=== PATIENT | male | born 1955 | race Caucasian/White ===

== ENCOUNTER → 2018-01-05 11:10 | Outpatient (REF) | payer MEDICARE, MEDICAID, SELFPAY ==
[2018-01-05 18:25] LABS: Abs Immature Grans 0.01 k/cumm (0.0-0.09); Absolute Basophil Count 0.02 k/cumm (0.0-0.2); Absolute Eosinophil Count 0.09 k/cumm (0.0-0.7); Absolute Lymphocyte Count 1.75 k/cumm (1.2-3.4); Absolute Neutrophil Count 2.55 k/cumm (1.2-6.7); Basophils % 0.4; Eosinophils % 1.8; HCT 39.7 % (40.0-50.0); HGB 13.8 g/dL (13.5-17.5); Immature Grans % 0.2; Lymphocytes % 35.6; Mean Corp. HGB Concentration 34.8 g/dL (32.0-36.0); Mean Corpuscular Hemoglobin 30.9 pg (27.0-33.0); Mean Corpuscular Volume 88.8 fL (80-95); Mean Platelet Volume 11.4 fL (8.0-11.0); Monocytes % 10.2; Neutrophils % 51.8; Platelet Count 146 x1000/uL (130-400); RBC 4.47 m/cumm (4.50-6.00); White Blood Cell Count 4.92 k/cumm (4.4-10.8)
[2018-01-05 18:39] LABS: ALT 33 U/L (12-78); AST 26 U/L (15-37); Albumin 3.9 g/dL (3.4-5.0); Alkaline Phosphatase 137 U/L (46-116); BUN 18 mg/dL (7-18); Bilirubin, Total 0.7 mg/dL (0.2-1.0); CREATININE 1.21 mg/dL (0.70-1.30); Calcium 8.4 mg/dL (8.5-10.1); Chloride 105 mmol/L (98-107); Glucose 98 mg/dL (70-100); Potassium 4.1 mmol/L (3.5-5.1); Sodium 138 mmol/L (136-145); TSH 3.32 uIU/mL (0.358-3.74); Total Protein 7.1 g/dL (6.4-8.2)
== END ==
LOC: NCHCN 11:10
PROVIDERS: PCP Physician Assistant Medical; Visit Provider Physician Assistant Medical
DX: I10 Essential (primary) hypertension (principal); R41.3 Other amnesia
CPT/HCPCS: 80053; 84443; 85025

== ENCOUNTER 2018-04-05 00:58 | Outpatient (CLI) | payer MEDICARE, MEDICAID, SELFPAY ==
--- NOTE | 2018-04-05 12:48 | DI.RAD_ITS ---
SYMPTOM/DIAGNOSIS: COUGH, R05 PA AND LATERAL CHEST: Comparison is made with 19 November 2016. The heart size is normal. The lungs are clear. No infiltrate or effusion is seen. IMPRESSION: Negative chest x-ray.
== END 2018-04-05 01:18 ==
PROVIDERS: PCP Physician Assistant Medical; Visit Provider Physician Assistant Medical
DX: R05 Cough (principal)
CPT/HCPCS: 71046

== ENCOUNTER 2018-06-06 19:10 | Emergency (ER) | payer MEDICARE, MEDICAID, SELFPAY ==
[2018-06-06 19:25] VITALS: BP 146/71; PULSE 82; RESP 16; TEMP 36.7; O2SAT 97
--- NOTE | 2018-06-06 19:38 | DI.RAD_ITS ---
SYMPTOMS/DIAGNOSIS: DORSAL SWELLING, PAIN, HX OF GOUT LEFT FOOT: No fracture or dislocation is seen. There are no bony erosions. There is soft tissue swelling over the dorsum of the foot. Vascular calcifications are seen. There are mild degenerative changes of the first MTP joint. IMPRESSION: No acute abnormality.
--- NOTE | 2018-06-06 19:38 | ED.GENADUL_ITS ---
Discharge Plan Disposition Patient Disposition: HOME Condition: Stable Discharge Details Chief Complaint: Cellulitis Clinical Impression: Cellulitis Primary Care Provider: Henrique Washington V ED Provider: Napoleon Prajapati Home Meds and New Rx's Prescriptions: New acetaminophen [Mapap Extra Strength] 500 MG tablet 1,000 mg PO Q6H 5 Days Qty: 60 RF: 0 cephalexin [Keflex] 500 mg capsule 500 mg PO QID 7 Days Qty: 28 RF: 0 ibuprofen [Motrin IB] 200 MG tablet 600 mg PO Q6H 5 Days Qty: 20 RF: 0 No Action nitroglycerin [Nitrostat] 0.4 MG tablet, sublingual 1 tab Sublingual PRN RF: 0 fluoxetine [Prozac] 20 MG capsule 40 mg PO DAILY RF: 0 ibuprofen 800 MG tablet 800 mg PO TID Qty: 30 RF: 0 naproxen 500 MG tablet 500 mg PO BID PRN (Reason: Pain) Qty: 14 RF: 0 Discharge Instructions Instructions: Cellulitis (ED) Additional Instructions: Please take the antibiotic as directed. Please take Tylenol and Motrin for pain. If you notice any worsening of your symptoms, or any new symptoms such as spreading of the redness of your ankle, vomiting, diarrhea, fever, chills, shortness of breath, chest pain, numbness, weakness, or fainting , please return immediately to the emergency department for reevaluation. Please follow up with your primary care provider as soon as possible for reassessment and reevaluation. As always, it was a pleasure participating in your medical care today. Referrals: Henrique Washington V [Primary Care Provider] - Medical Decision Making <Meir Norwood MD - Last Filed: 06/06/18 19:37> 62-year-old male presents from home with 2 days of left foot pain and erythema. Right is afebrile afebrile on.. Foot is locally edematous and tender. Differential diagnosis includes gouty arthritis versus cellulitis, must exclude underlying bony abnormality. Patient referred for laboratory and x-ray. As it is change of shift, please see Dr. Prajapati's note regarding details of the patient's diagnostic find <Napoleon Prajapati DO - Last Filed: 06/06/18 21:40> This case was signed out to me my my colleague Dr. Meir Norwood. We were pending laboratory and imaging workup at that time. Patient's laboratory workup has returned, no evidence of elevated WBC count, no left shift, electrolytes are normal, renal function is benign. The patient's uric acid level is normal, CRP is slightly elevated at 1.46. Upon my reexamination of the patient he continues to demonstrate stable and reassuring vital signs, redness is mild and limited to the dorsum of the left foot. No signs of subcutaneous crepitus, compartments are soft. Capillary refill is brisk. Signs and symptoms do appear similar to mild cellulitis, however they are also clinically food products sales representative of potential gout. Clearly the patient can still have an acute episode of gout with a normal uric acid level. Because of his elevated CRP we will cautiously recommend antibiotics, will give his first dose of Keflex here and a prescription to go home with. Patient's x-ray shows no evidence of acute bony pathology. No evidence of erosive arthritis. For gout we will recommend Tylenol and Motrin for home use. Recommended holding off on naproxen for the time being. We discussed red flags which return the post importance of close PCP follow-up. I have extensively reviewed the treatment plan and discharge instructions with the patient and their family. I have addressed all patient concerns at this time. The patient and family was made aware of what symptoms to monitor for that would warrant a return to the emergency department. Discussed the plan with the patient and family, they demonstrate verbal understanding and agreement with our assessment and plan at this time. TECHNIQUE: XR Left foot 3 or more views. COMPARISON: No relevant prior studies available. FINDINGS: Bones/joints: Generative changes in the medial mid foot. Minimal narrowing of the first metatarsal phalangeal joint likely on a degenerative basis with no focal erosions. No acute fracture or subluxation. Soft tissues: Generalized soft tissue swelling. Vasculature: Atherosclerosis. IMPRESSION: No acute bony pathology. No specific radiographic evidence of an erosive arthritis. Dictated and Authenticated by: Silvia Valencia MD. HPI <Meir Norwood MD - Last Filed: 06/06/18 19:37> General Mode of arrival: ambulatory . Date/Time Provider Initiated Documentation: 06/06/18 19:10 . Limitations to Documentation: no limitations . Information obtained by: patient . History of Present Illness 62 year old M presents to the emergency department with the chief complaint of Left foot pain and redness over 2 days time., described as moderate, Quality is described as aching and dull, and is localized to the left and lower extremity. Patient started experiencing this day(s) and it has been constant. No relieving factors improve symptom(s), Other factors that worsen symptoms (Walking) . Patient notes no other symptoms.. Patient did receive the following treatments prior to arrival, none Related Data Home Medications Medication Instructions Recorded Confirmed nitroglycerin [Nitrostat] 1 tab SUBLINGUAL PRN 08/11/12 06/06/18 fluoxetine [Prozac] 40 mg PO DAILY tab-cap 06/24/17 06/06/18 ibuprofen 800 mg PO TID #30 tab 07/20/17 06/06/18 naproxen 500 mg PO BID PRN #14 tab 11/09/17 06/06/18 acetaminophen [Mapap Extra 1,000 mg PO Q6H 5 Days #60 tab 06/06/18 Strength] cephalexin [Keflex] 500 mg PO QID 7 Days #28 cap 06/06/18 ibuprofen [Motrin Ib] 600 mg PO Q6H 5 Days #20 tab 06/06/18 Previous Rx's Medication Instructions Recorded ibuprofen 800 mg PO TID #30 tab 07/20/17 naproxen 500 mg PO BID PRN #14 tab 11/09/17 acetaminophen [Mapap Extra 1,000 mg PO Q6H 5 Days #60 tab 06/06/18 Strength] cephalexin [Keflex] 500 mg PO QID 7 Days #28 cap 06/06/18 ibuprofen [Motrin Ib] 600 mg PO Q6H 5 Days #20 tab 06/06/18 Allergies Allergy/AdvReac Type Severity Reaction Status Date / Time omeprazole [From Prilosec] Allergy Intermediate Itching Unverified 06/06/18 19:31 omeprazole magnesium Allergy Intermediate Itching Unverified 06/06/18 19:31 [From Prilosec] oxycodone Allergy Itching Unverified 06/06/18 19:31 codeine [Codeine] AdvReac NAUSEA Unverified 06/06/18 19:31 General Stated Complaint: Cellulitis CATAI: 3 Review of Systems <Meir Norwood MD - Last Filed: 06/06/18 19:37> Review of Systems 6 systems reviewed and otherwise negative PFSH <Meir Norwood MD - Last Filed: 06/06/18 19:37> Medical History Blood glucose elevated (Chronic) Alcohol abuse (Chronic) Hypertension (Chronic) Memory impairment (Chronic) Situational depression (Acute) Surgical History Appendectomy (~2007) Arthroplasty EXOSTECTOMY Social History Smoking/Tobacco Use Status: Never Exam <Meir Norwood MD - Last Filed: 06/06/18 19:37> Narrative Exam Narrative: GEN: awake, alert, oriented 3. Pleasant, well groomed, interactive. HEAD: Normocephalic, atraumatic ENT: Mucous membranes moist, oropharynx unremarkable, External ear exam unremarkable EYES: PERRL, EOMI NECK: Full ROM, no RONIT, no menigismus EXT: Full ROM, edematous left foot with dorsal erythema and tenderness to palpation. There is no lymphangitic proximal streak. Neuro: Grossly normal neurologic exam, conversant, interactive. Psych: Speech fluent, thoughts congruent, affect normal Course <Meir Norwood MD - Last Filed: 06/06/18 19:37> Vital Signs Temperature 36.7 C 06/06/18 19:25 Pulse 82 06/06/18 19:25 Respiratory Rate 16 06/06/18 19:25 Blood Pressure 146/71 H 06/06/18 19:25 Pulse Oximetry 97 06/06/18 19:25 Temperature 36.7 C 06/06/18 19:25 Temperature Source Tympanic 06/06/18 19:25 Pulse 82 06/06/18 19:25 Respiratory Rate 16 06/06/18 19:25 Respiratory Effort 06/06/18 19:25 Blood Pressure 146/71 H 06/06/18 19:25 Pulse Oximetry 97 06/06/18 19:25 Oxygen Delivery Method Room Air 06/06/18 19:25 Oxygen Flow Rate 0 06/06/18 19:25 Pain Level 8 06/06/18 19:25
[2018-06-06 20:24] LABS: Abs Immature Grans 0.01 k/cumm (0.0-0.09); Absolute Basophil Count 0.02 k/cumm (0.0-0.2); Absolute Eosinophil Count 0.07 k/cumm (0.0-0.7); Absolute Monocyte Count 0.76 k/cumm (0.11-0.7); Absolute Neutrophil Count 3.44 k/cumm (1.2-6.7); Basophils % 0.3; Eosinophils % 1.1; HCT 35.8 % (40.0-50.0); HGB 12.7 g/dL (13.5-17.5); Immature Grans % 0.2; Lymphocytes % 29.5; Mean Corp. HGB Concentration 35.5 g/dL (32.0-36.0); Mean Corpuscular Hemoglobin 31.4 pg (27.0-33.0); Mean Corpuscular Volume 88.4 fL (80-95); Mean Platelet Volume 10.5 fL (8.0-11.0); Monocytes % 12.5; Neutrophils % 56.4; Platelet Count 123 x1000/uL (130-400); RBC 4.05 m/cumm (4.50-6.00); RBC Distribution Width 12.3 % (11.8-14.1)
--- NOTE | 2018-06-06 20:37 | DI.VRAD_ITS ---
EXAM: XR Left Foot Complete, 3 or more Views EXAM DATE/TIME: 06/06/2018 7:38 PM CLINICAL HISTORY: 62 years old, male; Signs and symptoms; Swelling, leg or foot; Patient HX: Dorsal swelling, pain, HX of gout TECHNIQUE: XR Left foot 3 or more views. COMPARISON: No relevant prior studies available. FINDINGS: Bones/joints: Generative changes in the medial mid foot. Minimal narrowing of the first metatarsal phalangeal joint likely on a degenerative basis with no focal erosions. No acute fracture or subluxation. Soft tissues: Generalized soft tissue swelling. Vasculature: Atherosclerosis. IMPRESSION: No acute bony pathology. No specific radiographic evidence of an erosive arthritis. Dictated and Authenticated by: Silvia Valencia MD. Ordering:BRANDI Worley MD
[2018-06-06 21:08] LABS: ALT 34 U/L (12-78); AST 24 U/L (15-37); Albumin 3.5 g/dL (3.4-5.0); Alkaline Phosphatase 175 U/L (46-116); Anion Gap 8.5 mmol/L (3-11); BUN 20 mg/dL (7-18); Bilirubin, Total 0.4 mg/dL (0.2-1.0); C-Reactive Protein 1.46 mg/dL (0.0-0.3); CO2 27.5 mmol/L (21.0-32.0); CREATININE 1.07 mg/dL (0.70-1.30); Calcium 8.7 mg/dL (8.5-10.1); Chloride 105 mmol/L (98-107); Glucose 110 mg/dL (70-100); Potassium 3.7 mmol/L (3.5-5.1); Sodium 141 mmol/L (136-145); Total Protein 6.6 g/dL (6.4-8.2); Uric Acid 6.4 mg/dL (3.5-7.2)
[2018-06-06] MEDS: Cephalexin 500 MG CAP PO (21:34)
[2018-06-06] MEDS: Ibuprofen 800 MG TAB PO (21:35)
== END 2018-06-06 21:53 | disposition home or self-care (01) ==
PROVIDERS: Emergency Medicine; Emergency Provider Student in an Organized Health Care Education/Training Program; PCP Physician Assistant Medical
DX: L03.116 Cellulitis of left lower limb (principal); I10 Essential (primary) hypertension
CPT/HCPCS: 36415; 80053; 99284; 73630; 84550; 85025; 86140

== ENCOUNTER 2018-07-02 19:12 | Emergency (ER) | payer MEDICARE, MEDICAID, SELFPAY ==
--- NOTE | 2018-07-02 19:17 | NUR.NOTE ---
pt is poor historian. has had history of coughing fits for the past few months has been following up PCP luh harrington MD and has had X-ray for it at [facility] however is unsuire of results. pt is here today because fit was exceptionally bad today
[2018-07-02 19:19] VITALS: BP 151/85; PULSE 90; RESP 17; TEMP 37.2; O2SAT 93
--- NOTE | 2018-07-02 19:31 | DI.RAD_ITS ---
SYMPTOM/DIAGNOSIS: COUGH PA AND LATERAL CHEST: Comparison is made with 04/05/18. The heart size is normal. The lungs are well inflated and clear. No infiltrate or effusion is seen. IMPRESSION: Negative chest xray.
--- NOTE | 2018-07-02 19:53 | ED.GENADUL_ITS ---
Discharge Plan Disposition Patient Disposition: HOME Condition: Stable Discharge Details Chief Complaint: RespSymp Clinical Impression: Chronic cough, Gastroesophageal reflux disease Primary Care Provider: Henrique Washington V ED Provider: Delfino Montano Home Meds and New Rx's Prescriptions: Continued nitroglycerin [Nitrostat] 0.4 MG tablet, sublingual 1 tab Sublingual PRN RF: 0 fluoxetine [Prozac] 20 MG capsule 40 mg PO DAILY RF: 0 ranitidine HCl [Zantac] 150 mg Tablet 150 mg PO DAILY Qty: 14 RF: 0 Discharge Instructions Instructions: Gastroesophageal Reflux Disease (ED), Chronic Cough (ED) Additional Instructions: Please take medication as prescribed and return to emergency department for any new or significant worsening of symptoms or further concerns you may have. Otherwise it is highly recommended that you follow-up with your primary care provider for reassessment within the next week. Referrals: Henrique Washington V [Primary Care Provider] - 1 week (For reassessment of your symptoms.) Medical Decision Making <Delfino Montano NP - Last Filed: 07/02/18 21:32> Patient presenting the emergency department for chief complaint of cough. Patient states that he has had cough for 8 months and is followed up with primary care provider and had chest x-ray with no results or changes in his meds. This evening patient's daughter states that he started coughing and had a syncopal episode immediately after the coughing spell. Patient denies any pain or discomfort at this time. Physical exam is unremarkable but patient does state some sore throat, denies any fever and chills, nausea vomiting, headache, neurological deficit weakness. Plan to check labs, EKG, and chest x-ray. Please see note below for EKG, labs are nondiagnostic with negative troponin, d- dimer of 563 but for age adjustment is negative for PE , which I have low suspicion of given patient having symptoms for 8 months. Chest x-ray reviewed and interpreted by myself as negative. I feel that patient's symptoms may be secondary to his heartburn, GERD, alcohol abuse. I feel that karie's syncopal episode was due to severe coughing. Patient has remained asymptomatic in the emergency department. Patient given GI cocktail and Zantac and informed that he should take his Zantac daily and follow-up with his primary care provider. Return precautions were discussed. After discussion of diagnosis and plan of care patient has no further needs, questions, or concerns and states clear understanding to return to the emergency department for any worsening symptoms or further concerns. <Napoleon Prajapati DO - Last Filed: 07/02/18 19:55> ECG Data Interpretation: EKG 19: 50 Rate 81, sinus rhythm, intervals normal, no significant elevations or depressions, no T wave inversions, no Q waves. Premature ventricular contraction is noted. No other abnormalities. HPI <Delfino Montano NP - Last Filed: 07/02/18 21:32> General Mode of arrival: ambulatory . Date/Time Provider Initiated Documentation: 07/02/18 19:13 . Limitations to Documentation: no limitations . Information obtained by: patient and RN notes reviewed . History of Present Illness 62 year old M presents to the emergency department with the chief complaint of Cough, Quality is described as other (Denies pain), Patient started experiencing this month(s) (8) and it has been constant. No relieving factors improve symptom(s), No exacerbating factors reported . Patient notes no other symptoms.. Patient did receive the following treatments prior to arrival, none Related Data Home Medications Medication Instructions Recorded Confirmed nitroglycerin [Nitrostat] 1 tab SUBLINGUAL PRN 08/11/12 07/02/18 fluoxetine [Prozac] 40 mg PO DAILY tab-cap 06/24/17 07/02/18 ranitidine HCl [Zantac] 150 mg PO DAILY #14 tab 07/02/18 Previous Rx's Medication Instructions Recorded ranitidine HCl [Zantac] 150 mg PO DAILY #14 tab 07/02/18 Allergies Allergy/AdvReac Type Severity Reaction Status Date / Time omeprazole [From Prilosec] Allergy Intermediate Itching Unverified 07/02/18 19:56 omeprazole magnesium Allergy Intermediate Itching Unverified 07/02/18 19:56 [From Prilosec] oxycodone Allergy Itching Unverified 07/02/18 19:56 codeine [Codeine] AdvReac NAUSEA Unverified 07/02/18 19:56 General Stated Complaint: RespSymp CATIA: 4 Review of Systems <Delfino Montano NP - Last Filed: 07/02/18 21:32> Constitutional Denies chills and Denies fever(s) ENT Reports sore throat Cardiovascular Denies chest pain, Denies chest pain at rest, Reports syncope, Denies rapid heart rate, Denies irregular heart rhythm, Denies lightheadedness, Denies palpitations, Denies dyspnea and Denies dyspnea on exertion Respiratory Reports cough, Denies hemoptysis, Denies pain on inspiration, Denies dyspnea, Denies dyspnea on exertion, Denies stridor and Denies wheezing Gastrointestinal Denies abdominal pain and Reports heartburn Neurologic Reports syncope Endocrine Denies palpitations Allergic/Immunologic Denies wheezing PFSH <Delfino Montano NP - Last Filed: 07/02/18 21:32> Medical History Blood glucose elevated (Chronic) Alcohol abuse (Chronic) Hypertension (Chronic) Memory impairment (Chronic) Situational depression (Acute) Surgical History Appendectomy (~2007) Arthroplasty EXOSTECTOMY Social History Smoking and Tabacco status: Never Exam <Delfino Montano NP - Last Filed: 07/02/18 21:32> Const General: cooperative, healthy appearing, comfortable, no acute distress, not diaphoretic and not ill appearing Nutritional Appearance: average body habitus Orientation: alert, awake and oriented x3 Limitations: mental status not altered Neck Neck: normal visual inspection, full ROM, trachea midline, supple and no anterior neck swelling Thyroid: thyroid normal Carotids: normal carotid upstroke and no bruits Chest Chest: normal inspection of the chest Resp Effort & Inspection: normal respiratory effort and able to speak in complete sentences Auscultation: clear to auscultation bilaterally Cardio Jugular venous pressure: no JVD Palpation: normal PMI Rate: regular rate Rhythm: regular rhythm Heart Sounds: S1 normal, S2 normal, no click, no gallops, no murmurs and no rubs Bruits: no abdominal aortic bruits and no carotid bruits Pulses: radial pulses present bilaterally 2+ GI Inspection: normal to inspection Palpation: soft, no aortic enlargement, no pulsatile masses and nontender Auscultation: normal bowel sounds Skin General skin exam: no rashes or lesions noted Neuro General: alert, awake, oriented x3, tone normal and moves all extremities Course <Delfino Montano NP - Last Filed: 07/02/18 21:32> Vital Signs Temperature 37.2 C 07/02/18 19:19 Pulse 90 07/02/18 19:19 Respiratory Rate 17 07/02/18 19:19 Blood Pressure 151/85 H 07/02/18 19:19 Pulse Oximetry 93 L 07/02/18 19:19 Temperature 37.2 C 07/02/18 19:19 Temperature Source Skin 07/02/18 19:19 Pulse 90 07/02/18 19:19 Respiratory Rate 17 07/02/18 19:19 Blood Pressure 151/85 H 07/02/18 19:19 Blood Pressure Position Supine 07/02/18 19:19 Pulse Oximetry 93 L 07/02/18 19:19 Oxygen Delivery Method Room Air 07/02/18 19:19 Oxygen Flow Rate 0 07/02/18 19:19 Pain Level 2 07/02/18 19:19
[2018-07-02 20:02] LABS: ALT 30 U/L (12-78); AST 22 U/L (15-37); Albumin 3.8 g/dL (3.4-5.0); Alkaline Phosphatase 136 U/L (46-116); Anion Gap 11.9 mmol/L (3-11); BUN 22 mg/dL (7-18); Bilirubin, Total 0.6 mg/dL (0.2-1.0); CO2 24.1 mmol/L (21.0-32.0); CREATININE 1.11 mg/dL (0.70-1.30); Calcium 8.9 mg/dL (8.5-10.1); Chloride 100 mmol/L (98-107); Glucose 96 mg/dL (70-100); Magnesium 2.2 mg/dL (1.8-2.4); Potassium 4.1 mmol/L (3.5-5.1); Sodium 136 mmol/L (136-145)
[2018-07-02 20:03] LABS: INR 0.9 (0.9-1.1); PTT Activated 25.7 sec (21.0-31.4)
[2018-07-02 20:04] LABS: Troponin I < 0.02 ng/mL (0.00-0.06)
[2018-07-02 20:08] LABS: Abs Immature Grans 0.03 k/cumm (0.0-0.09); Absolute Basophil Count 0.02 k/cumm (0.0-0.2); Absolute Eosinophil Count 0.08 k/cumm (0.0-0.7); Absolute Lymphocyte Count 2.05 k/cumm (1.2-3.4); Absolute Neutrophil Count 4.67 k/cumm (1.2-6.7); Basophils % 0.3; Eosinophils % 1.1; HGB 14.5 g/dL (13.5-17.5); Immature Grans % 0.4; Lymphocytes % 27.5; Mean Corp. HGB Concentration 34.5 g/dL (32.0-36.0); Mean Corpuscular Hemoglobin 30.6 pg (27.0-33.0); Mean Corpuscular Volume 88.6 fL (80-95); Mean Platelet Volume 11.1 fL (8.0-11.0); Monocytes % 8.1; Neutrophils % 62.6; Platelet Count 145 x1000/uL (130-400); RBC 4.74 m/cumm (4.50-6.00); RBC Distribution Width 12.7 % (11.8-14.1); White Blood Cell Count 7.45 k/cumm (4.4-10.8)
[2018-07-02 20:18] LABS: D-Dimer 565 ng/mlFEU (<500)
--- NOTE | 2018-07-02 20:39 | DI.VRAD_ITS ---
EXAM: XR Chest, 2 Views EXAM DATE/TIME: 07/02/2018 8:17 PM CLINICAL HISTORY: 62 years old, male; Signs and symptoms; Cough TECHNIQUE: XR of the chest, 2 views. COMPARISON: CR XR CHEST 2V PA LATERAL 04/05/2018 12:41 PM FINDINGS: Lungs: Unremarkable. No consolidation. Pleural space: Unremarkable. No pleural effusion. No pneumothorax. Heart/Mediastinum: Unremarkable. No cardiomegaly. Bones/joints: No acute skeletal pathology. IMPRESSION: Negative for acute thoracic pathology. Dictated and Authenticated by: Sudhakar Brown MD. Ordering:BOUBACAR Saleh MD
[2018-07-02] MEDS: Normal Saline Flush 10 ML SYR IVP (21:10)
--- NOTE | 2018-07-05 08:29 | CMPROGNOTE_ITS ---
Care Management Progress Note 07/05-Chad CONTENT PRODUCTION SPECIALIST requested assistance with a PCP (Aleah Washington) f/u in 1-2 weeks for chronic cough. Referral faxed to [facility] this am.
== END 2018-07-02 21:36 | disposition home or self-care (01) ==
PROVIDERS: Emergency Provider Nurse Practitioner Family; PCP Physician Assistant Medical
DX: R55 Syncope and collapse (principal); R05 Cough; K21.9 Gastro-esophageal reflux disease without esophagitis; I10 Essential (primary) hypertension
CPT/HCPCS: 36415; 80053; 93005; 99285; 71046; 83735; 84484; 85025; 85379; 85610; 85730; 93010

== ENCOUNTER → 2018-07-19 12:57 | Outpatient (BNVA) | payer MEDICARE, MEDICAID, SELFPAY | PROVIDERS: PCP Physician Assistant Medical; Referring Provider Physician Assistant Medical; Visit Provider Physical Therapy Assistant | DX: Z12.11 Encounter for screening for malignant neoplasm of colon (principal); Z86.010 Personal history of colon polyps; K21.9 Gastro-esophageal reflux disease without esophagitis; I10 Essential (primary) hypertension | CPT/HCPCS: 99212 ==

== ENCOUNTER 2018-08-13 07:27 | Day surgery (SDC) | payer MEDICARE, MEDICAID, SELFPAY ==
[2018-08-13 08:47] VITALS: BP 144/94; PULSE 77; RESP 16; TEMP 36.3; O2SAT 98
[2018-08-13] MEDS: Lactated Ringers 1,000 ML 80 ML IV (08:55)
--- NOTE | 2018-08-13 09:30 | STOM_PTH ---
PATIENT: Dylon Navarro LOC: [facility] U#:[id number] AGE/SX: 62/M ROOM: RE08/13/[address]: Pastora Noel : 1955 BED: DIS: 08/13/2018 SPEC #: [id number] RECD: 08/13/18 12:53 STATUS: CHARLETTE REMirza #: [id number] FRANCISCO: 08/13/18 09:[address]: Pastora Noel DEPT: Surgical Specimen RECD BY: Rosemarie Francis ENTERED: 08/13/18 12:55 SP TYPE: STOMACH OTHR DR: Henrique Washington V Tissues: 1 - BIOPSY BOWEL 2 - STOMACH BIOPSY 3 - STOMACH BIOPSY 4 - ESOPHAGUS BIOPSY 5 - ESOPHAGUS BIOPSY Procedures: GROSS AND MICRO LEVEL 4 Comments: [id number]
--- NOTE | 2018-08-13 10:05 | W.PM.ENDDOP ---
Date of service: 08/13/18 Time of Service: 10:05 Endoscopy Report DATE OF PROCEDURE: 08/13/18 PRE-OP DIAGNOSIS: chronic cough/ hx of A. polyps POST-OP DIAGNOSIS: other (gastropathy and divertic ) PROCEDURE: egd w/ bx CE SURGEON: Pastora Noel ANESTHESIA: GETA ESTIMATED BLOOD LOSS: 2 PATHOLOGY: other COMPLICATIONS: None DISPOSITION: same day INDICATIONS: see note PREP: Miralax FINDINGS: see notes PROCEDURE DESCRIPTION: After informed consent was obtained the patient was take to the procedure room and placed in a supine position. Monitors were applied and a time out was done. The patients name, date of , procedure type, allergies to medications and metal in their body was reviewed. A bite block was placed and the patient was sedated. Once sedated and comfortable the gastroscope was advanced through the oropharynx which was grossly normal into the esophagus. The proximal and mid-esophagus were nl. In the distal esophagus there was nl noted. The scope was advanced into the stomach and through the pylorus into the 3rd portion of the duodenum. The duodenum was noted to be nl. Biopsies were done: all specimens retrieved and no bleeding was noted. the lining of the stomach had the appearance of chronic gastropathy due to ETOH/chemical exposure- bx pd. no signs of portal HTN. no varices. no bleeding or ulceration. The scope was retracted back into the stomach and biopsies were done to rule out H. pylori. There were no ulcers. The scope was retroflexed. The cardia and fundus were noted to be normal. There is no a hiatal hernia noted. The scope was retracted back into the esophagus and biopsies were done of the GE junction to rule out Partida's. The Z line was regular. The GE junction was at 40] cm. After informed consent was obtained the patient was taken to the procedure room and placed in a left decubitous position. Monitors were applied and a time out was done. The patients name, date of , procedure, allergies to medications and metal in their body was reviewed. The patient was then sedated. Once sedated and comfortable a rectal exam was done. External exam was normal. Internal exam revealed a normal sphincter tone and no palpable masses. The prostate no palpable masses. The scope was then introduced and retrofelexed. no internal hemorrhoids were identified. The scope was then advanced to the cecum w/ out difficulty. The TI and appendiceal orifice were identified. The prep was good. The scope was then slowly retracted over 12 minutes back into the rectum. Polyps were removed at -no. pt had a moderate amount of small mouthed diverticula in the sigmoid colon. There were no signs of active bleeding or infection. The scope was removed and the patient was woken up and taken back to Same day surgery in stable condition. no bx were done of the colon. The patient tolerated the procedure well and there were no immediate complications. Follow up: The patient should follow up in 5 years unless they develop changes in bowel habits or other new gastrointestinal complaints.
--- NOTE | 2018-08-13 10:07 | W.PM.DSUDISC ---
Discharge Plan Disposition Patient Disposition: HOME Condition: Good Discharge Details Reason For Visit: egd and colonoscopy Attending Provider: Pastora Noel Primary Care Provider: Henrique Washington V Home Meds and New Rx's Prescriptions: New Dexilant 30 mg capsule,biphase delayed releas 30 mg PO DAILY Qty: 30 RF: 11 Continued nitroglycerin [Nitrostat] 0.4 MG tablet, sublingual 1 tab Sublingual PRN RF: 0 fluoxetine [Prozac] 20 MG capsule 40 mg PO DAILY RF: 0 Symbicort 160-4.5 mcg/actuation Hfa Aerosol Inhaler 1 puff INHALATION BID RF: 0 acetaminophen [Tylenol] 325 mg Capsule 500 mg PO Q6H PRNRF: 0 Discontinued bisacodyl [Dulcolax (bisacodyl)] 5 mg tablet,delayed release (DR/EC) 5 mg PO ONCE Qty: 4 RF: 0 polyethylene glycol 3350 17 gram/dose powder 238 g PO ONCE Qty: 238 RF: 0 ranitidine HCl [Zantac] 150 mg Tablet 150 mg PO DAILY Qty: 14 RF: 0 Discharge Instructions Instructions: Diverticulosis (DC), High Fiber Diet (GEN), High Fiber Diet (DC) Additional Instructions: Findings:gastropahty diverticula Follow up: Fu in office w/ Dr. Noel in 2 wks repeat CE in 5 yrs time Please call if you develop: fevers >101.5 Nausea or Vomiting Abdominal pain that is not transient DAY SURGERY UNIT POST COLONOSCOPY INSTRUCTIONS 1. Because there will be medication in your system for the next 24 hours, you may feel a little sleepy. Your coordination will be affected. Therefore: a. Do not drive or operate dangerous equipment for 24 hours. b. Do not drink alcohol beverages for 24 hours (not even beer). c. Plan to go home and rest for the day. 2. Generally there are no restrictions on your activity after a day or so has gone by, but you may feel a bit fatigued for a few days. 3 After you arrive home you may have a light meal and return to a normal diet as you can tolerate it without feeling sick to your stomach. 4. After surgery, you may feel pain or discomfort. This should be only transient, but if it persists please contact your doctor. 5. If there are any questions regarding the findings of your procedure, please feel free to contact your doctor. 6. If you are unable to contact your doctor with a problem, contact the hospital at [phone]. 7. Continue all your regular medications unless directed otherwise. I understand the above instructions and have no questions. Signature of Patient or Responsible Adult Escort Date/Time Name of Responsible Adult Escort Signature of Nurse Date/Time Activity:: no lifting over 10#'s x 24 hrs. no driving x 24 hrs Diet:: bland diet x 24 hrs Discharge Orders Discharge Orders: Discharge Order (Routine); Ordered 08/13/18 Ordered By: Pastora Noel DS: Diagnosis Discharge Diagnosis (1) Alcohol abuse: Status: Acute (2) GERD (gastroesophageal reflux disease): Status: Chronic (3) Gastropathy: Status: Acute (4) Gastropathy: Status: Acute (5) Diverticula of colon: Status: Acute
== END 2018-08-13 10:51 | disposition home or self-care (01) ==
PROVIDERS: PCP Physician Assistant Medical; Visit Provider Surgery
PROC: (CPT 43239; principal; 2018-08-13 09:15)
DX: Z12.11 Encounter for screening for malignant neoplasm of colon (principal); K57.30 Diverticulosis of large intestine without perforation or abscess without bleeding; Z86.010 Personal history of colon polyps; R05 Cough; K21.0 Gastro-esophageal reflux disease with esophagitis; K31.89 Other diseases of stomach and duodenum; K29.80 Duodenitis without bleeding; F10.10 Alcohol abuse, uncomplicated; I10 Essential (primary) hypertension
CPT/HCPCS: 43239; 45378; 88305

== ENCOUNTER → 2018-08-23 10:40 | Outpatient (BNVA) | payer MEDICARE, MEDICAID, SELFPAY | PROVIDERS: PCP Physician Assistant Medical; Referring Provider Physician Assistant Medical; Visit Provider Surgery | DX: K31.9 Disease of stomach and duodenum, unspecified (principal); K21.9 Gastro-esophageal reflux disease without esophagitis; I10 Essential (primary) hypertension | CPT/HCPCS: 99212 ==

== ENCOUNTER 2019-01-04 11:28 | Outpatient (REF) | payer MEDICARE, MEDICAID, SELFPAY ==
[2019-01-04 18:37] LABS: HCT 39.6 % (40.0-50.0); HGB 13.8 g/dL (13.5-17.5); Mean Corp. HGB Concentration 34.8 g/dL (32.0-36.0); Mean Corpuscular Hemoglobin 30.6 pg (27.0-33.0); Mean Corpuscular Volume 87.8 fL (80-95); Mean Platelet Volume 11.1 fL (8.0-11.0); Platelet Count 168 x1000/uL (130-400); RBC 4.51 m/cumm (4.50-6.00); RBC Distribution Width 13.1 % (11.8-14.1); White Blood Cell Count 4.92 k/cumm (4.4-10.8)
[2019-01-04 20:28] LABS: ALT 39 U/L (16-63); AST 26 U/L (15-37); Alkaline Phosphatase 150 U/L (46-116); Amylase 65 U/L (25-115); Anion Gap 13.1 mmol/L (3-11); BUN 16 mg/dL (7-18); Bilirubin, Direct 0.17 mg/dL (0.00-0.20); Bilirubin, Total 0.8 mg/dL (0.2-1.0); CO2 22.9 mmol/L (21.0-32.0); CREATININE 1.19 mg/dL (0.70-1.30); Calcium 8.6 mg/dL (8.5-10.1); Chloride 104 mmol/L (98-107); Glucose 123 mg/dL (70-100); Lipase 182 U/L (73-393); Potassium 3.7 mmol/L (3.5-5.1); Sodium 140 mmol/L (136-145); Total Protein 7.3 g/dL (6.4-8.2)
[2019-01-06 12:03] LABS: HBs Antibody, Quant <3.1 mIU/mL; Hepatitis B Surface Ab Negative; Hepatitis C Ab w Rflx HCV PCR Negative (NEGAT)
[2019-01-06 12:22] LABS: Hep A Total Ab w Rflx IgM Negative (NEGAT)
== END 2019-01-04 11:48 ==
LOC: NCHCN 11:28
PROVIDERS: PCP Physician Assistant Medical; Visit Provider Nurse Practitioner Family
DX: F10.10 Alcohol abuse, uncomplicated (principal); R10.11 Right upper quadrant pain; Z11.59 Encounter for screening for other viral diseases
CPT/HCPCS: 80048; 80076; 83690; 85027; 86706; 86709; 86803; 82150

== ENCOUNTER 2019-01-05 07:13 | Outpatient (CLI) | payer MEDICARE, MEDICAID, SELFPAY ==
--- NOTE | 2019-01-05 08:57 | DI.US_ITS ---
SYMPTOM/DIAGNOSIS: RUQ ABD PAIN, R10.11 ABDOMEN ULTRASOUND: Comparison is made with 06/26/15. Comparison CT scan is 11/19/16. The aorta is of normal caliber. The inferior vena cava is unremarkable. The liver is normal in size measuring 14.2 cm. There is diffuse increased echogenicity of the liver consistent with hepatic steatosis. No discrete hepatic mass is seen. The gallbladder is unremarkable. No gallbladder wall thickening, stones, pericholecystic fluid or sludge is seen. The common duct is within normal limits at .4 cm. Portions of the pancreas were not visualized. The visualized portions were unremarkable. The spleen is normal in size and appearance. The kidneys are unremarkable except for a 1.2 cm. simple cyst in the left kidney. The cyst was seen on the CT scan from 11/19/16. IMPRESSION: Hepatic steatosis.
== END 2019-01-05 07:33 ==
PROVIDERS: PCP Physician Assistant Medical; Visit Provider Nurse Practitioner Family
DX: R10.11 Right upper quadrant pain (principal); K76.0 Fatty (change of) liver, not elsewhere classified
CPT/HCPCS: 76700

== ENCOUNTER 2019-02-17 01:00 | Outpatient (CLI) | payer MEDICARE, MEDICAID, SELFPAY ==
[2019-02-17] MEDS: Breeza Beverage 473 ML BTL PO (09:56)
[2019-02-17] MEDS: Omnipaque 350 MG/ML 50 ML BTL IJ (09:56)
[2019-02-17] MEDS: Omnipaque 350 MG/ML 100 ML BTL IJ (10:59)
--- NOTE | 2019-02-17 11:00 | DI.CT_ITS ---
EXAM: CT ABDOMEN PELVIS W CLINICAL HISTORY: RT UPPER QUADRANT ABD PAIN, R10.11. TECHNIQUE: COMPARISON: ABD PELVIS WITH CONTRAST from 11/19/2016 FINDINGS: CT examination of the abdomen pelvis was performed with bolus infusion of 100 cc of Omnipaque 350 and ingestion of dilute barium. Liver is unremarkable in appearance except for a couple of very tiny lo w-attenuation lesions too small to characterize but probably representing cysts. No biliary dilatati on seen. Gallbladder unremarkable by CT criteria. Spleen is unremarkable. Pancreas appears normal. Adrenals and kidneys are unremarkable except for couple of bilateral presumed small renal cysts. A bdominal aorta is of normal diameter and no major vascular abnormality is seen. No abdominal or pelv ic adenopathy. No significant abdominal wall hernia seen. Marked colonic diverticulosis without luke dence of acute diverticulitis. IMPRESSION: No evidence of acute intra-abdominal process.
== END 2019-02-17 01:20 ==
PROVIDERS: PCP Physician Assistant Medical; Visit Provider Nurse Practitioner Family
DX: R10.11 Right upper quadrant pain (principal); K57.30 Diverticulosis of large intestine without perforation or abscess without bleeding
CPT/HCPCS: 74177; J3490; Q9967

== ENCOUNTER 2019-06-14 13:53 | Outpatient (CLI) | payer MEDICARE, MEDICAID, SELFPAY ==
--- NOTE | 2019-06-14 09:04 | DI.RAD_ITS ---
EXAM: RF BARIUM SWALLOW CLINICAL HISTORY: GLOBUS SENSATION F45.8 TECHNIQUE: 2D and realtime digital imaging was performed. CONTRAST MATERIAL: Oral barium contrast was administered. COMPARISON: No exams were available for comparison FINDINGS: Initial plain film shows heart size and pulmonary vasculature are within normal limits. Lungs are cl ear. No pleural effusion or pneumothorax is identified. Esophagus: The esophagus is patent with no evidence for erosions, fold thickening, strictures, or ma sses. With regards to the motility, there is a normal primary stripping wave. No tertiary contraction s were noted. There was penetration but no aspiration during the examination. There is a small hiat al hernia. No gastroesophageal reflux was identified during the examination. IMPRESSION: Penetration into the upper airway but no evidence of aspiration. Small hiatal hernia. No gastroesophageal reflux. FLUORO TIME: 1.55 minutes
[2019-06-14] MEDS: Barium Sulfate 60% W/V 355 ML BTL 50 ML PO (09:59)
[2019-06-14] MEDS: Barium Sulfate 700 MG TAB PO (10:00)
[2019-06-14] MEDS: Simethicone/Sod Bicarb/Cit Ac, 4 gram PACKET 1 PACKET PO (10:00)
== END 2019-06-14 14:13 ==
PROVIDERS: PCP Physician Assistant Medical; Visit Provider Nurse Practitioner Family
DX: F45.8 Other somatoform disorders (principal); K44.9 Diaphragmatic hernia without obstruction or gangrene
CPT/HCPCS: 74221; J3490

== ENCOUNTER 2019-07-22 02:15 | Outpatient (CLI) | payer MEDICARE, MEDICAID, SELFPAY ==
--- NOTE | 2019-07-22 11:14 | DI.CT_ITS ---
EXAM: CT HEAD WO CLINICAL HISTORY: H/O HEAD INJURY, Z87.828,MEMORY IMPAIRMENT, R41.3. TECHNIQUE: Imaging Protocol: Axial computed tomography images with coronal and sagittal reformatted images were created and reviewed COMPARISON: No exams were available for comparison FINDINGS: Ventricles and Extra axial spaces: Normal in size and morphology for the patient's age. Hemorrhage: None. Cerebral parenchyma: Normal. 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 Midline shift: None. Brainstem/Cerebellum: Normal. Calvarium: Normal. Visualized Paranasal sinuses/Mastoids: Complete opacification of the left frontal sinus. Opacificati on of several ethmoid air cells bilaterally. No fluid levels are present in the sinuses. Mastoid ai r cells are well pneumatized. Soft Tissues: Unremarkable. IMPRESSION: 1. No acute intracranial process. 2. Left frontal and ethmoid sinusitis. RADIATION DOSE DELIVERED: DATA REPOSITORY: All CT scans at this facility are submitted to the National Radiology Data Registry (NRDR) Dose Index Registry (DIR) with the [employer] (ACR). RADIATION OPTIMIZATION: All CT scans at this facility use at least one of these dose optimization te chniques: automated exposure control; mA and/or kV adjustment per patient size (includes targeted exa ms where dose is matched to clinical indication); or iterative reconstruction.
== END 2019-07-22 02:35 ==
PROVIDERS: PCP Nurse Practitioner Family; Visit Provider Nurse Practitioner Family
DX: R41.3 Other amnesia (principal); Z87.828 Personal history of other (healed) physical injury and trauma; J32.2 Chronic ethmoidal sinusitis; J32.1 Chronic frontal sinusitis
CPT/HCPCS: 70450

== ENCOUNTER 2020-01-03 11:56 | Outpatient (CLI) | payer MEDICARE, MEDICAID, SELFPAY ==
--- NOTE | 2020-01-03 11:45 | DI.RAD_ITS ---
EXAM: XR SHOULDER LT COMPLETE 2+V CLINICAL HISTORY: L shoulder pain TECHNIQUE: COMPARISON: CR LEFT SHOULDER COMPLETE from 06/24/2017 FINDINGS: Two views were obtained. There is apparent prior resection of the distal clavicle. There is an infe rior acromial spur. Minimal marginal osteophyte formation noted at the glenohumeral joint. There ma y be mild loss of the cartilaginous jointSpace of the glenohumeral joint. IMPRESSION: Degenerative changes as described above. RADIATION DOSE DELIVERED: Total DLP
== END 2020-01-03 12:16 ==
PROVIDERS: PCP Nurse Practitioner Family; Referring Provider Nurse Practitioner Family; Visit Provider Orthopaedic Surgery
DX: M19.012 Primary osteoarthritis, left shoulder (principal); M25.712 Osteophyte, left shoulder; M25.512 Pain in left shoulder; M75.82 Other shoulder lesions, left shoulder; I10 Essential (primary) hypertension
CPT/HCPCS: 20610; 99214; 73030; J1040

== ENCOUNTER → 2020-02-14 10:56 | Outpatient (BNVA) | payer MEDICARE, MEDICAID, SELFPAY | PROVIDERS: PCP Nurse Practitioner Family; Referring Provider Nurse Practitioner Family; Visit Provider Orthopaedic Surgery | DX: M25.512 Pain in left shoulder (principal); M75.82 Other shoulder lesions, left shoulder; I10 Essential (primary) hypertension | CPT/HCPCS: 99213 ==

== ENCOUNTER → 2020-04-10 10:28 | Outpatient (BNVA) | payer MEDICARE, MEDICAID, SELFPAY | PROVIDERS: PCP Nurse Practitioner Family; Referring Provider Nurse Practitioner Family; Visit Provider Orthopaedic Surgery | DX: M75.82 Other shoulder lesions, left shoulder (principal) | CPT/HCPCS: 20610; 99213; J1040 ==

== ENCOUNTER 2020-06-13 15:21 | Outpatient (REF) | payer OTHER, MEDICAID, SELFPAY ==
[2020-06-13 16:59] LABS: Abs Immature Grans 0.03 10^3/uL (0.0-0.06); Absolute Basophil Count 0.03 10^3/uL (0.0-0.2); Absolute Lymphocyte Count 1.73 10^3/uL (1.2-3.4); Absolute Monocyte Count 0.45 10^3/uL (0.1-0.8); Absolute Neutrophil Count 3.27 10^3/uL (1.2-6.7); Basophils % 0.5; Eosinophils % 1.8; HCT 43.6 % (40.0-50.0); HGB 14.7 g/dL (13.5-17.5); Immature Grans % 0.5; Lymphocytes % 30.8; MCH 29.1 pg (27.0-33.0); MCHC 33.7 % (32.0-36.0); MCV 86.3 fL (80-95); MPV 11.3 fL (8.0-11.0); Neutrophils % 58.4; Nucleated RBC 0 %; Platelet Count 171 10^3/uL (130-400); RBC 5.05 10^6/uL (4.36-5.78); RDW 12.5 % (11.8-14.1); RDW-SD 39.3 fL; WBC 5.61 10^3/uL (4.4-10.8)
[2020-06-13 17:37] LABS: ALT 37 U/L (16-63); AST 24 U/L (15-37); Albumin 4.4 g/dL (3.4-5.0); Alkaline Phosphatase 150 U/L (46-116); Anion Gap 9.8 mmol/L (3-11); BUN 17 mg/dL (7-18); Bilirubin, Total 0.7 mg/dL (0.2-1.0); CO2 26.2 mmol/L (21.0-32.0); CREATININE 1.1 mg/dL (0.70-1.30); Calcium 9.3 mg/dL (8.5-10.1); Chloride 102 mmol/L (98-107); Glucose 105 mg/dL (74-106); Potassium 4.3 mmol/L (3.5-5.1); Sodium 138 mmol/L (136-145); TSH (W/Ref FT4) 4.29 uIU/mL (0.36-3.74); Total Protein 7.8 g/dL (6.4-8.2)
[2020-06-13 17:56] LABS: Calculated LDL 128 mg/dL (<100); Cholesterol 234 mg/dL (<200); HDL Cholesterol 34 mg/dL (40-60); Triglyceride 364 mg/dL (<150)
[2020-06-13 18:02] LABS: Hemoglobin A1C 5.6 % (<5.7)
[2020-06-13 18:20] LABS: FREE T4 0.81 ng/dL (0.76-1.46)
== END 2020-06-13 15:22 | disposition home or self-care (01) ==
LOC: NCHCN 15:21
PROVIDERS: PCP Nurse Practitioner Family; Visit Provider Physician Assistant
DX: I10 Essential (primary) hypertension (principal); R73.9 Hyperglycemia, unspecified; F45.8 Other somatoform disorders; R41.3 Other amnesia; K21.9 Gastro-esophageal reflux disease without esophagitis
CPT/HCPCS: 80053; 80061; 83036; 84439; 84443; 85025

== ENCOUNTER 2020-07-04 13:47 | Emergency (ER) | payer OTHER, MEDICAID, SELFPAY ==
[2020-07-04 13:52] VITALS: BP 177/80; PULSE 81; RESP 16; TEMP 36.5; O2SAT 97
--- NOTE | 2020-07-04 14:15 | DI.RAD_ITS ---
EXAM: XR LUMBAR SPINE COMPLETE CLINICAL HISTORY: pain after straining back. TECHNIQUE: 2D digital imaging was performed. COMPARISON: CR CERV SP.WITH OBL OR FLEX/EXT from 02/18/2017 FINDINGS: There is no evidence of fracture or listhesis nor pars defects. There is moderate disc space narrowing at each level in the lumbosacral spine and anterior osseous li pping at multiple levels. Also multilevel degenerative facet joint changes. Sacroiliac joints appea r unremarkable. Mild scoliosis convex left. No osseous lesions. IMPRESSION: Multilevel chronic degenerative disc disease. DATA REPOSITORY: RADIATION DOSE DELIVERED:
--- NOTE | 2020-07-04 14:24 | W.ED.GENAD ---
Discharge Plan Disposition Patient Disposition: HOME Condition: Good Discharge Details Clinical Impression: Back pain Primary Care Provider: Carlos Diaz ED Provider: Rosemarie Lemus Home Meds and New Rx's Prescriptions: New prednisone 20 mg tablet 40 mg PO DAILY Qty: 10 RF: 0 cyclobenzaprine 10 mg tablet 5 mg PO TID PRNQty: 7 RF: 0 lidocaine [Lidoderm] 5 % adhesive patch,medicated 1 patch topical DAILY Qty: 15 RF: 0 No Action fluoxetine [Prozac] 20 MG capsule 40 mg PO DAILY RF: 0 acetaminophen [Tylenol] 325 mg Capsule 1,000 mg PO Q6H PRNRF: 0 lansoprazole 30 mg capsule,delayed release(DR/EC) 30 mg PO DAILY RF: 0 Discharge Instructions Additional Instructions: Take Flexeril sparingly as this medication can make you feel lightheaded, do not drive for 8 hours after taking this medication, you may take 5 mg and increase it to 10 mg every 8 hours as needed for discomfort You may also take ibuprofen 400 mg every 8 hours with food and 1 g of Tylenol every 6 hours as needed for pain Follow-up with primary care physician in 1 to 2 days for reevaluation Apply Lidoderm patches, 12 hours on, 12 hours off, no lifting more than 5 pounds, light stretching recommended Please return should you have new or worsening complaints including strength or sensation changes, or with any new or worsening symptoms Discharge Data Discharge Date/Time-TO BE ENTERED AT DEPARTURE: 07/04/20 15:58 Medical Decision Making Patient had a normal CTA of the abdomen and pelvis in 2019 Reproducible back pain X-ray per my interpretation radiology review of degenerative changes only fracture Patient will be trialed on prednisone and 5 mg Flexeril Recheck primary care physician recommended , Evidence of cauda equina syndrome Ambulatory with antalgic, steady gait Discharge home follow-up with primary physician Return precautions precautions discussed and patient expressed understanding No evidence of lumbar radiculopathy, no significant radiation pain Suspect musculoskeletal pain and strain with mechanism and clinical exam Neurovascularly intact Denies urinary symptoms Differential Diagnosis Differential Diagnosis: Lumbar radiculopathy, cauda equina syndrome, musculoskeletal back pain, SI Medical Records Medical records reviewed: Yes I reviewed the patient's medical records. HPI This 64-year-old male presents with reports of back pain which he acquired on Thursday. He removed a shopping cart from underneath his truck and felt a popping sensation in his back. He denies any strength or sensation changes. He has been taking Tylenol without alleviation in his pain. He denies any abdominal pain, chest pain, shortness of breath, changes in bowel or bladder. The pain is exacerbated with walking and position change. Patient denies any additional complaints at this time. Has a history of pain, has been in this area before reportedly. General Date/Time Provider Initiated Documentation: 07/04/20 14:04. Related Data Home Medications Medication Instructions Recorded Confirmed fluoxetine [Prozac] 40 mg PO DAILY tab-cap 06/24/17 07/04/20 acetaminophen [Tylenol] 1,000 mg PO Q6H PRN 08/13/18 07/04/20 cyclobenzaprine 5 mg PO TID PRN #7 tab 07/04/20 lansoprazole 30 mg PO DAILY 07/04/20 07/04/20 lidocaine [Lidoderm] 1 patch TOPICAL DAILY #15 ea 07/04/20 prednisone 40 mg PO DAILY #10 tab 07/04/20 Previous Rx's Medication Instructions Recorded cyclobenzaprine 5 mg PO TID PRN #7 tab 07/04/20 lidocaine [Lidoderm] 1 patch TOPICAL DAILY #15 ea 07/04/20 prednisone 40 mg PO DAILY #10 tab 07/04/20 Allergies Allergy/AdvReac Type Severity Reaction Status Date / Time omeprazole [From Prilosec] Allergy Intermediate Itching Verified 07/04/20 13:56 omeprazole magnesium Allergy Intermediate Itching Verified 07/04/20 13:56 [From Prilosec] oxycodone Allergy Itching Verified 07/04/20 13:56 codeine [Codeine] AdvReac NAUSEA Verified 07/04/20 13:56 General Stated Complaint: Nk/Back Pain CATIA: 3 Review of Systems Narrative: Review of systems negative x7 aside from indicated in HPI, specifically no changes in bowel or bladder, paresthesias, abdominal pain PENDING SALE TO [facility] Medical History (Updated 07/04/20 @ 15:44 by LUKAS Ramsey) Alcohol abuse Blood glucose elevated Chest pain Diverticula of colon Diverticulitis Dysphasia Fatty liver Gastropathy History of back pain Hypertension Memory impairment Neuropathy Situational depression Tendonitis of left rotator cuff Injected: 01/03/2020 Surgical History Appendectomy (~2007) Arthroplasty 03/09/15; DR. HERNANDEZ RIGHT SECOND TOE EXOSTECTOMY 03/09/15 DR. YODER; RIGHT GREAT TOE History of esophagogastroduodenoscopy (EGD) History of surgery on upper extremity Hx L shoulder, wrist, fingers, R arm x 8 per Pt History of surgical amputation of finger of left hand Machine related injury, R hand per pt 08/13/18 Hx of carpal tunnel repair Hx of colonoscopy 08/13/[address] [place] [address] Pastora Noel at [facility], repeat in five years. mg colo 06/05/08 - Dr Cheney - tubular adenoma, descending colon, repeat in 5 years. Family History Other Cancer Diabetes Hypertension Social History Smoking/Tobacco Use Status: Never Smoking risk assessment performed?: Yes Alcohol Intake: current Alcohol Intake frequency: a few times a week Alcohol type: beer Drug use: Never Current gender identity: male Do you feel safe at home: Yes Do you feel safe in your relationship?: Yes Exam GI Other: No abdominal bruit or pulsatile mass. No abdominal tenderness Back/Spine/Pelvis Back: no CVA tenderness and CVA tenderness Other: Pain with palpation over SI joint and lumbar spine/paraspinal region Skin Wounds: no wounds Neuro General: patient alert and patient oriented x3 Motor: strength 5/5 throughout Sensory Exam: no sensory deficits noted Other: Positive straight leg raise on right, DTRs intact bilateral lower extremities Extrem Other: Distal pulses intact, sensation intact Course Vital Signs Vital signs: Vital Signs Temperature 36.5 C 07/04/20 13:52 Pulse 81 07/04/20 13:52 Respiratory Rate 16 07/04/20 13:52 Blood Pressure 177/80 H 07/04/20 13:52 Pulse Oximetry 97 07/04/20 13:52 Temperature 36.5 C 07/04/20 13:52 Temperature Source Temporal Artery Scan 07/04/20 13:52 Pulse 81 07/04/20 13:52 Respiratory Rate 16 07/04/20 13:52 Respiratory Effort Non-Labored 07/04/20 13:55 Blood Pressure 177/80 H 07/04/20 13:52 Blood Pressure Position Sitting 07/04/20 13:52 Pulse Oximetry 97 07/04/20 13:52 Pain Level 9 07/04/20 13:52
[2020-07-04] MEDS: Ketorolac 15 MG/ML VIAL IM (14:42)
[2020-07-04] MEDS: Cyclobenzaprine 10 MG TAB 5 MG PO (14:42)
== END 2020-07-04 15:58 | disposition home or self-care (01) ==
PROVIDERS: Emergency Provider Physician Assistant; PCP Internal Medicine
DX: M54.5 Low back pain (principal); I10 Essential (primary) hypertension
CPT/HCPCS: 99284; 72110; 99283; J1885

== ENCOUNTER 2020-09-10 01:09 | Outpatient (CLI) | payer OTHER, MEDICAID, SELFPAY ==
--- NOTE | 2020-09-10 09:40 | DI.RAD_ITS ---
Exam(s) XR HIP RT COMPLETE AP PELVIS EXAM: XR HIP RT COMPLETE AP PELVIS CLINICAL HISTORY: RT HIP PAIN, M25.551. TECHNIQUE: 2D digital imaging was performed. COMPARISON: No exams were available for comparison FINDINGS: The bones are normally mineralized. No acute fracture or dislocation. Mild degenerative changes are seen in the hips bilaterally with joint space narrowing and periarticular spurring. The sacroiliac joints and symphysis pubis are intact. The soft tissues are unremarkable. IMPRESSION: Mild degenerative changes of the right hip. DATA REPOSITORY: RADIATION DOSE DELIVERED:
== END 2020-09-10 01:29 ==
PROVIDERS: PCP Internal Medicine; Visit Provider Physician Assistant
DX: M25.551 Pain in right hip (principal); M16.11 Unilateral primary osteoarthritis, right hip
CPT/HCPCS: 73502

== ENCOUNTER 2020-10-10 15:08 | Outpatient (REF) | payer OTHER, MEDICAID, SELFPAY ==
[2020-10-10 15:24] LABS: Abs Immature Grans 0.02 10^3/uL (0.0-0.06); Absolute Basophil Count 0.04 10^3/uL (0.0-0.2); Absolute Lymphocyte Count 1.93 10^3/uL (1.2-3.4); Absolute Monocyte Count 0.55 10^3/uL (0.1-0.8); Absolute Neutrophil Count 2.76 10^3/uL (1.2-6.7); Basophils % 0.7; Eosinophils % 3.6; HGB 13.3 g/dL (13.5-17.5); Immature Grans % 0.4; Lymphocytes % 35.1; MCH 29.8 pg (27.0-33.0); MCV 85.2 fL (80-95); MPV 11.2 fL (8.0-11.0); Neutrophils % 50.2; Nucleated RBC 0 %; Platelet Count 146 10^3/uL (130-400); RBC 4.46 10^6/uL (4.36-5.78); RDW 12.5 % (11.8-14.1); RDW-SD 38.7 fL
[2020-10-10 15:39] LABS: ALT 45 U/L (16-63); AST 28 U/L (15-37); Albumin 3.8 g/dL (3.4-5.0); Alkaline Phosphatase 178 U/L (46-116); Anion Gap 7.3 mmol/L (3-11); BUN 23 mg/dL (7-18); Bilirubin, Total 0.7 mg/dL (0.2-1.0); CO2 28.7 mmol/L (21.0-32.0); CREATININE 1.3 mg/dL (0.70-1.30); Calcium 8.8 mg/dL (8.5-10.1); Chloride 106 mmol/L (98-107); Estimated GFR 55.23 (mL/min/1.73m2); Glucose 113 mg/dL (74-106); Potassium 4.1 mmol/L (3.5-5.1); Sodium 142 mmol/L (136-145)
== END 2020-10-10 15:09 | disposition home or self-care (01) ==
LOC: NCHCN 15:08
PROVIDERS: PCP Internal Medicine; Visit Provider Physician Assistant
DX: M51.16 Intervertebral disc disorders with radiculopathy, lumbar region (principal); Z01.818 Encounter for other preprocedural examination
CPT/HCPCS: 80053; 85025

== ENCOUNTER 2020-12-02 11:40 | Emergency (ER) | payer OTHER, MEDICAID, SELFPAY ==
[2020-12-02 11:43] VITALS: BP 178/87; PULSE 82; RESP 18; TEMP 36.6; O2SAT 97
--- NOTE | 2020-12-02 12:00 | DI.RAD_ITS ---
Exam(s) XR TIB/FIB LT EXAM: XR TIB/FIB LT CLINICAL HISTORY: pain. TECHNIQUE: 2D digital imaging was performed COMPARISON: No exams were available for comparison FINDINGS: BONES: No acute fracture is present. No bony destructive lesion is seen. Visualized portion of knee a nd ankle joints are unremarkable. SOFT TISSUE: Mild soft tissue swelling of the calf. No radiopaque foreign bodies. IMPRESSION: No acute fracture, dislocation or radiopaque foreign body. DATA REPOSITORY: RADIATION DOSE DELIVERED:
--- NOTE | 2020-12-02 12:18 | W.ED.GENAD ---
Discharge Plan Disposition Patient Disposition: HOME Condition: Stable Discharge Details Clinical Impression: Left leg pain Primary Care Provider: Carlos Diaz ED Provider: Kushal Cifuentes Home Meds and New Rx's Prescriptions: Continued fluoxetine [Prozac] 20 MG capsule 40 mg PO DAILY RF: 0 acetaminophen [Tylenol] 325 mg Capsule 1,000 mg PO Q6H PRNRF: 0 lansoprazole 30 mg capsule,delayed release(DR/EC) 30 mg PO DAILY RF: 0 prednisone 20 mg tablet 40 mg PO DAILY Qty: 10 RF: 0 cyclobenzaprine 10 mg tablet 5 mg PO TID PRNQty: 7 RF: 0 lidocaine [Lidoderm] 5 % adhesive patch,medicated 1 patch topical DAILY Qty: 15 RF: 0 Discharge Instructions Instructions: Leg Pain (ED) Additional Instructions: CBC, CMP and x-ray do not reveal any obvious emergent process. I we will set you up with an ultrasound of your left lower extremity rule out DVT tomorrow, radiology department should be reaching out to you first thing tomorrow morning but if you do not hear from them that I recommend reaching out to them. A single dose of Lovenox was given now. After the ultrasound you will signed back into the ER for results. In the meantime please watch for new or worsening symptoms and return to the ER for any concerns Discharge Data Discharge Date/Time-TO BE ENTERED AT DEPARTURE: 12/02/20 13:51 Medical Decision Making This is a 65-year-old male, presenting for atraumatic pain and swelling associated bruising to his left lower extremity, concern for DVT. Clinically he appears well, nontoxic. Denies chest pain, shortness of breath, no evidence of tachycardia, hypoxemia, negative Homans. Clinically this appears to be a small contusion to the anterior proximal lower extremity and subsequently looks as though there is ecchymosis drawn down likely by gravity. Examination is not extremely consistent with DVT. Will obtain routine laboratory values, coags, D-dimer, and x-ray of his left tib-fib. X-ray reveals soft tissue swelling, no fracture or dislocation. Laboratory values reveal a D-dimer of 888. No evidence of leukocytosis, anemia, or other emergent process. Set the patient up for an ultrasound of his left lower extremity, venous, tomorrow. Will provide a single dose of 1 mg/kg of Lovenox now. Patient was offered a cane but declines. Patient will return to the ER after his ultrasound is completed to obtain results of his ultrasound. Patient has no additional questions or concerns at this comfortable with this plan. Standard to discharge and return precautions given. This documentation was generated using [employer] system, please disregard any oddities of phrase or misspellings. Medical Records Medical records reviewed: Yes I reviewed the patient's medical records. Imaging Data Radiologic Study: Attestation: I personally reviewed and interpreted this imaging study as follows: Imaging: X-Ray Radiologist's impression: Exam: XR Left Tibia and Fibula Exam date and time: 12/02/2020 12:05 PM Age: 65 years old Clinical indication: Pain; Lower leg; Left TECHNIQUE: Imaging protocol: XR Left tibia and fibula. Views: 2 views. COMPARISON: CR XR foot LT complete 06/06/2018 8:02 PM FINDINGS: Bones/joints: Normal. Soft tissues: Soft tissue edema along the medial calf. Vasculature: Vascular calcifications. IMPRESSION: Soft tissue swelling. No fracture identified. Lab Data Lab results reviewed: Yes I reviewed the patient's lab results. Labs: Laboratory Tests Range/Units 12/02/20 12/02/20 12/02/20 12:14 12:14 12:14 WBC (4.4-10.8) 10^3/uL 4.63 RBC (4.36-5.78) 10^6/uL 4.06 L Hgb (13.5-17.5) g/dL 12.0 L Hct (40.0-50.0) % 35.1 L MCV (80-95) fL 86.5 MCH (27.0-33.0) pg 29.6 MCHC (32.0-36.0) % 34.2 RDW (11.8-14.1) % 12.6 Plt Count (130-400) 10^3/uL 143 MPV (8.0-11.0) fL 10.1 Immature Gran % 0.2 Neutrophils % 49.0 Lymphocytes % 38.2 Monocytes % 9.3 Eosinophils % 2.4 Basophils % 0.9 Nucleated RBC % % 0 Absolute Neutrophils (1.2-6.7) 10^3/uL 2.27 Absolute Lymphocytes (1.2-3.4) 10^3/uL 1.77 Absolute Monocytes (0.1-0.8) 10^3/uL 0.43 Absolute Eosinophils (0.0-0.7) 10^3/uL 0.11 Absolute Basophils (0.0-0.2) 10^3/uL 0.04 PT (9.3-11.0) sec 9.4 INR (0.9-1.1) 0.9 APTT (21.0-27.5) sec 23.3 D-Dimer (<500) ng/mlFEU 888 H Sodium (136-145) mmol/L 141 Potassium (3.5-5.1) mmol/L 4.4 Chloride (98-107) mmol/L 106 Carbon Dioxide (21.0-32.0) mmol/L 25.6 Anion Gap (3-11) mmol/L 9.4 BUN (7-18) mg/dL 25 H Creatinine (0.70-1.30) mg/dL 1.0 Estimated GFR/1.73 m2 (mL/min/1.73m2) >= 60.00 Glucose (74-106) mg/dL 105 Calcium (8.5-10.1) mg/dL 8.4 L Total Bilirubin (0.2-1.0) mg/dL 0.7 AST (15-37) U/L 35 ALT (16-63) U/L 43 Alkaline Phosphatase (46-116) U/L 193 H Total Protein (6.4-8.2) g/dL 6.8 Albumin (3.4-5.0) g/dL 3.7 HPI General Mode of arrival: ambulatory. Date/Time Provider Initiated Documentation: 12/02/20 11:42. Limitations to Documentation: no limitations. Information obtained by: patient. HPI Narrative: This is a 65-year-old male, past medical history that includes depression, alcohol abuse, hypertension, neuropathy, presenting to the ER for concerns of left lower extremity bruising, swelling, pain that began 3 days ago. Patient is aware of any obvious injury. Denies fever, chest pain, shortness of breath, weakness. Reports that he does have baseline altered sensation secondary to neuropathy but nothing has changed from his baseline. Reports the pain is moderate, worse with movement or bearing weight. Denies history of any bleeding disorder, history of DVT or PE. Patient has not taken any medications for his symptoms. Patient states that his symptoms began just below the knee but have spread down to his ankle over the past few days. Related Data Home Medications Medication Instructions Recorded Confirmed fluoxetine [Prozac] 40 mg PO DAILY tab-cap 06/24/17 12/02/20 acetaminophen [Tylenol] 1,000 mg PO Q6H PRN 08/13/18 12/02/20 cyclobenzaprine 5 mg PO TID PRN #7 tab 07/04/20 12/02/20 lansoprazole 30 mg PO DAILY 07/04/20 12/02/20 lidocaine [Lidoderm] 1 patch TOPICAL DAILY #15 ea 07/04/20 12/02/20 prednisone 40 mg PO DAILY #10 tab 07/04/20 12/02/20 Previous Rx's Medication Instructions Recorded cyclobenzaprine 5 mg PO TID PRN #7 tab 07/04/20 lidocaine [Lidoderm] 1 patch TOPICAL DAILY #15 ea 07/04/20 prednisone 40 mg PO DAILY #10 tab 07/04/20 Allergies Allergy/AdvReac Type Severity Reaction Status Date / Time omeprazole [From Prilosec] Allergy Intermediate Itching Verified 07/04/20 13:56 omeprazole magnesium Allergy Intermediate Itching Verified 07/04/20 13:56 [From Prilosec] oxycodone Allergy Itching Verified 07/04/20 13:56 codeine [Codeine] AdvReac NAUSEA Verified 07/04/20 13:56 General Stated Complaint: Orthopedic CATIA: 3 Review of Systems Constitutional Constitutional: Denies fever(s) and Denies weakness Cardiovascular Cardiovascular: Denies chest pain and Denies dyspnea Respiratory Respiratory: Denies dyspnea Musculoskeletal Musculoskeletal: Denies deformity, Denies arthralgias, Denies numbness, Reports stiffness and Reports tingling Integumentary/Breasts Skin/Breast: Denies erythema and Denies rash Neurologic Neurologic: Denies numbness, Reports tingling and Denies weakness Hematologic/Lymphatic Hematologic/Lymphatic: Denies easy bleeding and Denies easy bruising [facility] Medical History Alcohol abuse Blood glucose elevated Chest pain Diverticula of colon Diverticulitis Dysphasia Fatty liver Gastropathy History of back pain Hypertension Memory impairment Neuropathy Situational depression Tendonitis of left rotator cuff Injected: 01/03/2020 Surgical History Appendectomy (~2007) Arthroplasty 03/09/15; DR. HERNANDEZ RIGHT SECOND TOE EXOSTECTOMY 03/09/15 DR. YODER; RIGHT GREAT TOE History of esophagogastroduodenoscopy (EGD) History of surgery on upper extremity Hx L shoulder, wrist, fingers, R arm x 8 per Pt History of surgical amputation of finger of left hand Machine related injury, R hand per pt 08/13/18 Hx of carpal tunnel repair Hx of colonoscopy 08/13/[address] [place] [address] Pastora Noel at [facility], repeat in five years. mg colo 06/05/08 - Dr Cheney - tubular adenoma, descending colon, repeat in 5 years. Family History Other Cancer Diabetes Hypertension Social History Smoking/Tobacco Use Status: Never Smoking risk assessment performed?: Yes Alcohol Intake: former Drug use: Never Substance use type: does not use Current gender identity: male Do you feel safe at home: Yes Do you feel safe in your relationship?: Yes Exam Const General: cooperative, healthy appearing, comfortable and no acute distress Orientation: alert and awake [facility] Head: normal to inspection, normocephalic and atraumatic Eyes General: appearance normal, both eyes and all related structures Conjunctivae: conjunctivae normal Neck Neck: normal visual inspection, trachea midline and supple Resp Effort & Inspection: normal respiratory effort and able to speak in complete sentences Auscultation: clear to auscultation bilaterally Cardio Rate: regular rate Rhythm: regular rhythm Skin General skin exam: no rashes or lesions noted Neuro General: patient alert, patient awake, moves all extremities and no focal motor deficits Cognition: normal cognition Speech: speech normal Gait: antalgic Motor: muscle tone normal throughout Sensory Exam: no sensory deficits noted Extrem Upper/lower leg/hip images: 1. Contusion, mild swelling and ecchymosis. Point tenderness. Skin intact. 2. Diffuse mild discomfort, ecchymosis, not completely circumferential. No petechiae rash. Skin intact. No palpable cord. Normal capillary refill and dorsalis pedal pulse. Negative Homans' sign. Calf is nontender, without swelling. Psych Appearance: grossly normal Mental Status: mental status grossly normal Course Vital Signs Vital signs: Vital Signs Temperature 36.6 C 12/02/20 11:43 Pulse 82 12/02/20 11:43 Respiratory Rate 18 12/02/20 11:43 Blood Pressure 178/87 H 12/02/20 11:43 Pulse Oximetry 97 12/02/20 11:43 Temperature 36.6 C 12/02/20 11:43 Temperature Source Temporal Artery Scan 12/02/20 11:43 Pulse 82 12/02/20 11:43 Respiratory Rate 18 12/02/20 11:43 Respiratory Effort Non-Labored 12/02/20 11:47 Blood Pressure 178/87 H 12/02/20 11:43 Blood Pressure Position Sitting 12/02/20 11:43 Pulse Oximetry 97 12/02/20 11:43 Oxygen Delivery Method Room Air 12/02/20 11:43 Oxygen Flow Rate 0 12/02/20 11:43 Pain Level 6 12/02/20 11:43
[2020-12-02 12:21] LABS: Abs Immature Grans 0.01 10^3/uL (0.0-0.06); Absolute Basophil Count 0.04 10^3/uL (0.0-0.2); Absolute Eosinophil Count 0.11 10^3/uL (0.0-0.7); Absolute Lymphocyte Count 1.77 10^3/uL (1.2-3.4); Absolute Monocyte Count 0.43 10^3/uL (0.1-0.8); Absolute Neutrophil Count 2.27 10^3/uL (1.2-6.7); Basophils % 0.9; Eosinophils % 2.4; HCT 35.1 % (40.0-50.0); Immature Grans % 0.2; Lymphocytes % 38.2; MCH 29.6 pg (27.0-33.0); MCHC 34.2 % (32.0-36.0); MCV 86.5 fL (80-95); MPV 10.1 fL (8.0-11.0); Monocytes % 9.3; Nucleated RBC 0 %; Platelet Count 143 10^3/uL (130-400); RBC 4.06 10^6/uL (4.36-5.78); RDW 12.6 % (11.8-14.1); RDW-SD 39.8 fL; WBC 4.63 10^3/uL (4.4-10.8)
[2020-12-02 12:34] LABS: ALT 43 U/L (16-63); AST 35 U/L (15-37); Albumin 3.7 g/dL (3.4-5.0); Alkaline Phosphatase 193 U/L (46-116); Anion Gap 9.4 mmol/L (3-11); BUN 25 mg/dL (7-18); Bilirubin, Total 0.7 mg/dL (0.2-1.0); CO2 25.6 mmol/L (21.0-32.0); Calcium 8.4 mg/dL (8.5-10.1); Chloride 106 mmol/L (98-107); Glucose 105 mg/dL (74-106); Potassium 4.4 mmol/L (3.5-5.1); Sodium 141 mmol/L (136-145); Total Protein 6.8 g/dL (6.4-8.2)
[2020-12-02 12:35] LABS: INR 0.9 (0.9-1.1); PTT Activated 23.3 sec (21.0-27.5); Prothrombin Time 9.4 sec (9.3-11.0)
[2020-12-02 12:51] LABS: D-Dimer 888 ng/mlFEU (<500)
--- NOTE | 2020-12-02 13:02 | DI.VRAD_ITS ---
PROCEDURE INFORMATION: Exam: XR Left Tibia and Fibula Exam date and time: 12/02/2020 12:05 PM Age: 65 years old Clinical indication: Pain; Lower leg; Left TECHNIQUE: Imaging protocol: XR Left tibia and fibula. Views: 2 views. COMPARISON: CR XR foot LT complete 06/06/2018 8:02 PM FINDINGS: Bones/joints: Normal. Soft tissues: Soft tissue edema along the medial calf. Vasculature: Vascular calcifications. IMPRESSION: Soft tissue swelling. No fracture identified. Dictated and Authenticated by: Tali Escalante MD. Ordering:BECKI Fatima MD
--- NOTE | 2020-12-02 13:09 | NUR.NOTE ---
Nursing Note: Requisition faxed to DI for LLE venous US, to be done ThursdayDecember 03 and follow up in the ED. Baylee Flores
[2020-12-02] MEDS: Enoxaparin 120 MG/0.8 ML SYR 110 MG SC (13:31)
[2020-12-02 13:39] VITALS: BP 189/99; PULSE 80; RESP 18; TEMP 36.6; O2SAT 96
[2020-12-02 13:49] VITALS: BP 189/99; PULSE 80; RESP 18; TEMP 36.6; O2SAT 96
== END 2020-12-02 13:51 | disposition home or self-care (01) ==
PROVIDERS: Emergency Provider Physician Assistant; PCP Internal Medicine
DX: M79.605 Pain in left leg (principal); R22.42 Localized swelling, mass and lump, left lower limb
CPT/HCPCS: 36415; 80053; 96372; 99284; 73590; 85025; 85379; 85610; 85730; J1650

== ENCOUNTER 2020-12-03 14:23 | Emergency (ER) | payer OTHER, MEDICAID, SELFPAY ==
[2020-12-03 14:28] VITALS: BP 181/88; PULSE 87; RESP 18; TEMP 36.7; O2SAT 97
--- NOTE | 2020-12-03 14:54 | ED.GENADUL_ITS ---
Discharge Plan Disposition Patient Disposition: HOME Condition: Stable Discharge Details Clinical Impression: Contusion of left lower leg Primary Care Provider: Carlos Diaz ED Provider: Kushal Cifuentes Home Meds and New Rx's Prescriptions: Continued fluoxetine [Prozac] 20 MG capsule 40 mg PO DAILY RF: 0 acetaminophen [Tylenol] 325 mg Capsule 1,000 mg PO Q6H PRNRF: 0 lansoprazole 30 mg capsule,delayed release(DR/EC) 30 mg PO DAILY RF: 0 prednisone 20 mg tablet 40 mg PO DAILY Qty: 10 RF: 0 cyclobenzaprine 10 mg tablet 5 mg PO TID PRNQty: 7 RF: 0 lidocaine [Lidoderm] 5 % adhesive patch,medicated 1 patch topical DAILY Qty: 15 RF: 0 Discharge Instructions Instructions: Contusion in Adults (ED) Additional Instructions: Work-up yesterday did not reveal any obvious emergent process and today your ultrasound was negative. No sign of blood clot. [id number] medications Tylenol as directed. Rest, elevate, cool compresses every 2 hours for twins. Please watch for new or worsening symptoms and return to the ER for any concerns. Otherwise I recommend reaching out your primary care provider tomorrow to discuss your ER visits and need for outpatient reevaluation Medical Decision Making 65-year-old gentleman presents for left leg bruising, swelling, pain present for the past 4 or 5 days. Seen in the ER yesterday, laboratory values revealed minimally elevated D-dimer otherwise unremarkable. X-ray was negative. Given a single dose of Lovenox and sent to get an outpatient ultrasound today. Ultrasound negative per radiology. Discussed findings with patient. Will treat as contusion, musculoskeletal discomfort. Patient does not want a cane today either. He has no additional questions or concerns and is comfortable discharge. Neuro, vascular, tendon intact. Normal dorsalis pedal pulse and capillary refill. Negative Homans' sign. Medical Records Medical records reviewed: Yes I reviewed the patient's medical records. Imaging Data Radiologic Study: Attestation: I personally reviewed and interpreted this imaging study as follows: Imaging: Ultrasound Radiologist's impression: Exam(s) US LOWER EXTREMITY VENOUS LT EXAM: US LOWER EXTREMITY VENOUS LT CLINICAL HISTORY: PAIN,SWELLING TECHNIQUE: Grayscale, color, and doppler imaging of the deep venous system of the left lower extremity was performed. COMPARISON: No exams were available for comparison FINDINGS: There is no evidence of intraluminal thrombus and there is normal compression and augmentation demonstrated within the common femoral vein, femoral vein, and popliteal vein. In the ipsilateral calf the interrogated veins also exhibit normal compression/ augmentation properties. The ipsilateral saphenofemoral junction is patent. IMPRESSION: 1. No evidence of DVT in the left lower extremity. HPI General Mode of arrival: ambulatory . Date/Time Provider Initiated Documentation: 12/03/20 14:43 . Limitations to Documentation: no limitations . Information obtained by: patient . HPI Narrative: This is a 65-year-old gentleman who presents to the ER today for ultrasound results regarding his left lower extremity, concern for DVT. I personally evaluated the patient yesterday, please refer to that note for further H&P. Today he has no acute concerns or complaints. Denies no injury or recent illness. Denies chest pain, fever, shortness of breath, numbness, tingling, weakness. Patient states that his left lower extremity feels the same as it did yesterday. He is not anticoagulated Related Data Home Medications Medication Instructions Recorded Confirmed fluoxetine [Prozac] 40 mg PO DAILY tab-cap 06/24/17 12/03/20 acetaminophen [Tylenol] 1,000 mg PO Q6H PRN 08/13/18 12/03/20 cyclobenzaprine 5 mg PO TID PRN #7 tab 07/04/20 12/03/20 lansoprazole 30 mg PO DAILY 07/04/20 12/03/20 lidocaine [Lidoderm] 1 patch TOPICAL DAILY #15 ea 07/04/20 12/02/20 prednisone 40 mg PO DAILY #10 tab 07/04/20 12/02/20 Previous Rx's Medication Instructions Recorded cyclobenzaprine 5 mg PO TID PRN #7 tab 07/04/20 lidocaine [Lidoderm] 1 patch TOPICAL DAILY #15 ea 07/04/20 prednisone 40 mg PO DAILY #10 tab 07/04/20 Allergies Allergy/AdvReac Type Severity Reaction Status Date / Time omeprazole [From Prilosec] Allergy Intermediate Itching Verified 12/03/20 14:30 omeprazole magnesium Allergy Intermediate Itching Verified 12/03/20 14:30 [From Prilosec] oxycodone Allergy Itching Verified 12/03/20 14:30 codeine [Codeine] AdvReac NAUSEA Verified 12/03/20 14:30 General Stated Complaint: Cellulitis CATIA: 3 Review of Systems Constitutional Constitutional: Denies fever(s) and Denies weakness Cardiovascular Cardiovascular: Denies chest pain and Denies dyspnea Respiratory Respiratory: Denies dyspnea Musculoskeletal Musculoskeletal: Denies arthralgias, Denies joint swelling and Denies numbness Integumentary/Breasts Skin/Breast: Denies erythema Neurologic Neurologic: Denies numbness and Denies weakness Hematologic/Lymphatic Hematologic/Lymphatic: Denies easy bleeding and Denies easy bruising [facility] Medical History Alcohol abuse Blood glucose elevated Chest pain Diverticula of colon Diverticulitis Dysphasia Fatty liver Gastropathy History of back pain Hypertension Memory impairment Neuropathy Situational depression Tendonitis of left rotator cuff Injected: 01/03/2020 Surgical History Appendectomy (~2007) Arthroplasty 03/09/15; DR. HERNANDEZ RIGHT SECOND TOE EXOSTECTOMY 03/09/15 DR. YODER; RIGHT GREAT TOE History of esophagogastroduodenoscopy (EGD) History of surgery on upper extremity Hx L shoulder, wrist, fingers, R arm x 8 per Pt History of surgical amputation of finger of left hand Machine related injury, R hand per pt 08/13/18 Hx of carpal tunnel repair Hx of colonoscopy 08/13/[address] [place] [address] Pastora Noel at [facility], repeat in five years. mg colo 06/05/08 - Dr Cheney - tubular adenoma, descending colon, repeat in 5 years. Family History Other Cancer Diabetes Hypertension Social History Smoking/Tobacco Use Status: Never Smoking risk assessment performed?: Yes Alcohol Intake: former Drug use: Never Substance use type: does not use Current gender identity: male Do you feel safe at home: Yes Do you feel safe in your relationship?: Yes Exam Const General: cooperative, healthy appearing, comfortable and no acute distress Orientation: alert and awake [facility] Head: normal to inspection, normocephalic and atraumatic Eyes General: appearance normal, both eyes and all related structures Conjunctivae: conjunctivae normal Neck Neck: normal visual inspection, trachea midline and supple Resp Effort & Inspection: normal respiratory effort and able to speak in complete sentences Auscultation: clear to auscultation bilaterally Cardio Rate: regular rate Rhythm: regular rhythm Skin General skin exam: no rashes or lesions noted Neuro General: patient alert, patient awake, moves all extremities and no focal motor deficits Sensory Exam: no sensory deficits noted Extrem General: full ROM and capillary refill normal Upper/lower leg/hip images: 1. 1. Contusion, mild swelling and ecchymosis. Point tenderness. Skin intact. 2. Diffuse mild discomfort, ecchymosis, not completely circumferential. No petechiae rash. Skin intact. No palpable cord. Normal capillary refill and dorsalis pedal pulse. Negative Homans' sign. Calf is nontender, without s welling. Psych Appearance: grossly normal Mental Status: mental status grossly normal Course Vital Signs Vital signs: Vital Signs Temperature 36.7 C 12/03/20 14:28 Pulse 87 12/03/20 14:28 Respiratory Rate 18 12/03/20 14:28 Blood Pressure 181/88 H 12/03/20 14:28 Pulse Oximetry 97 12/03/20 14:28 Temperature 36.7 C 12/03/20 14:28 Temperature Source Temporal Artery Scan 12/03/20 14:28 Pulse 87 12/03/20 14:28 Respiratory Rate 18 12/03/20 14:28 Respiratory Effort Non-Labored 12/03/20 14:32 Blood Pressure 181/88 H 12/03/20 14:28 Blood Pressure Position Sitting 12/03/20 14:28 Pulse Oximetry 97 12/03/20 14:28 Oxygen Delivery Method Room Air 12/03/20 14:28 Oxygen Flow Rate 0 12/03/20 14:28
== END 2020-12-03 15:09 | disposition home or self-care (01) ==
PROVIDERS: Emergency Provider Physician Assistant; PCP Internal Medicine
DX: S80.12XA Contusion of left lower leg, initial encounter (principal); X58.XXXA Exposure to other specified factors, initial encounter

== ENCOUNTER 2020-12-03 16:18 | Outpatient (CLI) | payer OTHER, MEDICAID, SELFPAY ==
--- NOTE | 2020-12-03 | DI.US_ITS ---
Exam(s) US LOWER EXTREMITY VENOUS LT EXAM: US LOWER EXTREMITY VENOUS LT CLINICAL HISTORY: PAIN,SWELLING TECHNIQUE: Grayscale, color, and doppler imaging of the deep venous system of the left lower extremi ty was performed. COMPARISON: No exams were available for comparison FINDINGS: There is no evidence of intraluminal thrombus and there is normal compression and augmentation demons trated within the common femoral vein, femoral vein, and popliteal vein. In the ipsilateral calf the interrogated veins also exhibit normal compression/ augmentation properti es. The ipsilateral saphenofemoral junction is patent. IMPRESSION: 1. No evidence of DVT in the left lower extremity. 2. DATA REPOSITORY:
== END 2020-12-03 16:38 ==
PROVIDERS: PCP Internal Medicine; Visit Provider Physician Assistant
DX: R22.42 Localized swelling, mass and lump, left lower limb (principal); M79.605 Pain in left leg
CPT/HCPCS: 93971

== ENCOUNTER 2020-12-17 10:23 | Emergency (ER) | payer OTHER, MEDICAID, SELFPAY ==
[2020-12-17 10:30] VITALS: BP 144/75; PULSE 77; RESP 17; TEMP 36.5; O2SAT 95
--- NOTE | 2020-12-17 11:05 | W.ED.GENAD ---
Discharge Plan Disposition Patient Disposition: HOME Condition: Good Discharge Details Clinical Impression: Tendonitis of left rotator cuff, Acute pain of left shoulder Primary Care Provider: Carlos Diaz ED Provider: Wendy Zuleta Home Meds and New Rx's Prescriptions: Continued fluoxetine [Prozac] 20 MG capsule 40 mg PO DAILY RF: 0 lansoprazole 30 mg capsule,delayed release(DR/EC) 30 mg PO DAILY RF: 0 atorvastatin 20 mg tablet 20 mg PO HS RF: 0 meloxicam 15 mg tablet 15 mg PO DAILY RF: 0 aspirin 81 mg tablet,delayed release (DR/EC) 81 mg PO DAILY RF: 0 Discharge Instructions Instructions: Tendinitis (ED), Shoulder Pain (ED) Additional Instructions: Your exam is most concerning for recurrence of your inflammation and pain of your rotator cuff. Please encourage rest, ice, elevation. Tylenol and ibuprofen as needed for discomfort. You are given an injection of steroids and numbing medicine here today. Please monitor for signs infection including heat, redness, drainage, increased pain, fever/chills. If you develop these or other new/worsening symptoms once again please seek care urgently once again. Otherwise, please follow-up with orthopedic, number listed below. Please call to make an appointment. Referrals: Efrem Jose MD [ [facility] STAFF PHYSICIAN] - Discharge Data Discharge Date/Time-TO BE ENTERED AT DEPARTURE: 12/17/20 13:24 Medical Decision Making Patient pleasant [id number] 65-year-old male presenting today with chief complaint of left shoulder pain. He reports that the past 4 days he has been having anterior and superior shoulder pain worse with movement. States that this came on after working on a car. 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 Reports that he has had surgery on this shoulder historically in the form of a rotator cuff repair. Has also had 2 rotator cuff repairs on the contralateral side. He denies any numbness or tingling. Denies any fevers or chills. Denies other injuries from the incident. On exam, patient appears uncomfortable. He is splinting the left arm against his body. He is exquisitely tender over the biceps tendon, no Anthony deformity. Also has pain laterally over the subacromial space. Forward elevation is limited to 110 degrees. External rotation is equal to contralateral side but he does have discomfort with external rotation against resistance. Internal rotation is to the gluteus. He is neurovascularly intact. Full range of motion of the elbow, wrist, hands with 5 out of 5 supervisor char house strength. She does have pain with Neer and Walls but no significant weakness compared to the contralateral side. Will obtain x-rays and give Tylenol help discomfort. Patient took ibuprofen prior to arrival. Reviewed note from orthopedics dated 04/10/2020. Patient at bedtime is being seen for tendinitis of the left rotator cuff. At that time. No evidence of full-thickness rotator cuff tear but was concern for potential superior labral tear. Patient had a subacromial joint injection at that time with Marcaine and Depo-Medrol. FINDINGS: BONES: No acute fracture is present. No bony destructive lesion is seen. There distal clavicular resection. Spurring at the inferior glenoid. Mild spurring greater tuberosity. JOINTS: No dislocation present. Glenohumeral joint space well maintained. No visible joint space calcifications. SOFT TISSUE: Normal. IMPRESSION: Postsurgical and degenerative changes. Discussed the findings with the patient. His he has done well with subacromial joint injections historically, we did discuss repeating this. Patient I discussed risks/benefits as well as expected procedural steps and possible side effects associated with this injection. He was understanding and wishes to proceed. Informed consent was signed. Please see procedure note. Patient tolerated this well. Pain immediately began to improve. Patient will follow up with orthopedics for definitive care of his shoulder pain. Return precautions were discussed, in particular signs of infection. All questions concerns were addressed and he is in agreement with this plan. [facility] General Mode of arrival: ambulatory. Date/Time Provider Initiated Documentation: 12/17/20 11:05. Limitations to Documentation: no limitations. Information obtained by: patient and RN notes reviewed. History of Present Illness 65 year old M presents to the emergency department with the chief complaint of left shoulder pain, described as moderate, with intensity rated at 6. Quality is described as aching, and is localized to the right and upper extremity. Patient reports no radiation. Patient started experiencing this day(s) and it has been constant. Immobilization improves symptom(s), Movement worsens symptoms . Patient notes no other symptoms.. Patient did receive the following treatments prior to arrival, none Related Data Home Medications Medication Instructions Recorded Confirmed fluoxetine [Prozac] 40 mg PO DAILY tab-cap 02/14/18 08/09/21 lansoprazole 30 mg PO DAILY 07/04/20 12/17/20 aspirin 81 mg PO DAILY 12/17/20 12/17/20 atorvastatin 20 mg PO HS 12/17/20 12/17/20 meloxicam 15 mg PO DAILY 12/17/20 12/17/20 Allergies Allergy/AdvReac Type Severity Reaction Status Date / Time omeprazole [From Prilosec] Allergy Intermediate Itching Verified 12/17/20 10:34 omeprazole magnesium Allergy Intermediate Itching Verified 12/17/20 10:34 [From Prilosec] oxycodone Allergy Itching Verified 12/17/20 10:34 codeine [Codeine] AdvReac NAUSEA Verified 12/17/20 10:34 General Stated Complaint: Orthopedic CATIA: 4 Review of Systems Constitutional Constitutional: Reports as per HPI, Denies chills, Denies fever(s), Denies headache(s) and Denies weakness ENT Ears, Nose, Mouth, and Throat: Denies headache(s) Cardiovascular Cardiovascular: Reports as per HPI Respiratory Respiratory: Reports as per HPI and Denies cough Musculoskeletal Musculoskeletal: Reports as per HPI and Denies tingling Integumentary/Breasts Skin/Breast: Reports as per HPI, Denies rash and Denies wounds Neurologic Neurologic: Reports as per HPI, Denies headache(s), Denies tingling, Denies paresthesias and Denies weakness [facility] Medical History Alcohol abuse Blood glucose elevated Chest pain Diverticula of colon Diverticulitis Dysphasia Fatty liver Gastropathy History of back pain Hypertension Memory impairment Neuropathy Situational depression Tendonitis of left rotator cuff Injected: 01/03/2020 Surgical History Appendectomy (~2007) Arthroplasty 03/09/15; DR. HERNANDEZ RIGHT SECOND TOE EXOSTECTOMY 03/09/15 DR. YODER; RIGHT GREAT TOE History of esophagogastroduodenoscopy (EGD) History of surgery on upper extremity Hx L shoulder, wrist, fingers, R arm x 8 per Pt History of surgical amputation of finger of left hand Machine related injury, R hand per pt 08/13/18 Hx of carpal tunnel repair Hx of colonoscopy 08/13/[address] Pastora Noel at [facility], repeat in five years. mg colo 06/05/08 - Dr Cheney - tubular adenoma, descending colon, repeat in 5 years. Family History Other Cancer Diabetes Hypertension Social History Smoking/Tobacco Use Status: Never Smoking risk assessment performed?: Yes Alcohol Intake: former Drug use: Never Substance use type: does not use Current gender identity: male Do you feel safe at home: Yes Do you feel safe in your relationship?: Yes Exam Const General: cooperative, healthy appearing, comfortable, no acute distress, well developed and well groomed Nutritional Appearance: average body habitus and well nourished Orientation: alert and awake Resp Effort & Inspection: normal respiratory effort, able to speak in complete sentences and no respiratory distress Cardio Rate: regular rate Rhythm: regular rhythm Skin General skin exam: no rashes or lesions noted Lesions: no lesions Rashes: no rashes Trauma: no lacerations or abrasions Neuro General: patient alert and patient awake Cognition: normal cognition Speech: speech normal Gait: normal gait Motor: muscle tone normal throughout Sensory Exam: no sensory deficits noted Extrem Shoulder/upper arm images: 1. . Feeling of discomfort. No erythema, warmth or swelling. Patient is splinting to the left arm against his body./Pain is a small over the biceps tendon. No Anthony deformity. Patient also has exquisite tenderness of the subacromial mid basal. Limited forward elevation. External rotation is equal to the contralateral side. There is limited compared to contralateral side. 2+ distal pulses, axillary nerve testing is intact. Forage motion of the elbow, wrist, and hand. Positive Neer, positive Walls Psych Appearance: grossly normal and well kempt Mental Status: mental status grossly normal Speech and Movement: speech and movement normal Course Vital Signs Vital signs: Vital Signs Temperature 36.5 C 12/17/20 10:30 Pulse 77 12/17/20 10:30 Respiratory Rate 17 12/17/20 10:30 Blood Pressure 144/75 H 12/17/20 10:30 Pulse Oximetry 95 12/17/20 10:30 Temperature 36.5 C 12/17/20 10:30 Temperature Source Temporal Artery Scan 12/17/20 10:30 Pulse 77 12/17/20 10:30 Respiratory Rate 17 12/17/20 10:30 Respiratory Effort Non-Labored 12/17/20 10:33 Blood Pressure 144/75 H 12/17/20 10:30 Blood Pressure Position Supine 12/17/20 10:30 Pulse Oximetry 95 12/17/20 10:30 Oxygen Delivery Method Room Air 12/17/20 10:30 Oxygen Flow Rate 0 12/17/20 10:30 Pain Level 6 12/17/20 10:30 Procedures Joint Aspiration/Injection Joint Asp./Inject. 1: Time Out Performed: Yes Side of body: left Joint Aspirated: shoulder Ultrasound Guidance: No Skin Prep: Povidone-Iodine1% Local Anesthetic: Bupivicaine 0.25% Amount of anesthesia used (mL): 4 Needle Size Used: 22G Total fluid obtained (mL): 0 Medication Injected, if any: Methylprednisolone Amount of Medication Injected (mls): 1 Patient Tolerated Procedure: well and no complications Complications: none
--- NOTE | 2020-12-17 11:15 | DI.RAD_ITS ---
Exam(s) XR SHOULDER LT COMPLETE 2+V EXAM: XR SHOULDER LT COMPLETE 2+V CLINICAL HISTORY: superior/anterior pain after working on car. TECHNIQUE: 2D digital imaging was performed. COMPARISON: CR XR SHOULDER LT COMPLETE 2+V from 01/03/2020 CR XR SHOULDER LT COMPLETE 2+V from 01/03/2020 MR MRI LEFT SHOULDER from 03/15/2020 FINDINGS: BONES: No acute fracture is present. No bony destructive lesion is seen. There distal clavicular resection. Spurring at the inferior glenoid. Mild spurring greater tuberosi ty. JOINTS: No dislocation present. Glenohumeral joint space well maintained. No visible joint space ca lcifications. SOFT TISSUE: Normal. IMPRESSION: Postsurgical and degenerative changes. DATA REPOSITORY: RADIATION DOSE DELIVERED:
[2020-12-17] MEDS: Acetaminophen 500 MG TAB 1000 MG PO (11:56)
[2020-12-17 13:23] VITALS: BP 137/76; PULSE 72; RESP 17; TEMP 36.5; O2SAT 97
== END 2020-12-17 13:24 | disposition home or self-care (01) ==
PROVIDERS: Emergency Provider Physician Assistant; PCP Internal Medicine
DX: M25.512 Pain in left shoulder (principal); S46.002A Unspecified injury of muscle(s) and tendon(s) of the rotator cuff of left shoulder, initial encounter; X50.9XXA Other and unspecified overexertion or strenuous movements or postures, initial encounter
CPT/HCPCS: 20610; 99281; 73030

== ENCOUNTER → 2020-12-26 13:23 | Outpatient (BNVA) | payer OTHER, MEDICAID, SELFPAY | PROVIDERS: PCP Internal Medicine; Referring Provider Internal Medicine; Visit Provider Physician Assistant Surgical | DX: M75.82 Other shoulder lesions, left shoulder (principal); M75.22 Bicipital tendinitis, left shoulder; Z98.890 Other specified postprocedural states | CPT/HCPCS: 99214 ==

== ENCOUNTER 2021-06-07 12:33 | Outpatient (REF) | payer OTHER, MEDICAID, SELFPAY ==
[2021-06-07 19:13] LABS: Abs Immature Grans 0.02 10^3/uL (0.0-0.06); Absolute Basophil Count 0.04 10^3/uL (0.0-0.2); Absolute Eosinophil Count 0.13 10^3/uL (0.0-0.7); Absolute Lymphocyte Count 1.86 10^3/uL (1.2-3.4); Absolute Monocyte Count 0.44 10^3/uL (0.1-0.8); Absolute Neutrophil Count 2.59 10^3/uL (1.2-6.7); Basophils % 0.8; Eosinophils % 2.6; HCT 40.7 % (40.0-50.0); HGB 13.9 g/dL (13.5-17.5); Immature Grans % 0.4; Lymphocytes % 36.6; MCH 29.1 pg (27.0-33.0); MCHC 34.2 % (32.0-36.0); MCV 85.3 fL (80-95); MPV 11.5 fL (8.0-11.0); Monocytes % 8.7; Neutrophils % 50.9; Nucleated RBC 0 %; Platelet Count 161 10^3/uL (130-400); RBC 4.77 10^6/uL (4.36-5.78); RDW 12.2 % (11.8-14.1); RDW-SD 38.3 fL; WBC 5.08 10^3/uL (4.4-10.8)
[2021-06-07 19:38] LABS: ALT 33 U/L (16-63); AST 21 U/L (15-37); Albumin 4.1 g/dL (3.4-5.0); Alkaline Phosphatase 173 U/L (46-116); Anion Gap 10.6 mmol/L (3-11); BUN 17 mg/dL (7-18); Bilirubin, Total 0.7 mg/dL (0.2-1.0); CO2 25.4 mmol/L (21.0-32.0); Calcium 8.7 mg/dL (8.5-10.1); Chloride 103 mmol/L (98-107); Glucose 113 mg/dL (74-106); Potassium 4.2 mmol/L (3.5-5.1); Sodium 139 mmol/L (136-145); Total Protein 7.3 g/dL (6.4-8.2)
== END 2021-06-07 12:34 | disposition home or self-care (01) ==
LOC: NCHCN 12:33
PROVIDERS: PCP Internal Medicine; Visit Provider Physician Assistant
DX: I10 Essential (primary) hypertension (principal); K92.1 Melena
CPT/HCPCS: 80053; 85025

== ENCOUNTER → 2021-06-11 10:09 | Outpatient (BNVA) | payer OTHER, MEDICAID, SELFPAY | PROVIDERS: PCP Physician Assistant; Referring Provider Physician Assistant; Visit Provider Surgery | DX: K21.9 Gastro-esophageal reflux disease without esophagitis (principal); Z12.11 Encounter for screening for malignant neoplasm of colon; Z86.010 Personal history of colon polyps | CPT/HCPCS: 99213 ==

== ENCOUNTER 2021-06-21 02:07 | Outpatient (CLI) | payer OTHER, MEDICAID, SELFPAY ==
[2021-06-21 10:12] LABS: Source Nasal/Nares
[2021-06-21 13:44] LABS: COVID-19 PCR Negative (Negative)
== END 2021-06-21 02:08 | disposition home or self-care (01) ==
LOC: LBO 02:07
PROVIDERS: PCP Physician Assistant; Visit Provider Surgery
DX: Z20.822 Contact with and (suspected) exposure to COVID-19 (principal); Z01.818 Encounter for other preprocedural examination
CPT/HCPCS: 87635

== ENCOUNTER 2021-06-21 17:34 | Emergency (ER) | payer OTHER, MEDICAID, SELFPAY ==
[2021-06-21] VITALS (8 sets, daily range): BP systolic 140–159; BP diastolic 69–88; PULSE 59–72; RESP 14–19; TEMP 36.3; O2SAT 96–97
--- NOTE | 2021-06-21 17:30 | RT.EKG_ITS ---
APPROVED REPORT Exam: Resting ECG Reason for Exam: Chest Pain Patient Location: E HR:72 bpm ECG Measurements Heart Rate 72 AXIS AZ 203 P 57 QRSd 106 QRS -6 QT 388 T 23 QTc 425 Conclusion Sinus rhythm...normal P axis, V-rate 60- 99
--- NOTE | 2021-06-21 18:30 | DI.RAD_ITS ---
Exam(s) XR PORTABLE CHEST AP EXAM: XR PORTABLE CHEST AP CLINICAL HISTORY: chest pain TECHNIQUE: 2D digital imaging was performed of the chest. Two images were obtained. AP views were obtained. COMPARISON: CR XR CHEST 2V PA LATERAL from 07/02/2018 CR,RF RF BARIUM SWALLOW from 06/14/2019 FINDINGS: MEDIASTINUM: Normal. HEART: Within normal limits in size. PULMONARY VASCULATURE: Normal. LUNGS: Clear. PLEURAL SPACE: No pleural effusion or pneumothorax. BONE:Within normal limits for the patient's age. Postsurgical changes are again seen in the right sh oulder. OTHER FINDINGS:Normal. IMPRESSION: No acute pulmonary findings. DATA REPOSITORY: RADIATION DOSE DELIVERED:
[2021-06-21 18:45] LABS: Abs Immature Grans 0.01 10^3/uL (0.0-0.06); Absolute Basophil Count 0.04 10^3/uL (0.0-0.2); Absolute Eosinophil Count 0.15 10^3/uL (0.0-0.7); Absolute Lymphocyte Count 2.37 10^3/uL (1.2-3.4); Absolute Monocyte Count 0.49 10^3/uL (0.1-0.8); Absolute Neutrophil Count 4.01 10^3/uL (1.2-6.7); Basophils % 0.6; Eosinophils % 2.1; HCT 38.8 % (40.0-50.0); HGB 13.5 g/dL (13.5-17.5); Immature Grans % 0.1; Lymphocytes % 33.5; MCH 29.9 pg (27.0-33.0); MCHC 34.8 % (32.0-36.0); MPV 10.8 fL (8.0-11.0); Monocytes % 6.9; Neutrophils % 56.8; Nucleated RBC 0 %; Platelet Count 168 10^3/uL (130-400); RBC 4.51 10^6/uL (4.36-5.78); RDW 12.3 % (11.8-14.1); RDW-SD 38.8 fL; WBC 7.07 10^3/uL (4.4-10.8)
[2021-06-21 19:07] LABS: ALT 36 U/L (16-63); AST 28 U/L (15-37); Albumin 3.9 g/dL (3.4-5.0); Alkaline Phosphatase 138 U/L (46-116); Anion Gap 7.8 mmol/L (3-11); BUN 15 mg/dL (7-18); Bilirubin, Total 0.7 mg/dL (0.2-1.0); CO2 27.2 mmol/L (21.0-32.0); CREATININE 1.1 mg/dL (0.70-1.30); Calcium 8.9 mg/dL (8.5-10.1); Chloride 103 mmol/L (98-107); Glucose 108 mg/dL (74-106); Lipase 100 U/L (73-393); Magnesium 2.2 mg/dL (1.8-2.4); NT-proBNP 310 pg/mL (<300); Potassium 3.5 mmol/L (3.5-5.1); Sodium 138 mmol/L (136-145); Total Protein 7.3 g/dL (6.4-8.2); Troponin I < 50 ng/L (<or=60)
--- NOTE | 2021-06-21 19:19 | ED.GENADUL_ITS ---
Discharge Plan Disposition Patient Disposition: HOME Condition: Stable Discharge Details Clinical Impression: Exertional chest pain Primary Care Provider: Jess Olivia ED Provider: Rosemarie Lemus Home Meds and New Rx's Prescriptions: Continued acetaminophen [Tylenol Extra Strength] 500 mg tablet 500 mg PO Q6H PRN0RF atorvastatin 20 mg tablet 20 mg PO HS 0RF Label Comments: TAKE 1 TABLET BY MOUTH DAILY AT BEDTIME No Action fluoxetine [Prozac] 40 mg Capsule 40 mg QAM 0RF meloxicam 15 mg Tablet 15 mg DAILY 0RF lansoprazole 30 mg Capsule,Delayed Release(Dr/Ec) 30 mg DAILY 0RF Discharge Instructions Instructions: Chest Pain (ED) Additional Instructions: Do not engage in any significant exertion until you have a stress test, talk to your doctor about getting this ordered, which is very important They will likely not clear you for surgery until you have a stress test Continue on your prescribed medications Please return immediately should you have worsening pain, constant pain, or with new or worsening complaints Referrals: Jess Olivia [Primary Care Provider] - 2 days (need outpatient stress test, likely nuclear med) Discharge Data Discharge Date/Time-TO BE ENTERED AT DEPARTURE: 06/21/21 19:31 Medical Decision Making Patient appears well, his troponin and mom are negative for significant acute abnormality X-ray also is clear per radiology interpretation my review Patient has been having these complaints for the past several years and denies any exacerbation of the symptoms this week. He states that he is not been previously evaluated for any symptoms He also tells me the only reason he came here today is because he is scheduled for endoscopy and he was at his PCP for medical clearance I see no indication for emergent stress test at this time as a hospital admission given our low availability of inpatient bed and COVID-19 pandemic, however I do think it is very important within the next week or 2 that patient have an outpatient stress test I have discussed this in detail and will place patient on the follow-up with for repeat assessment Patient is instructed not to engage in any exertional activity until he has a stress test and is reassessed by his primary care physician and to return immediately with change in pain, worsening chest pain, or should he have any new or worsening symptoms See my attending's documentation regarding ED EKG which does not show significant acute abnormality per my review Medical Records Medical records reviewed: Yes I reviewed the patient's medical records. ECG Data Prior ECG tracings: available for review HPI General Date/Time Provider Initiated Documentation: 06/21/21 17:57 . HPI Narrative: This 65-year-old gentleman with history of obesity, chest pain, pulmonary hypertension presents with report of intermittent chest pain for the past several years. He states that he typically gets this pain when he exerts himself strenuously. He states it resolves with rest. He denies any change in his symptoms in the past week or even days. He states that he was going for a routine physical exam for medical clearance have endoscopy and he mentioned this pain that he has been getting daily and he was sent to the emergency room for cardiac rule out. Patient denies tobacco abuse. He denies personal history of coronary artery disease. He reports history of hypertension and hyperlipidemia. He denies early family cardiac history. Denies recent past, surgeries, denies. Denies any calf pain or swelling. Denies any current chest discomfort. He does have chest pain described as a pressure sensation that alleviates with rest. His last episode of mild chest pain was today. He typically gets several episodes daily reportedly. Again he denies any change in his pain over the course of the past several years, specifically no increase in pain in the past week. Related Data Home Medications Medication Instructions Recorded Confirmed atorvastatin 20 mg tablet 20 mg PO HS 12/17/20 06/21/21 acetaminophen 500 mg tablet 500 mg PO Q6H PRN 06/11/21 06/21/21 (Tylenol Extra Strength) fluoxetine 40 mg capsule (Prozac) 40 mg QAM 06/21/21 06/21/21 lansoprazole 30 mg capsule,delayed 30 mg DAILY 06/21/21 06/21/21 release meloxicam 15 mg tablet 15 mg DAILY 06/21/21 06/21/21 Allergies Allergy/AdvReac Type Severity Reaction Status Date / Time omeprazole [From Prilosec] Allergy Intermediate Itching Verified 06/21/21 12:08 oxycodone Allergy Itching Verified 06/21/21 12:08 codeine [Codeine] AdvReac NAUSEA Verified 06/21/21 12:08 General Stated Complaint: Chest Pain CATIA: 2 Review of Systems Narrative: Review of systems negative x7 aside from where indicated in HPI PFSH All Active Problems (Updated 06/21/21 @ 19:21 by LUKAS Ramsey) Obesity (Chronic) Globus sensation (Acute) Exertional chest pain (Acute) Melena (Acute) Diverticulitis (Acute) Gastropathy (Acute) pt needs to curtail ETOH use. 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 Shoulder pain (11/18/12) Situational depression Tendinitis of long head of biceps brachii of left shoulder Tendonitis of left rotator cuff Injected: 01/03/2020, 04/10/2020, 12/17/2020 Surgical History Appendectomy (~2007) Arthroplasty 03/09/15; DR. HERNANDEZ RIGHT SECOND TOE EXOSTECTOMY 03/09/15 DR. YODER; RIGHT GREAT TOE History of esophagogastroduodenoscopy (EGD) History of surgery on upper extremity Hx L shoulder, wrist, fingers, R arm x 8 per Pt History of surgical amputation of finger of left hand Machine related injury, R hand per pt 08/13/18 Hx of carpal tunnel repair Hx of colonoscopy 08/13/[address] [place] [address] Pastora Noel at [facility], repeat in five years. mg colo 06/05/08 - Dr Cheney - tubular adenoma, descending colon, repeat in 5 years. Family History Other Cancer Diabetes Hypertension Social History Smoking/Tobacco Use Status: Never Smoking risk assessment performed?: Yes Alcohol Intake: former Drug use: Never Substance use type: does not use Current gender identity: male Do you feel safe at home: Yes Do you feel safe in your relationship?: Yes Exam Const General: cooperative, comfortable and no acute distress Eyes Sclera: sclerae normal Resp Effort & Inspection: normal respiratory effort Auscultation: clear to auscultation bilaterally Cardio Rate: regular rate Rhythm: regular rhythm Heart Sounds: no murmurs GI Other: no abdominal tenderness Skin General skin exam: no rashes or lesions noted Neuro General: patient alert and patient oriented x3 Extrem Other: no calf swelling or tenderness distal pulses intact Course Vital Signs Vital signs: Vital Signs Temperature 36.3 C L 06/21/21 17:43 Temperature 36.3 C L 06/21/21 17:43 Temperature Source Temporal Artery Scan 06/21/21 17:43 Pulse 63 06/21/21 19:01 Pulse 61 06/21/21 19:01 Respiratory Rate 14 06/21/21 19:01 Respiratory Effort Non-Labored 06/21/21 17:48 Respiratory Depth Normal 06/21/21 17:48 Respiratory Pattern Irregular 06/21/21 17:48 Blood Pressure 142/75 H 06/21/21 19:01 Blood Pressure Mean 92 06/21/21 19:01 Pulse Oximetry 97 06/21/21 18:46 Lab/Test Results Lab/Test Results: Laboratory Tests Range/Units 06/21/21 06/21/21 18:05 18:05 WBC (4.4-10.8) 10^3/uL 7.07 RBC (4.36-5.78) 10^6/uL 4.51 Hgb (13.5-17.5) g/dL 13.5 Hct (40.0-50.0) % 38.8 L MCV (80-95) fL 86.0 MCH (27.0-33.0) pg 29.9 MCHC (32.0-36.0) % 34.8 RDW (11.8-14.1) % 12.3 Plt Count (130-400) 10^3/uL 168 MPV (8.0-11.0) fL 10.8 Immature Gran % 0.1 Neutrophils % 56.8 Lymphocytes % 33.5 Monocytes % 6.9 Eosinophils % 2.1 Basophils % 0.6 Nucleated RBC % % 0 Absolute Neutrophils (1.2-6.7) 10^3/uL 4.01 Absolute Lymphocytes (1.2-3.4) 10^3/uL 2.37 Absolute Monocytes (0.1-0.8) 10^3/uL 0.49 Absolute Eosinophils (0.0-0.7) 10^3/uL 0.15 Absolute Basophils (0.0-0.2) 10^3/uL 0.04 Sodium (136-145) mmol/L 138 Potassium (3.5-5.1) mmol/L 3.5 Chloride (98-107) mmol/L 103 Carbon Dioxide (21.0-32.0) mmol/L 27.2 Anion Gap (3-11) mmol/L 7.8 BUN (7-18) mg/dL 15 Creatinine (0.70-1.30) mg/dL 1.1 Estimated GFR/1.73 m2 (mL/min/1.73m2) >= 60.00 Glucose (74-106) mg/dL 108 H Calcium (8.5-10.1) mg/dL 8.9 Magnesium (1.8-2.4) mg/dL 2.2 Total Bilirubin (0.2-1.0) mg/dL 0.7 AST (15-37) U/L 28 ALT (16-63) U/L 36 Alkaline Phosphatase (46-116) U/L 138 H Troponin I (<or=60) ng/L < 50 NT-Pro-B Natriuret Pep (<300) pg/mL 310 H Total Protein (6.4-8.2) g/dL 7.3 Albumin (3.4-5.0) g/dL 3.9 Lipase (73-393) U/L 100
--- NOTE | 2021-06-21 19:55 | DI.VRAD_ITS ---
PROCEDURE INFORMATION: Exam: XR Chest Exam date and time: 06/21/2021 6:37 PM Age: 65 years old Clinical indication: Pain; Chest pressure TECHNIQUE: Imaging protocol: XR of the chest. Views: 1 view. COMPARISON: CR XR CHEST 2V PA LATERAL 07/02/2018 8:00 PM FINDINGS: Lungs: The lungs are well aerated without focal consolidation. Pleural spaces: No pleural effusion or pneumothorax. Heart/Mediastinum: Heart size is upper limits of normal. There is a descending left thoracic aorta and off centered trachea. Bones/joints: Postsurgical changes to the right humeral head apparent with two orthopedic anchors in place. IMPRESSION: No acute cardiopulmonary finding. Dictated and Authenticated by: Dwayne Medrano MD. Ordering:JIGAR Houston MD
== END 2021-06-21 19:31 | disposition home or self-care (01) ==
PROVIDERS: Emergency Provider Physician Assistant; PCP Physician Assistant
DX: R07.9 Chest pain, unspecified (principal); R06.02 Shortness of breath; I10 Essential (primary) hypertension
CPT/HCPCS: 80053; 83690; 93005; 99284; 71045; 83735; 83880; 84484; 85025; 93010; 99283

== ENCOUNTER → 2021-07-04 00:28 | Outpatient (CLI) | payer OTHER, MEDICAID, SELFPAY ==
--- NOTE | 2021-07-04 08:45 | DI.NM_ITS ---
APPROVED REPORT Exam: Pharmacologic Patient Location: Out-Patient Room/Bed: Stress Nurse: Nubia Lazcano RN Ordering Provider:SILVESTRE TELLEZ, Contact Number: [phone] BMI: 30.51 Baseline Rhythm: Sinus rhythm Indications: Chest pain Medical History Medical History: Hypertension, hyperlipidemia, pulmonary hypertension, gerd, obesity, alcohol abuse, situational depression Cardiac Medications: Aspirin, metoprolol succinate, atorvastatin Allergies: Omeprazole, oxycodone, codeine Cardiac Risk Factors: Hypertension, hyperlipidemia, obesity, family hx Previous Cardiac Procedures: None Pretest Chest Pain Characteristics: None Exercise History: Indeterminate Physical Disabilities: Hands Lung Sounds: Clear to auscultation Heart Sounds: Regular Stress Test Details Test: Pharmacologic stress was paired with low level exercise. Reason for pharmacologic stress test: physical limitation. Nuclear Acquisition: Rest Tc-99m/Stress Tc-99m 1 day Rest Isotope: Tc-99m Sestamibi. Dose: 11.5 Date: 07/04/2021 Injection Time: 0915 Stress Isotope: Tc-99m Sestamibi. Dose: 37.5 Date: 07/04/2021 Injection Time: 1107 HR Resting HR Supine: 64 bpm Max Heart Rate (APMHR): 154.628500 bpm Resting HR Standin bpm Target HR (85% APMHR): 130.798824 bpm Max HR Achieved: 114 bpm % of APMHR: 74.03 Recovery HR: 72 bpm Comment: Metoprolol succinate held for 24 hrs BP Resting BP Supine: 148/90 mmHg Resting BP Standin/88 mmHg Max BP: 154/96 mmHg Recovery BP: 142/82 mmHg ECG Resting ECG: Sinus Rhythm Ectopy: Rare PVC Stress ECG: Sinus Tachycardia ST Change: Nondiagnostic low heart rate Arrhythmia: Frequent PVCs multifocal, bursts of quadrigeminy Recovery ECG: Sinus Rhythm Recovery ST Change: Nondiagnostic low heart rate Recovery Arrhythmia: Frequent PVCs multifocal, bursts of trigeminy, quadrigeminy Clinical Stress Symptoms: General Fatigue, Chest pain Rate Pressure Product: [id number] Stress ECG Conclusion 1. Resting electrocardiogram was within normal limits 2. The patient underwent low-level exercise paired with pharmacologic stress with regadenoson 3. Peak heart rate achieved was 74% of predicted for age 4. The electrocardiographic portion of the test was nondiagnostic due to inadequate heart rate 5. PVCs were seen 6. See MPI report Stress Test Summary STAGE HR BP Symptoms NOTES Supine 64 148/90 SpO2 100% 1 min post Lexiscan injection 108 154/96 Chest pain 4/10, ROMERO 6/10 SpO2 84% 3 min post Lexiscan injection 86 142/80 Chest pain 8/10, ROMERO improving SpO2 98% 6 min post Lexiscan injection 76 142/82 Chest pain 5/10, ROMERO improving SpO2 97% 9 min post Lexiscan injection 72 Chest pain resolved, ROMERO resolved SpO2 97% Pharmacologic stress was paired with low level exercise at speed 1.8 mph and 0% grade due to physical limitation. Pt reported midsternal chest pain after Lexiscan injection 4/10. After 3 minutes chest p ain increased to 8/10 and was located in lower sternum/upper gastric. Chest pain resolved by minute 9 of recovery. MPI Conclusion There is no evidence of ischemia or prior infarction. EF 36%. Possible inferior wall hypokinesis Radiologist Interpretation Radiologist agrees with [employer]'s Interpretation. Radiologist Interpretation by: Meir Fountain MD Interpretation Date/Time: 07/10/2021 10:14:07
[2021-07-04] MEDS: Regadenoson 0.4 MG/5 ML SYR IVP (11:46)
== END ==
PROVIDERS: PCP Physician Assistant; Visit Provider Physician Assistant
DX: R07.89 Other chest pain (principal); I49.3 Ventricular premature depolarization
CPT/HCPCS: 78452; 93016; 93018; 93017; J2785

== ENCOUNTER → 2021-07-19 01:49 | Outpatient (CLI) | payer OTHER, MEDICAID, SELFPAY ==
--- NOTE | 2021-07-19 | DI.US_ITS ---
APPROVED REPORT EXAM: Comprehensive 2D, Doppler, and color-flow Echocardiogram Patient Location: Out-Patient [employer] Operator: Deanna Piña RDCS (AE) Indications: Heart Failure Other Information Study Quality: Adequate Conclusion Normal left ventricular wall thickness. The left ventricle is borderline dilated. Overall systolic function is mildly reduced. Estimated ejection fraction is 45%. There is mild global hypokinesis Normal right ventricular size and systolic function Both atria are normal in size Mild mitral annular calcification. Trace to mild mitral regurgitation There are no other structural or hemodynamically significant valvular abnormalities Wall motion Left Ventricle Left ventricle is borderline dilated. Left ventricular systolic function is mildly decreased. There i s normal left ventricular wall thickness. There is global hypokinesis of the left ventricle. There is no ventricular septal defect visualized. LVEF is 45%. Right Ventricle The right ventricle is normal size. The right ventricular systolic function is normal. Atria The left atrium size is normal. The right atrium size is normal. The interatrial septum is intact wit h no evidence for an atrial septal defect. Aortic Valve The aortic valve is normal in structure. Aortic valve is trileaflet. There is no aortic valvular sten osis. No aortic regurgitation is present. Mitral Valve Mild mitral annular calcification. No evidence of mitral valve stenosis. Trace to mild mitral regurgi tation. Tricuspid Valve The tricuspid valve is normal in structure. There is no tricuspid valve stenosis. Trace tricuspid reg urgitation. Unable to assess PA pressure. Pulmonic Valve The pulmonary valve is normal in structure. There is no pulmonic valvular stenosis. Trace pulmonic re gurgitation. Great Vessels The aortic root is normal in size. The ascending aorta is normal in size. Aortic arch is normal in ca liber. IVC is normal in size and collapses >50% with inspiration. Pericardium There is no pericardial effusion. 2D Dimensions IVSD d PLAX 1.02 cm M: 0.6-1.2 LV Vol A2C d MOD 133.5 mL LVPW d PLAX 1.00 cm M: 0.6 - 1.2 LV Vol A4C d MOD 145.0 mL LVID d PLAX 5.94 cm M: 4.2 - 5.8 LA vol/ BSA A2C s A-L 24.5 mL/m2 LVDs 4.55 cm M: 2.5 - 4.0 LA vol/ BSA A4C s A-L 27.0 mL/m2 Ao Root d 3.08 cm M: 3.1 - 3.7 LA Vol/ BSA Biplane s A-L 26.0 mL/m2 RA Area A4C 16.07 cm2 LA Area A4C s MOD 20.95 cm2 RA Vol/ BSA A4C s A-L 18.8 mL/m2 LA Area A2C s MOD 19.70 cm2 Ao Asc Diam d 3.17 cm M: 2.6 - 3.4 LV EF A4C MOD 47.4 % LV EF Teichholz 45.1 % LV EF A2C MOD 45.0 % LVEF (Ocampo's) 45.39 % M: 52 - 72 LV EF Biplane MOD 45.4 % LV Volume 100.50 mL M: 62 - 150 SV 63.32 mL LV Volume Index 44.27 mL/m2 M: 34 - 74 SV Index 27.91 mL/m2 LV Vol Biplane MOD 139.5 mL FS 22.80 % M-Mode TAPSE 2.21 cm (M/F) >1.7 LV Diastology MV E' medial 0.047 (>0.07 m/s) E/A Ratio 0.7 LV E/e MED 11.60 (<14) MV E Vmax 0.55 (0.4-1.3 m/s) MV E' lateral 0.052 (>0.1 m/s) MV A Vmax 0.75 (0.4-1.3 m/s) LV E/e LAT 10.50 (<14) MV E/A Ratio 0.72 MV E/E' medial 11.63 MV E/E' lateral 10.53 Aortic Valve LVOT Area 3.78 cm2 AoV Area Vmax 3.20 cm2 LVOT Vmax 0.87 m/s AoV Area/ BSA (Vmax) 1.41 cm2/m2 LVOT Mean Chandler. 0.59 m/s RIVERA Mean Chandler. 2.77 cm2 LVOT Peak Grad 3.0 mmHg RIVERA Mean Chandler. Index 1.22 cm2/m2 LVOT Mean Grad 1.6 mmHg LVOT VTI 0.194 m LVOT Diam s 2.15 cm AoV Vmax 1.03 m/s Velocity Ratio 0.84 AoV Mean Chandler. 0.81 m/s AoV Peak Grad 4.2 mmHg LVOT SV 73.26 mL AoV Mean Grad 2.8 mmHg AoV VTI 0.212 m AoV Area VTI 3.45 cm2 AoV Area/ BSA (VTI) 1.52 cm/m2 Mitral Valve MV DT 355 (160-240 msec) MV PHT 103 msec MV Area PHT 2.14 cm2 MV VTI 0.265 m MV Area VTI 2.76 (4.0-6.0 cm2) Pulmonary Valve PV Vmax 1.36 (0.5-1.5 m/s) RVOT Peak Gr. 1.84 mmHg PV Peak Grad 7.4 mmHg RVOT Mean Gr. 0.90 mmHg PV Mean Grad 3.4 mmHg RVOT VTI 0.154 m PV VTI 0.249 m RVOT Vmax 0.68 m/s
== END ==
PROVIDERS: PCP Physician Assistant; Visit Provider Physician Assistant
DX: I50.89 Other heart failure (principal)
CPT/HCPCS: 93306

== ENCOUNTER 2021-07-26 09:40 | Outpatient (CLI) | payer OTHER, MEDICAID, SELFPAY ==
--- NOTE | 2021-07-26 09:30 | RT.EKG_ITS ---
APPROVED REPORT Exam: Resting ECG Reason for Exam: NPW Basline needed/ Chest Pressure Patient Location: O HR:65 bpm ECG Measurements Heart Rate 65 AXIS [place] 192 P 28 QRSd 100 QRS 4 QT 449 T 33 QTc 467 Conclusion Sinus rhythm...normal P axis, V-rate 50- 99
--- NOTE | 2021-07-26 10:15 | RT.EKG_ITS ---
APPROVED REPORT Exam: Resting ECG Reason for Exam: NPW Basline needed/ Chest Pressure Patient Location: O HR:124 bpm ECG Measurements Heart Rate 124 AXIS TN [id number] P [id number] QRSd 103 QRS 44 QT 346 T 17 QTc 497 Conclusion Atrial fibrillation...V-rate 69-161, irreg A-activity Ventricular premature complex...V complex w/ short R-R interval Low voltage, extremity leads...all extremity leads <0.5mV Borderline prolonged QT interval...QTc >475mS
== END 2021-07-26 09:41 | disposition home or self-care (01) ==
PROVIDERS: PCP Physician Assistant; Referring Provider Physician Assistant; Visit Provider Internal Medicine Cardiovascular Disease
DX: I10 Essential (primary) hypertension (principal); R07.89 Other chest pain
CPT/HCPCS: 93010

== ENCOUNTER → 2021-07-26 09:40 | Outpatient (BNVA) | payer OTHER, MEDICAID, SELFPAY | PROVIDERS: PCP Physician Assistant; Referring Provider Physician Assistant; Visit Provider Internal Medicine Cardiovascular Disease | DX: R07.9 Chest pain, unspecified (principal); I10 Essential (primary) hypertension; R06.02 Shortness of breath; K76.0 Fatty (change of) liver, not elsewhere classified; K92.1 Melena; E66.9 Obesity, unspecified | CPT/HCPCS: 93005; 99204; 99214 ==

== ENCOUNTER 2021-08-02 03:44 | Outpatient (CLI) | payer OTHER, MEDICAID, SELFPAY ==
[2021-08-02 12:06] LABS: HCT 38.3 % (40.0-50.0); MCH 29.6 pg (27.0-33.0); MCHC 33.9 % (32.0-36.0); MCV 87.2 fL (80-95); MPV 10.3 fL (8.0-11.0); Platelet Count 160 10^3/uL (130-400); RBC 4.39 10^6/uL (4.36-5.78); RDW 12.3 % (11.8-14.1); RDW-SD 39.5 fL; WBC 6.39 10^3/uL (4.4-10.8)
[2021-08-02 12:18] LABS: PTT Activated 28.5 sec (21.0-27.5); Prothrombin Time 9.7 sec (9.3-11.0)
[2021-08-02 12:42] LABS: Anion Gap 8.6 mmol/L (3-11); BUN 23 mg/dL (7-18); CO2 26.4 mmol/L (21.0-32.0); CREATININE 1.2 mg/dL (0.70-1.30); Calcium 8.7 mg/dL (8.5-10.1); Calculated LDL 50 mg/dL (<100); Chloride 103 mmol/L (98-107); Cholesterol 143 mg/dL (<200); Glucose 106 mg/dL (74-106); HDL Cholesterol 34 mg/dL (40-60); Potassium 4.8 mmol/L (3.5-5.1); Sodium 138 mmol/L (136-145); Triglyceride 296 mg/dL (<150)
== END 2021-08-02 03:45 | disposition home or self-care (01) ==
LOC: LBO 03:44
PROVIDERS: PCP Physician Assistant; Visit Provider Internal Medicine Cardiovascular Disease
DX: I10 Essential (primary) hypertension (principal); K76.0 Fatty (change of) liver, not elsewhere classified; R06.02 Shortness of breath
CPT/HCPCS: 36415; 80048; 80061; 85027; 85610; 85730

== ENCOUNTER → 2021-08-26 09:23 | Outpatient (BNVA) | payer OTHER, MEDICAID, SELFPAY | PROVIDERS: PCP Physician Assistant; Referring Provider Physician Assistant; Visit Provider Internal Medicine Cardiovascular Disease | DX: I10 Essential (primary) hypertension (principal); E78.5 Hyperlipidemia, unspecified; I42.8 Other cardiomyopathies | CPT/HCPCS: 99214; 99213 ==

== ENCOUNTER 2021-08-30 17:26 | Outpatient (REF) | payer OTHER, MEDICAID, SELFPAY | END 2021-08-30 17:27 | disposition home or self-care (01) | LOC: NCHCN 17:26 | PROVIDERS: PCP Physician Assistant; Visit Provider Physician Assistant ==

== ENCOUNTER → 2021-09-02 10:29 | Outpatient (BNVA) | payer OTHER, MEDICAID, SELFPAY | PROVIDERS: PCP Physician Assistant; Referring Provider Physician Assistant; Visit Provider Surgery | DX: R05.9 Cough, unspecified (principal); I42.8 Other cardiomyopathies; I10 Essential (primary) hypertension; K92.1 Melena; E66.9 Obesity, unspecified; R19.8 Other specified symptoms and signs involving the digestive system and abdomen; R07.9 Chest pain, unspecified; K57.92 Diverticulitis of intestine, part unspecified, without perforation or abscess without bleeding; K31.9 Disease of stomach and duodenum, unspecified; F10.10 Alcohol abuse, uncomplicated; R10.13 Epigastric pain; K21.9 Gastro-esophageal reflux disease without esophagitis; R13.10 Dysphagia, unspecified; I27.29 Other secondary pulmonary hypertension; K76.0 Fatty (change of) liver, not elsewhere classified; R41.3 Other amnesia; R10.11 Right upper quadrant pain; R19.7 Diarrhea, unspecified | CPT/HCPCS: 43239; 99243 ==

== ENCOUNTER → 2021-09-04 02:03 | Outpatient (CLI) | payer OTHER, MEDICAID, SELFPAY ==
--- NOTE | 2021-09-04 07:30 | DI.RAD_ITS ---
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 COMPARISON: CR,XR XR PORTABLE CHEST AP from 06/21/2021 FINDINGS: MEDIASTINUM: Normal. HEART: Normal. PULMONARY VASCULATURE: Normal. LUNGS: Clear. PLEURAL SPACE: No pleural effusion or pneumothorax. BONE:Unremarkable for age. IMPRESSION: No acute abnormality. DATA REPOSITORY: RADIATION DOSE DELIVERED:
== END ==
PROVIDERS: PCP Physician Assistant; Visit Provider Surgery
DX: R05.8 Other specified cough (principal)
CPT/HCPCS: 71046

== ENCOUNTER 2021-09-05 12:57 | Emergency (ER) | payer OTHER, MEDICAID, SELFPAY ==
[2021-09-05] VITALS (26 sets, daily range): BP systolic 141–169; BP diastolic 49–74; PULSE 70–93; RESP 2–23; TEMP 36.6; O2SAT 94–98
--- NOTE | 2021-09-05 13:15 | RT.EKG_ITS ---
APPROVED REPORT Exam: Resting ECG Reason for Exam: SOB Patient Location: E HR:73 bpm ECG Measurements Heart Rate 73 AXIS LA 184 P 57 QRSd 99 QRS -3 QT 424 T 50 QTc 468 Conclusion Sinus rhythm...normal P axis, V-rate 60- 99
--- NOTE | 2021-09-05 13:47 | ED.GENADUL_ITS ---
Discharge Plan Disposition Patient Disposition: HOME Condition: Improving Discharge Details Clinical Impression: Acute bronchitis with bronchospasm Primary Care Provider: Jess Olivia ED Provider: Meir Norwood Home Meds and New Rx's Prescriptions: New doxycycline hyclate 100 mg capsule 100 mg PO BID 9 Days Qty: 18 0RF prednisone 50 mg tablet 50 mg PO DAILY 5 Days Qty: 5 0RF Continued acetaminophen [Tylenol Extra Strength] 500 mg tablet 500 mg PO Q6H PRN0RF nitroglycerin 0.4 mg tablet, sublingual 0.4 mg sublingual Q5-15M PRN0RF Rx Instructions: do not exceed 3 doses per episode metoprolol succinate 50 mg tablet extended release 24 hr 50 mg PO .nightly Qty: 90 3RF lisinopril 20 mg tablet 20 mg PO DAILY Qty: 90 3RF fluoxetine [Prozac] 40 mg Capsule 40 mg QAM 0RF lansoprazole 30 mg Capsule,Delayed Release(Dr/Ec) 30 mg DAILY 0RF atorvastatin 20 mg tablet 20 mg PO HS 0RF Label Comments: TAKE 1 TABLET BY MOUTH DAILY AT BEDTIME Discharge Instructions Instructions: Acute Bronchitis (ED) Additional Instructions: Home to rest today. Next doses of prednisone and antibiotic will be tomorrow. Needs to provided inhaler if needed for persistent coughing or wheeze. Follow-up with regular doctor if not improved in 5 to 7 days time. Return to the emergency department for any acute concerns. Medical Decision Making This is a 66-year-old male who presents complaining of paroxysms of cough that he has had for years. More prominent over the past few months. Not sometimes he feels to have post tussive syncope in which he has brief loss of consciousness. Has not fallen or struck his head. Denies chest pain or shortness of breath to me. Patient arrives ER awake, alert and interactive. Is oxygenating normally on room air when he is afebrile. Exam does note some bilateral end expiratory wheeze. Patient denies smoking but states she has had a history of previous use of inhaler, not currently. I reviewed the patient's medical records including unremarkable two-view chest x-ray obtained yesterday 04 September. Additionally, I reviewed surface echocardiogram from July 19 which reveals borderline dilation of the left ventricle, ejection fraction of 45%. Note of mild global hypokinesis. No indication to repeat yesterday's chest x-ray. Screening laboratories obtained and due to the bronchospasm, patient was given inhaled DuoNeb updraft. Laboratories will note a white count of 3.7, hematocrit 38, platelets 138. Chemistries within normal limits. LFTs unremarkable, troponin negative and BNP is 231. The patient is improved following DuoNeb updraft. Given his bronchospasm and probable underlying bronchitis, I will opt to treat him with a small burst of steroids as well as oral antibiotic. He is stable and appropriate for outpatient management. Do not feel further cardiac work-up is indicated at this time. HPI General Mode of arrival: ambulatory . Date/Time Provider Initiated Documentation: 09/05/21 13:31 . Limitations to Documentation: no limitations . Information obtained by: patient . History of Present Illness 66 year old M presents to the emergency department with the chief complaint of Persistent cough for months time, brief syncopal episode today, described as moderate, Quality is described as dull, and is localized to the chest. Patient reports no radiation. Patient started experiencing this week(s) and it has been intermittent and now resolved. improves with No relieving factors improve symptom(s), No exacerbating factors reported . Patient notes cough; denies chest pain and shortness of breath. Patient did receive the following treatments prior to arrival, none and other (Chest x-ray yesterday) Related Data Home Medications Medication Instructions Recorded Confirmed atorvastatin 20 mg tablet 20 mg PO HS 12/17/20 09/05/21 acetaminophen 500 mg tablet 500 mg PO Q6H PRN 06/11/21 09/05/21 (Tylenol Extra Strength) fluoxetine 40 mg capsule (Prozac) 40 mg QAM 06/21/21 09/05/21 lansoprazole 30 mg capsule,delayed 30 mg DAILY 06/21/21 09/05/21 release metoprolol succinate 50 mg 50 mg PO .nightly #90 tab 07/26/21 09/05/21 tablet,extended release 24 hr nitroglycerin 0.4 mg sublingual 0.4 mg SUBLINGUAL Q5-15M PRN 07/26/21 09/05/21 tablet lisinopril 20 mg tablet 20 mg PO DAILY #90 tab 08/26/21 09/05/21 doxycycline hyclate 100 mg capsule 100 mg PO BID 9 Days #18 cap 09/05/21 prednisone 50 mg tablet 50 mg PO DAILY 5 Days #5 tab 09/05/21 Previous Rx's Medication Instructions Recorded metoprolol succinate 50 mg 50 mg PO .nightly #90 tab 07/26/21 tablet,extended release 24 hr lisinopril 20 mg tablet 20 mg PO DAILY #90 tab 08/26/21 doxycycline hyclate 100 mg capsule 100 mg PO BID 9 Days #18 cap 09/05/21 prednisone 50 mg tablet 50 mg PO DAILY 5 Days #5 tab 09/05/21 Allergies Allergy/AdvReac Type Severity Reaction Status Date / Time omeprazole [From Prilosec] Allergy Intermediate Itching Verified 09/02/21 10:35 oxycodone Allergy Itching Verified 09/02/21 10:35 codeine [Codeine] AdvReac NAUSEA Verified 09/02/21 10:35 General Stated Complaint: RespSymp CATIA: 3 Review of Systems Narrative: Minimal production of sputum, no fever, no change in taste or smell. Immunized against COVID-19. Otherwise well. Denies chest pain. 8 systems were reviewed and negative. PFSH All Active Problems (Updated 09/05/21 @ 15:23 by Meir Norwood MD) Acute bronchitis with bronchospasm (Acute) New onset cough (Acute) Diarrhea (Acute) assoc w/ fatty food injestion Postprandial RUQ pain (Acute) Nonischemic cardiomyopathy (Acute) HTN (hypertension) with goal to be determined (Acute) Melena (Acute) Depression (Chronic) Obesity (Chronic) Globus sensation (Acute) Exertional chest pain (Acute) Melena (Acute) Diverticulitis (Acute) Gastropathy (Acute) pt needs to curtail ETOH use. 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 Shoulder pain (11/18/12) Situational depression Tendinitis of long head of biceps brachii of left shoulder Tendonitis of left rotator cuff Injected: 01/03/2020, 04/10/2020, 12/17/2020 Surgical History Appendectomy (~2007) Arthroplasty 03/09/15; DR. HERNANDEZ RIGHT SECOND TOE EXOSTECTOMY 03/09/15 DR. YODER; RIGHT GREAT TOE History of esophagogastroduodenoscopy (EGD) History of surgery on upper extremity Hx L shoulder, wrist, fingers, R arm x 8 per Pt History of surgical amputation of finger of left hand Machine related injury, R hand per pt 08/13/18 Hx of carpal tunnel repair Hx of colonoscopy 08/13/[address] Pastora Noel at [facility], repeat in five years. mg colo 06/05/08 - Dr Cheney - tubular adenoma, descending colon, repeat in 5 years. Family History Other Cancer Diabetes Hypertension Social History Smoking/Tobacco Use Status: Never Smoking risk assessment performed?: Yes Alcohol Intake: former Drug use: Never Substance use type: does not use Current gender identity: male Do you feel safe at home: Yes Do you feel safe in your relationship?: Yes Exam Narrative Exam Narrative: GEN: awake, alert, oriented 3. Pleasant, well groomed, interactive. HEAD: Normocephalic, atraumatic ENT: Mucous membranes moist, oropharynx unremarkable, External ear exam unremarkable EYES: PERRL, EOMI NECK: Full ROM, no RONIT, no menigismus CHEST/RESP: Nontender, cough noted with bilateral end expiratory wheeze more prominent at the bases. CARDIOVASCULAR: Distant, RRR, no murmur, rub arielle. 2+ Rad pulse bilateral ABDOMEN: Soft, nontender, no mass. +Bowel sounds EXT: Full ROM, no edema, no rash Neuro: Grossly normal neurologic exam, conversant, interactive. Psych: Speech fluent, thoughts congruent, affect normal Course Vital Signs Vital signs: Vital Signs Temperature 36.6 C 09/05/21 13:18 Pulse 80 09/05/21 13:18 Respiratory Rate 18 09/05/21 13:18 Blood Pressure 155/73 H 09/05/21 13:18 Pulse Oximetry 96 09/05/21 13:18 Temperature 36.6 C 09/05/21 13:18 Temperature Source Temporal Artery Scan 09/05/21 13:18 Pulse 80 09/05/21 13:18 Respiratory Rate 18 09/05/21 13:18 Respiratory Effort Non-Labored 09/05/21 13:40 Respiratory Depth Normal 09/05/21 13:40 Blood Pressure 155/73 H 09/05/21 13:18 Blood Pressure Position Sitting 09/05/21 13:18 Pulse Oximetry 96 09/05/21 13:18 Oxygen Delivery Method Room Air 09/05/21 13:18 Oxygen Flow Rate 0 09/05/21 13:18
[2021-09-05] MEDS: Albuterol/Ipratropium 3 ML UPD VIAL UPD (14:06)
[2021-09-05] MEDS: Normal Saline 1,000 ML 150 ML IV (14:06)
[2021-09-05 14:17] LABS: Abs Immature Grans 0.01 10^3/uL (0.0-0.06); Absolute Basophil Count 0.02 10^3/uL (0.0-0.2); Absolute Eosinophil Count 0.11 10^3/uL (0.0-0.7); Absolute Lymphocyte Count 0.98 10^3/uL (1.2-3.4); Absolute Monocyte Count 0.69 10^3/uL (0.1-0.8); Absolute Neutrophil Count 1.93 10^3/uL (1.2-6.7); Basophils % 0.5; Eosinophils % 2.9; HCT 38.9 % (40.0-50.0); HGB 13.3 g/dL (13.5-17.5); Immature Grans % 0.3; Lymphocytes % 26.2; MCH 30.2 pg (27.0-33.0); MCHC 34.2 % (32.0-36.0); MCV 88 fL (80-95); MPV 11.1 fL (8.0-11.0); Monocytes % 18.4; Neutrophils % 51.7; Platelet Count 138 10^3/uL (130-400); RBC 4.41 10^6/uL (4.36-5.78); RDW 12.9 % (11.8-14.1); WBC 3.74 10^3/uL (4.4-10.8)
[2021-09-05 14:36] LABS: ALT 55 U/L (16-63); AST 37 U/L (15-37); Alkaline Phosphatase 148 U/L (46-116); BUN 15 mg/dL (7-18); Bilirubin, Total 0.7 mg/dL (0.2-1.0); CREATININE 1.2 mg/dL (0.70-1.30); Calcium 8.8 mg/dL (8.5-10.1); Chloride 101 mmol/L (98-107); Glucose 125 mg/dL (74-106); NT-proBNP 231 pg/mL (<300); Potassium 4.6 mmol/L (3.5-5.1); Sodium 136 mmol/L (136-145); Total Protein 7.8 g/dL (6.4-8.2); Troponin I < 50 ng/L (<or=60)
--- NOTE | 2021-09-05 14:56 | NUR.NOTE ---
Nursing Note: While in patient's room at approximately 1430 - patient converted from NSR to sustained trigeminy. This was immediately post albuterol nebulizer treatment. Patient did not endorse any change in symptoms from his triage complaints. Other vital signs within range. ED MD Enma aware of change.
[2021-09-05] MEDS: Doxycycline Hyclate 100 MG, 2 CAPS/BTL PO (15:43)
[2021-09-05] MEDS: predniSONE 40 MG, predniSONE 10 MG 50 MG PO (15:43)
[2021-09-06 11:38] LABS: COVID-19 RT-PCR UVMMC Result Negative (Negative)
== END 2021-09-05 15:48 | disposition home or self-care (01) ==
PROVIDERS: Emergency Provider Emergency Medicine; PCP Physician Assistant
DX: J20.9 Acute bronchitis, unspecified (principal); R05.3 Chronic cough; R06.02 Shortness of breath; Z20.822 Contact with and (suspected) exposure to COVID-19
CPT/HCPCS: 36415; 80053; 93005; 94640; 99284; U0003; U0005; 83880; 84484; 85025; 93010; J7512; J7620

== ENCOUNTER 2021-09-06 11:02 | Inpatient (IN) | payer OTHER, MEDICAID, SELFPAY ==
[2021-09-06] VITALS (22 sets, daily range): BP systolic 133–170; BP diastolic 68–78; PULSE 69–114; RESP 13–20; TEMP 36.5–37.7; O2SAT 95–100
--- NOTE | 2021-09-06 11:00 | RT.EKG_ITS ---
APPROVED REPORT Exam: Resting ECG Reason for Exam: SYNCOPE Patient Location: E HR:93 bpm ECG Measurements Heart Rate 93 AXIS [place] 181 P 31 QRSd 107 QRS -20 QT 399 T [id number] QTc 496 Conclusion Sinus rhythm...normal P axis, V-rate 60- 99 Ventricular trigeminy...trigeminy string>6 w/ V complexes Nonspecific T abnormalities, inferior leads...T <-0.10mV, II III aVF sinus rhythm, trigeminy
--- NOTE | 2021-09-06 11:30 | DI.CT_ITS ---
Exam(s) CT HEAD WO EXAM: CT HEAD WO CLINICAL HISTORY: fall/head injury, syncope. TECHNIQUE: Imaging Protocol: Axial computed tomography images with coronal and sagittal reformatted images were created and reviewed COMPARISON: CT CT HEAD WO from 07/22/2019 FINDINGS: Ventricles and Extra axial spaces: Normal in size and morphology for the patient's age. Hemorrhage: None. Cerebral parenchyma: Normal. Midline shift: None. Brainstem/Cerebellum: Normal. Calvarium: Normal. Visualized Paranasal sinuses/Mastoids: Mild mucosal thickening floors of the maxillary sinuses. Opac ification of several ethmoid sinuses and left frontal sinus. Mastoid air cells clear. Soft Tissues: Frontal soft tissue swelling. Orbits unremarkable. IMPRESSION: No acute intracranial process. Sinus disease. Frontal scalp swelling. RADIATION DOSE DELIVERED: 817.02mGy.cm Total DLP DATA REPOSITORY: All CT scans at this facility are submitted to the National Radiology Data Registry (NRDR) Dose Index Registry (DIR) with the [employer] (A[employer]). RADIATION OPTIMIZATION: All CT scans at this facility use at least one of these dose optimization te chniques: automated exposure control; mA and/or kV adjustment per patient size (includes targeted exa ms where dose is matched to clinical indication); or iterative reconstruction.
[2021-09-06] MEDS: Normal Saline 1,000 ML 1000 ML IV (11:40)
--- NOTE | 2021-09-06 11:40 | ED.GENADUL_ITS ---
Discharge Plan Disposition Patient Disposition: [facility] INPATIENT Condition: Stable Discharge Details Clinical Impression: Syncope, Head injury, Ventricular trigeminy Admit Date/Time: 09/06/21 13:29 Admit Provider: Az Vila Attending Provider: Az Vila Primary Care Provider: Jess Olivia ED Provider: Kushal Cifuentes Discharge Data Discharge Date/Time-TO BE ENTERED AT DEPARTURE: 09/06/21 14:04 Medical Decision Making This is a 66-year-old gentleman, who was actually seen in our ER yesterday for acute bronchitis with bronchospasm, presenting now for a syncopal episode overnight. This syncopal episode was not associated with any known coughing episode which is his typical presentation and reason for syncope. He reports striking his head but denies any current headache, feels changes or neck pain. Also reports front upper dental trauma. Clinically he appears well, nontoxic, neurologically intact. O2 sat are 96% on room air. Plan is to initiate a syncope work-up with a D-dimer. We will not reflexively obtain x-ray as he had an x-ray just 2 days ago. Will obtain [address] imaging of his head. Tetanus status up-to-date EKG reveals ventricular trigeminy which was not present yesterday. CT imaging of his head is unremarkable for acute etiology. Laboratory values do not reveal any obvious emergent process. D-dimer is 648 which when age-adjusted is negative, will not pursue CTA of the chest. CK is slightly elevated at 575, patient is receiving IV fluid. TSH 166, urinalysis unremarkable. Alcohol level less than 3. Negative COVID. Unclear as to why this gentleman had a syncopal episode. EKG reveals trigeminy which was not present yesterday. He lives at home alone and is concerned about going home alone and passing out again. I will reach out to our hospitalist team to discuss an observation admission, serial troponins, cardiac monitoring, etc. Case discussed with Dr. Vila who is agreeable to admission and will write admission orders. This documentation was generated using [employer] interprisesation system, please disregard any oddities of phrase or misspellings. Medical Records Medical records reviewed: Yes I reviewed the patient's medical records. Imaging Data Radiologic Study: Attestation: I personally reviewed and interpreted this imaging study as follows: Imaging: CT Scan Radiologist's impression: Exam(s) CT HEAD WO EXAM: CT HEAD WO CLINICAL HISTORY: fall/head injury, syncope. TECHNIQUE: Imaging Protocol: Axial computed tomography images with coronal and sagittal reformatted images were created and reviewed COMPARISON: CT CT HEAD WO from 07/22/2019 FINDINGS: Ventricles and Extra axial spaces: Normal in size and morphology for the patient's age. Hemorrhage: None. Cerebral parenchyma: Normal. Midline shift: None. Brainstem/Cerebellum: Normal. Calvarium: Normal. Visualized Paranasal sinuses/Mastoids: Mild mucosal thickening floors of the maxillary sinuses. Opacification of several ethmoid sinuses and left frontal sinus. Mastoid air cells clear. Soft Tissues: Frontal soft tissue swelling. Orbits unremarkable. IMPRESSION: No acute intracranial process. Sinus disease. Frontal scalp swelling. Lab Data Lab results reviewed: Yes I reviewed the patient's lab results. Labs: Laboratory Tests Range/Units 09/06/21 09/06/21 09/06/21 11:30 11:30 11:45 WBC (4.4-10.8) 10^3/uL 8.10 RBC (4.36-5.78) 10^6/uL 4.33 L Hgb (13.5-17.5) g/dL 13.1 L Hct (40.0-50.0) % 38.1 L MCV (80-95) fL 88 MCH (27.0-33.0) pg 30.3 MCHC (32.0-36.0) % 34.4 RDW (11.8-14.1) % 13.2 Plt Count (130-400) 10^3/uL 151 MPV (8.0-11.0) fL 11.2 H Immature Gran % 0.6 Neutrophils % 77.1 Lymphocytes % 12.0 Monocytes % 10.1 Eosinophils % 0.0 Basophils % 0.2 Nucleated RBC % (0.0-0.3) % 0.0 Absolute Neutrophils (1.2-6.7) 10^3/uL 6.24 Absolute Lymphocytes (1.2-3.4) 10^3/uL 0.97 L Absolute Monocytes (0.1-0.8) 10^3/uL 0.82 H Absolute Eosinophils (0.0-0.7) 10^3/uL 0.00 Absolute Basophils (0.0-0.2) 10^3/uL 0.02 PT (9.3-11.0) sec 9.9 INR (0.9-1.1) 1.0 APTT (21.0-27.5) sec 27.4 D-Dimer (<500) ng/mlFEU 648 H Sodium (136-145) mmol/L Potassium (3.5-5.1) mmol/L Chloride (98-107) mmol/L Carbon Dioxide (21.0-32.0) mmol/L Anion Gap (3-11) mmol/L BUN (7-18) mg/dL Creatinine (0.70-1.30) mg/dL Estimated GFR/1.73 m2 (mL/min/1.73m2) Glucose (74-106) mg/dL Calcium (8.5-10.1) mg/dL Magnesium (1.8-2.4) mg/dL Total Bilirubin (0.2-1.0) mg/dL AST (15-37) U/L ALT (16-63) U/L Alkaline Phosphatase (46-116) U/L Creatine Kinase Cancelled Troponin I (<or=60) ng/L Total Protein (6.4-8.2) g/dL Albumin (3.4-5.0) g/dL TSH Cancelled Urine Color (Yellow) Urine Clarity (Clear) Urine pH (5-8) Ur Specific [place] (1.005-1.025) Urine Protein (Negative) mg/dL Urine Ketones (Negative) mg/dL Urine Blood (Negative) Urine Nitrite (Negative) Urine Bilirubin (Negative) Urine Urobilinogen (Up TO 0.2) EU/dL Ur Leukocyte Esterase (Negative) Urine Glucose (Negative) mg/dL Ethyl Alcohol (<10) mg/dL COVID-19 Source SARS-CoV-2 (PCR) (Negative) Range/Units 09/06/21 09/06/21 09/06/21 11:45 11:50 11:55 WBC (4.4-10.8) 10^3/uL RBC (4.36-5.78) 10^6/uL Hgb (13.5-17.5) g/dL Hct (40.0-50.0) % MCV (80-95) fL MCH (27.0-33.0) pg MCHC (32.0-36.0) % RDW (11.8-14.1) % Plt Count (130-400) 10^3/uL MPV (8.0-11.0) fL Immature Gran % Neutrophils % Lymphocytes % Monocytes % Eosinophils % Basophils % Nucleated RBC % (0.0-0.3) % Absolute Neutrophils (1.2-6.7) 10^3/uL Absolute Lymphocytes (1.2-3.4) 10^3/uL Absolute Monocytes (0.1-0.8) 10^3/uL Absolute Eosinophils (0.0-0.7) 10^3/uL Absolute Basophils (0.0-0.2) 10^3/uL PT (9.3-11.0) sec INR (0.9-1.1) APTT (21.0-27.5) sec D-Dimer (<500) ng/mlFEU Sodium (136-145) mmol/L 136 Potassium (3.5-5.1) mmol/L 3.6 D Chloride (98-107) mmol/L 99 Carbon Dioxide (21.0-32.0) mmol/L 25.4 Anion Gap (3-11) mmol/L 11.6 H BUN (7-18) mg/dL 12 Creatinine (0.70-1.30) mg/dL 1.2 Estimated GFR/1.73 m2 (mL/min/1.73m2) >= 60.00 Glucose (74-106) mg/dL 118 H Calcium (8.5-10.1) mg/dL 9.0 Magnesium (1.8-2.4) mg/dL 2.1 Total Bilirubin (0.2-1.0) mg/dL 0.6 AST (15-37) U/L 31 ALT (16-63) U/L 57 Alkaline Phosphatase (46-116) U/L 146 H Creatine Kinase 575 H Troponin I (<or=60) ng/L < 50 Total Protein (6.4-8.2) g/dL 7.9 Albumin (3.4-5.0) g/dL 4.0 TSH 1.66 Urine Color (Yellow) Straw Urine Clarity (Clear) Clear Urine pH (5-8) 5.5 Ur Specific [place] (1.005-1.025) <= 1.005 Urine Protein (Negative) mg/dL Negative Urine Ketones (Negative) mg/dL Negative Urine Blood (Negative) Negative Urine Nitrite (Negative) Negative Urine Bilirubin (Negative) Negative Urine Urobilinogen (Up TO 0.2) EU/dL 0.2 Ur Leukocyte Esterase (Negative) Negative Urine Glucose (Negative) mg/dL Negative Ethyl Alcohol (<10) mg/dL < 3.0 COVID-19 Source Nasal/Nares SARS-CoV-2 (PCR) (Negative) Negative ECG Data Attestation: I personally reviewed and interpreted this ECG (s) as follows: Interpretation: Please see official report by ED physician. Sinus rhythm, ventricular rate of 93. Ventricular trigeminy. Nonspecific T wave abnormalities. HPI General Mode of arrival: ambulatory . Date/Time Provider Initiated Documentation: 09/06/21 11:03 . Limitations to Documentation: no limitations . Information obtained by: patient . HPI Narrative: This is a 66-year-old gentleman, non-smoker, past medical history that includes nonischemic cardiomyopathy, hypertension, depression, alcohol abuse, GERD, pulmonary hypertension, pancreatitis, presenting to the ER today for evaluation of syncope sometime overnight, head injury, and dental injury. Patient was actually evaluated in our ER yesterday for acute bronchitis with bronchospasm, placed on steroids and antibiotics. He states that he does have syncopal episodes after severe coughing episodes. He states to me that he went to bed last night around 1030, awoke on the ground around 430 this morning. Patient states that he has no recollection of waking up in the middle of the night and does not know how he ended up on the ground. He did sustain an injury to his forehead and nose. He is unable to accurately describe why he ended up on the ground last night, does not recall having a coughing episode causing this. He denies any recent illness, headache, visual change, neck pain, chest pain, abdominal pain, nausea, vomiting, pain or swelling in his legs. Patient states that he lives at home alone and is afraid to be by himself given his symptoms. Related Data Home Medications Medication Instructions Recorded Confirmed atorvastatin 20 mg tablet 20 mg PO HS 12/17/20 09/06/21 acetaminophen 500 mg tablet 500 mg PO Q6H PRN 06/11/21 09/05/21 (Tylenol Extra Strength) fluoxetine 40 mg capsule (Prozac) 40 mg QAM 06/21/21 09/06/21 lansoprazole 30 mg capsule,delayed 30 mg DAILY 06/21/21 09/06/21 release metoprolol succinate 50 mg 50 mg PO .nightly #90 tab 07/26/21 09/06/21 tablet,extended release 24 hr nitroglycerin 0.4 mg sublingual 0.4 mg SUBLINGUAL Q5-15M PRN 07/26/21 09/06/21 tablet lisinopril 20 mg tablet 20 mg PO DAILY #90 tab 08/26/21 09/06/21 doxycycline hyclate 100 mg capsule 100 mg PO BID 9 Days #18 cap 09/05/21 09/06/21 prednisone 50 mg tablet 50 mg PO DAILY 5 Days #5 tab 09/05/21 09/06/21 Previous Rx's Medication Instructions Recorded metoprolol succinate 50 mg 50 mg PO .nightly #90 tab 07/26/21 tablet,extended release 24 hr lisinopril 20 mg tablet 20 mg PO DAILY #90 tab 08/26/21 doxycycline hyclate 100 mg capsule 100 mg PO BID 9 Days #18 cap 09/05/21 prednisone 50 mg tablet 50 mg PO DAILY 5 Days #5 tab 09/05/21 Allergies Allergy/AdvReac Type Severity Reaction Status Date / Time omeprazole [From Prilosec] Allergy Intermediate Itching Verified 09/06/21 11:19 oxycodone Allergy Itching Verified 09/06/21 11:19 codeine [Codeine] AdvReac NAUSEA Verified 09/06/21 11:19 General Stated Complaint: Dizzy/Sync CATIA: 2 Review of Systems Constitutional Constitutional: Denies fever(s), Denies headache(s) and Denies weakness Eyes Eyes: Denies change in vision ENT Ears, Nose, Mouth, and Throat: Denies headache(s) and Denies neck pain Cardiovascular Cardiovascular: Denies chest pain and Reports dyspnea (With coughing) Respiratory Respiratory: Reports cough (Chronic) and Reports dyspnea (With coughing) Gastrointestinal Gastrointestinal: Denies abdominal pain, Denies nausea and Denies vomiting Genitourinary Genitourinary: Denies dysuria Musculoskeletal Musculoskeletal: Denies back pain, Denies neck pain and Denies tingling Integumentary/Breasts Skin/Breast: Denies rash Neurologic Neurologic: Denies headache(s), Denies tingling and Denies weakness Hematologic/Lymphatic Hematologic/Lymphatic: Denies easy bleeding and Denies easy bruising PFSH All Active Problems (Updated 09/06/21 @ 15:15 by LUKAS Sapp) Acute bronchitis with bronchospasm (Acute) Syncope (Chronic) Head injury (Acute) Ventricular trigeminy (Acute) New onset cough (Acute) Diarrhea (Acute) assoc w/ fatty food injestion Postprandial RUQ pain (Acute) Nonischemic cardiomyopathy (Acute) HTN (hypertension) with goal to be determined (Acute) Melena (Acute) Depression (Chronic) Obesity (Chronic) Globus sensation (Acute) Exertional chest pain (Acute) Melena (Acute) Diverticulitis (Acute) Gastropathy (Acute) pt needs to curtail ETOH use. 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 Shoulder pain (11/18/12) Situational depression Tendinitis of long head of biceps brachii of left shoulder Tendonitis of left rotator cuff Injected: 01/03/2020, 04/10/2020, 12/17/2020 Surgical History Appendectomy (~2007) Arthroplasty 03/09/15; DR. HERNANDEZ RIGHT SECOND TOE EXOSTECTOMY 03/09/15 DR. YODER; RIGHT GREAT TOE History of esophagogastroduodenoscopy (EGD) History of surgery on upper extremity Hx L shoulder, wrist, fingers, R arm x 8 per Pt History of surgical amputation of finger of left hand Machine related injury, R hand per pt 08/13/18 Hx of carpal tunnel repair Hx of colonoscopy 08/13/[address] Pastora Noel at [facility], repeat in five years. mg colo 06/05/08 - Dr Cheney - tubular adenoma, descending colon, repeat in 5 years. Family History Other Cancer Diabetes Hypertension Social History Smoking/Tobacco Use Status: Never Smoking risk assessment performed?: Yes Alcohol Intake: former Drug use: Never Substance use type: does not use Current gender identity: male Do you feel safe at home: Yes Do you feel safe in your relationship?: Yes Exam Const General: cooperative, healthy appearing, comfortable and no acute distress Orientation: alert, awake and oriented x3 [facility] Head: no palpable skull fracture and normocephalic Head images: 1. Contusion-abrasion. No active bleeding or crepitus 2. Abrasion Face and sinus: normal facial exam Mouth: oral mucosae normal and moist mucous membranes Teeth and gingiva: poor dentition Teeth image: 1. Poor dentition throughout, case 7 through 10 with decay to gumline and or acute fracture. Given his baseline dentition and very difficult to assess what is acute or chronic. Patient states new trauma to these teeth. Throat: posterior oropharynx normal Eyes General: appearance normal, both eyes and all related structures Conjunctivae: conjunctivae normal Neck Neck: normal visual inspection, full ROM, trachea midline, supple and nontender Resp Effort & Inspection: normal respiratory effort and able to speak in complete sentences Auscultation: diminished lung sounds bilaterally in the lower lung santiago and wheezes (Scattered throughout, mostly clear with coughing) Cardio Rate: regular rate Rhythm: regular rhythm GI Palpation: soft and nontender Back/Spine/Pelvis Back: No back tenderness Skin General skin exam: no rashes or lesions noted Neuro General: patient alert, patient awake, patient oriented x3, moves all extremities and no focal motor deficits Cranial Nerves: CN's II-XI intact bilaterally Cognition: normal cognition Speech: speech normal Gait: normal gait Motor: muscle tone normal throughout Sensory Exam: no sensory deficits noted Extrem General: normal to inspection, full ROM and capillary refill normal Psych Appearance: grossly normal Mental Status: mental status grossly normal Course Vital Signs Vital signs: Vital Signs Temperature 36.5 C 09/06/21 11:13 Pulse 93 H 09/06/21 11:13 Respiratory Rate 19 09/06/21 11:13 Blood Pressure 170/69 H 09/06/21 11:13 Pulse Oximetry 96 09/06/21 11:13 Temperature 36.5 C 09/06/21 11:13 Temperature Source Oral 09/06/21 11:13 Pulse 93 H 09/06/21 11:13 Respiratory Rate 19 09/06/21 11:13 Respiratory Effort 09/06/21 11:13 Blood Pressure 170/69 H 09/06/21 11:13 Blood Pressure Position Supine 09/06/21 11:13 Pulse Oximetry 96 09/06/21 11:13 Oxygen Delivery Method Room Air 09/06/21 11:13 Oxygen Flow Rate 0 09/06/21 11:13 Pain Level 7 09/06/21 11:13
[2021-09-06 11:56] LABS: Bilirubin Negative (Negative); Blood Negative (Negative); Clarity Clear (Clear); Glucose Negative (Negative); Ketones Negative (Negative); Leukocyte Esterase Negative (Negative); Nitrite Negative (Negative); Specific Gravity <= 1.005 (1.005-1.025); Urobilinogen 0.2 EU/dL (Up TO 0.2); pH 5.5 (5-8)
[2021-09-06 12:00] LABS: Abs Immature Grans 0.05 10^3/uL (0.0-0.06); Absolute Basophil Count 0.02 10^3/uL (0.0-0.2); Absolute Lymphocyte Count 0.97 10^3/uL (1.2-3.4); Absolute Monocyte Count 0.82 10^3/uL (0.1-0.8); Absolute Neutrophil Count 6.24 10^3/uL (1.2-6.7); Basophils % 0.2; HCT 38.1 % (40.0-50.0); HGB 13.1 g/dL (13.5-17.5); Immature Grans % 0.6; MCH 30.3 pg (27.0-33.0); MCHC 34.4 % (32.0-36.0); MCV 88 fL (80-95); MPV 11.2 fL (8.0-11.0); Monocytes % 10.1; Neutrophils % 77.1; Platelet Count 151 10^3/uL (130-400); RBC 4.33 10^6/uL (4.36-5.78); RDW 13.2 % (11.8-14.1); RDW-SD 42.5 fL
[2021-09-06 12:02] LABS: Source Nasal/Nares
[2021-09-06 12:18] LABS: PTT Activated 27.4 sec (21.0-27.5); Prothrombin Time 9.9 sec (9.3-11.0)
[2021-09-06 12:26] LABS: ALT 57 U/L (16-63); AST 31 U/L (15-37); Alkaline Phosphatase 146 U/L (46-116); Anion Gap 11.6 mmol/L (3-11); BUN 12 mg/dL (7-18); Bilirubin, Total 0.6 mg/dL (0.2-1.0); CO2 25.4 mmol/L (21.0-32.0); CREATININE 1.2 mg/dL (0.70-1.30); Chloride 99 mmol/L (98-107); Creatine Kinase 575 U/L (39-308); ETHANOL BLOOD < 3.0 mg/dL (<10); Glucose 118 mg/dL (74-106); Magnesium 2.1 mg/dL (1.8-2.4); Potassium 3.6 mmol/L (3.5-5.1); Sodium 136 mmol/L (136-145); TSH 1.66 uIU/mL (0.36-3.74); Total Protein 7.9 g/dL (6.4-8.2); Troponin I < 50 ng/L (<or=60)
[2021-09-06 12:33] LABS: D-Dimer 648 ng/mlFEU (<500)
[2021-09-06 12:52] LABS: COVID-19 PCR Negative (Negative)
[2021-09-06] MEDS: Acetaminophen 325 MG TAB PO ×2 (14:48→22:50)
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
[2021-09-06 17:30] LABS: Troponin I < 50 ng/L (<or=60)
[2021-09-06] MEDS: Albuterol 2.5 MG/3 ML INH SOLN VIAL UPD ×2 (17:32→21:18)
[2021-09-06] MEDS: Metoprolol CR 50 MG TABCR PO (21:18)
[2021-09-06] MEDS: Atorvastatin 20 MG TAB PO (21:18)
[2021-09-06] MEDS: Doxycycline Hyclate 100 MG CAP PO (21:18)
[2021-09-07] VITALS (12 sets, daily range): BP systolic 147–171; BP diastolic 75–93; PULSE 60–85; RESP 1–20; TEMP 36.3–37.3; O2SAT 95–99
[2021-09-07] MEDS: Lansoprazole 30 MG CAPCR PO ×2 (05:32→21:39)
[2021-09-07] MEDS: FLUoxetine 20 MG CAP 40 MG PO (08:16)
[2021-09-07] MEDS: predniSONE 10 MG, predniSONE 20 MG 30 MG PO (08:17)
[2021-09-07] MEDS: Lisinopril 20 MG TAB PO (08:17)
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
[2021-09-07] MEDS: Benzonatate 200 MG CAP PO ×3 (08:22→21:39)
[2021-09-07] MEDS: Albuterol/Ipratropium 3 ML UPD VIAL UPD (09:42)
--- NOTE | 2021-09-07 10:31 | W.PM.PROGNOT ---
Date of Service Date of service: 09/07/21 Time of Service: 10:32 Assessment and Plan Assessment and plan (1) Acute bronchitis with bronchospasm: Status: Acute Assessment and plan: Dx in ED. Prednisone, doxycycline and albuterol MDI were prescribed. Stopping these meds No dx of asthma or COPD. CXR normal. WBC count 3.74 at time of ED evaluation the day before admission. Now normal. Likely viral. (2) Syncope: Status: Chronic Assessment and plan: He has had several episodes over the last 4 years, all associated with coughing paroxysms. He reports he was unable to complete PFT's in the past d/t coughing paroxysm. He does have dysphagia and GERD; could be etiology of cough and resultant syncope. Telemetry. PPI (on at home). Outpt EGD and colonoscopy planned for next week but has been cancelled Stopped lisinopril; most likely cause of his cough. (3) Ventricular trigeminy: Status: Acute Assessment and plan: New finding on EKG; usually benign He did have a previous EKG that showed afib (07/29/21) Telemetry. (4) Nonischemic cardiomyopathy: Status: Acute Assessment and plan: Had recent visit with Dr Alejandro on 08/26/21. (5) HTN (hypertension) with goal to be determined: Status: Acute Assessment and plan: Cont. metoprolol. Stop Lisinopril Start amlodipine 5mg daily. Monitor. Orthostatic BP Qshift. (6) Depression: Status: Chronic Assessment and plan: Cont fluoxetine. (7) Dysphagia: Status: Acute Assessment and plan: Had EGD planned for next week but cancelled. Will need outpt video swallow. (8) GERD (gastroesophageal reflux disease): Status: Chronic Assessment and plan: Cont lansoprazole; increase to BID Qualifiers: Esophagitis presence: esophagitis presence not specified Qualified Code(s): K21.9 - Gastro-esophageal reflux disease without esophagitis Subjective Subjective Patient reports: no new complaints and afebrile; denies shortness of breath Interval history since last seen: He has had 2 episodes of syncope, each associated with coughing paroxysm, during this hospitalization to date. One witnessed by staff member. This AM, an episode was coincidental with Trigimeny on telemetry. Exam Narrative Exam Narrative: Sitting in chair. Const General: cooperative and no acute distress Nutritional Appearance: obese Orientation: alert and oriented x3 HENMT Ears: mastoids normal Eyes General: appearance normal, both eyes and all related structures Sclera: sclerae normal Neck Neck: full ROM and no JVD Resp Effort & Inspection: normal respiratory effort Auscultation: clear to auscultation bilaterally Cardio Rate: regular rate Rhythm: regular rhythm Heart Sounds: S1 normal and S2 normal GI Palpation: soft and nontender Auscultation: normal bowel sounds Skin Rashes: no rashes Neuro General: moves all extremities Cranial Nerves: facial strength normal Extrem General: no pedal edema and no calf tenderness Psych Appearance: grossly normal Mental Status: mental status grossly normal Speech and Movement: speech and movement normal Affect: normal affect Objective Last Vital Signs Temp 36.5 C 09/07/21 07:33 Pulse 70 09/07/21 09:44 Resp 18 09/07/21 09:44 BP 166/85 H 09/07/21 07:33 Pulse Ox 99 09/07/21 09:44 Laboratory Results - last 24 hr 09/06/21 09/06/21 09/06/21 11:30 11:30 11:45 WBC 8.10 RBC 4.33 L Hgb 13.1 L Hct 38.1 L MCV 88 MCH 30.3 MCHC 34.4 RDW 13.2 Plt Count 151 MPV 11.2 H Immature Gran % 0.6 Neutrophils % 77.1 Lymphocytes % 12.0 Monocytes % 10.1 Eosinophils % 0.0 Basophils % 0.2 Nucleated RBC % 0.0 Absolute Neutrophils 6.24 Absolute Lymphocytes 0.97 L Absolute Monocytes 0.82 H Absolute Eosinophils 0.00 Absolute Basophils 0.02 PT 9.9 INR 1.0 APTT 27.4 D-Dimer 648 H Sodium Potassium Chloride Carbon Dioxide Anion Gap BUN Creatinine Estimated GFR/1.73 m2 Glucose Calcium Magnesium Total Bilirubin AST ALT Alkaline Phosphatase Creatine Kinase Cancelled Troponin I Total Protein Albumin TSH Cancelled Urine Color Urine Clarity Urine pH Ur Specific [place] Urine Protein Urine Ketones Urine Blood Urine Nitrite Urine Bilirubin Urine Urobilinogen Ur Leukocyte Esterase Urine Glucose Ethyl Alcohol COVID-19 Source SARS-CoV-2 (PCR) 09/06/21 09/06/21 09/06/21 11:45 11:50 11:55 WBC RBC Hgb Hct MCV MCH MCHC RDW Plt Count MPV Immature Gran % Neutrophils % Lymphocytes % Monocytes % Eosinophils % Basophils % Nucleated RBC % Absolute Neutrophils Absolute Lymphocytes Absolute Monocytes Absolute Eosinophils Absolute Basophils PT INR APTT D-Dimer Sodium 136 Potassium 3.6 D Chloride 99 Carbon Dioxide 25.4 Anion Gap 11.6 H BUN 12 Creatinine 1.2 Estimated GFR/1.73 m2 >= 60.00 Glucose 118 H Calcium 9.0 Magnesium 2.1 Total Bilirubin 0.6 AST 31 ALT 57 Alkaline Phosphatase 146 H Creatine Kinase 575 H Troponin I < 50 Total Protein 7.9 Albumin 4.0 TSH 1.66 Urine Color Straw Urine Clarity Clear Urine pH 5.5 Ur Specific [place] <= 1.005 Urine Protein Negative Urine Ketones Negative Urine Blood Negative Urine Nitrite Negative Urine Bilirubin Negative Urine Urobilinogen 0.2 Ur Leukocyte Esterase Negative Urine Glucose Negative Ethyl Alcohol < 3.0 COVID-19 Source Nasal/Nares SARS-CoV-2 (PCR) Negative 09/06/21 17:07 WBC RBC Hgb Hct MCV MCH MCHC RDW Plt Count MPV Immature Gran % Neutrophils % Lymphocytes % Monocytes % Eosinophils % Basophils % Nucleated RBC % Absolute Neutrophils Absolute Lymphocytes Absolute Monocytes Absolute Eosinophils Absolute Basophils PT INR APTT D-Dimer Sodium Potassium Chloride Carbon Dioxide Anion Gap BUN Creatinine Estimated GFR/1.73 m2 Glucose Calcium Magnesium Total Bilirubin AST ALT Alkaline Phosphatase Creatine Kinase Troponin I < 50 Total Protein Albumin TSH Urine Color Urine Clarity Urine pH Ur Specific [place] Urine Protein Urine Ketones Urine Blood Urine Nitrite Urine Bilirubin Urine Urobilinogen Ur Leukocyte Esterase Urine Glucose Ethyl Alcohol COVID-19 Source SARS-CoV-2 (PCR)
[2021-09-07] MEDS: Metoprolol CR 50 MG TABCR PO (21:38)
[2021-09-07] MEDS: Atorvastatin 20 MG TAB PO (21:39)
[2021-09-08] VITALS (10 sets, daily range): BP systolic 134–177; BP diastolic 65–96; PULSE 46–97; RESP 17–22; TEMP 36.6–37.5; O2SAT 92–96
[2021-09-08] MEDS: FLUoxetine 20 MG CAP 40 MG PO (08:11)
[2021-09-08] MEDS: Lansoprazole 30 MG CAPCR PO ×2 (08:12→21:05)
[2021-09-08] MEDS: Benzonatate 200 MG CAP PO ×3 (08:12→21:05)
[2021-09-08] MEDS: Normal Saline Flush 10 ML SYR (09:46)
[2021-09-08] MEDS: guaiFENesin/D-METHORPHAN HB 5 ML CUP PO ×3 (10:48→21:06)
--- NOTE | 2021-09-08 13:22 | W.PM.PROGNOT ---
Date of Service Date of service: 09/08/21 Time of Service: : Assessment and Plan Assessment and plan (1) Acute bronchitis with bronchospasm: Status: Acute Assessment and plan: Dx in ED. Prednisone, doxycycline and albuterol MDI were prescribed. Stopped these meds No dx of asthma or COPD. CXR normal. WBC count 3.74 at time of ED evaluation the day before admission. Now normal. Likely viral. (2) Syncope: Status: Chronic Assessment and plan: He has had several episodes over the last 4 years, all associated with coughing paroxysms. He reports he was unable to complete PFT's in the past d/t coughing paroxysm. He does have dysphagia and GERD; could be etiology of cough and resultant syncope. Telemetry. PPI (on at home). Outpt EGD and colonoscopy planned. Stopped lisinopril. Pt, though, states that he started the lisinopril 1 year ago and had episodes of cough with syncope prior to that. (3) Ventricular trigeminy: Status: Acute Assessment and plan: New finding on EKG; usually benign He did have a previous EKG that showed afib (07/29/21) Telemetry. (4) Nonischemic cardiomyopathy: Status: Acute Assessment and plan: Had recent visit with Dr Alejandro on 08/26/21. Echocardiogram on 07/19/21: Global hypokinesis of left ventricle. LVEF 45%. (5) HTN (hypertension) with goal to be determined: Status: Acute Assessment and plan: Cont. metoprolol. Stop Lisinopril Start amlodipine 5mg daily. SBP 130-150's this AM. Monitor. Orthostatic BP Qshift. (6) Depression: Status: Chronic Assessment and plan: Cont fluoxetine. (7) Dysphagia: Status: Acute Assessment and plan: Had EGD planned for next week but cancelled. Will need outpt video swallow. (8) GERD (gastroesophageal reflux disease): Status: Chronic Assessment and plan: Cont lansoprazole; increase to BID Qualifiers: Esophagitis presence: esophagitis presence not specified Qualified Code(s): K21.9 - Gastro-esophageal reflux disease without esophagitis Subjective Subjective Patient reports: no new complaints and afebrile; denies shortness of breath Interval history since last seen: Staff reported an episode of coughing; after which, patient stared for appx 5 secs. He tells me he recalls this and was aware of activities around him at the time. No loss of bladder control. Exam Narrative Exam Narrative: Lying in bed. Const General: cooperative and no acute distress Nutritional Appearance: obese Orientation: alert and oriented x3 HENMT Ears: mastoids normal Eyes General: appearance normal, both eyes and all related structures Sclera: sclerae normal Neck Neck: full ROM and no JVD Resp Effort & Inspection: normal respiratory effort Auscultation: clear to auscultation bilaterally Cardio Rate: regular rate Rhythm: regular rhythm Heart Sounds: S1 normal and S2 normal GI Palpation: soft and nontender Auscultation: normal bowel sounds Skin Rashes: no rashes Neuro General: moves all extremities Cranial Nerves: facial strength normal Extrem General: no pedal edema and no calf tenderness Psych Appearance: grossly normal Mental Status: mental status grossly normal Speech and Movement: speech and movement normal Affect: normal affect Objective Last Vital Signs Temp 36.6 C 09/08/21 11:24 Pulse 71 09/08/21 11:24 Resp 22 09/08/21 11:24 BP 157/92 H 09/08/21 11:24 Pulse Ox 94 09/08/21 11:24
[2021-09-08] MEDS: Atorvastatin 20 MG TAB PO (21:05)
[2021-09-08] MEDS: Metoprolol CR 50 MG TABCR PO (21:05)
[2021-09-09] VITALS (11 sets, daily range): BP systolic 96–147; BP diastolic 66–84; PULSE 62–80; RESP 17–20; TEMP 36.2–37.5; O2SAT 95–98
--- NOTE | 2021-09-09 07:59 | W.PALLCONSUL ---
Date of service: 09/09/21 Time of Service: 07:59 History of Present Illness History of Present Illness Chief Complaint: Syncope and SOB Narrative: From H and P This is a 66 yo male with a PMH of syncopal episodes associated with coughing paroxysms, Nonischemic cardiomyopathy, HTN, depression, alcohol abuse, dysphagia, pulmonary hypertension, BERRY, pancreatitis, memory impairment. He was initially evaluated in the [facility] ED the day before this admission and dxd with acute bronchitis with bronchospasm.? He was prescribed steroids and doxycycline.? He presented again on the day of this admission after sitting up on his bedside in the night to reach for his water to help with a coughing paroxysm.? He believes he likely had a syncopal episode and awoke on the floor.? He abraded his forehead and nose and broke several front teeth.? He has had no fever, headache, CP, palpitations. In the ED, head and c-spine CT negative for acute findings. Lab unremarkable. Interim hx I saw the pt this a.m. and then again this evening. Patient was quite confused this morning. He does not understand why he is in the hospital. He does not understand what he has been told about his condition. He is hopeful to go home but does not feel that he can at this time. By the time I saw him this evening he was feeling much better he felt that his breathing was under better control. He was up and ambulating. He does feel stable to go home. We talked about his episodes of syncope. They have been lasting for about 4 years. Recently, just prior to admission, he fell on his dresser and hit his head and nose. He continues to drive but if he feels like he is going to blackout he pulls over. He has 2 brothers and 3 children who are very attentive. He has a new kitten. 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 He presently spends much of his time quite sedentary. He states his breathing is bad. He states he has an advanced directive but that he has not yet brought it to his doctor. Her care management his family is on board with helping him when he gets home Assessment and Plan Assessment and plan (1) Acute bronchitis with bronchospasm: Status: Ruled-out Assessment and plan: Treated presently with prednisone and antibiotics. Chest x-ray reassuring. Most likely viral (2) Syncope: Status: Chronic Assessment and plan: He has had 4 years of syncope all associated with coughing spasms. He does have an EGD planned for the near future. Watching him cough, and hearing about his persistent intermittent syncope, I wonder if speech therapy could help him to relax during his coughing and hopefully overt syncope I did tell him that I did not think he should be driving until his syncope was controlled (3) Head injury: Status: Acute Assessment and plan: CT scan reassuring (4) Memory impairment: Status: Chronic Assessment and plan: He definitely showed signs of memory impairment this morning, but had greatly improved by evening. (5) Palliative care patient: Status: Acute Assessment and plan: We discussed CODE STATUS. He would like CPR. He understands that it involves chest compressions and possible intubation. He also stressed that it was important that he not be on a machine for very long. I asked him to be certain that his advanced directive not only went to his primary care provider but also a copy came to [facility]. I asked care management to ask family for a copy of the advance directive Thank you very much for this consult. I am happy to see Dylon again. Review of Systems Narrative: Initially states that he was confused, he did not know why he was in the hospital, but cleared over the day and states that he is feeling better. His breathing has improved. He has no chest pain. He has been coughing some but not enough to cause syncope. He has no chest pain. PFSH All Active Problems (Updated 09/09/21 @ 22:24 by Kushal Marcus) Cough syncope (Acute) Palliative care patient (Acute) Syncope (Chronic) Head injury (Acute) Ventricular trigeminy (Acute) New onset cough (Acute) Diarrhea (Acute) assoc w/ fatty food injestion Postprandial RUQ pain (Acute) Nonischemic cardiomyopathy (Acute) HTN (hypertension) with goal to be determined (Acute) Melena (Acute) Depression (Chronic) Obesity (Chronic) Globus sensation (Acute) Exertional chest pain (Acute) Melena (Acute) Diverticulitis (Acute) Gastropathy (Acute) pt needs to curtail ETOH use. 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 Shoulder pain (11/18/12) Situational depression Tendinitis of long head of biceps brachii of left shoulder Tendonitis of left rotator cuff Injected: 01/03/2020, 04/10/2020, 12/17/2020 Surgical History Appendectomy (~2007) Arthroplasty 03/09/15; DR. HERNANDEZ RIGHT SECOND TOE EXOSTECTOMY 03/09/15 DR. YODER; RIGHT GREAT TOE History of esophagogastroduodenoscopy (EGD) History of surgery on upper extremity Hx L shoulder, wrist, fingers, R arm x 8 per Pt History of surgical amputation of finger of left hand Machine related injury, R hand per pt 08/13/18 Hx of carpal tunnel repair Hx of colonoscopy 08/13/[address] [place] [address] Pastora Noel at [facility], repeat in five years. mg colo 06/05/08 - Dr Cheney - tubular adenoma, descending colon, repeat in 5 years. Family History Other Cancer Diabetes Hypertension Social History Smoking/Tobacco Use Status: Never Smoking risk assessment performed?: Yes Alcohol Intake: former Drug use: Never Substance use type: does not use Current gender identity: male Do you feel safe at home: Yes Do you feel safe in your relationship?: Yes Exam Narrative Exam Narrative: By this evening patient was alert and oriented. He knows his name, where he is, and that he is improving. He smiles during much of his time with me. He answers questions completely and from medical records accurately. His heart is regular. Lungs?still wheezing in all lung santiago. I did hear crackles in the right base. Eyes?PERRL. He does have a large bump and scratch on his forehead and nose. He has minimal edema in his lower extremity Results Last Vital Signs Temp 97.2 F L 09/09/21 07:53 Pulse 72 09/09/21 07:53 Resp 20 09/09/21 07:53 BP 119/78 09/09/21 07:53 Pulse Ox 95 09/09/21 07:53 Labs Result diagrams: 09/06/21 11:30 09/10/21 06:12 Imaging Imaging Studies: CT of the head and chest x-ray were reassuring. CT of the head did show sinus disease and frontal swelling. No evidence of a bleed.
[2021-09-09] MEDS: FLUoxetine 20 MG CAP 40 MG PO (08:15)
[2021-09-09] MEDS: guaiFENesin/D-METHORPHAN HB 5 ML CUP PO ×3 (08:15→21:29)
[2021-09-09] MEDS: Benzonatate 200 MG CAP PO ×3 (08:15→21:28)
[2021-09-09] MEDS: Lansoprazole 30 MG CAPCR PO ×2 (08:15→21:28)
[2021-09-09] MEDS: Acetaminophen 325 MG TAB PO (11:33)
--- NOTE | 2021-09-09 13:22 | PDOC.CMPRO ---
- If Service Date Differs Date of service: 09/09/21 Time of Service: 13:22 Care Management Progress Note S/O: Per report, Dylon had an episode of coughing, after which he stared for appx 5 seconds, but he stated that he was aware of his surroundings and recalls that event. He continues to be treated for acute bronchitis with bronchospasm. He stated that he has had several episodes of falling in the last four years, all associated with coughing paroxysms. CM will continue to follow. A: Dylon is a 66 year old male admitted to [facility] on 09/07/21 with syncope. P: Dylon will be discharged home with no services once medically cleared by provider. He will follow up with his PCP and plan of care as directed. One of his children will drive him home via private vehicle when ready. CM will continue to follow.
--- NOTE | 2021-09-09 17:16 | W.PM.PROGNOT ---
Date of Service Date of service: 09/09/21 Time of Service: 17:17 Assessment and Plan Assessment and plan (1) Cough syncope: Status: Acute Assessment and plan: no further syncopal spells. No significant arrhythmias on telemetry (has trigeminy and couplets and triplets but no sustained VT or SVT). I will keep him off lisinopril but he needs either ARB or ARB/NI for his CHF. (2) Nonischemic cardiomyopathy: Status: Acute Assessment and plan: not optimized. Will start on Entresto, aldactone and Jardiance. continue his metoprolol (3) Ventricular trigeminy: Status: Acute Assessment and plan: no sustained runs of VT (4) Depression: Status: Chronic Assessment and plan: cont. fluoxetine (5) GERD (gastroesophageal reflux disease): Status: Chronic Assessment and plan: continue his lansoprazole. Needs to reschedule his EGD Qualifiers: Esophagitis presence: esophagitis presence not specified Qualified Code(s): K21.9 - Gastro-esophageal reflux disease without esophagitis (6) Hypertension: Status: Chronic Assessment and plan: amlodipine was added to his Toprol XL however, I am starting him on Entresto, therefore we can dc the amlodipine Subjective Subjective Patient reports: no new complaints and feels better; denies shortness of breath Interval history since last seen: He denies any palpitations. He has had a chronic nonproductive cough. Dr. Vila stopped his lisinopril d/t possible MAGALIS-I cough. Patient has been experiencing cough related syncope for a few months. He says that this will happen 3 to 4 x per month. Exam Narrative Exam Narrative: Obese white male sitting up in bed. NAD Neck: no overt JVD or HJR Lungs: bibasilar rales; no wheezing or rhonchi Heart: regular Abdomen: obese, soft, nontender; no ascites Legs/feet: no pitting edema Objective Last Vital Signs Temp 36.5 C 09/09/21 15:24 Pulse 65 09/09/21 15:24 Resp 18 09/09/21 15:24 BP 147/84 H 09/09/21 15:24 Pulse Ox 96 09/09/21 15:24
[2021-09-09] MEDS: Furosemide 20 MG/2 ML VIAL IVP (18:16)
[2021-09-09] MEDS: Normal Saline Flush 10 ML SYR IVP (18:17)
[2021-09-09] MEDS: Sacubitril/Valsartan 24 mg/26 mg TAB 1 EACH PO (21:27)
[2021-09-09] MEDS: Atorvastatin 20 MG TAB PO (21:28)
[2021-09-09] MEDS: Metoprolol CR 50 MG TABCR PO (21:28)
[2021-09-10 03:18] VITALS: BP 114/71; PULSE 67; RESP 18; TEMP 36.1; O2SAT 99
[2021-09-10 06:58] VITALS: PULSE 55
[2021-09-10 07:16] LABS: Anion Gap 7.9 mmol/L (3-11); BUN 27 mg/dL (7-18); CO2 28.1 mmol/L (21.0-32.0); CREATININE 1.2 mg/dL (0.70-1.30); Calcium 8.8 mg/dL (8.5-10.1); Chloride 100 mmol/L (98-107); Glucose 116 mg/dL (74-106); Potassium 3.9 mmol/L (3.5-5.1); Sodium 136 mmol/L (136-145)
[2021-09-10] MEDS: guaiFENesin/D-METHORPHAN HB 5 ML CUP PO (07:46)
[2021-09-10] MEDS: Spironolactone 25 MG TAB PO (07:47)
[2021-09-10] MEDS: Lansoprazole 30 MG CAPCR PO (07:47)
[2021-09-10] MEDS: Empaglifozin 10 MG TAB PO (07:47)
[2021-09-10] MEDS: Benzonatate 200 MG CAP PO (07:47)
[2021-09-10] MEDS: FLUoxetine 20 MG CAP 40 MG PO (07:47)
[2021-09-10] MEDS: Furosemide 20 MG TAB PO (07:47)
[2021-09-10] MEDS: Sacubitril/Valsartan 24 mg/26 mg TAB 1 EACH PO (07:47)
[2021-09-10 07:51] VITALS: BP 133/83; PULSE 60; RESP 18; TEMP 36; O2SAT 97
[2021-09-10 11:09] VITALS: BP 115/76; PULSE 66; RESP 18; TEMP 35.9; O2SAT 96
[2021-09-10 11:24] VITALS: BP 104/65; BP 115/76; BP 94/62; PULSE 62; PULSE 66; PULSE 86
--- NOTE | 2021-09-10 11:45 | CHAPLAIN ---
Dylon was up in his chair watching tv when I visited. He said he believes he'll be discharged home today. He lives in [place] and said his children live nearby and are supportive.
[2021-09-10 13:59] VITALS: PULSE 85
--- NOTE | 2021-09-10 14:36 | DSE_ITS ---
Date of service: 09/10/21 Time of Service: 14:36 DS: Diagnosis Discharge Diagnosis (1) Syncope: Status: Chronic Asessment and Plan: syncope not occurring w/ any supraventricular or ventricular arrhythmia although he did exhibit frequent PVC and short runs of nonsustained VT, i.e. 3 beats. he should have follow up cardiac event recorder performed as outpatient. Lisinopril was dc'ed d/t cough. Cough was associated w/ syncope events which were witnessed in hospital. None in the past 48 hr prior to dc home. (2) Head injury: Status: Acute Asessment and Plan: closed head injury d/t syncope. CT head was performed on admission (09/06) w/ no intracranial abnormalities but frontal swelling consistent w/ his scalp hematoma. (3) Nonischemic cardiomyopathy: Status: Acute Asessment and Plan: echo had recently been done on 07/19/21 and was not repeated. This demonstrated the following: Conclusion Normal left ventricular wall thickness.? The left ventricle is borderline dil ated.? Overall systolic function is mildly reduced.? Estimated ejection fraction is 45%.? There is mild global hypokinesis Normal right ventricular size and systolic function Both atria are normal in size Mild mitral annular calcification.? Trace to mild mitral regurgitation There are no other structural or hemodynamically significant valvular abnormalities Patient was put on goal directed therapy including Entresto 24/26 mg bid, spironolactone 25 mg daily and Jardiance 10 mg daily. The Jardiance should be uptitrated to 25 mg daily after 4 weeks. His Entresto should also be up titrated as his BP allows. (4) HTN (hypertension) with goal to be determined: Status: Acute Asessment and Plan: patient's lisinopril was dc'ed in light of his cough but he was put on Entresto for his cardiomyopathy. He was continued on on his Toprol XL (5) Ventricular trigeminy: Status: Acute Asessment and Plan: patient did not have any temporal association of his syncope w/ his ventricular ectopy. nevertheless he ought to have outpatient cardiac event recorder to assess the degree and severity of his ectopy given his cardiomyopathy. Discharge Plan Disposition Patient Disposition: HOME Condition: Improving Discharge Details Reason For Visit: Syncope Admit Date/Time: 09/06/21 13:29 Admit Provider: Az Vila Attending Provider: Az Vila Primary Care Provider: Jess Olivia Hospital Course Hospital Course: is a 66-year-old male with past medical history of syncopal spells associated with coughing paroxysms, nonischemic cardiomyopathy, hypertension, depression, alcohol abuse, dysphagia, pulmonary hypertension, Santana, pancreatitis who was initially diagnosed in the ED at [facility] the day prior to this current admission which is on 09/06/2021. He was diagnosed the day before with acute bronchitis and bronchospasms was prescribed steroids and doxycycline. He now represented to the emergency department after sitting up at the bedside during the night to reach for his water and began with a coughing paroxysm and had a syncopal spell and awoke on the floor. He had abrasions on his forehead and nose and broke several front teeth. Evaluation in the ED included a CT of his head which showed no acute intracranial process showed chronic sinus disease with mucosal thickening of his maxillary sinuses as well as opacification of several ethmoid sinuses and left frontal sinus. He had frontal scalp soft tissue swelling. He was initially admitted on observation to monitor and evaluate his syncopal spells. EKG was obtained on admission and was found to have sinus rhythm with ventricular trigeminy not associated with any syncope. He was placed on telemetry monitoring throughout his hospital stay. Dr. Vila admitted the patient kept him on the doxycycline prednisone and albuterol initially but when he found that the patient had no bronchospasms and was not coughing up any purulent mucus and had a normal white count he discontinued the prednisone and doxycycline. He also discontinued the albuterol. He later learned that the patient has had multiple episodes of cough syncope over the last 4 years. Apparently was unable to complete a work-up of his cough including PFTs because of the coughing paroxysms. Patient does have a history of dysphagia and GERD and had an outpatient schedule for repeat EGD and a colonoscopy for next week. At home he was taking a PPI, lansoprazole [address] Vila increased to twice a day. With respect to the patient's heart rhythm Dr. Vila found that on a previous EKG in July 29, 2021 patient had some paroxysmal atrial fib. Continue to monitor the patient throughout his hospital stay and he was kept on his usual dose of metoprolol XL 50 mg daily. However because of the cough his lisinopril was discontinued. Repeat echo was not performed as the patient had a recent echocardiogram from 07/19/2021 which demonstrated global hypokinesis of the left ventricle with an LVEF of 45%. Patient was started on amlodipine 5 mg daily after lisinopril was stopped however he was not discharged home on the amlodipine. Instead the patient was put on goal-directed treatment for his cardiomyopathy and he was put on Entresto 24 mg / 26 mg 1 orally twice a day. He was kept on his Toprol-XL 50 mg at night. He was started on spironolactone 25 mg daily. Jardiance 10 mg daily was added to his CHF regimen. After discontinuation of his lisinopril he was feeling better and having less episodes of coughing paroxysms. His rhythm remained sinus rhythm with episodes of ventricular trigeminy and some ventricular couplets and triplets but no sustained ventricular tachycardia or SVT. As the patient was feeling markedly better and not having any lightheaded spells or dizziness and no syncopal spells over the last 24 hours prior to discharge it was felt that he can be safely discharged home. At the time of discharge she was prescribed Jardiance 10 mg daily as well as Entresto 24/26 mg 1 tablet twice a day and spironolactone 25 mg 1 daily. He was given appointment to follow-up with Dr. Fannie Alejandro his cylinder press operator helper on October 03, 2021 at 11:40 AM and to follow-up with his PCP Jess Cervantes on 09/17/2021 at 11:30 AM. Orders were placed for follow-up be BMP in 1 week as well as an order was placed for a 14-day cardiac event recorder however this will need to be preauthorized by his PCP or his cylinder press operator helper. During his hospitalization he was seen by Dr. Priscila Echevarria from palliative care. See her note for details. Home Meds and New Rx's Prescriptions: New Jardiance 10 mg Tablet 10 mg PO QAM Qty: 90 0RF spironolactone 25 mg Tablet 25 mg PO DAILY Qty: 30 1RF Entresto 24-26 mg Tablet 1 ea PO BID Qty: 60 1RF Continued acetaminophen [Tylenol Extra Strength] 500 mg tablet 500 mg PO Q6H PRN0RF nitroglycerin 0.4 mg tablet, sublingual 0.4 mg sublingual Q5-15M PRN0RF Rx Instructions: do not exceed 3 doses per episode metoprolol succinate 50 mg tablet extended release 24 hr 50 mg PO .nightly Qty: 90 3RF fluoxetine [Prozac] 40 mg Capsule 40 mg QAM 0RF lansoprazole 30 mg Capsule,Delayed Release(Dr/Ec) 30 mg DAILY 0RF atorvastatin 20 mg tablet 20 mg PO HS 0RF Label Comments: TAKE 1 TABLET BY MOUTH DAILY AT BEDTIME Discontinued lisinopril 20 mg tablet 20 mg PO DAILY Qty: 90 3RF doxycycline hyclate 100 mg capsule 100 mg PO BID 9 Days Qty: 18 0RF prednisone 50 mg tablet 50 mg PO DAILY 5 Days Qty: 5 0RF Discharge Instructions Instructions: Heart Failure (DC), Syncope (DC), Low-Sodium Diet (DC) Additional Instructions: You have been evaluated for your syncope (passing out spells) this included prolonged monitoring for heart arrythmias. While you have some extra beats coming from the ventricles of your heart (ventricular ectopy) none of these were prolonged enough nor severe enough to explain your syncope spells. However, your syncope is associated w/ coughing and we fee that your cough may be due to your lisinopril ( a common symptom in this drug) and therefore the lisinopril was changed to sacubitril/valsartan (Entresto) to treat your congestive heart failure. You were also started on two other medications for congestive heart failure: spironolactone and empagliflozin (Jardiance). These medications will help to prevent recurrent exacerbations of your congetive heart failure. You should be followed by a cylinder press operator helper. We have referred you to Dr. Fannie Alejandro who will assist your primary care provider in treating you congestive heart failure. You should get follow up labs in one week to recheck your kidney function and electrolytes due to taking the spironolactone and Entresto. We have ordered a prolonged heart rhythm monitor for you. This will have to get pre-approved by your insurance and respiratory care should call you with a date and time for telephone supervisor. Monitor your weight and blood pressure daily. Avoid foods high in salt. Stand Alone Forms: Nursing Discharge Form Referrals: Fannie Alejandro MD [ [facility] STAFF PHYSICIAN] - 05/26/22 11:40 am Jess Olivia [Primary Care Provider] - 09/17/21 11:30 am Activity:: Activity as Tolerated Equipment/Supplies:: No Equipment Needed Diet:: Low Sodium Discharge Orders Discharge Orders: Discharge Order (Routine); Ordered 09/10/21 Ordered By: Kushal Marcus Other Ambulatory Orders: Basic Metabolic Panel (Routine) Timeframe: 1 Week Facility: [facility] - Location: Laboratory Outpatient Ordered By: Kushal Marcus 14 Day Staff Research Associate (Routine) Timeframe: 1 Week Facility: [facility] - Location: Respiratory Therapy Ordered By: Kushal Marcus Discharge Data Discharge Date/Time-TO BE ENTERED AT DEPARTURE: 09/10/21 15:06 DS: Summary Time Spent with Patient providing and/or coordinating discharge services: Greater than 30 minutes Specific discharge activities: Patient education, prescriptions, arranging follow-up, documentation Status at Discharge Functional status at discharge: independent ambulation Overall status at discharge: patient is back to baseline Mental Status: mental status grossly normal Speech and Movement: speech and movement normal Mood: congruent mood Affect: normal affect Exam Narrative Exam Narrative: Patient sitting up in his chair he is alert denies any dizziness or lightheadedness just walked to the bathroom and back without any symptoms. I reviewed his telemetry with the ICU nursing staff and has had no significant runs of ventricular tachycardia he has had just isolated PVCs and yesterday had a 3 beat run of nonsustained VT. Repeat vital signs taken by myself prior to discharge his BP was 126/74 pulse 74 regular respirations nonlabored he is on room air oxygen saturation 97%. Lungs are clear anteriorly posteriorly has some fine bibasilar rales no rhonchi but a few scattered expiratory wheezes Heart regular rate and rhythm no appreciable murmur rub Abdomen soft nontender nondistended normal bowel sounds Lower extremities no peripheral edema. Psych Mental Status: mental status grossly normal Speech and Movement: speech and movement normal Mood: congruent mood Affect: normal affect DS: Data Vitals/I&O Vitals and I&O: Vital Signs Temperature 35.9 C L 09/10/21 11:09 Temperature Source Tympanic 09/10/21 11:09 Pulse 62 09/10/21 11:24 Pulse Rhythm Regular 09/10/21 09:19 Pulse 96 H 09/06/21 13:50 Respiratory Rate 18 09/10/21 11:09 Respiratory Effort Non-Labored 09/10/21 09:19 Respiratory Depth Normal 09/10/21 09:19 Respiratory Pattern Normal 09/10/21 09:19 Blood Pressure 104/65 09/10/21 11:24 Blood Pressure Position Supine 09/06/21 11:13 Pulse Oximetry 96 09/10/21 11:09 Oxygen Delivery Method Room Air 09/10/21 11:09 Oxygen Flow Rate 0 09/10/21 11:09 Pain Level 0 09/10/21 03:18 Comment 09/10/21 03:18 Intake & Output 09/09/21 09/10/21 09/10/21 23:59 11:59 23:59 Intake Total 480 / 980 1000 / 1000 Balance 480 / 980 1000 / 1000 Weight 97.6 kg Intake: IV 1000 / 1000 Oral 480 / 980 Other: Urine Color Yellow Yellow Yellow Urine Appearance Clear Clear Clear Urine Odor None Comment pT voided in toilet, unable to assess. pT reports voiding in the toilet pT voided in bathroom. Voiding Methods Toilet Toilet Toilet Data Completed and Pending Labs on day of discharge: Labs from last 24 hours 09/10/21 06:12 Sodium 136 Potassium 3.9 Chloride 100 Carbon Dioxide 28.1 Anion Gap 7.9 BUN 27 H Creatinine 1.2 Estimated GFR/1.73 m2 >= 60.00 Glucose 116 H Calcium 8.8 PFSH All Active Problems (Updated 09/11/21 @ 00:05 by JUANA GARCIA) Medication monitoring encounter (Chronic) Cough syncope (Acute) Palliative care patient (Acute) Syncope (Chronic) Head injury (Acute) Ventricular trigeminy (Acute) New onset cough (Acute) Diarrhea (Acute) assoc w/ fatty food injestion Postprandial RUQ pain (Acute) Nonischemic cardiomyopathy (Acute) HTN (hypertension) with goal to be determined (Acute) Melena (Acute) Depression (Chronic) Obesity (Chronic) Globus sensation (Acute) Exertional chest pain (Acute) Melena (Acute) Diverticulitis (Acute) Gastropathy (Acute) pt needs to curtail ETOH use. 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 Shoulder pain (11/18/12) Situational depression Tendinitis of long head of biceps brachii of left shoulder Tendonitis of left rotator cuff Injected: 01/03/2020, 04/10/2020, 12/17/2020 Surgical History Appendectomy (~2007) Arthroplasty 03/09/15; DR. HERNANDEZ RIGHT SECOND TOE EXOSTECTOMY 03/09/15 DR. YODER; RIGHT GREAT TOE History of esophagogastroduodenoscopy (EGD) History of surgery on upper extremity Hx L shoulder, wrist, fingers, R arm x 8 per Pt History of surgical amputation of finger of left hand Machine related injury, R hand per pt 08/13/18 Hx of carpal tunnel repair Hx of colonoscopy 08/13/[address] Pastora Noel at [facility], repeat in five years. mg colo 06/05/08 - Dr Cheney - tubular adenoma, descending colon, repeat in 5 years. Family History Other Cancer Diabetes Hypertension Social History Smoking/Tobacco Use Status: Never Smoking risk assessment performed?: Yes Alcohol Intake: former Drug use: Never Substance use type: does not use Current gender identity: male Do you feel safe at home: Yes Do you feel safe in your relationship?: Yes
--- NOTE | 2021-09-10 19:04 | PDOC.CMDIS ---
- If Service Date Differs Date of service: 09/10/21 Time of Service: 19:04 LACE Index Scoring Tool - Questions: Length of Stay (in days): 4 - 6 Acuity (Admit via E.D.?): Yes E.D. Visits: 6 - Answers: Total Score: 11 Risk of Readmission: High Risk Care Management Discharge Reason for Hospitalization: Syncope. Discharge Plan: Dylon will return home with no new services. He will be driven home by his son, via private vehicle. He will follow up with his PCP and discharge plan of care. He is happy to be going home. Patient/Family Education Needs: Review discharge instructions and limitations, discussion of self care needs including ask me three.
== END 2021-09-10 15:06 | disposition home or self-care (01) | DRG 312 ==
LOC: ER 13:48 → MS 09-09 11:41
PROVIDERS: Internal Medicine; Admitting Provider Family Medicine; Emergency Provider Physician Assistant; PCP Physician Assistant; Visit Provider Family Medicine
DX: R55 Syncope and collapse (principal); I42.8 Other cardiomyopathies; I47.2 Ventricular tachycardia; R05.8 Other specified cough; J20.9 Acute bronchitis, unspecified; R00.8 Other abnormalities of heart beat; I10 Essential (primary) hypertension; F10.10 Alcohol abuse, uncomplicated; K21.9 Gastro-esophageal reflux disease without esophagitis; I27.20 Pulmonary hypertension, unspecified; R05.1 Acute cough; E66.9 Obesity, unspecified; Z68.31 Body mass index [BMI] 31.0-31.9, adult; K31.9 Disease of stomach and duodenum, unspecified; E78.5 Hyperlipidemia, unspecified; S00.03XA Contusion of scalp, initial encounter; F32.9 Major depressive disorder, single episode, unspecified; S00.211A Abrasion of right eyelid and periocular area, initial encounter; K02.9 Dental caries, unspecified; R13.10 Dysphagia, unspecified; K75.81 Nonalcoholic steatohepatitis (NASH); R41.3 Other amnesia; I49.3 Ventricular premature depolarization; I48.0 Paroxysmal atrial fibrillation; R93.1 Abnormal findings on diagnostic imaging of heart and coronary circulation; S02.5XXA Fracture of tooth (traumatic), initial encounter for closed fracture; W06.XXXA Fall from bed, initial encounter
CPT/HCPCS: 36415; 80048; 80053; 82550; 87635; 93005; 96360; 99285; 70450; 80320; 81003; 83735; 84443; 84484; 85025; 85379; 85610; 85730; 93010; 94640; 99220; 99223; 99232; 99233; 99239; J1941; J7512; J7613; J7620

== ENCOUNTER 2021-09-17 21:40 | Outpatient (REF) | payer OTHER, MEDICAID, SELFPAY ==
[2021-09-17 19:57] LABS: Anion Gap 6.8 mmol/L (3-11); BUN 19 mg/dL (7-18); CO2 26.2 mmol/L (21.0-32.0); Calcium 9.2 mg/dL (8.5-10.1); Chloride 104 mmol/L (98-107); Glucose 100 mg/dL (74-106); Potassium 4.6 mmol/L (3.5-5.1); Sodium 137 mmol/L (136-145)
== END 2021-09-17 21:41 | disposition home or self-care (01) ==
LOC: NCHCN 21:40
PROVIDERS: PCP Physician Assistant; Visit Provider Physician Assistant
DX: I42.8 Other cardiomyopathies (principal); Z51.81 Encounter for therapeutic drug level monitoring
CPT/HCPCS: 80048

== ENCOUNTER → 2021-09-23 02:09 | Outpatient (CLI) | payer OTHER, MEDICAID, SELFPAY ==
[2021-09-23] MEDS: Barium Sulfate 2% W/V-Berry Smoothie 450 ML BTL PO ×2 (11:35→11:36)
--- NOTE | 2021-09-23 13:00 | DI.CT_ITS ---
Exam(s) CT ABDOMEN PELVIS WO EXAM: CT ABDOMEN PELVIS WO CLINICAL HISTORY: MELENA, ABD PAIN, MORE LOWER QUADS, K92.1, R10.84. TECHNIQUE: Imaging Protocol: Axial computed tomography images with coronal and sagittal reformatted images were created and reviewed. COMPARISON: CT CT ABDOMEN PELVIS W from 02/17/2019 CT,NM,TMT NM MPI REST STRESS GRP from 07/04/2021 FINDINGS: ABDOMEN: Lung Bases: Normal where visualized. There is a calcified granuloma in the right lower lobe. Liver: There is diffuse fatty infiltration of the liver. No measurable mass. Gallbladder and biliary tract: No radiodense calculus or biliary ductal dilation. Pancreas: Normal density, no abnormal calcifications or inflammatory process. Spleen: Normal. Kidneys: Normal size, contour and axis.No radiodense stones or obstructive uropathy. There again seen cysts in the left kidney. There are stable in size. Adrenal glands: No mass is seen. Lymph nodes: Within normal limits. Abdominal Aorta: Abdominal portion non-dilated. Atherosclerosis. PELVIS: Bladder:Symmetric distention, no gross wall thickening. Bowel: No obstruction or bowel wall thickening. The appendix is not visualized. There is diverticulo sis seen in the sigmoid colon, but no evidence of acute diverticulitis. Peritoneal cavity: No ascites, collection or mesenteric inflammatory response. No free air. Reproductive organs: Mildly enlarged prostate gland. Bones: Within normal limits. Soft Tissues: Within normal limits. IMPRESSION: 1. No acute abdominal or pelvic process. 2. Fatty infiltration of the liver. 3. Sigmoid diverticulosis, but no evidence of acute diverticulitis. RADIATION DOSE DELIVERED: 1,188.56mGy.cm Total DLP DATA REPOSITORY: All CT scans at this facility are submitted to the National Radiology Data Registry (NRDR) Dose Index Registry (DIR) with the [employer] (ACR). RADIATION OPTIMIZATION: All CT scans at this facility use at least one of these dose optimization te chniques: automated exposure control; mA and/or kV adjustment per patient size (includes targeted exa ms where dose is matched to clinical indication); or iterative reconstruction.
== END ==
PROVIDERS: PCP Physician Assistant; Visit Provider Physician Assistant
DX: R10.84 Generalized abdominal pain (principal); K92.1 Melena; K76.0 Fatty (change of) liver, not elsewhere classified; N28.1 Cyst of kidney, acquired; K57.30 Diverticulosis of large intestine without perforation or abscess without bleeding
CPT/HCPCS: 74176

== ENCOUNTER → 2021-10-03 11:21 | Outpatient (BNVA) | payer OTHER, MEDICAID, SELFPAY | PROVIDERS: PCP Physician Assistant; Referring Provider Physician Assistant; Visit Provider Internal Medicine Cardiovascular Disease | DX: I42.8 Other cardiomyopathies (principal) | CPT/HCPCS: 99214; 99213 ==

== ENCOUNTER → 2021-10-24 10:37 | Outpatient (BNVA) | payer OTHER, MEDICAID, SELFPAY | PROVIDERS: PCP Physician Assistant; Referring Provider Physician Assistant; Visit Provider Surgery | DX: Z01.818 Encounter for other preprocedural examination (principal); K92.1 Melena; R19.7 Diarrhea, unspecified; R10.11 Right upper quadrant pain; R13.10 Dysphagia, unspecified | CPT/HCPCS: 99213 ==

== ENCOUNTER → 2021-11-01 00:23 | Outpatient (CLI) | payer OTHER, MEDICAID, SELFPAY ==
--- OUTSIDE RECORDS SUMMARY | 2021-11-01 00:28 | XMS_ITS | Encounter Summary ---
:1955 [place] [address] Care Team Providers Name Role Phone Jess Olivia Primary Care Provider Encounter Details Date Type Department Care Team Description 07/06/2020 [place]phone [place] [facility] [place] Morales [place] [facility] [place] [phone] NEUROLOGY DEPT [phone] [place], [place] [address] (Wo rk) Social History Tobacco Use Types Packs/Day Years Used Date Never Smoker Smokeless Tobacco: Never Used Alcohol Use Standard Drinks/Week Comments Not Currently 0 (1 standard drink = 0.6 oz pure alcoho l) Sex Assigned at Date Recorded Not on file documented as of this encounter Miscellaneous Notes Telephone Encounter - Emely Hernadez - 07/31/2020 10:32 AM EDT Called to schedule with Mali Ontiveros for new patient care. First available. Telephone Encounter - Manda Swanson - 07/06/2020 10:01 AM EST Call Center / Buffer Automatic Message - General Issue Call Provider patient sees in Clinic: Andrew Caller and relationship (if other than patient-full name): ciara Call back number: [phone] Ok to leave a message: y Reason for call: pt had to cancel appt on 07/17 because he hurt his back. He would like to reschedule, but he can't call long distance. This agent tried calling him, but was unable to reach pt. Please call and help reschedule. Disposition of Call (choose one and remove others): ??? Red Arrow Message Reason red arrow Message: n ??? Routine Message sent to the Nurse: n ??? Routine message sent to Buffer Automatic: y documented in this encounter Plan of Treatment Not on filedocumented as of this encounter Visit Diagnoses Not on filedocumented in this encounter Care Teams Metal Punch Press Operator Relationship Specialty Start Date End Date Jess Olivia PA PCP - General Family Medicine 07/22/[address] [place] [id number] documented as of this encounter
--- OUTSIDE RECORDS SUMMARY | 2021-11-01 00:28 | XMS_ITS | Encounter Summary ---
:1955 [place] [address] Care Team Providers Name Role Phone Jess Olivia Primary Care Provider Encounter Details Date Type Department Care Team Description 08/01/2021 Orders Only Fresh Foods Technician Og Enriquez, Screening for cardiovascular condition; [facility] Chest discomfort [facility] [place] [place] [address] [place], [place] [phone] (Work) [phone] Social History Tobacco Use Types Packs/Day Years Used Date Never Smoker Smokeless Tobacco: Never Used Alcohol Use Standard Drinks/Week Comments Not Currently 0 (1 standard drink = 0.6 oz pure alcoho l) Sex Assigned at Date Recorded Not on file documented as of this encounter Plan of Treatment Not on filedocumented as of this encounter Visit Diagnoses Diagnosis Screening for cardiovascular condition Screening for other and unspecified card iovascular conditions Chest discomfort Other chest pain documented in this encounter Care Teams Information Security Director Relationship Specialty Start Date End Date Jess Olivia PA PCP - General Family Medicine 07/22/19 [address] [place] [address] documented as of this encounter
--- OUTSIDE RECORDS SUMMARY | 2021-11-01 00:28 | XMS_ITS | Encounter Summary ---
:1955 Author Organization [facility] [place] [address] Care Team Providers Name Role Phone Jess Olivia Primary Care Provider Encounter Details Date Type Department Care Team Description 09/21/2020 Ancillary Procedure Radiology at [facility] Adam Aguilar MD [address] [place] [address] NEUROSURGERY-[facility] [place], [place] [address] (Wo rk) Social History Tobacco Use Types Packs/Day Years Used Date Never Smoker Smokeless Tobacco: Never Used Alcohol Use Standard Drinks/Week Comments Not Currently 0 (1 standard drink = 0.6 oz pure alcoho l) Sex Assigned at Date Recorded Not on file documented as of this encounter Plan of Treatment Not on filedocumented as of this encounter Procedures Procedure Name Priority Date/Time Associated Diagnosis Comme nts FILM LIBRARY Routine 09/21/2020 12:00 AM Results for this STORAGE ONLY MR HIP EDT procedur e are in the results section. documented in this encounter Results Film Library- Storage Only MR Hip (09/21/2020 12:00 AM EDT) Specimen (Source) Anatomical Location Collection Method / Collectio n Time Received Time / Laterality Volume Narrative RAD - 09/24/2020 3:47 PM EDT This exam is auto-finalizing. It's purpo se is for storage only. Adam Aguilar MD [facility] FILM LIBRARY ORDERABLES Performing Organization Address City/State/ZIP Code Phon e Number RAD [place], [place] documented in this encounter Visit Diagnoses Not on filedocumented in this encounter Care Teams Piercing Artist Relationship Specialty Start Date End Date Jess Olivia PA PCP - General Family Medicine 07/22/[address] [place] [phone] documented as of this encounter
--- OUTSIDE RECORDS SUMMARY | 2021-11-01 00:28 | XMS_ITS | Encounter Summary ---
:1955 [place] [address] Care Team Providers Name Role Phone Jess Olivia Primary Care Provider Encounter Details Date Type Department Care Team Description 03/28/2020 Telephone Neurology at [facility] Kim Morales MD [facility] [place] [address] NEUROLOGY DEPT [phone] [place], [place] [address] (Wo rk) Social History Tobacco Use Types Packs/Day Years Used Date Never Smoker Smokeless Tobacco: Never Used Alcohol Use Standard Drinks/Week Comments Not Currently 0 (1 standard drink = 0.6 oz pure alcoho l) Sex Assigned at Date Recorded Not on file documented as of this encounter Miscellaneous Notes Telephone Encounter - Melissa Hernández RN - 03/28/2020 4:44 PM EST Call made to the pharmacy. Clarified the thiamine dose to be a strength of 100 mg. Understanding verbalized. documented in this encounter Plan of Treatment Not on filedocumented as of this encounter Visit Diagnoses Not on filedocumented in this encounter Care Teams Research Pharmacist Relationship Specialty Start Date End Date Jess Olivia PA PCP - General Family Medicine 07/22/19 [address] [place] [address] documented as of this encounter
--- OUTSIDE RECORDS SUMMARY | 2021-11-01 00:28 | XMS_ITS | Clinical Summary ---
:1955 Author Organization [facility] [place] [address] Care Team Providers Name Role Phone Jess Olivia Primary Care Provider Allergies Active Allergy Reactions Severity Noted Date Comments Codeine Phosphate High CIS - Naus ea/Vomiting Medications Medication Sig Dispensed Refills Start Date End Date Status IBUPROFEN (MOTRIN ORAL) 800 mg, PO, Q8H 0 03/28/2009 Active PRN nitroGLYcerin 0.4MG, 0 03/28/2009 Activ e (NITROSTAT) 0.4 mg SL Sublingual, X 1, tablet PRN acetaminophen (Tylenol) Take 1,000 mg by 0 Active 500 mg Tablet mouth every 6 hours as needed for Pain. pantoprazole EC TK 1 T PO BID 0 01/17/2020 Active (Protonix) 20 mg Tablet, Delayed Release (E.C.) FLUoxetine (PROzac) 40 TAKE 1 CAPSULE 0 01/18/2020 Active mg Capsule BY MOUTH DAILY aspirin EC 81 mg Tablet, Take 81 mg by 0 Active Delayed Release (E.C.) mouth daily. atorvastatin (Lipitor) TAKE 1 TABLET BY 0 07/16/2020 Active 20 mg Tablet MOUTH DAILY AT BEDTIME cyclobenzaprine TAKE 1/2 TABLET 0 07/04/2020 Active (Flexeril) 10 mg Tablet BY MOUTH THREE TIMES DAILY NEEDED fluticasone propionate SHAKE LIQUID AND 0 08/13/2020 Active (FLONASE) 50 USE 1 TO 2 mcg/actuation Mcewen, SPRAYS IN EACH Suspension NOSTRIL TWICE DAILY HYDROcodone-acetaminophe Take 1-2 tablets 20 tablet 0 10/17/19 21 Active n ([place]) 5-325 mg by mouth every 6 Tablet hours as needed. Active Problems No known active problems Encounters Date Type Specialty Care Team Description 10/15/2021 Anesthesia Event Gastroenterology Dinah Hernandez CRNA 08/06/2021 Surgery Cardiology Maame Rivera CARDIAC CATH ETERIZATION MD Rodo 08/06/2021 Hospital Encounter General Surgery Maame Rivera Scr eening for cardiovascular condition; MD Rodo Chest discomfor t 08/01/2021 Orders Only Cardiology Og Sue Screening for cardiovascular condition; LUKAS Cazares Chest discomfor t from Last 3 Months Immunizations Name Administration Dates Next Due Pneumococcal Polyvalent 23 08/07/2003 Td, adult 05/11/1998 Social History Tobacco Use Types Packs/Day Years Used Date Never Smoker Smokeless Tobacco: Never Used Alcohol Use Standard Drinks/Week Comments Not Currently 0 (1 standard drink = 0.6 oz pure alcoho l) Not in a few years Alcohol Habits Answer Date Recorded How often do you have a drink containing alcohol? Not asked How many drinks containing alcohol do you have on a Not aske d typical day when you are drinking? How often do you have six or more drinks on one Not asked occasion? Comment: Not in a few years 08/06/2021 Sex Assigned at Date Recorded Not on file Last Filed Vital Signs Vital Sign Reading Time Taken Comments Blood Pressure 115/66 08/06/2021 2:05 PM EDT Pulse 81 08/06/2021 1:14 PM EDT Temperature 36.3 ??C (97.3 ??F) 08/06/2021 2:20 PM EDT Respiratory Rate 16 08/06/2021 2:05 PM EDT Oxygen Saturation 100% 08/06/2021 2:05 PM EDT Inhaled Oxygen Concentration - - Weight 104.3 kg (230 lb) 08/06/2021 9:06 AM EDT Height 182.9 cm (6') 08/06/2021 9:06 AM EDT Body Mass Index 31.19 08/06/2021 9:06 AM EDT Plan of Treatment Health Maintenance Due Date Last Done Comments Covid-19 Vaccine (#1) 09/02/1959 Hepatitis C Screening 1972 Tdap adult 1973 Colonoscopy 09/02/1999 Zoster vaccine (1 of 2) 2004 Tetanus vaccine 05/11/2008 05/11/1998 Advance Directive 2009 Pneumoccocal Vaccine: 65+ (1 of 1 - PPSV23) 09/02/201907/10 Influenza (Flu) vaccine (1 of 1 - Influenza standard 01/09/2021 series) Diabetes Screening (HgbA1C or Glucose) 08/06/2024 Procedures Procedure Name Priority Date/Time Associated Diagnosis Comme nts CARDIAC CATHETERIZATION Routine 08/06/2021 11:05 Screening for Results for this AM EDT cardiovascular procedure are in condition the results Chest discomfort section. CORONARY ANGIOGRAPHY; W 08/06/2021 10:14 Screening for LHC,POSSIBLE PCI AM EDT cardiovascular condition Chest discomfort DIFFERENTIAL, AUTOMATED STAT 08/06/2021 9:25 R esults for this AM EDT procedure are i n the results section. HEMOGRAM STAT 08/06/2021 9:25 Results for this AM EDT procedure are i n the results section. BMP W/FASTING GLUCOSE STAT 08/06/2021 9:25 Res ults for this AM EDT procedure are i n the results section. HC CBC,PLT & AUTO DIFF STAT 08/06/2021 9:25 AM EDT EKG 12-LEAD Routine 08/06/2021 9:07 Screening for Results for this AM EDT cardiovascular procedure are in condition the results Chest discomfort section. LAB SCAN 08/06/2021 12:00 Results for this AM EDT procedure are i n the results section. from Last 3 Months Results CARDIAC CATHETERIZATION (08/06/2021 11:05 AM EDT) Specimen (Source) Anatomical Location Collection Method / Collectio n Time Received Time / Laterality Volume Narrative CARDIOMAC SYSTEM - 08/06/2021 1:29 PM ED T ?[facility] ? Cardiac Cathete rization/Intervention Report ? Patient Name: Dylon Navarro. ? Procedure Date: 08/06/2021 ? A #: [id number] ? Primary Physician: Maame Rivera I ? Case #: [id number] ? File Name: [id number] ? Catheterization Order Number: [id number] ? [facility] ? Final Report [place], [place] ? Patient Name: ? [place] R. Deth ? ID#: ?[id number] ? : ?1955 ? Procedure Date: ? August 06, 2021 ? Case #: ? [id number] ? Room: ? 1 ? Case Physician: ? Maame cox M.D. ? Start: ?10:33 ?Fellow: ? Mehran price M.D. ? Admission: ??08/06/2021 ? Referring Physician: ??Marcia Villa ? Procedures: ?* Coronary Angiography ?* Left Heart Catheterization ? History ?Dylon Navarro is a 65 year old man. He has hypertension. The patient's ?smoking status is Former. He moyer s hypercholesterolemia managed with lipid ?therapy. The patient has a hist ory of CHF. The CHF is NYHA Functional ?Class II, is newly diagnosed an d is classified as Systolic. Prior to the ?initiation of this procedure, t he patient was designated as ASA Class II. ?The [facility] clinical frailty scale is 3: Managing Well. ? Diagnostic Tests: ?Prior Coronary Angiography: ? Prior coronary angiograp hy was performed on 06/15/2014. LV ejection ? fraction within 6 months is 45%. ?Electrocardiography: ? EKG was assessed by ECG. EKG was Normal. ?Stress or Imaging Studies: ? A stress test with SPECT imaging was performed and was Negative. ?Medications Prior to Procedure: ? Statin. ? Indications for Diagnostic Cath: ?The priority of the diagnostic procedure was Elective. The indication for ?the cardiac cath lab manager visit is cardiomyo julio. Chest pain symptom assessment was: ?Atypical Angina. ? Technique: ?A 6 SLFr sheath was inserted in the right radial artery utilizing the ?Seldinger technique. The left c oronary artery was injected utilizing a ?5Fr JL 3.5 catheter. A 5Fr JR 4 catheter was used to inject the right ?coronary artery. Left ventricul ar pressure was performed utilizing a 5Fr ?JR 4 catheter. 5,000 units of h eparin were administered. A total of 100cc ?of Omnipaque were opened, 90cc of Omnipaque were administered and 10cc of ?Omnipaque were wasted. Radiatio n: Fluoro time was 12.2 minutes, dose area ?product was 37,300 mGYcm2 and a ir kerma was 577 mGY. See the case log for ?additional details. ?The patient received the follow ing medications prior to and during the ?procedure: ? Unfractionated Heparin. ? Hemodynamics: ?Left Heart Pressures ? Resting: ? Syst D iast ? EDP ?a ?v ? m ?Ao 94 ?58 ?70 ?LV 98 ?10 ? Coronary Angiography: ?Dominance: Right ?Left Main ? The left main was normal , free of disease. ? Very short LM. Seperate LAD and LCx ostia. ?Left Anterior Descending ? The left anterior descen ding (LAD) was normal, free of disease. ?Left Circumflex ? The left circumflex (LCX ) was normal, free of disease. ?Right Coronary Artery ? The right coronary arter y (RCA) was normal, free of disease. ? Vascular Access: ?Vascular Access Management: ? Mechanical Compression o f the right radial artery access site was ? performed. ? Conclusions: ?* Normal coronary arteries ? Complications/Events: ?The patient had no complication s during these procedures. ?The attending physician was presen t for the entire procedure. ?Dr. Maame Rivera M.D. was pre sent during the moderate sedation ?intraservice time as documented by the sedation nurse. ??Case time = 00:28. ?Dr. Maame Rivera M.D. perform ed the left heart catheterization and ?coronary angiography. ? Maame I Miguel, M.D. ? Electronically Signed by: Maame Koehler Chaud ry, M.D. ? Report Finalized: 08/06/2021 ??13:22 ? Maame Koehler MD CARDIAC CATH ORDERABLES Performing Organization Address City/State/ZIP Code Phon e Number CARDIOMAC SYSTEM (ABNORMAL) BMP w/fasting Glucose (08/06/2021 9:25 AM EDT) athologist Signature Glucose 120 (H) 65 - 99 [facility] Fasting mg/dL [facility] Comment: ?Fasting* Glucose Interpretive C riteria Normal ?65-99 mg/dL Impaired Fasting glucose ?100-125 mg/dL Consistent with Diabetes Mellitus ? >or= 126 mg/dL *Fasting is defined as no caloric intake for at least 8 hours In the absence of unequivocal hypergly cemia a plasma glucose value of >or= 126 mg/dL should be repeated on a subseq uent day. Diagnosis and Classification of Diabetes Mellitus, Position Statement from the [place] [employer]. ??Diabete s Care, Volume 33, Supplement 1, May 2009 BUN 26 (H) 10 - 20 mg/dL [facility] Creatinine 1.17 0.80 - 1.50 mg/dL [facility] Sodium 136 135 - 145 mmol/L [facility] Potassium 4.6 3.5 - 5.0 mmol/L [facility] Comment: Please note: ??Patients with WBC >100,00 0 may have falsely elevated Potassium levels. ??For accurate Potassium quantif ication in these patients send serum separator tube (gold top) for subsequent determinations. ??Contact the Clinical Chemistry Laboratory if there are any qu estions. Chloride 104 98 - 107 mmol/L [facility] CO2 23 22 - 31 mmol/L [facility] Anion Gap 9 5 - 15 mmol/L [facility] Calcium 9.3 8.5 - 10.5 mg/dL [facility] Estimated GFR 65 >=60 mL/min/1.73 m?? [facility] Comment: This patient? s estimated glomerular filtration rate (eGFR) is between 65 mL/min/1.73 m2 (patients with less muscl e mass per kg body weight) and 75 mL/min/1.73 m2 (patients with more muscl e mass per kg body weight) as determined by the CKD-EPI equation. Asse ssment of eGFR is not appropriate when creatinine concentrations are rapidly ch anging. For clinical decisions where creatinine clearance will affect therapy , a 24-hour urine creatinine clearance may be advised. Assignment of CKD stage 1 - 5 for patien ts with an eGFR near the transition point between stages may be based on cli nical assessment of muscle mass and symptoms in addition to eGFR. Specimen Anatomical Collection Method Collection Time Receive d Time (Source) Location / / Volume Laterality Blood 08/06/2021 9:25 AM 9:46 EDT AM EDT Resulting Agency Comment Spec In Lab Maame Koehler MD CHEMISTRY ORDERABLES Performing Organization Address City/State/ZIP Code Phon e Number [place] [id number] (ABNORMAL) Hemogram (08/06/2021 9:25 AM EDT) Analysis Performed At Patho logist Time Signature WBC 7.1 4.0 - 9.5 [facility] x10(3)/[facility] LABORATORY RBC 4.47 (L) 4.58 - [facility] 5.54 [facility] x10(6)/[facility] LABORATORY Hemoglobin 13.6 (L) 13.7 - [facility] 16.5 g/dL [facility] Hematocrit 38.7 (L) 40.5 - [facility] 48.5 % [facility] MCV 86.6 82.9 - [facility] 93.1 fL [facility] MCH 30.4 27.5 - [facility] 32.1 pg [facility] MCHC 35.1 32.0 - [facility] 35.7 g/dL [facility] Platelets 164 145 - 357 [facility] x10(3)/[facility] LABORATORY RDWSD 40.0 36.0 - [facility] 45.0 [facility] LABORATORY RDWCV 12.8 11.4 - [facility] 13.8 % [facility] MPV 10.7 7.6 - 12.9 [facility] LABORATORY nRBC % Auto 0.0 % [facility] nRBC Abs Auto 0.000 0.000 - [facility] 0.000 [facility] x10(3)[facility] LABORATORY Specimen Anatomical Collection Method Collection Time Receive d Time (Source) Location / / Volume Laterality Blood 08/06/2021 9:25 AM 9:46 EDT AM EDT Resulting Agency Comment Spec In Lab Og GAYTAN HEMATOLOGY ORDERABLES Performing Organization Address City/State/[place] [address] Differential, Automated (08/06/2021 9:25 AM EDT) P athologist Signature Neutrophils % 56.7 % [facility] Neutr Abs (ANC) 4.02 1.70 - YOCASTA ANDREW 6.10 [facility] x10(3)[facility] LABORATORY Lymphocytes % 32.2 % [facility] Lymphocytes Abs 2.3 0.9 - 3.2 [facility] x10(3)/[facility]ATORY Monocytes % 8.3 % [facility] Monocyte Abs 0.6 0.3 - 0.9 [facility] x10(3)/[facility]ATORY Eosinophils % 1.8 % [facility] Eosinophils Abs 0.1 0.0 - 0.4 [facility] x10(3)[facility] LABORATORY Basophils % 0.4 % [facility] Basophils Abs 0.0 0.0 - 0.1 [facility] x10(3)/[facility] LABORATORY Immature Gran % 0.60 % [facility] Comment: Immature granulocytes(IG's)percentage an d absolute count will include metamyelocytes, myelocytes, and promyelo cytes. Blood smears from CBCs yielding IG's will be scanned manually for concor dance. If this scan disagrees with the automated IG or if promyelocytes are not ed, a manual differential will be performed. Antonia Gran Abs 0.04 0.00 - 0.04 x10(3)/[facility] Specimen Anatomical Collection Method Collection Time Receive d Time (Source) Location / / Volume Laterality Blood 08/06/2021 9:25 AM 9:46 EDT AM EDT Resulting Agency Comment Spec In Lab Og GAYTAN HEMATOLOGY ORDERABLES Performing Organization Address City/[facility]/[place] [address] EKG 12 Lead (08/06/2021 9:07 AM EDT) Component Value Ref Range Test Analysis Performed Pathologis t Method Time At Signature Ventricular rate 74 BPM MUSE SYSTEM Atrial Rate 74 BPM MUSE SYSTEM P-R Interval 178 ms MUSE SYSTEM QRS Duration 98 ms MUSE SYSTEM Q-T Interval 408 ms MUSE SYSTEM QTC Calculated 452 ms MUSE SYSTEM (Bezet) Calculated P [place] 35 degrees MUSE SYSTEM Calculated R [place] 7 degrees MUSE SYSTEM Calculated T [place] 33 degrees MUSE SYSTEM INTERPRETATION Normal sinus rhythm MUSE SYSTEM Normal ECG When compared with ECG of 30-MAY-1992 12:11, No significant change was found Confirmed by Cherie Chinchilla ([id number]) on 08/06/2021 2:43:38 P M Specimen Anatomical Collection Method Collection Time Receive d Time (Source) Location / / Volume Laterality 08/06/2021 9:07 AM 2:43 EDT PM EDT Maame Koehler MD ECG ORDERABLES Performing Organization Address City/[facility]/ZIP Code Phon e Number MUSE SYSTEM SCAN DOC: LAB (08/06/2021 12:00 AM EDT) Narrative This result has an attachment that is no t available. Unknown MEDIA MGR SCAN EXT ORDR/RSLT from Last 3 Months Insurance Payer Benefit Plan / Subscriber ID Effective Dates Phone Addre ss Type Group [facility] [facility] [id number] 2021-Presen [phone] [address] [place], [place] MEDICARE MEDICARE PPO [id number] [place] [id number] 2019-Prese [phone] [address] [place] [address] Advance Directives Latest Code Status on File Code Status Date Activated Date Inactivated Comments Attempt Cardiopulmonary Resuscitation - 08/06/2021 10:09 AM 2021 4:27 PM Inpatient Code Status decision made by: Patient Care Teams Pocket Marker Relationship Specialty Start Date End Date Jess Olivia PA PCP - General Family Medicine 07/22/19 [address] [place] [address]
--- OUTSIDE RECORDS SUMMARY | 2021-11-01 00:28 | XMS_ITS | Encounter Summary ---
:1955 [place] [address] Care Team Providers Name Role Phone Jess Olivia Primary Care Provider Reason for Visit Auth/Cert Specialty Diagnoses / Procedures Referred By Contact Refer red To Contact Diagnoses SPONDYLOSIS, STENOSIS Procedures PRO LAMINEC/FACETECT/FORAMIN, LUMBAR 1 SEG LAMINECTOMY,FACETECTOMY & FORAMINOTOMY,LUMBAR,ONE LEVEL,LENA Referral ID Status Reason Start Date Expiration Date Visits Requ ested Visits Authorized [id number] 1 1 Encounter Details Date Type Department Care Team Description 10/16/2020 Anesthesia Event Operating Room Lilia Chand Moser Day EXHIBITION ORGAN[employer]ER [address] [facility] [address] ANESTHESIOLOGY [phone] [employer], [place] [address] (Wo rk) Anesthesia Record Procedure Summary Procedure Name Responsible Anesthesia Start Anesthesia Stop Time Anesthesiologist Time LAMINECTOMY,FACETEC Lilia Garcia EXHIBITION ORGANISER 10/16/20 1229 12/29 1447 SUE & FORAMINOTOMY,LUMBAR ,ONE LEVEL,LENA (Bilateral Spine Lumbar) Events Date Time Event Comment 10/16/2020 1223 1229 Start 1234 AN Verify 1234 An Start Data 1237 An Induction 1238 An Intubation 1239 Anesthesia Ready 1257 Procedure Start 1434 Extubation/LMA Out 1446 an stop data 1446 Recovery or ICU Handoff Patient care was transferred to the destination unit staff after review of the patient's medica l history, current anesthetic/surgi oneal status and plan, according to the Provider Handoff Checklist. 1447 Stop Name Total Midazolam 2 mg fentaNYL 200 mcg IV Lidocaine 100 mg Propofol 170 mg Succinylcholine 80 mg Ondansetron 4 mg Dexamethasone 10 mg ePHEDrine 5 mg PHENYLephrine 520 mcg ceFAZolin (Ancef) 2 g in dextrose 5% 100 mL infusion 2 g Rocuronium 50 mg PHENYLephrine INF 875 mcg Sugammadex 400 mg lactated ringers infusion 1,200 mL Agents Name O2 Air N2O Sevoflurane (et) Blood No blood administrations on file. Lines, Drains, and Airways Type Details Placement Removal Incision 10/16/20; 1257; lower; 10/16/20 1257 by Josie, lumbar spine; midline Paul Allen RN PIV 10/16/20; 1210; metacarpal 10/16/[address], 10/16/20 1526 by vein (top of hand), left; GREG Vicente Emily A, RN [id number] catheter system; Anatomical Landmarks; 20 gauge; fy; distraction, tolerated well, appears comfortable; no longer indicated; 10/16/20; 1526 ETT Mask Ventilation: Easy (1); 10/16/20 1238 by Epifanio tman, 10/16/20 1434 by ETT Type: Cuffed, Oral; ETT BRETT Wills Jessica J, Size: 7 mm; Mac Blade: 4; BRETT Notes: Asleep, Pre-O2; Attempts: 1; Laryngoscopy Grade: 2; ETT Placement Verified By: Auscultation, Capnometry, Visual; Inserted by: Lilia Garcia CRNA documented in this encounter Social History Tobacco Use Types Packs/Day Years Used Date Never Smoker Smokeless Tobacco: Never Used Alcohol Use Standard Drinks/Week Comments Not Currently 0 (1 standard drink = 0.6 oz pure alcoho l) Sex Assigned at Date Recorded Not on file documented as of this encounter OR Notes Anesthesia Postprocedure Evaluation - Lilia Garcia CRNA - 10/16/2020 2:48 PM EDT Department of Anesthesiology Post-procedure Note Patient: Dylon Navarro Procedure Summary Date: 10/16/20 Room / Location: [facility] OR MAIN OR Anesthesia Start: 1229 Anesthesia Stop: 1447 Procedure: LAMINECTOMY,FACETECTOMY & FORAMINOTOMY,LUMBAR,ONE LEVEL,LENA (Bilateral Spine Lumbar)Diagnosis: (SPONDYLOSIS, STENOSIS) Surgeons: Adam Aguilar MD Responsible Provider: Lilia Garcia CRNA Anesthesia Type: general ASA Status: 2 All Anesthesia Providers: BRETT Independent: Lilia Garcia CRNA Vitals Value Taken Time BP Temp 36.3 ??C (97.3 ??F) 10/16/20 1444 Pulse Resp SpO2 Pain Level Patient Location: PACU Level of Consciousness: Awake and Alert Pain Management: Satisfactory Analgesia PONV: None Cardiovascular Status: At Baseline Respiratory Status: At Baseline Postoperative Fluid Status: Intravascular EUvolemia Possible Anesthetic Complications: NONE apparent at time of evaluation Final Primary Anesthesia Type: General (The anesthetic type performed was the same as planned.) Comments: See PACU flowsheet for VS. VSS. Pt BP back to baseline (SBP 170-190). No complaints at time time. Anesthesia Preprocedure Evaluation - Lilia Garcia CRNA - 10/11/2020 8:27 AM EDT Pre-Anesthesia Evaluation for: Dylon Navarro a 65 y.o. male. Procedure(s): LAMINECTOMY,FACETECTOMY & FORAMINOTOMY,LUMBAR,ONE LEVEL,LENA There are no problems to display for this patient. Past Medical History: Diagnosis Date ??? Chronic pain ??? Gastroesophageal reflux ??? Transfusion history Past Surgical History: Procedure Laterality Date ??? APPENDECTOMY ??? COLONOSCOPY ??? ENDOSCOPY, UPPER GI, SIMPLE PRIMARY EXAM ??? HAND SURGERY x8 ??? ROTATOR CUFF REPAIR Bilateral Social History Tobacco Use ??? Smoking status: Never Smoker ??? Smokeless tobacco: Never Used Substance Use Topics ??? Alcohol use: Not Currently Social History Substance and Sexual Activity Drug Use Not Currently Allergies Allergen Reactions ??? Codeine Phosphate CIS - Nausea/Vomiting Medications: MAR and/or home medications have been reviewed. Physical Exam: Preprocedure Vitals Current as of 10/11/20 0827 No BP, pulse, respiration, SpO2, or temperature recorded. Height: Weight: BMI: IBW: Airway Assessment: Mallampati: II TM distance: >3 FB Neck ROM: full Cardiovascular Assessment: system normal Pulmonary Assessment: unlabored breathing pulmonary exam normal Dental Assessment: Misc Assessment: Patient is wearing No contact(s). IV access: Peripheral line Last Filed Perioperative Cognitive Screening None Anesthesia Plan: ASA 2 general, with a(n) intravenous induction 65 y/o male here for lami, facetectomy, foraminotomy with pikus. PMH includes chronic pain, chronic ETOH use, memory issues. + for chronic cough, pt reports it has been unchanged for 3-4 years. Plan for GA with ETT. Informed Consent: Anesthetic plan and risks discussed with patient. Use of blood products discussed with patient who consented to blood products. Anesthesia Screening documented in this encounter Plan of Treatment Not on filedocumented as of this encounter Visit Diagnoses Not on filedocumented in this encounter Administered Medications Inactive Administered Medications - up to 3 most recent administrations Medication Order MAR Action Action Date Dose Rate Site ceFAZolin (Ancef) 2 g in dextrose Given 10/16/2020 12:46 PM EDT 2 g 5% 100 mL infusion 2 g, Intravenous, ONCE, 1 dose, On Thu10/16/20 at 1215, Administer over 30 Minutes, To be administered upon arrival to the OR within one hour prior to incision., Day of Surgery (Day of Procedure), Indication for (Active or Suspected): Prophylaxis dexamethasone (Decadron) injection Given 10/16/2020 1:00 PM EDT 10 mg Intravenous, PRN, Starting on Thu10/16/20 at 1300, Until Thu10/16/20 at 1447, Anesthesia Intra-op, Routine ePHEDrine (pf) (5 mg/mL) multi-dose inje ction Given 10/16/2020 1:00 PM EDT 5 mg Intravenous, PRN, Starting on Thu10/16/20 at 1300, Until Thu10/16/20 at 1447, Anesthesia Intra-op, Routine fentaNYL (pf) (50 mcg/mL) multi-dose Given 10/16/2020 2:15 PM ED T 100 mcg injection Intravenous, PRN, Starting on Thu10/16/20 at 1241, Until Thu10/16/20 at 1447, Anesthesia Intra-op, Routine Given 10/16/2020 12:52 PM EDT 50 mcg Given 10/16/2020 12:41 PM EDT 50 mcg lactated ringers infusion New Bag 10/16/2020 1:30 PM EDT 1,000 mL, at 50 mL/hr, Intravenous, CONTINUOUS, Starting on Thu10/16/20 at 1215, Until Thu10/16/20 at 1546, Day of Surgery (Day of Procedure) New Bag 10/16/2020 12:29 PM EDT New Bag 10/16/2020 12:15 PM EDT 1,000 mLs 50 mL/hr lidocaine (pf) (Xylocaine) (20 mg/mL) 2% Given 10/16/2020 12:37 PM EDT 100 mg injection syringe Intravenous, PRN, Starting on Thu10/16/20 at 1237, Until Thu10/16/20 at 1447, Anesthesia Intra-op, Routine midazolam (pf) (Versed) (1 mg/mL) multi-dose Given 12:37 PM EDT 2 mg injection Intravenous, PRN, Starting on Thu10/16/20 at 1237, Until Thu10/16/20 at 1447, Anesthesia Intra-op, Routine ondansetron (pf) (Zofran) (2 mg/mL) inje ction Given 10/16/2020 2:16 PM EDT 4 mg Intravenous, PRN, Starting on Thu10/16/20 at 1416, Until Thu10/16/20 at 1447, Anesthesia Intra-op, Routine PHENYLephrine Rate/Dose Change 10/16/2020 2:16 10 mcg/min 7.5 mL/hr (Mark-Synephrine) (80 mcg/mL) PM EDT in sodium chloride 0.9% 250 mL infusion Intravenous, CONTINUOUS PRN, Starting on Thu10/16/20 at 1347, Until Thu10/16/20 at 1447, Anesthesia Intra-op, Routine Rate/Dose Change 10/16/2020 2:07 PM EDT 5 mcg/min 3.75 mL/hr Rate/Dose Change 10/16/2020 2:04 PM EDT 20 mcg/min 15 mL/hr PHENYLephrine HCL in sodium chloride 0.9% Given 10/16/2020 1:36 PM EDT 160 mcg 0.8 mg/10 mL (80 mcg/mL) Syrg Intravenous, PRN, Starting on Thu10/16/20 at 1303, Until Thu10/16/20 at 1447, Anesthesia Intra-op, Routine Given 10/16/2020 1:30 PM EDT 80 mcg Given 10/16/2020 1:16 PM EDT 80 mcg propofoL (Diprivan) 10 mg/mL bolus injection Given 2:07 PM EDT 20 mg (Anesthesia) Intravenous, PRN, Starting on Thu10/16/20 at 1237, Until Thu10/16/20 at 1447, Anesthesia Intra-op Given 10/16/2020 12:37 PM EDT 150 mg rocuronium (Zemuron) 10 mg/mL injection Given 10/16/2020 2:04 PM EDT 20 mg Intravenous, PRN, Starting on Thu10/16/20 at 1308, Until Thu10/16/20 at 1447, Anesthesia Intra-op, Routine Given 10/16/2020 1:28 PM EDT 20 mg Given 10/16/2020 1:16 PM EDT 5 mg succinylcholine (Anectine;Quelicin) (20 Given 10/16/2020 12:37 P M EDT 80 mg mg/mL) injection Intravenous, PRN, Starting on Thu10/16/20 at 1237, Until Thu10/16/20 at 1447, Anesthesia Intra-op, Routine sugammadex (Bridion) 100 mg/mL injection Given 10/16/2020 2:30 PM EDT 400 mg Intravenous, PRN, Starting on Thu10/16/20 at 1430, Until Thu10/16/20 at 1447, Anesthesia Intra-op, Routine documented in this encounter Care Teams Hydraulic Bull Riveter Operator Relationship Specialty Start Date End Date Jess Olivia PA PCP - General Family Medicine 07/22/[address] [place] [id number] documented as of this encounter
--- OUTSIDE RECORDS SUMMARY | 2021-11-01 00:28 | XMS_ITS | Encounter Summary ---
:1955 [place] [address] Care Team Providers Name Role Phone Jess Olivia Primary Care Provider Reason for Visit Auth/Cert Specialty Diagnoses / Procedures Referred By Contact Refer red To Contact Diagnoses Encounter for screening for cardiovascular disorders Other chest pain Screening for cardiovascular condition [Z13.6]Chest discomfort [R07.89] Procedures PRG CATH PLMT LEFT HEART CATH & ARTS W/INJ & ANGIO IMG S&I CARDIAC CATHETERIZATION CORONARY ANGIOGRAPHY; W LHC,POSSIBLE PCI Referral ID Status Reason Start Date Expiration Date Visits Requ ested Visits Authorized [id number] 1 1 Encounter Details Date Type Department Care Team Description 08/06/2021 Surgery Repeater Chief Maame Lopez I , CARDIAC CATHETERIZATION [facility] [place] [address] CARDIOLOGY [phone] [place], [place] [address] (Wo rk) Social History Tobacco [...] on file documented as of this encounter Last Filed Vital Signs Vital Sign Reading Time Taken Comments Blood Pressure 145/83 08/06/2021 10:24 AM EDT Pulse 83 08/06/2021 10:24 AM EDT Temperature 36 ??C (96.8 ??F) 08/06/2021 9:06 AM EDT Respiratory Rate 11 08/06/2021 10:24 AM EDT Oxygen Saturation 100% 08/06/2021 10:24 AM EDT Inhaled Oxygen Concentration - - Weight 104.3 kg (230 lb) 08/06/2021 9:06 AM EDT Height 182.9 cm (6') 08/06/2021 9:06 AM EDT Body Mass Index 31.19 08/06/2021 9:06 AM EDT documented in this encounter Discharge Instructions Discharge InstructionsSylvia Davis RN - 08/06/2021 1:51 PM EDT Radial Access for Heart Cath Activity If you are discharged the same day as your procedure, do not drive yourself home. Arrange to have another person drive. You may walk around when you get home, but keep your activity at a minimum until the morning. Try to avoid bending your wrist for the first 12-24 hours after the procedure to allow the artery tofully heal. Do not participate in active sports for 48 hours. Do not lift anything greater than 5 lbs. You may engage in sexual activity after 48 hours. Catheter Insertion Area Care Take the dressing off of the catheter insertion site the morning following the procedure. Leave the site open to air. If the site is oozing you may cover it with a band aid. You may take a shower if you wish. Look for signs of infection over the next several days. It is uncommon to have any visible blood at the site, any obvious bleeding is abnormal. A bruise around the wrist or small lump under the skin is normal: they generally disappear in 3-5 days. Expect some mild tenderness over the area where the catheter was inserted. You will notice this after the local anesthetic (numbing medicine) wears off. This should improve during the 24-48 hours afterthe procedure. You may use acetaminophen (tylenol) if needed. Contact your doctor if the discomfort w orsens. Problems to Watch for If there is bright red blood flowing from the catheter insertion area: *stop what you are doing *hold pressure steadily on the area for 15 minutes *call for help *if the bleeding does not stop in 15 minutes call 911 for an ambulance. If there is swelling with black and blue color at the catheter insertion site, there may be bleeding inside. Contact the doctor if there is any increase in size. Look at the insertion site for the first few days at home. Signs of infection are: *redness *swelling *yellow, white, green or brown foul smelling drainage. *increased soreness If you think there is an infection, take your temperature. Then call your doctor. The limb on the side where you had your catheterization should look and feel normal in color, sensation, and temperature. If your hand or fingers become cool, pale, blue or change color contact your doctor. If you are having numbness or tingling in your fingers or hand contact your doctor. If you feel faint or dizzy, lie down with your feet elevated. Have someone call the doctor. If you are alert, drink fluids. How to Deal with Chest Pain If you had only the cardiac catheterization, treat any angina or chest discomfort as instructed. Stop what you are doing, and sit or lie down. If prescribed, take nitroglycerin under your tongue. If the angina isn't relieved, take another nitroglycerin in 5 minutes. After another 5 minutes, a third nit roglycerin may be taken. If the angina isn't improved you should call for an ambulance to bring you to the nearest hospital emergency room. If your angina is more frequent or severe than before, contact your doctor. We usually would not expect you to have angina after an angioplasty. If you do get angina, treat it as you did before, but also contact your doctor. Return to Work The doctor will usually have told you when to return to work. If you do not perform heavy physical labor, most people can return to work in a few days. Diet Follow your previous diet unless otherwise instructed. Cardiac Risk Factor If you have coronary artery disease, it is important that you help control it by reducing your cardiac risk factors. If you smoke, we urge you to stop now. If you think this is going to be a problem, let us know so that we may help you. We have dieticians who can help you learn about a low fat, low cholesterol diet. Cardiac rehabilitation programs can help you set up a regular exercise program. Work with your doctor if you have high blood pressure or sugar diabetes to keep these under control. Medications Take your usual medications medication changes If you are taking medications prescribed by your doctor, do not take any [id number]-[id number] medicines or herbal preparations without first discussing this with your doctor or pharmacist. There is the possibility of side effects and interactions when these are combined. Follow Up Care Who to call with questions or problems If there are any questions or problems that you think might be related to your cardiac cath or angioplasty, contact the field spec concessionist by calling [facility] at . Patient InstructionsMehran Hannah, DO - 08/06/2021 11:05 AM EDT Patient Instructions on Discharge to Home Call your doctor if your right wrist pain gets worse, or you develop swelling or redness in that area. Do not lift anything heavier than 7 lbs for 48 hours and nothing heavier than 20 lbs for 1 week with your right hand. Also, call your doctor if you develop sudden chest pain or shortness of breath, especially chest pain that does not go away with nitroglycerin. Medication Changes: - none When to call your doctor: - Chest pain, worsening shortness of breath, fatigue with usual exertion, or new rest/night time symptoms. - Weigh yourself daily and record; if you note an increase of more than 2-3 pounds in 2 days, or 5 pounds over a week, contact your health care provider. - If you become short of breath, cannot lie down to sleep, or have swelling in your legs/ankles or abdomen, contact your health care provider. - Call if you have reduced urination during the day or increased urination at night. - Call for signs of increased wound drainage, redness, swelling, or increased pain at the site of your cardiac cath. - Call if you develop a temp >100.5 If you have non-emergent questions between now and the time of your follow up appointments: During 8am-5pm Thursday through Thursday call [phone] to speak with a nurse in the cardiology clinic All other times call [phone] and ask to speak to the ukrainian folk arts instructor concessionist. Your Inpatient Doctor(s) at [facility]: Maame Koehler MD - Attending physician Your Primary Care Provider: LUKAS Real [address] / [facility] [address] For questions regarding issues relating to your hospitalization on the Hospital Medicine Service, please contact your inpatient physician through the [facility] Caseworker Intake [phone]. Issues after hours and on weekends will be handled by the Hospitalist staff on-call. documented in this encounter Medications at Time of Discharge Medication Sig Dispensed Refills Start Date End Date HYDROcodone-acetaminophen Take 1-2 tablets by 20 tablet 0 0 10/16/2020 ([place]) 5-325 mg Tablet mouth every 6 hours as needed. atorvastatin (Lipitor) 20 mg TAKE 1 TABLET BY 0 0 07/16/2020 Tablet MOUTH DAILY AT BEDTIME cyclobenzaprine (Flexeril) TAKE 1/2 TABLET BY 0 0 07/04/2020 10 mg Tablet MOUTH THREE TIMES DAILY NEEDED fluticasone propionate SHAKE LIQUID AND 0 021 (FLONASE) 50 mcg/actuation USE 1 TO 2 SPRAYS [place], Suspension IN EACH NOSTRIL TWICE DAILY aspirin EC 81 mg Tablet, Take 81 mg by mouth 0 Delayed Release (E.C.) daily. acetaminophen (Tylenol) 500 Take 1,000 mg by 0 mg Tablet mouth every 6 hours as needed for Pain. pantoprazole EC (Protonix) TK 1 T PO BID 0 2019 20 mg Tablet, Delayed Release (E.C.) FLUoxetine (PROzac) 40 mg TAKE 1 CAPSULE BY 0 01/2020 Capsule MOUTH DAILY IBUPROFEN (MOTRIN ORAL) 800 mg, PO, Q8H PRN 0 nitroGLYcerin (NITROSTAT) 0.4MG, Sublingual, 0 0.4 mg SL tablet X 1, PRN documented as of this encounter H&P Notes Mehran Hannah DO - 08/06/2021 7:27 AM EDT Images from the original note were not included. Dylon Navarro is a 65 y.o. male referred for cardiac catheterization by Dr. 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 Briefly, he has a hx of HTN, HLD, obesity and ongoing melena who as part of his workup for his melena was noted by his PCP to have longstanding exertional chest pain. This prompted the PCP to send the pt to the ED where echo showed a mildly reduced LVEF at 45%. The underwent nuclear stress test which did not show any evidence of scar or ischemia. However, given the exertional chest pain and high pre-test probability pt was referred for cath for further workup. Pt has had a prior cath for a chest pain syndrome in 06/15/2014 which showed normal coronary arteries and normal LVEF. Regarding the melena, this has been stable since stopping his aspirin. After further discussion, patient was sent for cardiac catheterization for further evaluation. There have not been any changes in health status since last seen in clinic. No recent or current illnesses. Patient denies fevers, chills. Patient denies any history of bleeding issues and specifically denies hematochezia, melena, hematemesis, intraabdominal bleeding, intracranial bleeding. Aspirin/clopidogrel/warfarin: - none, stopped due to melena NPO status: - confirmed Outpatient Medications Marked as Taking for the 08/06/21 encounter (Hospital Encounter) Medication Sig Dispense Refill ??? atorvastatin (Lipitor) 20 mg Tablet TAKE 1 TABLET BY MOUTH DAILY AT BEDTIME ??? cyclobenzaprine (Flexeril) 10 mg Tablet TAKE 1/2 TABLET BY MOUTH THREE TIMES DAILY NEEDED ??? aspirin EC 81 mg Tablet, Delayed Release (E.C.) Take 81 mg by mouth daily. ??? acetaminophen (Tylenol) 500 mg Tablet Take 1,000 mg by mouth every 6 hours as needed for Pain. ??? pantoprazole EC (Protonix) 20 mg Tablet, Delayed Release (E.C.) TK 1 T PO BID ??? FLUoxetine (PROzac) 40 mg Capsule TAKE 1 CAPSULE BY MOUTH DAILY BP 137/80 (BP Location (NBP): Right arm) Pulse 79 Temp 36 ??C (96.8 ??F) (Temporal) Resp 18 Ht 182.9 cm (6') Wt 104.3 kg (230 lb) SpO2 98% BMI 31.19 kg/m?? PE NAD CV: RRR, S1 S2 physiologic, JVP estimated @ cm H2O Pulm: Non-labored, CTAB, no w/r/r Abd: soft, NT, ND, +BS, no bruits Vasc: 2+ bilat radial, 2+ bilat DP pulses Extr: wwp, no edema ASA: 3: Patient with severe systemic disease Mallampati: III: only the base of the uvula can be seen Labs reviewed and notable for: Cath 06/15/2014: normal coronary arteries, normal LV function on ventriculogram Echocardiogram: EKG: A/P 65 y.o. male here for cardiac catheterization for evaluation of chest pain and reduced ejection fraction. The indications, expected benefits, and potential risks of diagnostic or therapeutic catheterizationwere reviewed in detail with the patient. The potential for , myocardial infarction, arrhythmias, stroke, kidney failure, hemorrhage, allergic reaction to contrast, vascular complications and infection were reviewed in detail. The possibility of stenting and other percutaneous intervention, with associated risk, was reviewed. The possible need for emergent coronary artery bypass surgery was reviewed. Alternatives were discussed and the patient's questions were answered. Following this discussion, the patient consented to the procedure and signed a form attesting to this. - Proceed as planned - Consent reviewed and signed - No obvious CI to DAPT - Sedation plan: moderate/conscious sedation - FULL CODE Mehran Hannah DO 08/06/2021 10:07 AM documented in this encounter Plan of Treatment Not on filedocumented as of this encounter Procedures Procedure Name Priority Date/Time Associated Diagnosis Comme nts CARDIAC CATHETERIZATION Routine 08/06/2021 11:05 Screening for Results for this AM EDT cardiovascular procedure are in condition the results Chest discomfort section. CORONARY ANGIOGRAPHY; W 08/06/2021 10:14 Screening for LHC,POSSIBLE PCI AM EDT cardiovascular condition Chest discomfort BMP W/FASTING GLUCOSE STAT 08/06/2021 9:25 Res ults for this AM EDT procedure are i n the results section. HEMOGRAM STAT 08/06/2021 9:25 Results for this AM EDT procedure are i n the results section. DIFFERENTIAL, AUTOMATED STAT 08/06/2021 9:25 R esults for this AM EDT procedure are i n the results section. HC CBC,PLT & AUTO DIFF STAT 08/06/2021 9:25 AM EDT EKG 12-LEAD Routine 08/06/2021 9:07 Screening for Results for this AM EDT cardiovascular procedure are in condition the results Chest discomfort section. documented in this encounter Results CARDIAC CATHETERIZATION (08/06/2021 11:05 AM EDT) Specimen (Source) Anatomical Location Collection Method / Collectio n Time Received Time / Laterality Volume Narrative CARDIOMAC SYSTEM - 08/06/2021 1:29 PM ED T ?[facility] ? Cardiac Cathete rization/Intervention Report ? Patient Name: Dylon Navarro. ? Procedure Date: 08/06/2021 ? A #: [id number] ? Primary Physician: Miguel, Maame I ? Case #: [id number] ? File Name: [id number] ? Catheterization Order Number: [id number] ? [facility] ? Final Report [place], [place] ? Patient Name: ? Dylon R. Deth ? ID#: ?[id number] ? : ?1955 ? Procedure Date: ? August 06, 2021 ? Case #: ? [id number] ? Room: ? 1 ? Case Physician: ? Maame cox MRafaela ? Start: ?10:33 ?Fellow: ? Mehran price MCara. ? Admission: ??08/06/2021 ? Referring Physician: ??Marcia [...] was designated as ASA Class II. ?The CSHA clinical frailty scale is 3: Managing Well. [...] procedure was Elective. The indication for ?the collaborating supervising physician visit is cardiomyo julio. Chest pain symptom [...] heart catheterization and ?coronary angiography. ? Maame Rivera M.D. ? Electronically Signed by: Maame galvan M.D. ? Report Finalized: 08/06/2021 ??13:22 ? Maame Koehler MD CARDIAC CATH ORDERABLES Performing Organization Address City/State/ZIP Code Phon e Number CARDIOMAC SYSTEM Differential, Automated (08/06/2021 9:25 AM EDT) P athologist Signature Neutrophils % 56.7 % [facility] Neutr Abs (ANC) 4.02 1.70 - [place] 6.10 [facility] x10(3)/[facility] LABORATORY Lymphocytes % 32.2 % [facility] Lymphocytes Abs 2.3 0.9 - 3.2 [facility] x10(3)/[facility] LABORATORY Monocytes % 8.3 % [facility] Monocyte Abs 0.6 0.3 - 0.9 [facility] x10(3)/[facility] LABORATORY Eosinophils % 1.8 % [facility] Eosinophils Abs 0.1 0.0 - 0.4 [facility] x10(3)/[facility] LABORATORY Basophils % 0.4 % [facility] Basophils Abs 0.0 0.0 - 0.1 [facility] x10(3)/[facility] LABORATORY Immature Gran % 0.60 % [facility] Comment: Immature granulocytes(IG's)percentage an d absolute count will include metamyelocytes, myelocytes, and promyelo cytes. Blood smears from CBCs yielding IG's will be scanned manually for concor dance. If this scan disagrees with the automated IG or if promyelocytes are not ed, a manual differential will be performed. Antonia Gran Abs 0.04 0.00 - 0.04 x10(3)/[facility]ORY Specimen Anatomical Collection Method Collection Time Receive d Time (Source) Location / / Volume Laterality Blood 08/06/2021 9:25 AM 9:46 EDT AM EDT Resulting Agency Comment Spec In Lab Og GAYTAN HEMATOLOGY ORDERABLES Performing Organization Address City/State/[place] [address] (ABNORMAL) Hemogram (08/06/2021 9:25 AM EDT) Analysis Performed At Patho logist Time Signature WBC 7.1 4.0 - 9.5 [facility] x10(3)/[facility] LABORATORY RBC 4.47 (L) 4.58 - [facility] 5.54 [facility] x10(6)/[facility] LABORATORY Hemoglobin 13.6 (L) 13.7 - [facility] 16.5 g/dL [facility] LABORATORY Hematocrit 38.7 (L) 40.5 - [facility] 48.5 % [facility] LABORATORY MCV 86.6 82.9 - [facility] 93[facility]1 fL [facility] LABORATORY MCH 30.4 27.5 - [facility] 32.1 pg [facility] LABORATORY MCHC 35.1 32.0 - [place] 35.7 g/dL [facility] LABORATORY Platelets 164 145 - 357 [place] x10(3)/[facility] LABORATORY RDWSD 40.0 36.0 - [place] 45.[address] [facility] LABORATORY RDWCV 12.8 11.4 - [place] [facility] 13.8 % [facility] LABORATORY MPV 10.7 7.6 - 12.9 [facility] nRBC % Auto 0.0 % [facility] nRBC Abs Auto 0.000 0.000 - [place] 0.000 [facility] x10(3)/[facility] LABORATORY Specimen Anatomical Collection Method Collection Time Receive d Time (Source) Location / / Volume Laterality Blood 08/06/2021 9:25 AM 9:46 EDT AM EDT Resulting Agency Comment Spec In Lab Og GAYTAN HEMATOLOGY ORDERABLES Performing Organization Address City/State/[place] [address] (ABNORMAL) BMP w/fasting Glucose (08/06/2021 9:25 AM EDT) athologist Signature Glucose 120 (H) 65 - 99 [facility] Fasting mg/dL [facility]ATORY Comment: ?Fasting* Glucose Interpretive C riteria [...] of Diabetes Mellitus, Position Statement from the [place] [employer]. ??Diabete s Care, Volume 33, Supplement 1, May 2009 BUN 26 (H) 10 - 20 mg/dL [place] [facility] Creatinine 1.17 0.80 - 1.50 mg/dL [facility] Sodium 136 135 - 145 mmol/L [facility] Potassium 4.6 3.5 - 5.0 mmol/L [facility] Comment: Please note: ??Patients with WBC >100,00 0 may have falsely elevated Potassium levels. ??For accurate Potassium quantif ication in these patients send serum separator tube (gold top) for subsequent determinations. ??Contact the Clinical Chemistry Laboratory if there are any qu estions. Chloride 104 98 - 107 mmol/L [facility] CO2 23 22 - 31 mmol/L [facility] Anion Gap 9 5 - 15 mmol/L [facility] Calcium 9.3 8.5 - 10.5 mg/dL [facility] Estimated GFR 65 >=60 mL/min/1.73 m?? [facility] Comment: This patient? s estimated [...] EDT Resulting Agency Comment Spec In Lab Maaem Koehler MD CHEMISTRY ORDERABLES Performing Organization Address City/State/[place] [address] EKG 12 Lead (08/06/2021 9:07 AM EDT) Component Value Ref Range Test Analysis Performed Pathologis t Method Time At Signature Ventricular rate 74 BPM MUSE SYSTEM Atrial Rate 74 BPM MUSE SYSTEM P-R Interval 178 ms MUSE SYSTEM QRS Duration 98 ms MUSE SYSTEM Q-T Interval 408 ms MUSE SYSTEM QTC Calculated 452 ms MUSE SYSTEM (Bezet) Calculated P [place] 35 degrees MUSE SYSTEM Calculated R [place] 7 degrees MUSE SYSTEM Calculated T [place] 33 degrees MUSE SYSTEM INTERPRETATION Normal sinus [...] Koehler MD ECG ORDERABLES Performing Organization Address City/State/ZIP Code Phon e Number MUSE SYSTEM documented in this encounter Visit Diagnoses Diagnosis Screening for cardiovascular condition Screening for other and unspecified card iovascular conditions Chest discomfort Other chest pain Screening for cardiovascular condition Screening for other and unspecified card iovascular conditions Chest discomfort Other chest pain documented in this encounter Administered Medications Inactive Administered Medications - up to 3 most recent administrations Medication Order MAR Action Action Date Dose Rate Site fentaNYL (pf) (50 mcg/mL) Given 08/06/2021 10:27 AM EDT 25 mcg multi-dose injection ONCE PRN, Starting on Thu08/06/21 at 1028, Until Thu08/06/21 at 1421, Cath (Intra-Procedure), Routine heparin (porcine) (1,000 units/mL) Given 08/06/2021 10:36 AM EDT 5,000 Units injection ONCE PRN, Starting on Thu08/06/21 at 1036, Until Thu08/06/21 at 1421, Cath (Intra-Procedure), Routine iohexoL (Omnipaque) (350 mg/mL) solution Given 08/06/2021 10:59 AM EDT 90 mLs ONCE PRN, Starting on Thu08/06/21 at 1059, Until Thu08/06/21 at 1421, Cath (Intra-Procedure), Routine midazolam (pf) (Versed) (1 mg/mL) multi-dose Given 10:27 AM EDT 1 mg injection ONCE PRN, Starting on Thu08/06/21 at 1028, Until Thu08/06/21 at 1421, Cath (Intra-Procedure), Routine nitroGLYcerin 100 mcg/mL intracoronary Given 08/06/2021 10:33 AM EDT 150 mcg dilution ONCE PRN, Starting on Thu08/06/21 at 1034, Until Thu08/06/21 at 1421, Cath (Intra-Procedure), Routine sodium chloride 0.9% infusion New Bag 08/06/2021 9:30 AM EDT 200 mL/hr 200 mL/hr 200 mL/hr, Intravenous, CONTINUOUS, Starting on Thu08/06/21 at 0930, Until Thu08/06/21 at 1103, Cath (Day of Procedure) sodium chloride 0.9% infusion New Bag 08/06/2021 10:39 AM EDT 250 mLs CONTINUOUS PRN, Starting on Thu08/06/21 at 1039, Until Thu08/06/21 at 1421, Cath (Intra-Procedure) sodium chloride 0.9% infusion New Bag 08/06/2021 11:15 AM EDT 125 mL/hr 125 mL/hr 125 mL/hr, Intravenous, CONTINUOUS, Starting on Thu08/06/21 at 1130, Until Thu08/06/21 at 1329, Recovery (Recovery-Hospital Unit) verapamiL (Isoptin) (2.5 mg/mL) injectio n Given 08/06/2021 10:33 AM EDT 2.5 mg ONCE PRN, Starting on Thu08/06/21 at 1034, Until Thu08/06/21 at 1421, Administer over 2 Minutes, Cath (Intra-Procedure) documented in this encounter Active and Recently Administered Medications Times are shown in EDT. Continuous Medication Order 08/04/2021 08/05/2021 08/06/2021 sodium chloride 0.9% infusion (CANCELED) 0930 (New Bag - Provider: Melissa Gomez RN) 200 mL/hr, Intravenous, CONTINUOUS, Star ting on Thu08/06/21 at 0930, Until Thu08/06/21 at 1103, Cath (Day of Procedure) sodium chloride 0.9% infusion 11 15 (New Bag - Provider: Agnes Thomas RN) 125 mL/hr, Intravenous, CONTINUOUS, Star ting on Thu08/06/21 at 1130, Until Thu08/06/21 at 1329, Recovery (Recovery-Hospital Unit) PRN Medication Order 08/04/2021 08/05/2021 08/06/2021 fentaNYL (pf) (50 mcg/mL) multi-dose injection (CANCELED) 1027 (Given - Provider: Erik Serna, GREG) ONCE PRN, Starting on Thu08/06/21 at 102 8, Until Thu08/06/21 at 1421, Cath (Intra-Procedure), Routine heparin (porcine) (1,000 units/mL) injection (CANCELED) 1036 (Given - Provider: Erik Serna RN) ONCE PRN, Starting on Thu08/06/21 at 103 6, Until Thu08/06/21 at 1421, Cath (Intra-Procedure), Routine iohexoL (Omnipaque) (350 mg/mL) solution (CANCELED) 1059 (Given - Provider: LUKAS Walsh) ONCE PRN, Starting on Thu08/06/21 at 105 9, Until Thu08/06/21 at 1421, Cath (Intra-Procedure), Routine midazolam (pf) (Versed) (1 mg/mL) multi-dose injection (CANCELED ) 1027 (Given - Provider: Erik Serna RN) ONCE PRN, Starting on Thu08/06/21 at 102 8, Until Thu08/06/21 at 1421, Cath (Intra-Procedure), Routine nitroGLYcerin 100 mcg/mL intracoronary dilution (CANCELED) 1033 (Given - Provider: Mehran Hannah DO) ONCE PRN, Starting on Thu08/06/21 at 103 4, Until Thu08/06/21 at 1421, Cath (Intra-Procedure), Routine sodium chloride 0.9% infusion (CANCELED) 1039 (New Bag - Provider: Erik Serna, GREG) CONTINUOUS PRN, Starting on Thu08/06/21 at 1039, Until Thu08/06/21 at 1421, Cath (Intra-Procedure) verapamiL (Isoptin) (2.5 mg/mL) injection (CANCELED) 1033 (Given - Provider: Mehran Hannah DO) ONCE PRN, Starting on Thu08/06/21 at 103 4, Until Thu08/06/21 at 1421, Administer over 2 Minutes, Cath (Intra-Procedure) documented in this encounter Care Teams Rn Dialysis Relationship Specialty Start Date End Date Jess Olivia PA PCP - General Family Medicine 07/22/[address] [place] [id number] documented as of this encounter
--- OUTSIDE RECORDS SUMMARY | 2021-11-01 00:28 | XMS_ITS | Encounter Summary ---
:1955 Author Organization [facility] [place] [address] Care Team Providers Name Role Phone Jess Olivia Primary Care Provider Reason for Visit Auth/Cert Specialty Diagnoses / Procedures Referred By Contact Refer red To Contact Diagnoses SPONDYLOSIS, STENOSIS Procedures PRO LAMINEC/FACETECT/FORAMIN, LUMBAR 1 SEG LAMINECTOMY,FACETECTOMY & FORAMINOTOMY,LUMBAR,ONE LEVEL,LENA Referral ID Status Reason Start Date Expiration Date Visits Requ ested Visits Authorized [id number] 1 1 Encounter Details Date Type Department Care Team Description 10/16/2020 Surgery Operating Room Lawanda Noble MD LAMINECTOMY,FACETECTOMY Orta Day 10 [address] [facility] & 10 Ayla Orta Day FORAMINOTOMY,LUMBAR,[place] [address] NEUROSURGERY-UVNN LEVEL,LENA [phone] [place], [place] [address] (Wo rk) Social History Tobacco Use Types Packs/Day Years Used Date Never Smoker Smokeless Tobacco: Never Used Alcohol Use Standard Drinks/Week Comments Not Currently 0 (1 standard drink = 0.6 oz pure alcoho l) Sex Assigned at Date Recorded Not on file documented as of this encounter Last Filed Vital Signs Vital Sign Reading Time Taken Comments Blood Pressure 170/78 10/16/2020 3:09 PM EDT Pulse 83 10/16/2020 3:09 PM EDT Temperature 36.3 ??C (97.3 ??F) 10/16/2020 2:44 PM EDT Respiratory Rate 15 10/16/2020 3:09 PM EDT Oxygen Saturation 95% 10/16/2020 3:09 PM EDT Inhaled Oxygen Concentration - - Weight 103.4 kg (228 lb) 10/16/2020 11:59 AM EDT Height 182.9 cm (6') 10/16/2020 11:59 AM EDT Body Mass Index 30.92 10/16/2020 11:59 AM EDT documented in this encounter Discharge Instructions Patient InstructionsSchKarthikeyan marsh PA - 10/16/2020 12:20 PM EDT Full recovery will depend on your having a strong, positive attitude, setting small goals for improvement and working steadily to accomplish each goal. You may use Vicodin (Hydrocodone/APAP) as prescribed for your post operative pain. You may also use Tylenol (Acetaminophin) for moderate pain but do not take Vicodin and Tylenol together. You must haveat least 6 hours between doses as Vicodin also has Tylenol in it. FOLLOW UP APPOINTMENTS: You will be scheduled for a follow-up appointment four to six weeks after surgery with a Physician???s Survey Associate at the surgeon???s office. You will have a follow up appointment with the neurosurgeon in three months. If you have sutures that need to be removed, a suture removal appointment will be made for 10-14 days after surgery. MEDICATIONS: ??? Take your medicine at the time your doctor ordered. ??? Keep a list of your medicines, vitamins, and herbal supplement you take. Keep this list with youat all times. Show it to your caregiver at every visit. Keep the list up-to-date. ??? Ask your caregiver or pharmacist to write an explanation of each medicine you are taking. This should include: why you are taking it, possible side effects, best time of day to take it, what foods to take the medication with or foods to avoid, and when to stop taking it. ??? Only take jehl-ski-gqdlcct or prescription medicine for pain, discomfort or fever as directed byyour caregiver. ??? Consult your doctor or pharmacist with any questions. NEW MEDICATIONS AT DISCHARGE: []None []Given prescriptions in office preoperatively OR: Medication Dose/Route/ Frequency Prescription given? Reason for medication Medscape monograph discussed []Yes []No []Yes []No []Yes []No []Yes []No []Yes []No []Yes []No PAIN: ??? It is normal to have pain after your surgery; especially in the lower back. ??? This does not mean that the procedure was unsuccessful or that your recovery will be delayed. ??? Leg aching is also not uncommon. o This is primarily caused by inflammation of the previously compressed nerve. o The discomfort will gradually decrease as the nerve continues to heal. ??? You may also experience muscle spasms across your back and into your legs. ??? Medications will be given to control pain and decrease spasm intensity. ??? Moist heat and/or ice and frequent repositioning may also be helpful. DIET: ??? You may adjust your diet back to normal as your appetite returns. ??? Be sure to drink plenty of fluids, particularly water, and eat whole grain cereals, fruits and fruit juices to combat constipation that is sometimes caused by pain medications. ??? If constipation does occur, an over the counter laxative is acceptable. ??? Call your surgeon if you experience persistent nausea and vomiting. ACTIVITY: ??? Increase your activity slowly. Daily walking is the best exercise. Try to increase your distancea little each day. Go at a pace that doesn???t make you too tired or cause too much pain. ??? It is normal to tire easily for the first week or so after you return home. ??? Swimming after ten to fourteen days is encouraged, if feasible. ??? DO NOT sit for prolonged periods of time for six weeks following your surgery. o Brief periods of time, not to exceed thirty minutes are acceptable (meals or using the bathroom). o Change positions frequently to help eliminate muscle spasm and aching. o When sitting, choose a firm chair that will provide plenty of support. ??? DO NOT lift anything over five pounds. Keep in mind a gallon of milk weighs eight pounds. Do notlift anything that you cannot easily lift with one hand. ??? If you drop something on the floor, pick it up by bending at the knees to lower yourself. DO NOTbend at the waist. ACTIVITY (continued): ??? Sexual relations may be resumed during the recovery period, but positions that strain the back or cause pain should be avoided. ??? Consult your surgeon in regards to your driving status. There are no set time restrictions. Use common sense and do not attempt to resume driving until you feel completely comfortable to drive in an uninhibited manner. ??? It is recommended that you do not drive for the first 1-2 weeks or while taking narcotic pain relievers. ??? You may resume other physical activities including work only after consulting with your treatingphysician. POST ANESTHESIA/SEDATION: ??? You have received medication for sedation and comfort during your procedure. Because these have not completely left your system, please observe the following precautions: o Plan to relax for the next several hours. o DO NOT drive or operate machinery until the day after your procedure, longer as recommended by your surgeon. o Avoid alcohol for the next 24 hours. o Do not make any important personal or business decisions today. BANDAGE/SHOWERING: ??? You will have Dermabond over the incision (typically a purple glue like substance), with inner sutures that do not need to be removed. The Dermabond will gradually fall off. ??? You may have sutures that require removal. If these are used you will be scheduled for a suture removal appointment within 10 to 14 days of the procedure. ??? You may shower after three to five days. ??? Do NOT scrub the incision. ??? Pat the area dry with a towel after showering. ??? Avoid soaking (baths, hot tubs, swimming, etc) until approximately two weeks after your surgery,when your wound is all the way healed. SEEK IMMEDIATE MEDICAL CARE/CALL YOUR SURGEON IF: ??? There is redness, swelling or increasing pain at the wound. SEEK IMMEDIATE MEDICAL CARE/CALL YOUR SURGEON IF (continued): ??? You notice purulent (colored, pus-like) drainage coming from the wound. ??? You notice a foul smell coming from the wound or bandage. ??? You experience urinary problems. ??? You experience any NEW weakness or numbness in your arms or legs. ??? You develop an oral temperature above 101 degrees F. ??? There is a breaking open of the wound. The edges do not stay together after the sutures or tape has been removed. ??? There is persistent bleeding from an incision. If you have any questions, please call [facility] Neuro[facility] at [phone], during business hours of Thursday through Thursday from 8:00 a.m. until 4:00 p.m. In case of emergency duringnon-business hours, please call the same main number and follow the prompts to page the neurosurgeonon call. SMOKING CESSATION INFORMATION: ??? [place] QUITLINE: ??? [place] QUITLINE: ??? [email or web address] If you smoke, stop now! Smoking may impede healing. MAKE SURE YOU: ??? Understand these instructions. ??? Will seek medical care if you are feeling poor, or get worse. ??? Will call the surgeon???s office with any questions or concerns at : [phone] The above information has been presented or demonstrated. I/we have had the opportunity to ask questions. I/we fully understand the instructions given. I/we have received a copy of this form. documented in this encounter Medications at Time of Discharge Medication Sig Dispensed Refills Start Date End Date HYDROcodone-acetaminophen Take 1-2 tablets 20 tablet 0 12/2020 (Craig) 5-325 mg Tablet by mouth every 6 hours as needed. atorvastatin (Lipitor) 20 TAKE 1 TABLET BY 0 12/2020 mg Tablet MOUTH DAILY AT BEDTIME cyclobenzaprine (Flexeril) TAKE 1/2 TABLET BY 0 0 07/04/2020 10 mg Tablet MOUTH THREE TIMES DAILY NEEDED fluticasone propionate SHAKE LIQUID AND 0 021 (FLONASE) 50 mcg/actuation USE 1 TO 2 SPRAYS [place], Suspension IN EACH NOSTRIL TWICE DAILY aspirin EC 81 mg Tablet, Take 81 mg by 0 Delayed Release (E.C.) mouth daily. acetaminophen (Tylenol) 500 Take 1,000 mg by 0 mg Tablet mouth every 6 hours as needed for Pain. pantoprazole EC (Protonix) TK 1 T PO BID 0 2019 20 mg Tablet, Delayed Release (E.C.) FLUoxetine (PROzac) 40 mg TAKE 1 CAPSULE BY 0 01/2020 Capsule MOUTH DAILY IBUPROFEN (MOTRIN ORAL) 800 mg, PO, Q8H 0 11/18/2 009 PRN nitroGLYcerin (NITROSTAT) 0.4MG, Sublingual, 0 0.4 mg SL tablet X 1, PRN thiamine (thiamine) Take 1 tablet by 90 tablet 3 03/21/2020 08/05/2021 mouth daily. folic acid (Folvite) 1 mg Take 1 tablet by 90 tablet 3 03/1108/05/2021 Tablet mouth daily. documented as of this encounter Progress Notes Luna Wright RN - 10/16/2020 3:36 PM EDT No significant events in recovery. Discharge instructions reviewed with patients daughters via phoneand patient. All questions answered. documented in this encounter H&P Notes Karthikeyan Bustamante PA - 10/16/2020 12:20 PM EDT Patient Name: Dylon Navarro Patient Age: 65 y.o. Birthdate: 1955 Admit date: 10/16/2020 Attending Physician: Adam Aguilar MD The patient's history and physical exam have been reviewed and completed. There has been no intervalchange from that of the pre-operative history and physical exam done within the last 30 days. documented in this encounter Miscellaneous Notes Op Note - Adam Aguilar MD - 10/16/2020 12:57 PM EDT [facility] Operative Note [facility] [address] [place] [address] Patient Name: Dylon Navarro : [id number] MR#: [id number] Case Date: 10/16/2020 Case Scheduled Time: 1253 Surgeon: Surgeon(s) and Role: * Adam Aguilar MD - Primary Survey Associate: LUKAS Espinosa-C Preoperative diagnosis: SPONDYLOSIS, central and foraminal STENOSIS Postoperative diagnosis: SPONDYLOSIS, central and foraminal STENOSIS Actual procedure: 1. Right L4-5 far lateral foraminotomy. 2. Separate muscular exposure - bilateral L4-5 laminectomies medial facetectomies and proximal foraminotomies. Use of the high-powered operative microscope and intraoperative fluoroscopy for both procedures. Anesthesia: General Estimated Blood Loss: 20 mL Specimens removed during surgery: None Drains: * No LDAs found * Surgical Closure: Primary Closure - skin incision is completely closed without any wires, leilani, drains or other devices Disposition: awakened from anesthesia, extubated and taken to the recovery room in a stable condition, having suffered no apparent untoward event. Condition: doing well without problems Complications: None (Please see the Surgical Encounter Summary for any Implant and Specimen details pertinent to this patient.) Findings: Multifactorial concentric stenosis was identified and decompressed at the L4-5 level. Far laterally at this level on the right side there was an osteophyte and foraminotomy was performed froma far lateral approach. There were no complications or problems. There is no CSF seen at any time during the case. There were no motor discharges. Her level was confirmed at multiple points throughout surgery using intraoperative fluoroscopy. Sponge and needle counts were correct. Surgical Indications: Dylon Navarro is a 65 y.o. year old male who is suffering from symptoms thought to arise from concentric stenosis at L4-5 and also from far lateral foraminal stenosis preoperatively thought to be related possibly to a disc herniation versus osteophyte. This did machine turner to be an osteophyte. Please refer to my office notes for details of presentation, findings on exam, and medical decision making. he has requested that we consider surgical treatment of this condition. Pros and cons, rationale and risks, options and alternatives have been thoroughly reviewed. The patient acknowledges the extensive list of risk of this surgery as explained in no uncertain terms. The patient acknowledges that I cannot provide a guarantee regarding the success of the procedure, the avoidance of complication, or the durability of the result. There has been ample opportunity for the patient to askand have answered any and all questions, seek any additional information needed to make an informed d ecision, or seek additional professional opinion if desired. Understanding all of this, he requests that we proceed with operation. Procedure Description: Dylon Navarro was brought into the operating room. he underwent induction of a general endotracheal anesthetic, positioned prone and padded appropriately. The back was then prepped and draped in usual sterile fashion. We paused to confirm the patient's name and identifying information, site and type of surgery to be performed, presence of films if needed, availability of all anticipated necessary equipment and implants, administration of antibiotics and discussion of all otherdata relevant and required by the preoperative check-list. Once this had all been confirmed, we proceeded to localize the operative level fluoroscopically. Incision was made in the midline to allow access to the operative level. Dissection of the subcutaneous tissues was carried out using the monopolar electrocautery. A self retaining retractor was inserted. We opened the lumbar fascia in the midline, preserving the interspinous ligament. We then elevated the paraspinal musculature bilaterally at the L 4/5 level. This was done in the subpereosteal plane. A Mejias retractor was utilized to maintain our exposure. We confirmed our level again with the fluoroscope. We brought in the high-powered operative microscope. We resected the majority of the spinous process of L4 using the Le[place]ell rongeur.A small amount of the spinous process of L5 was resected using same technique. We then used the high-speed drill and the 3 and 4 mm Kerrisons to perform a central laminectomy at L4-5. We thinned the medial aspect of the facet joints bilaterally using a high-speed drill and then used a 3 mm Kerrison toextend our laminectomy laterally and perform medial facetectomies. We undercut the superior articulating process of L5 to widely decompress the lateral recess. We found ligamentous hypertrophy as well as facet hypertrophy. We could palpate the disc space posteriorly on both sides and found no herniation. We then performed standard foraminotomies bilaterally at L4-5 from the medial approach. We could p alpate out the right neural foramen identifying an osteophyte there but were not able to sufficiently decompress the neural foramen from the medial approach. This necessitated a far lateral approach through a separate exposure. We then elevated the tissues over the lateral aspect of the facet joint and repositioned our Mejias retractor using a different set of blades and hook. We readjusted the microscope. We were able then to identify the lateral aspect of the facet joint. Using the high-speed drill and the 2 and 3 mm Kerrisons, a lateral foraminotomy was performed here. We open the ligament and removed the infolded ligament and the lateral neural foramen. There was some synovium here as wellwhich was resected. We easily visualize the nerve root and could follow it up into the spinal canal from the lateral approach. Subjacent to the nerve root was a bony defect which was immobile and noncompressible. We could visualize this but it was solid and smooth. Posterior decompression of the nerve root was sufficient. We then released the retractors and obtain meticulous hemostasis at both sites.We flushed the wound thoroughly with antibiotic solution. We infiltrated the paraspinal musculature subcutaneous and subcuticular tissues with a mixture of Exparel and half percent Marcaine. We flushedthe wound again with antibiotic solution. We then proceeded to close the paraspinal musculature and lumbar fascia with 2-0 Vicryl stitches. Subcutaneous tissues were closed with inverted 2-0 Vicryl stitches. Subcuticular layer was closed with inverted 3-0 Vicryl stitches. The skin edges were approximated with Dermabond benzoin and paper tape. Please see the Findings section for additional detail. Infection Bundle used? N/A Karthikeyan Bustamante PA-C served as construction assistant in this surgery. His presence throughout the entire operation was critical for its safe and efficient performance. He help to prepare the patient for surgery,was present throughout the entire operation, facilitated visualization of these structures throughout the surgery and helped with instrument management. Adam Aguilar MD 10/16/2020 documented in this encounter Plan of Treatment Not on filedocumented as of this encounter Procedures Procedure Name Priority Date/Time Associated Diagnosis Comme nts XR FLUORO NO RAD Routine 10/16/2020 2:16 PM Resul ts for this <1HR - OR USE EDT procedure are in the results section. LAMINECTOMY,FACETEC 10/16/2020 12:33 PM SPONDYLOSIS, SUE & EDT STENOSIS FORAMINOTOMY,LUMBAR ,ONE LEVEL,LENA documented in this encounter Results XR Fluoro No Rad <1Hr - OR Use (10/16/2020 2:16 PM EDT) Specimen (Source) Anatomical Location Collection Method / Collectio n Time Received Time / Laterality Volume Narrative DH RAD - 10/16/2020 2:16 PM EDT This exam is auto-finalizing. No interpr etation was done. Adam Aguilar MD IMG FLUORO ORDERABLES Performing Organization Address City/State/ZIP Code Phon e Number RAD INES [place], [place] documented in this encounter Visit Diagnoses Not on filedocumented in this encounter Administered Medications Inactive Administered Medications - up to 3 most recent administrations Medication Order MAR Action Action Date Dose Rate Site atropine (0.1 mg/mL) injection 0.5 mg 0.5 mg, Intravenous, ONCE PRN, 1 dose, S tarting on Thu10/16/20 at 1422, Until Thu10/16/20 at 1546, Other, Atropine for bradycardia, PRN f or HR less than 40 and symptomatic. Notify Anesthesia., PACU Recovery, Routin e BUpivacaine (pf) (Marcaine) (5 Given 10/16/2020 1:02 PM EDT 30 m Ls 19- Surgical Site mg/mL) 0.5% injection ONCE PRN, Starting on Thu10/16/20 at 1302, Until Thu10/16/20 at 1535, Intra-Operative (Intra-Procedure), Routine BUpivacaine liposome (PF) Given 10/16/2020 1:02 PM EDT 20 mLs 19- Surgical Site (Exparel) 1.3 % (13.3 mg/mL) injection for infiltration ONCE PRN, Starting on Thu10/16/20 at 1302, Until Thu10/16/20 at 1535, Intra-Operative (Intra-Procedure) ePHEDrine (50 mg/mL) injection 12.5 mg 12.5 mg, Intravenous, ONCE PRN, 1 dose, Starting on Thu10/16/20 at 1422, Until Thu10/16/20 at 1546, ePHEDrine for Hypotension unresponsive to volume bolus, PRN for Systolic Blood Pressure less than 30% of pre-op baseline and No Response to Fluid Bolus. Notify Anesthesia., PACU Recovery, Routine fentaNYL (pf) (50 mcg/mL) multi-dose inj ection 25-50 mcg 25-50 mcg, Intravenous, EVERY 5 MIN PRN, Starting on Thu10/16/20 at 1422, Until Thu10/16/20 at 1546, Pain, Give 25 mcg every 5 minutes PRN for mild to moderate pain (1-5) Give 50 mcg every 5 minutes PRN fo r moderate to severe pain (6-10). Hold for respiratory rate less than 10 per minute . Maximum dose 250 mcg over one hour. If multiple pain medications are ordered, s tart with HYDROmorphone or morphine and use fentaNYL for breakthrough pain., PACU Recovery, Routin e lactated ringers infusion New Bag 10/16/2020 1:30 PM EDT 1,000 mL, at 50 mL/hr, Intravenous, CONTINUOUS, Starting on Thu10/16/20 at 1215, Until Thu10/16/20 at 1546, Day of Surgery (Day of Procedure) New Bag 10/16/2020 12:29 PM EDT New Bag 10/16/2020 12:15 PM EDT 1,000 mLs 50 mL/hr naloxone (Narcan) (0.4 mg/mL) injection 0.04 mg 0.04 mg, Intravenous, EVERY 5 MIN PRN, 3 doses, Starti ng on Thu10/16/20 at 1422, Until Thu10/16/20 at 1546, Opioid Reversal, for respira tory rate less than 6 or unresponsive., May repeat every 5 minutes to increase respiratory rate. DO NOT exceed 0.12 mg total dose. Notify anesthesia immediate ly if administered., PACU Recovery, Routine ondansetron (pf) (Zofran) (2 mg/mL) inje ction 4 mg 4 mg, Intravenous, EVERY 4 HOURS PRN, Starting on Thu10/16/20 at 1422, Until Thu10/16/20 at 1546, Nausea, Vomiting, May gi ve IV if unable to take PO, PACU Recovery, Routine ondansetron (pf) (Zofran) (2 mg/mL) inje ction 4 mg 4 mg, Intravenous, EVERY 30 MIN PRN, Starting on Thu at 1422, Until Tu10/16/20 at 1546, Nausea, May repeat 4 mg once in 30 min utes. If multiple antiemetics ordered, use ondansetron fir st and if ineffective use prochlorperazine second and if ineffective use promethazine, PACU Recov jyotsna, Routine ondansetron (Zofran) tablet 4 mg 4 mg, Oral, EVERY 4 HOURS PRN, Starting on Thu10/16/20 at 1422, Until Thu10/16/20 at 1546, Nausea, Vomiting, May give IV if u nable to take PO, PACU Recovery, Routine sodium chloride 0.9 % (flush) flush 5-20 mL 5-20 mL, Intravenous, EVERY 1 MIN PRN, S tarting on Thu10/16/20 at 1155, Until Thu10/16/20 at 1546, flush, Flush pertains to all indwelling lines. Flush per protocol found in the job aid using the link provided on this m edication record., Day of Surgery (Day of Procedure), Routine sodium chloride 0.9% 250 mL IV bolus at 1,500 mL/hr, Intravenous, ONCE PRN, 1 dose, Startin g on Thu10/16/20 at 1422, Until Thu10/16/20 at 1546, 250 mL bolus f or Systolic Blood Pressure 30% less than pre-op baseline. Notify Anesthesia., PACU Recovery documented in this encounter Active and Recently Administered Medications Times are shown in EDT. Scheduled Medication Order 10/14/2020 10/15/2020 10/16/2020 ceFAZolin (Ancef) 2 g in dextrose 5% 100 mL infusion (COMPLETED) 1246 (Given - Provider: Lilia Garcia CRNA) 2 g, Intravenous, ONCE, 1 dose, On Thu at 1215, Administer over 30 Minutes, To be administered upon arrival to the OR within one hour prior to incision., Day of Surgery (Day of Procedure), Indication for (Active or Suspected): Prophylaxis Continuous Medication Order 10/14/2020 10/15/2020 10/16/2020 lactated ringers infusion 1215 ( New Bag - Provider: Renae Medrano RN)1228 (Paused - Provider: Lilia Garcia CRNA - Comment: Switch to gravity)1229 (New Bag - Provider: Lilia Garcia CRNA)1330 (New Bag - Provider: Lilia Garcia CRNA) 1,000 mL, at 50 mL/hr, Intravenous, CONT INUOUS, Starting on Thu10/16/20 at 1215, Until Thu10/16/20 at 1546, Day of Surgery (Day of Procedure) 1447 (Stopped - Provider: Lilia Garcia CRNA) PRN Medication Order 10/14/2020 10/15/2020 10/16/2020 acetaminophen (Tylenol) tablet 650 mg 650 mg, Oral, EVERY 4 HOURS PRN, Startin g on Thu10/16/20 at 1422, Until Thu10/16/20 at 1546, Headaches, Headache with mild pain, temperature higher than 38.3 degrees celsius, For Mild Pain (1-3). Headache with mild pain, temperature higher than 38.3 degrees celsius, PACU Recovery, Routine atropine (0.1 mg/mL) injection 0.5 mg 0.5 mg, Intravenous, ONCE PRN, 1 dose, S tarting on Thu10/16/20 at 1422, Until Thu10/16/20 at 1546, Other, Atropine for bradycardia, PRN for HR less than 40 and symptomatic. Notify Anesthesia., PACU Recovery, Routine BUpivacaine (pf) (Marcaine) (5 mg/mL) 0.5% injection (CANCELED) 1302 (Given - Provider: Adam Aguilar MD - Comment: Mixed with 20ml Exparel. Total given: 40ML) ONCE PRN, Starting on Thu10/16/20 at 1302 , Until Thu10/16/20 at 1535, Intra- Operative (Intra-Procedure), Routine BUpivacaine liposome (PF) (Exparel) 1.3 % (13.3 mg/mL) injection for infiltration (CANCELED) 1302 (Given - Pr ovider: Adam Aguilar MD) ONCE PRN, Starting on Thu10/16/20 at 1302 , Until Thu10/16/20 at 1535, Intra- Operative (Intra-Procedure), Routine diazePAM (Valium) tablet 5 mg 5 mg, Oral, EVERY 6 HOURS PRN, Starting on Thu10/16/20 at 1422, Until Thu10/16/20 at 1546, Agitation, muscle spasms, PACU Recovery, Routine ePHEDrine (50 mg/mL) injection 12.5 mg 12.5 mg, Intravenous, ONCE PRN, 1 dose, Starting on Thu10/16/20 at 1422, Until Thu10/16/20 at 1546, ePHEDrine for Hypotension unresponsive to volume bolus, PRN for Systolic Blood Pressure less than 30% of pre-op baseline and No Response to Flui d Bolus. Notify Anesthesia., PACU Recovery, Routine fentaNYL (pf) (50 mcg/mL) multi-dose injection 25-50 mcg 25-50 mcg, Intravenous, EVERY 5 MIN PRN, Starting on Thu10/16/20 at 1422, Until Thu10/16/20 at 1546, Pain, Give 25 mcg every 5 minutes PRN for mild to moderate pain (1-5) Give 50 mcg every 5 minutes PRN f or moderate to severe pain (6-10). Hold for respiratory rate less than 10 per minute. Maximum dose 250 mcg over one hour. If multiple pain medications are ordered, start with HYDROmorphone or morphine a nd use fentaNYL for breakthrough pain., PACU Recovery, Routine HYDROcodone-acetaminophen (Craig) 5-325 mg per tablet 1-2 tablet 1-2 tablet, Oral, EVERY 4 HOURS PRN, Sta rting on Thu10/16/20 at 1422, Until Thu10/16/20 at 1546, Pain, For moderate to severe pain (4-10) Initial dose 5mg. If pain control not adequate in 60 minutes, give an additional 5 mg., PACU Recovery, Routine ketorolac (Toradol) (30 mg/mL) injection 15 mg 15 mg, Intravenous, EVERY 6 HOURS PRN, S tarting on Thu10/16/20 at 1422, Until Thu10/16/20 at 1546, Pain, For severe pain (7-10) not relieved by oral pain medications, PACU Recovery, Routine naloxone (Narcan) (0.4 mg/mL) injection 0.04 mg 0.04 mg, Intravenous, EVERY 5 MIN PRN, 3 doses, Starting on Thu10/16/20 at 1422, Until Thu10/16/20 at 1546, Opioid Reversal, for respiratory rate less than 6 or unresponsive., May repeat every 5 minutes t o increase respiratory rate. DO NOT exce ed 0.12 mg total dose. Notify anesthesia immediately if administered., PACU Recovery, Routine ondansetron (pf) (Zofran) (2 mg/mL) injection 4 mg(Linked Group 1) 4 mg, Intravenous, EVERY 4 HOURS PRN, St arting on Thu10/16/20 at 1422, Until Tu10/16/20 at 1546, Nausea, Vomiting, May give IV if unable to take PO, PACU Recovery, Routine ondansetron (pf) (Zofran) (2 mg/mL) injection 4 mg 4 mg, Intravenous, EVERY 30 MIN PRN, Sta rting on Thu10/16/20 at 1422, Until Tu10/16/20 at 1546, Nausea, May repeat 4 mg once in 30 minutes. If multiple antiemetics ordered, use ondansetron first and if ineffective use prochlorperazine second and if ineffective use promethazine, PACU Recovery, Routine ondansetron (Zofran) tablet 4 mg(Linked Group 1) 4 mg, Oral, EVERY 4 HOURS PRN, Starting on Thu10/16/20 at 1422, Until Tu10/16/20 at 1546, Nausea, Vomiting, May give IV if unable to take PO, PACU Recovery, Routine sodium chloride 0.9 % (flush) flush 5-20 mL 5-20 mL, Intravenous, EVERY 1 MIN PRN, S tarting on Thu10/16/20 at 1155, Until 10/16/20 at 1546, flush, Flush pertains to all indwelling lines. Flush per protocol found in the job aid using the link pro vided on this medication record., Day of Surgery (Day of Procedu re), Routine sodium chloride 0.9% 250 mL IV bolus at 1,500 mL/hr, Intravenous, ONCE PRN, 1 dose, Starting on Thu10/16/20 at 1422, Until Tu10/16/20 at 1546, 250 mL bolus for Systolic Blood Pressure 30% less than pre-op baseline. Notify Anesthesia., PACU Recovery Linked Groups Order Group 1: ondansetron (Zofran) tablet 4 mgJump to med 4 mg, Oral, EVERY 4 HOURS PRN, Starting on Thu10/16/20 at 1422, Until 10/16/20 at 1546, Nausea, Vomiting
May give IV if unable to take PO
PACU Recovery, Routine Or ondansetron (pf) (Zofran) (2 mg/mL) injection 4 mgJump to med 4 mg, Intravenous, EVERY 4 HOURS PRN, St arting on Thu10/16/20 at 1422, Until Thu10/16/20 at 1546, Nausea, Vomiting
May give IV if unable to take PO
PACU Recovery, Routine documented in this encounter Care Teams Director For Beauty School Relationship Specialty Start Date End Date Jess Olivia PA PCP - General Family Medicine 07/22/[address] [place] [id number] documented as of this encounter
--- OUTSIDE RECORDS SUMMARY | 2021-11-01 00:28 | XMS_ITS | Encounter Summary ---
:1955 Author Organization [facility] [place] [address] Care Team Providers Name Role Phone Jess Olivia Primary Care Provider Encounter Details Date Type Department Care Team Description 10/09/2020 Telephone Pre-Admission [address] [facility] at [facility] [address] [facility] [place] [address] Social History Tobacco Use Types Packs/Day Years Used Date Never Smoker Smokeless Tobacco: Never Used Alcohol Use Standard Drinks/Week Comments Not Currently 0 (1 standard drink = 0.6 oz pure alcoho l) Sex Assigned at Date Recorded Not on file documented as of this encounter Progress Notes Zack Dean RN - 10/09/2020 1:50 PM EDTSummary: covid screen EXPOSURE: Have you been in contact with anyone suspected of or confirmed to have COVID-19 in the PAST 14 DAYS? []Yes [x]No Have you traveled outside the [facility] in the PAST 14 DAYS? []Yes [x]No COVID-19 SCREENING: In the past 14 days, have you had any of the following symptoms: [] Fever (subjective or documented fever) [] Chills [] Cough [] Shortness of breath or difficulty breathing [] Fatigue [] Muscle or body aches [] Headache [] New loss of taste or smell [] Sore throat [] Nausea or vomiting [] Diarrhea [x]NONE OF THE ABOVE Have you scheduled your preop COVID Screening Test? []Yes []No [x]N/A documented in this encounter Plan of Treatment Not on filedocumented as of this encounter Visit Diagnoses Not on filedocumented in this encounter Care Teams Retail Property Manager Relationship Specialty Start Date End Date Jess Olivia PA PCP - General Family Medicine 07/22/[address] [place] [phone] documented as of this encounter
--- OUTSIDE RECORDS SUMMARY | 2021-11-01 00:28 | XMS_ITS | Encounter Summary ---
:1955 Author Organization [facility] [place] [address] Care Team Providers Name Role Phone Jess Olivia Primary Care Provider Reason for Visit Reason Onset Date Comments Other 03/22/2020 Encounter Details Date Type Department Care Team Description 03/22/2020 Telephone Neurology at [facility] Kim Morales MD Other [facility] [place] [address] NEUROLOGY DEPT [phone], [place] [address] (Wo rk) Social History Tobacco Use Types Packs/Day Years Used Date Never Smoker Smokeless Tobacco: Never Used Alcohol Use Standard Drinks/Week Comments Not Currently 0 (1 standard drink = 0.6 oz pure alcoho l) Sex Assigned at Date Recorded Not on file documented as of this encounter Miscellaneous Notes Telephone Encounter - Melissa Hernández RN - 03/22/2020 1:26 PM EST Call made to [facility]. Spoke with Corin. The patient needs to have a creatinine level drawn within the past 90 days for the MRI. [facility] will contact the patient to let him know and to find out where he will have the lab work done. They willthen notify this office so the lab order can be faxed to the correct facility. Telephone Encounter - Nayana Lara - 03/22/2020 12:27 PM EST Call Center / [place] Message - General Issue Call Provider patient sees in Clinic: Kim Morales Caller and relationship (if other than patient-full name): Pauline from [facility] Call back number: [phone] Ok to leave a message: y Reason for call: Pauline from [place] [facility] is calling to verify if the MRI with or without contrast. Ifthe MRI is with contras, Pauline states they will need an order for lab work. Please call back to discuss. Disposition of Call (choose one and remove others): ??? Routine Message sent to the Nurse: x documented in this encounter Plan of Treatment Not on filedocumented as of this encounter Visit Diagnoses Not on filedocumented in this encounter Care Teams Medical Science Liaison Relationship Specialty Start Date End Date Jess Olivia PA PCP - General Family Medicine 07/22/[address] [place] [phone] documented as of this encounter
--- OUTSIDE RECORDS SUMMARY | 2021-11-01 00:28 | XMS_ITS | Encounter Summary ---
:1955 Author Organization [facility] [place] [address] Care Team Providers Name Role Phone Jess Olivia Primary Care Provider Reason for Visit Auth/Cert Specialty Diagnoses / Procedures Referred By Contact Refer red To Contact Diagnoses SPONDYLOSIS, STENOSIS Procedures PRO LAMINEC/FACETECT/FORAMIN, LUMBAR 1 SEG LAMINECTOMY,FACETECTOMY & FORAMINOTOMY,LUMBAR,ONE LEVEL,LENA Referral ID Status Reason Start Date Expiration Date Visits Requ ested Visits Authorized [id number] 1 1 Encounter Details Date Type Department Care Team Description 10/16/2020 Hospital Encounter Post Acute Care Unit Adam Aguilar, Lumbar spondylosis at [facility] MD [address] [place] [address] [facility] [phone] [place] [address] Social History Tobacco Use Types Packs/Day Years [...] documented in this encounter Discharge Instructions Patient InstructionsKarthikeyan Bustamante PA - 10/16/2020 12:20 PM EDT Full [...] six weeks after surgery with a Physician???s Pacs Administrator at the surgeon???s office. You will have [...] to stop taking it. ??? Only take wcco-vft-inxfphl or prescription medicine for pain, discomfort or [...] If you have any questions, please call [facility] at [phone], during business hours of Thursday through Thursday from 8:00 a.m. until 4:00 p.m. In case of emergency duringnon-business hours, please call the same main number and follow the prompts to page the neurosurgeonon call. SMOKING CESSATION INFORMATION: ??? [place] QUITLINE: ??? [place] QUITLINE: ??? [email or web address] If you smoke, stop now! Smoking may impede healing. MAKE SURE YOU: ??? Understand these instructions. ??? Will seek medical care if you are feeling poor, or get worse. ??? Will call the surgeon???s office with any questions or concerns at : [phone] The above information has been presented or demonstrated. I/we have had the opportunity to ask questions. I/we fully understand the instructions given. I/we have received a copy of this form. documented in this encounter Medications at Time of Discharge Medication Sig Dispensed Refills Start Date End Date HYDROcodone-acetaminophen Take 1-2 tablets 20 tablet 0 12/2020 ([place]) 5-325 mg Tablet by mouth every 6 hours as needed. atorvastatin (Lipitor) 20 TAKE 1 TABLET BY 0 12/2020 mg Tablet MOUTH DAILY AT BEDTIME cyclobenzaprine (Flexeril) TAKE 1/2 TABLET BY 0 0 07/04/2020 10 mg Tablet MOUTH THREE TIMES DAILY NEEDED fluticasone propionate SHAKE LIQUID AND 0 021 (FLONASE) 50 mcg/actuation USE 1 TO 2 SPRAYS Ariel, Suspension IN EACH NOSTRIL TWICE DAILY aspirin [...] (MOTRIN ORAL) 800 mg, PO, Q8H 0 03/28/2 009 PRN nitroGLYcerin (NITROSTAT) 0.4MG, Sublingual, 0 11 / 0.4 mg SL tablet X 1, PRN [...] Aguilar MD - 10/16/2020 12:57 PM EDT [facility] Operative Note [facility] [address] [place] [address] Patient Name: Dylon Navarro : [id number] MR#: [id number] Case Date: 10/16/2020 Case Scheduled Time: 1253 Surgeon: Surgeon(s) and Role: * Adam Aguilar MD - Primary Pacs Administrator: LUKAS Espinosa-C Preoperative diagnosis: SPONDYLOSIS, central and [...] a disc herniation versus osteophyte. This did log turner to be an osteophyte. Please refer [...] used? N/A Karthikeyan Bustamante PA-C served as business services assistant in this surgery. His presence throughout [...] interpr etation was done. Adam Aguilar MD G FLUORO ORDERABLES Performing Organization Address City/State/ZIP Code Phon e Number RAD [place], [place] documented in this encounter Visit Diagnoses Diagnosis Lumbar spondylosis Lumbosacral spondylosis without myelopat hy documented in this encounter Administered Medications Inactive [...] symptomatic. Notify Anesthesia., PACU Recovery, Routin e ePHEDrine (50 mg/mL) injection 12.5 mg 12.5 [...] PRN, Starting on Thu at 1422, Until Thu10/16/20 at 1546, Nausea, May repeat 4 mg [...] for breakthrough pain., PACU Recovery, Routine HYDROcodone-acetaminophen ([place]) 5-325 mg per tablet 1-2 tablet 1-2 [...] Until Thu10/16/20 at 1546, 250 mL bolus for Systolic Blood Pressure 30% less than pre-op baseline. Notify Anesthesia., PACU Recovery Linked Groups Order Group 1: ondansetron (Zofran) tablet 4 mgJump to med 4 mg, Oral, EVERY 4 HOURS PRN, Starting on Thu10/16/20 at 1422, Until Tu10/16/20 at 1546, Nausea, Vomiting
May give IV if unable to take PO
PACU Recovery, Routine Or ondansetron (pf) (Zofran) (2 mg/mL) injection 4 mgJump to med 4 mg, Intravenous, EVERY 4 HOURS PRN, St arting on Thu10/16/20 at 1422, Until 10/16/20 at 1546, Nausea, Vomiting
May give IV if unable to take PO
PACU Recovery, Routine documented in this encounter Care Teams Porcelain Enameling Supervisor Relationship Specialty Start Date End Date Jess Olivia PA PCP - General Family Medicine 07/22/19 [address] [place] [address] documented as of this encounter
--- OUTSIDE RECORDS SUMMARY | 2021-11-01 00:28 | XMS_ITS | Encounter Summary ---
:1955 Author Organization [facility] [place] [address] Care Team Providers Name Role Phone Jess Olivia Primary Care Provider Reason for Visit - Closed Specialty Diagnoses / Procedures Referred By Contact Refer red To Contact Procedures Adma Aguilar MD Film Library- Storage Only MR [address] [facility] [place] [address] Referral ID Status Reason Start Date Expiration Date Visits Requ ested Visits Authorized [id number] Closed 07/30/2020 07/30/2021 1 1 Encounter Details Date Type Department Care Team Description 07/25/2020 Ancillary Procedure Radiology at [facility] [place] [address] [place] [address] [phone] (Wo rk) Social History Tobacco Use Types [...] Associated Diagnosis Comme nts FILM LIBRARY Routine 07/25/2020 12:00 AM Results for this STORAGE ONLY MR EDT procedure ar e in SPINE the results section. documented in this encounter Results Film Library- Storage Only MR Spine (07/25/2020 12:00 AM EDT) Specimen (Source) Anatomical Location Collection Method / Collectio n Time Received Time / Laterality Volume Narrative [facility] - 07/30/2020 8:18 AM EDT This exam is auto-finalizing. It's purpo se is for storage only. Adam Aguilar MD IMG FILM LIBRARY ORDERABLES Performing Organization Address City/State/ZIP Code Phon e Number [facility] [place], [place] documented in this encounter Visit Diagnoses Not on filedocumented in this encounter Care Teams Remanufacturing Technician Relationship Specialty Start Date End Date Jess Olivia PA PCP - General Family Medicine 07/22/[address] [place] [phone] documented as of this encounter
--- OUTSIDE RECORDS SUMMARY | 2021-11-01 00:28 | XMS_ITS | Encounter Summary ---
:1955 [place] [address] Care Team Providers Name Role Phone Jess [...] Expiration Date Visits Requ ested Visits Authorized [id number] 1 1 Encounter Details Date Type Department Care Team Description 08/06/2021 Hospital Encounter Same Day Program at [facility] Screening for cardiovascular condition; Fannie Koehler MD Chest discomfort [facility] [address] [facility] [place] [address] [phone] Social History Tobacco Use Types Packs/Day Years [...] by your doctor, do not take any bmvc-sfp-riaptdw medicines or herbal preparations without first discussing this with your doctor or pharmacist. There is the possibility of side effects and interactions when these are combined. Follow Up Care Who to call with questions or problems If there are any questions or problems that you think might be related to your cardiac cath or angioplasty, contact the steam locomotive firer/fireman vp integration by calling [facility] at . Patient InstructionsMehran Hannah, DO - [...] appointments: During 8am-5pm Thursday through Thursday call [phone] to speak with a nurse in the cardiology clinic All other times call [phone] and ask to speak to the employment services director vp integration. Your Inpatient Doctor(s) at [facility]: Maame Koehler MD - Attending physician Your Primary Care Provider: LUKAS Real [address] / [place] [address] For questions regarding issues relating to your hospitalization on the Hospital Medicine Service, please contact your inpatient physician through the [facility] Bander And Cellophaner Helper Machine [phone]. Issues after hours and on weekends will be handled by the Hospitalist staff on-call. documented in this encounter Medications at Time of Discharge Medication Sig Dispensed Refills Start Date End Date HYDROcodone-acetaminophen Take 1-2 tablets by 20 tablet 0 0 10/16/2020 ([place]) 5-325 mg Tablet mouth every 6 hours as needed. atorvastatin (Lipitor) 20 mg TAKE 1 TABLET BY 0 0 07/16/2020 Tablet MOUTH DAILY AT BEDTIME cyclobenzaprine (Flexeril) TAKE 1/2 TABLET BY 0 0 07/04/2020 10 mg Tablet MOUTH THREE TIMES DAILY NEEDED fluticasone propionate SHAKE LIQUID AND 0 021 (FLONASE) 50 mcg/actuation USE 1 TO 2 SPRAYS [place], Suspension IN EACH NOSTRIL TWICE DAILY aspirin [...] SYSTEM - 08/06/2021 1:29 PM ED T ?[facility] ? Cardiac Cathete rization/Intervention Report ? Patient Name: Dylon Navarro. ? Procedure Date: 08/06/2021 ? A #: [id number] ? Primary Physician: Maame Rivera I ? Case #: [id number] ? File Name: [id number] ? Catheterization Order Number: [id number] ? [facility] ? Final Report [place], [place] ? Patient Name: ? Dylon Chance. Melanie ? ID#: ?[id number] ? : ?1955 ? Procedure Date: ? August 06, 2021 ? Case #: ? [id number] ? Room: ? 1 ? Case Physician: ? Maame cox M.D. ? Start: ?10:33 ?Fellow: ? Mehran price M.Barrera. ? Admission: ??08/06/2021 ? Referring Physician: ??Marcia [...] procedure was Elective. The indication for ?the laborer/grade check visit is cardiomyo julio. Chest pain symptom [...] SYSTEM Differential, Automated (08/06/2021 9:25 AM EDT) athologist Signature Neutrophils % 56.7 % [facility] Neutr Abs (ANC) 4.02 1.70 - FANNIE ANDREW [address].10 [facility] x10(3)/[facility] LABORATORY Lymphocytes % 32.2 % [facility] Lymphocytes Abs 2.3 0.9 - 3.2 [facility] x10(3)/[facility] LABORATORY Monocytes % 8.3 % [facility] Monocyte Abs 0.6 0.3 - 0.9 [facility] x10(3)/[facility] LABORATORY Eosinophils % 1.8 % [facility] Eosinophils Abs 0.1 0.0 - 0.4 [facility] x10(3)/[facility] LABORATORY Basophils % 0.4 % [facility] Basophils Abs 0.0 0.0 - 0.1 [facility] x10(3)/[facility] LABORATORY Immature Gran % 0.60 % [facility] Comment: Immature granulocytes(IG's)percentage an d absolute count will include metamyelocytes, myelocytes, and promyelo cytes. Blood smears from CBCs yielding IG's will be scanned manually for concor dance. If this scan disagrees with the automated IG or if promyelocytes are not ed, a manual differential will be performed. Antonia Gran Abs 0.04 0.00 - 0.04 x10(3)/[facility] MAR Y [facility]ORATORY Specimen Anatomical Collection Method Collection Time Receive d Time (Source) Location / / Volume Laterality Blood 08/06/2021 9:25 AM 9:46 EDT AM EDT Resulting Agency Comment Spec In Lab Og GAYTAN HEMATOLOGY ORDERABLES Performing Organization Address City/State/[place] [address] (ABNORMAL) Hemogram (08/06/2021 9:25 AM EDT) Analysis Performed At Patho logist Time Signature WBC 7.1 4.0 - 9.5 [facility] x10(3)/[facility] LABORATORY RBC 4.47 (L) 4.58 - [facility] 5.54 [facility] x10(6)/[facility] LABORATORY Hemoglobin 13.6 (L) 13.7 - [facility] 16.5 g/dL [facility] Hematocrit 38.7 (L) 40.5 - [facility] 48.5 % [facility] MCV 86.6 82.9 - [facility] 93.1 fL [facility] MCH 30.4 27.5 - [facility] 32.1 pg [facility] MCHC 35.1 32.0 - [facility] M[facility]AL[facility] 35.7 g/dL [facility] Platelets 164 145 - 357 [facility] x10(3)/[facility] LABORATORY RDWSD 40.0 36.0 - [facility] 45.0 [facility] LABORATORY RDWCV 12.8 11.4 - [facility] ANDREW 13.8 % [facility] MPV 10.7 7.6 - 12.9 [facility] LABORATORY nRBC % Auto 0.0 % [facility] nRBC Abs Auto 0.000 0.000 - [facility] ANDREW 0.000 [facility] x10(3)/[facility] LABORATORY Specimen Anatomical Collection Method Collection Time Receive d Time (Source) Location / / Volume Laterality Blood 08/06/2021 9:25 AM 9:46 EDT AM EDT Resulting Agency Comment Spec In Lab Og GAYTAN HEMATOLOGY ORDERABLES Performing Organization Address City/State/[place] [address] (ABNORMAL) BMP w/fasting Glucose (08/06/2021 9:25 AM EDT) P athologist Signature Glucose 120 (H) 65 - 99 [facility] Fasting mg/dL [facility] Comment: ?Fasting* Glucose Interpretive C [...] of Diabetes Mellitus, Position Statement from the [place] [employer]. ??Diabete s Care, Volume 33, Supplement 1, May 2009 BUN 26 (H) 10 - 20 mg/dL [facility] Creatinine 1.17 0.80 - 1.50 mg/dL [facility] Sodium 136 135 - 145 mmol/L [facility] Potassium 4.6 3.5 - 5.0 mmol/L [facility] Comment: Please note: ??Patients with WBC >100,00 0 may have falsely elevated Potassium levels. ??For accurate Potassium quantif ication in these patients send serum separator tube (gold top) for subsequent determinations. ??Contact the Clinical Chemistry Laboratory if there are any qu estions. Chloride 104 98 - 107 mmol/L [facility] CO2 23 22 - 31 mmol/L [facility] Anion Gap 9 5 - 15 mmol/L [facility] Calcium 9.3 8.5 - 10.5 mg/dL [facility] Estimated GFR 65 >=60 mL/min/1.73 m?? [facility] Comment: This patient? s estimated glomerular [...] Organization Address City/State/[place] [address] EKG 12 Lead (08/06/2021 9:07 AM EDT) Component Value Ref Range Test Analysis Performed Pathologis t Method Time At Signature Ventricular rate 74 BPM MUSE SYSTEM Atrial Rate 74 BPM MUSE SYSTEM P-R Interval 178 ms MUSE SYSTEM QRS Duration 98 ms MUSE SYSTEM Q-T Interval 408 ms MUSE SYSTEM QTC Calculated 452 ms MUSE SYSTEM (Bezet) Calculated P [place] 35 degrees MUSE SYSTEM Calculated R [place] 7 degrees MUSE SYSTEM Calculated T [place] 33 degrees MUSE SYSTEM INTERPRETATION Normal sinus [...] MAR Action Action Date Dose Rate Site sodium chloride 0.9% New Bag 08/06/2021 9:30 AM EDT 200 mL/hr 200 mL/hr infusion 200 mL/hr, Intravenous, CONTINUOUS, Starting on Thu08/06/21 at 0930, Until Thu08/06/21 at 1103, Cath (Day of Procedure) sodium chloride 0.9% infusion New Bag 08/06/2021 11:15 AM EDT 125 mL/hr 125 mL/hr 125 mL/hr, Intravenous, CONTINUOUS, Starting on Thu08/06/21 at 1130, Until Thu08/06/21 at 1329, Recovery (Recovery-Hospital Unit) documented in this encounter Active and Recently [...] injection (CANCELED) 1027 (Given - Provider: Erik Serna RN) [...] (CANCELED) 1039 (New Bag - Provider: Erik P Monmaney, RN) CONTINUOUS PRN, Starting on Thu08/06/21 at 1039, Until Thu08/06/21 at 1421, Cath (Intra-Procedure) verapamiL (Isoptin) (2.5 mg/mL) injection (CANCELED) 1033 (Given - Provider: Mehran Hannah DO) ONCE PRN, Starting on Thu08/06/21 at 103 4, Until Thu08/06/21 at 1421, Administer over 2 Minutes, Cath (Intra-Procedure) documented in this encounter Care Teams Tangled Yarn Worker Relationship Specialty Start Date End Date Jess Olivia PA PCP - General Family Medicine 07/22/[address] [place] [address] documented as of this encounter
--- OUTSIDE RECORDS SUMMARY | 2021-11-01 00:28 | XMS_ITS | Encounter Summary ---
:1955 [place] [address] Care Team Providers Name Role Phone Jess Olivia Primary Care Provider Encounter Details Date Type Department Care Team Description 03/21/2020 Laboratory Appointment Lab 3L [facility] [place] [address] Social History Tobacco Use Types Packs/Day Years Used Date Never Smoker Smokeless Tobacco: Never Used Alcohol Use Standard Drinks/Week Comments Not Currently 0 (1 standard drink = 0.6 oz pure alcoho l) Sex Assigned at Date Recorded Not on file documented as of this encounter Plan of Treatment Not on filedocumented as of this encounter Procedures Procedure Name Priority Date/Time Associated Comments Diagnosis HC PCH THIAMIN Routine 03/21/2020 4:08 PM Memory loss Results for this LVL(VITAMIN B1) EST procedure ar e in [facility] the results section. HC VENIPUNCTURE Routine 03/21/2020 4:08 PM Memory loss Result s for this EST procedure are i n the results section. HC FOLATE, SERUM Routine 03/21/2020 4:08 PM Memory loss Resul ts for this EST procedure are i n the results section. HC VITAMIN B12 SERUM Routine 03/21/2020 4:08 PM Memory loss R esults for this EST procedure are i n the results section. documented in this encounter Results Vitamin B12 (03/21/2020 4:08 PM EST) athologist Signature Vitamin B-12 365 232 - 1,320 [facility] pg/mL [facility] Specimen Anatomical Collection Method Collection Time Receive d Time (Source) Location / / Volume Laterality Blood specimen 03/21/2020 4:08 PM 020 4:16 (specimen) EST PM EST Resulting Agency Comment Spec In Lab Sabino Walker MD CHEMISTRY ORDERABLES Performing Organization Address City/[facility]/ZIP Code Phon e Number [address] Folate, serum (03/21/2020 4:08 PM EST) athologist Signature Folate Lvl 11.6 4.8 - 24.2 [facility] ng/mL [facility] Specimen Anatomical Collection Method Collection Time Receive d Time (Source) Location / / Volume Laterality Blood specimen 03/21/2020 4:08 PM 020 4:16 (specimen) EST PM EST Resulting Agency Comment Spec In Lab Sabino Walker MD CHEMISTRY ORDERABLES Performing Organization Address [facility] Phon e Number [address] Vitamin B1, whole blood (03/21/2020 4:08 PM EST) athologist Signature Vit B1 Lvl WB 122 70 - 180 [facility] nmol/L [facility] Comment: ADDITIONAL INFORMATIO N This test was developed and its performa nce characteristics determined by [facility] in a manner co nsistent with CLIA requirements. This test has not been channing ared or approved by the U.S. Food and Drug Administration. Test Performed by: [facility] [address] [place] [address] 41 Vibration Analyst: Dario Armando M.D. Ph. D.; CLIA# [id number] Specimen Anatomical Collection Method Collection Time Receive d Time (Source) Location / / Volume Laterality Blood specimen 03/21/2020 4:08 PM 020 (specimen) EST 10:33 AM EST Resulting Agency Comment Spec In Lab Sabino Walker MD CHEMISTRY ORDERABLES Performing Organization Address City/[facility]/[place] [address] TSH (03/21/2020 4:08 PM EST) P athologist Signature TSH 3.21 0.27 - 4.20 [facility] mcIU/mL [facility] Specimen Anatomical Collection Method Collection Time Receive d Time (Source) Location / / Volume Laterality Blood specimen 03/21/2020 4:08 PM 020 4:16 (specimen) EST PM EST Resulting Agency Comment Spec In Lab Sabino Walker MD CHEMISTRY ORDERABLES Performing Organization Address City/State/ZIP [place] [address] documented in this encounter Visit Diagnoses Diagnosis Memory loss documented in this encounter Care Teams Size Mixer Relationship Specialty Start Date End Date Jess Olivia PA PCP - General Family Medicine 07/22/[address] [place] [address] documented as of this encounter
--- OUTSIDE RECORDS SUMMARY | 2021-11-01 00:28 | XMS_ITS | Encounter Summary ---
:1955 Author Organization [facility] [place] [address] Care Team Providers Name Role Phone Jess Olivia Primary Care Provider Reason for Visit Reason Onset Date Comments Bumped Appointment 11/29/2019 Encounter Details Date Type Department Care Team Description 11/29/[address] [facility] Saranya Coates APRN Bumped Appointment [facility] [place] [address] [place] [id number] [phone] (Wo rk) Social History Tobacco Use Types Packs/Day Years Used Date Never Assessed Sex Assigned at Date Recorded Not on file documented as of this encounter Miscellaneous Notes Telephone Encounter - Emely Hernadez - 12/16/2019 8:45 AM EDT Pts phone rang then disconnected. Letter sent. Telephone Encounter - Emely Hernadez - 11/29/2019 9:07 AM EDT Patient to be rescheduled with a PGY2 or PGY3. documented in this encounter Plan of Treatment Not on filedocumented as of this encounter Visit Diagnoses Not on filedocumented in this encounter Care Teams Civil Transportation Engineer Relationship Specialty Start Date End Date Jess Olivia PA PCP - General Family Medicine 07/22/19 [address] [place] [address] documented as of this encounter
--- OUTSIDE RECORDS SUMMARY | 2021-11-01 00:28 | XMS_ITS | Encounter Summary ---
:1955 Author Organization [facility] [place] [address] Care Team Providers Name Role Phone Jess Olivia Primary Care Provider Reason for Visit Auth/Cert Specialty Diagnoses / Procedures Referred By Contact Refer red To Contact Diagnoses SPONDYLOSIS, STENOSIS Procedures PRO LAMINEC/FACETECT/FORAMIN, LUMBAR 1 SEG LAMINECTOMY,FACETECTOMY & FORAMINOTOMY,LUMBAR,ONE LEVEL,LENA Referral ID Status Reason Start Date Expiration Date Visits Requ ested Visits Authorized [id number] 1 1 Encounter Details Date Type Department Care Team Description 10/16/2020 Ancillary Procedure Radiology Xray at [facility] [place] [address] Social History Tobacco Use Types Packs/Day [...] EDT procedure are in the results section. documented in this encounter Results XR Fluoro No Rad <1Hr - OR Use (10/16/2020 2:16 PM EDT) Specimen (Source) Anatomical Location Collection Method / Collectio n Time Received Time / Laterality Volume Narrative RAD - 10/16/2020 2:16 PM EDT This exam is auto-finalizing. No interpr etation was done. Adam Aguilar MD IMG FLUORO ORDERABLES Performing Organization Address City/State/ZIP Code Phon e Number [facility] [place] documented in this encounter Visit Diagnoses Not on filedocumented in this encounter Care Teams Site Safety Representative Relationship Specialty Start Date End Date Jess Olivia PA PCP - General Family Medicine 07/22/[address] [place] [address] documented as of this encounter
--- OUTSIDE RECORDS SUMMARY | 2021-11-01 00:28 | XMS_ITS | Encounter Summary ---
:1955 Author Organization [facility] [place] [address] Care Team Providers Name Role Phone Jess Olivia Primary Care Provider Encounter Details Date Type Department Care Team Description 10/15/2021 Anesthesia Event Gastroenterology at [facility] [place] Dinah Hernandez, [facility] [place] [address] [facility] [phone] DR ANESTHESIOLOGY [place], [place] [address] Anesthesia Record Procedure Summary Procedure Name Responsible Anesthesia Start Anesthesia Stop Time Anesthesiologist Time EGD, UPPER GI ENDOSCOPY (N/A Trunk) Events No events on file. No medications on file. Agents No agents on file. Blood No blood administrations on file. Lines, Drains, and Airways Type Details Placement Removal Incision 10/16/20; 1257; lower; lumbar 10/16/20 1257 by Paul Barger spine; midline E, RN documented in this encounter Social History Tobacco [...] on filedocumented in this encounter Care Teams Surgery Nurse Relationship Specialty Start Date End Date Jess Olivia PA PCP - General Family Medicine 07/22/19 [address] [place] [address] documented as of this encounter
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
--- OUTSIDE RECORDS SUMMARY | 2021-11-01 00:28 | XMS_ITS | Encounter Summary ---
:1955 Author Organization [facility] [place] [address] Care Team Providers Name Role Phone Jess Olivia Primary Care Provider Reason for Referral Consultation (Urgent) - Closed Specialty Diagnoses / Procedures Referred By Contact Refer red To Contact Gastroenterology Diagnoses Hx of adenomatous colonic polyps Melena Abdominal pain, generalized Jess Olivia PA [facility] 4t [address] [place], [place] [address] [place] [address] Phone: Referral ID Status Reason Start Date Expiration Date Visits V isits Requested Authorized [id number] Closed Consult, 07/12/2021 07/12/2022 6 6 Test & Treat Encounter Details Date Type Department Care Team Description 07/12/2021 Transcribe Orders Administration Jess Olivia Hx of adenomatous colonic po lyps; [facility] [place]; Drive [address] [place], [place] [address] [phone] Social History Tobacco Use Types Packs/Day Years Used Date Never Smoker Smokeless Tobacco: Never Used Alcohol Use Standard Drinks/Week Comments Not Currently 0 (1 standard drink = 0.6 oz pure alcoho l) Sex Assigned at Date Recorded Not on file documented as of this encounter Plan of Treatment Scheduled Referrals Name Type Priority Associated Diagnoses Order S chedule Referral to Outpatient Referral Routine Hx of adenomatous Ord ered: Colorectal Surgery colonic polyp s 07/12/2021 Melena Abdominal pain, generalized documented as of this encounter Visit Diagnoses Diagnosis Hx of adenomatous colonic polyps Personal history of colonic polyps Melena Blood in stool Abdominal pain, generalized documented in this encounter Care Teams Sales Floor Associate Relationship Specialty Start Date End Date Jess Olivia PA PCP - General Family Medicine 07/22/[address] [place] [address] documented as of this encounter
--- OUTSIDE RECORDS SUMMARY | 2021-11-01 00:28 | XMS_ITS | Encounter Summary ---
:1955 [place] [address] Care Team Providers Name Role Phone Jess Olivia Primary Care Provider Reason for Visit Reason Onset Date Comments Medication Refill 03/22/2020 Encounter Details Date Type Department Care Team Description 03/22/2020 Refill Neurology at [facility] Kim Morales MD [facility] [place] [address] NEUROLOGY DEPT [phone] [place], [place] [address] (Wo rk) Social History Tobacco [...] on filedocumented in this encounter Care Teams Developmental Training Counselor Relationship Specialty Start Date End Date Jess Olivia PA PCP - General Family Medicine 07/22/19 [address] [place] [address] documented as of this encounter
--- OUTSIDE RECORDS SUMMARY | 2021-11-01 00:29 | XMS_ITS | Encounter Summary ---
:1955 Author Organization [facility] [place] [address] Care Team Providers Name Role Phone Vipul Martino MD Primary Care Provider Encounter Details Date Type Department Care Team Description 06/15/2014 Surgery Him Manager Dewey Khan MD CARDIAC CATHETERIZATION [facility] [address] [place] [address] [place] [address] [phone] (Wo rk) Social History Tobacco Use Types Packs/Day Years Used Date Never Assessed Sex Assigned at Date Recorded Not on file documented as of this encounter Last Filed Vital Signs Vital Sign Reading Time Taken Comments Blood Pressure 134/78 06/15/2014 3:28 PM EST Pulse 62 06/15/2014 3:28 PM EST Temperature 36.2 ??C (97.2 ??F) 06/15/2014 1:22 PM EST Respiratory Rate 18 06/15/2014 3:28 PM EST Oxygen Saturation 98% 06/15/2014 3:28 PM EST Inhaled Oxygen Concentration - - Weight 91.9 kg (202 lb 9.6 oz) 06/15/2014 9:19 AM EST Height 185.4 cm (6' 0.99) 06/15/2014 9:19 AM EST Body Mass Index 26.74 06/15/2014 9:19 AM EST documented in this encounter Discharge Instructions Discharge InstructionsStephany Terrazas RN - 06/15/2014 1:33 PM EST Activity If you are discharged the same day as your procedure, do not drive yourself home. Arrange to have another person drive. You may walk around when you get home, but keep your activity at a minimum until the morning. Do not bend over, strain, or lift heavy objects for 24 hours after the procedure. Do not participatein active sports for 48 hours. You may engage in sexual activity after 48 hours. These restrictions will not apply if the catheter was placed in a blood vessel in your arm. Catheter Insertion Area Care Take the band-aid off the catheter insertion area the morning following the procedure. You may take a shower if you wish. Wash the area with soap and water. Look for signs of infection over the next several days. A little spot of blood at the catheter insertion area is not unusual. A bruise or small lump under the skin is normal; they generally disappear in 3-4 days. For the first several days at home if you cough or sneeze, hold your groin to help prevent bleeding. Expect some mild tenderness over the area where the catheter was inserted. You will notice this after the local anesthetic (numbing medicine) wears off. This should improve during the 24-48 hours afterthe procedure. Take tylenol if needed. Contact your doctor if the discomfort worsens. Problems to Watch For If there is bright red blood flowing from the catheter insertion area: *stop what you are doing and lie down *Hold pressure steadily on the area for 15 minutes *Call for Help *If the bleeding does not stop in 15 minutes call 911 for an ambulance. If there is swelling with black and blue color at the catheter insertion area, there may be bleeding inside. Contact the doctor if there is any increase in size. Look at the insertion site for the first few days at home. Signs of infection are: *redness *Swelling *Yellow, white, green or brown foul smelling drainage. *increased soreness If you think there is an infection, take your temperature. Then call your doctor. The limb on the side where you had your catheterization should look and feel normal in its color, sensation, and temperature. If your leg becomes cool, pale, blue or changing color with numbness and tingling, contact your doctor. If you feel faint or dizzy, lie down with your feet elevated. Have someone call the doctor. If you are alert, drink fluids. How to Deal with Chest pain If you had only the cardiac catheterization, treat any angina or chest discomfort as instructed. Stop what you are doing, and sit or lie down. If prescribed, take nitroglycerin under your tongue. If the angina isn't relieved, take another nitroglycerine in 5 minutes. After another 5 minutes, a third ni troglycerine may be taken. If the angina isn't improved you should call for an ambulance to bring you to the nearest hospital emergency room. If your angina is more frequent or more sever than before, contact your doctor. We usually would not expect to have angina after an angioplasty. If you do get angina, treat it as you did before but also contact your doctor. Return to Work The doctor will usually have told you when to return to work. If you do not perform heavy physical labor, most people can return to work in a few days. Diet Follow your previous diet unless otherwise instructed. Cardiac Risk Factors If you have coronary artery disease, it is important that you help control it by reducing your cardiac risk factors. If you smoke, we urge you to stop now. If you think this is going to be a problem, let us know so that we may help you. We have dieticians who can help you learn about low fat, low cholesterol diet. Cardiac rehabilitation programs can help you set up a regular exercise program. Work with your doctor if you have high blood pressure or sugar diabetes to keep these under control. Medications ____Take your usual medications ____Medication changes: If you are taking medicines prescribed by your doctor, do not take any lncc-ioh-uwmwemr medicines orherbal preparations without first discussing this with your doctor or pharmacist. There is the possibility of side effect and interactions when these are combined. Follow up Care Who to Call with Questions or Problems If there are any questions or problems that you think might be related to your cardiac cath or angioplasty, contact the senior product consultant sales applications engineer by calling [facility] at . documented in this encounter Medications at Time of Discharge Medication Sig Dispensed Refills Start Date End Date IBUPROFEN (MOTRIN ORAL) 800 mg, PO, Q8H 0 009 PRN nitroGLYcerin (NITROSTAT) 0.4MG, Sublingual, 0 0.4 mg SL tablet X 1, PRN aspirin 325 mg Tablet, Take 325 mg by 0 03/21/2020 Delayed Release (E.C.) mouth daily. pregabalin (LYRICA) 50 mg 50 MG = 1 0 04/26/2009 03/21/2020 capsule Capsule(s), PO, Twice daily omeprazole (PRILOSEC) 20 mg 20 MG = 1 0 03/28/20 09 03/21/2020 capsule Capsule(s), PO, Once daily documented as of this encounter H&P Notes Yanna Boykin PA - 06/15/2014 9:56 AM EST Pre-Cardiac Catheterization Assessment History: Dylon Navarro here to be evaluated prior to planned or possible diagnostic/?therapeutic cardiac catheterization. He reports both exertional and rest chest discomfort. With exercise he experiences chest pressureand occasionally dyspnea and diaphoresis. At rest the discomfort is sharp and fl eeting. A stress test (results scanned) showed ECG changes in leads 2, 3,AVF, V2- V6, hypotensive response to exercise and reproduction of his typical symptoms.maximum heart rate achieved was 142. He exercisedto 7 METs. A stress test in 2005 was reportedly negative. PSH: Is significant for traumatic injury of his right hand wrist and forearm. He has limited use of his fingers. He does not have planned surgery and has no problems with bleeding. No current facility-administered medications on file prior to encounter. Current Outpatient Prescriptions on File Prior to Encounter Medication Sig Dispense Refill ??? pregabalin (LYRICA) 50 mg capsule 50 MG = 1 Capsule(s), PO, Twice daily ??? IBUPROFEN (MOTRIN ORAL) 800 mg, PO, Q8H PRN ??? nitroGLYcerin (NITROSTAT) 0.4 mg SL tablet 0.4MG, Sublingual, X 1, PRN ??? omeprazole (PRILOSEC) 20 mg capsule 20 MG = 1 Capsule(s), PO, Once daily Allergies Allergen Reactions ??? Codeine Phosphate CIS - Nausea/Vomiting There is no problem list on file for this patient. Coronary Risk factors: Smoking: never Hypertension: pos Diabetes: neg Lipid disorder: He is unaware. recent lipids: total cholesterol 193, HDL 32, LDL 90, triglycerides 411 Known or suspected valvular heart disease: none Ventricular function known:unknown Functional testing results:as above Physical Exam: He appears well, in no apparent distress. Alert and oriented times three, pleasant and cooperative. Filed Vitals: 06/15/14 0919 BP: 154/78 Pulse: 74 Temp: 36.4 ??C (97.5 ??F) Resp: 14 HEENT: No JVD or carotid distortions. Lungs: Clear to A+P Cor: NSR, S1 and S2 physiologic. No precordial heaves or thrills. PMI unremarkable. No audible murmur, rub or gallop. Abd: soft, nontender, no organomegaly or bruits Ext: Pulses well preserved, no edema, cyanosis. Deformed right hand wrist and forearm. Neuro: physiologic Assessment: High risk stress test with hypotensive response to exercise and reproduction of his typical symptoms. Plan:elective cardiac catheterization 1. A discussion was held reviewing the benefits and attendant risks of diagnostic or therapeutic catheterization. The risks include, but are not limited to: stroke, , myocardial infarction, bleeding, limb loss, infection, dye reaction, vascular injury, arrhythmias. If an intervention is performed, risks would include the potential for vessel closure, need for emergency CABG, subacute closure, restenosis. The patient appears to understand these risks and benefits. The informed consent was signed. 2. Laboratory screening will be obtained before the procedure as ordered. 3. The patient's medications, NPO status after MN and other details of the planned procedure were discussed. Questions were addressed. 4. Follow up will be dependent on the results of the cardiac catheterization. 5. He is aware of the implications of dual antiplatelet medications. documented in this encounter Plan of Treatment Scheduled Orders Name Type Priority Associated Diagnoses Order S chedule EKG 12 Lead ECG Routine ASCVD (arteriosclerotic One Time for 1 Occurrences cardiovascular disease) star brandin 06/15/2014 until 06/15/2014 documented as of this encounter Visit Diagnoses Diagnosis ASCVD (arteriosclerotic cardiovascular d isease) Unspecified cardiovascular disease ASCVD (arteriosclerotic cardiovascular d isease) Unspecified cardiovascular disease documented in this encounter Administered Medications Inactive Administered Medications - up to 3 most recent administrations Medication Order MAR Action Action Date Dose Rate Site diaZEPam (VALIUM) tablet 5 mg Given 06/15/2014 10:20 AM EST 5 mg 5 mg, Oral, ONCE, 1 dose, On Ca 2/5/15 at 1045, Cath (Day of Procedure), Routine diphenhydrAMINE (BENADRYL) capsule 25 mg Given 06/15/2014 10:20 AM EST 25 mg 25 mg, Oral, ONCE, 1 dose, On Ca 2/5/15 at 1045, Cath (Day of Procedure), Routine fentaNYL 50mcg/mL injection Given 06/15/2014 11:20 AM EST 25 mcg ONCE PRN, Starting on Ca 2/5/15 at 1120, Until Ca 2/5/15 at 1203, Cath (Intra-Procedure), Routine fentaNYL 50mcg/mL injection Given 06/15/2014 12:09 PM EST 25 mcg ONCE PRN, Starting on Ca 25/15 at 1209, Until Ca 25/15 at 1220, Cath (Intra-Procedure), Routine iohexol (OMNIPAQUE) 350 mg iodine/mL Given 06/15/2014 11:[address] 77 mLs injection ONCE PRN, Starting on Ca 2/5/15 at 1158, Until Ca 2/5/15 at 1203, Cath (Intra-Procedure), Routine lidocaine (XYLOCAINE) 10 mg/mL (1 %) Given 06/15/2014 11:[address] 100 mg injection ONCE PRN, Starting on Ca 2/5/15 at 1125, Until Ca 2/5/15 at 1203, Cath (Intra-Procedure), Routine midazolam (PF) (VERSED) 1 mg/mL injectio n Given 06/15/2014 11:20 AM EST 1 mg ONCE PRN, Starting on Ca 2/5/15 at 1120, Until Ca 2/5/15 at 1203, Cath (Intra-Procedure), Routine midazolam (PF) (VERSED) 1 mg/mL injectio n Given 06/15/2014 12:08 PM EST 1 mg ONCE PRN, Starting on Ca 2/5/15 at 1208, Until Ca 2/5/15 at 1220, Cath (Intra-Procedure), Routine sodium chloride 0.9% infusion Given 06/15/2014 11:50 AM EST 500 mLs ONCE PRN, Starting on Ca 25/15 at 1150, Until Ca 2/5/15 at 1203, Cath (Intra-Procedure) sodium chloride 0.9% infusion New Bag 06/15/2014 12:45 PM EST 200 mL/hr 200 mL/hr 200 mL/hr, Intravenous, CONTINUOUS, Starting on Ca 215 at 1245, Until Ca 215 at 1644 documented in this encounter Active and Recently Administered Medications Times are shown in EST. Scheduled Medication Order 06/13/2014 06/14/2014 06/15/2014 diaZEPam (VALIUM) tablet 5 mg (COMPLETED) 1020 (Given - Provider: Saeed Beth, GREG) 5 mg, Oral, ONCE, 1 dose, Ca 215 at 1045, Cath (Day of P rocedure), Routine diphenhydrAMINE (BENADRYL) capsule 25 mg (COMPLETED) 1020 (Given - Provider: Saeed Beth RN) 25 mg, Oral, ONCE, 1 dose, Ca 215 at 1045, Cath (D ay of Procedure), Routine Continuous Medication Order 06/13/2014 06/14/2014 06/15/2014 sodium chloride 0.9% infusion () 1245 (New Bag - Provider: Ignacio Enamorado RN) 200 mL/hr, at 200 mL/hr, Intravenous, CO NTINUOUS, Starting Ca 2 at 1245, Until Ca 215 at 1644 PRN Medication Order 06/13/2014 06/14/2014 06/15/2014 fentaNYL 50mcg/mL injection (CANCELED) 1120 (Given - Provider: Gomez Maier RN) ONCE PRN, Starting Ca 2/5/15 at 1120, U ntil Ca 2/5/15 at 1203, Cath (Intra- Procedure), Routine fentaNYL 50mcg/mL injection (CANCELED) 1209 (Given - Provider: Cheri Antonio RN) ONCE PRN, Starting Ca 2/5/15 at 1209, U ntil Ca 2/5/15 at 1220, Cath (Intra- Procedure), Routine iohexol (OMNIPAQUE) 350 mg iodine/mL injection (CANCELED) 1158 (Given - Provider: Dewey Monaco MD) ONCE PRN, Starting Ca 2/5/15 at 1158, U ntil Ca 2/5/15 at 1203, Cath (Intra- Procedure), Routine lidocaine (XYLOCAINE) 10 mg/mL (1 %) injection (CANCELED) 1125 (Given - Provider: Dewey Monaco MD - Comment: right groin) ONCE PRN, Starting Ca 2/5/15 at 1125, U ntil Ca 2/5/15 at 1203, Cath (Intra- Procedure), Routine midazolam (PF) (VERSED) 1 mg/mL injection (CANCELED) 1120 (Given - Provider: Gomez Maier RN) ONCE PRN, Starting Ca 2/5/15 at 1120, U ntil Ca 2/5/15 at 1203, Cath (Intra- Procedure), Routine midazolam (PF) (VERSED) 1 mg/mL injection (CANCELED) 1208 (Given - Provider: Cheri Antonio RN) ONCE PRN, Starting Ca 2/5/15 at 1208, U ntil Ca 2/5/15 at 1220, Cath (Intra- Procedure), Routine sodium chloride 0.9% infusion (CANCELED) 1150 (Given - Provider: Cheri Antonio RN - Comment: 500cc IV bolus) ONCE PRN, Starting Ca 2/5/15 at 1150, U ntil Ca 2/5/15 at 1203, Cath (Intra-Procedure) documented in this encounter Care Teams Sales Secretary Relationship Specialty Start Date End Date Vipul Martino MD PCP - General 06/13/14 05/10/19 documented as of this encounter
--- OUTSIDE RECORDS SUMMARY | 2021-11-01 00:29 | XMS_ITS | Encounter Summary ---
:1955 [place] [address] Care Team Providers Name Role Phone Vipul Martino MD Primary Care Provider Encounter Details Date Type Department Care Team Description 06/13/2014 Orders Only Cardiology at [facility] Yanna Boykin ASCVD (arteriosclerotic [facility]UK[facility] Domínguez cardiovascular disease) [place], [place] [address] CARDIOLOGY DEPT. [phone] [place] [id number] Social History Tobacco Use Types Packs/Day Years Used Date Never Assessed Sex Assigned at Date Recorded Not on file documented as of this encounter Plan of Treatment Not on filedocumented as of this encounter Procedures Procedure Name Priority Date/Time Associated Diagnosis Comme nts CARDIAC CATHETERIZATION Routine 06/15/2014 12:05 ASCVD Results for this PM EST (arteriosclerotic procedure are in cardiovascular the results disease) section. documented in this encounter Results CARDIAC CATHETERIZATION (06/15/2014 12:05 PM EST) Specimen (Source) Anatomical Location Collection Method / Collectio n Time Received Time / Laterality Volume Narrative CARDIOMAC SYSTEM - 06/15/2014 12:[address] ?[facility] ? Cardiac Cathete rization/Intervention Report ? Patient Name: Deth, Dylon R. ? Procedure Date: 06/15/2014 ? A #: [id number] ? Primary Physician: Aguilar, Dewey V ? Case #: [id number] ? File Name: [id number] ? Catheterization Order Number: [id number] ? [facility] ? Final Report [place], [place] ? Patient Name: ? [place] R. Deth ? ID#: ?[id number] ? : ?1955 ? Procedure Date: ? February 5, 201 5 ? Case #: ? [id number] ? Room: ? 2 ? Case Physician: ? Dewey Aguilar M.D. ? Start: ?11:10 ? Admission: ??06/15/2014 ? Referring ? Clemente lucia, M.D. ? Discharge: ??06/15/2014 ? Physicians: ?Edgar Thomson M.D. ? Procedures: ?* Coronary Angiography ?* Left Heart Catheterization ?* Left Ventriculography ?* Vascular Closure Device Deplo yment ?* Access Site Angiography ? History ?Dylon Navarro is a 58 year old man. He has hypertension and a family ?history of coronary artery dise ase. The patient has hypercholesterolemia. ?He has a history of chest pain. The patient also has a history of an ?abnormal EKG and an abnormal st ress test. Prior to the initiation of this ?procedure, the patient was claritza gnated as ASA Class IV. ? Patient Status at Catheterization: ?The patient presented with: sta ble angina (w/i 42 days). [place] ?Cardiovascular Society angina c lass was II. This patient was on beta ?blockers prior to the procedure . A standard exercise stress test was ?performed and results were Posi tive and High Risk ischemia assessment. ? Technique: ?A 5Fr sheath was inserted in th e right femoral artery utilizing the ?Seldinger technique. Left ventr iculography was performed with a 5Fr ?Angled pigtail catheter. The le ft coronary artery was injected utilizing ?a 5Fr JL 5 catheter. A 5Fr JR 4 catheter was used to inject the right ?coronary artery. A total of 100 cc of Omnipaque were opened, 77cc of ?Omnipaque were administered and 23cc of Omnipaque were wasted. Radiation: ?Fluoro time was 5.1 minutes, do se area product was 68,858 mGYcm2 and air ?kerma was 803 mGY. ? Hemodynamics: ?Left Heart Pressures ? Resting: ? Syst D iast ? EDP ?a ?v ? m ?Ao 122 ?? 70 ?92 ?LV 130 ? 4 ? Post Contrast: ? Syst D iast ? EDP ?a ?v ? m ?Ao 132 ?? 68 ?96 ?LV 132 ? 8 ? Left Ventriculography: ?View KNIGHT and IRISH ?Overall LV ?Normal ?Function: ?Estimated LV Ejection Fraction: 65% ? Coronary Angiography: ?Dominance: Right ?Left Main ? The left main was normal . ? Left main is very short. ?Left Anterior Descending ? The left anterior descen ding (LAD) was normal. ?Left Circumflex ? The left circumflex (LCX ) was normal. ?Right Coronary Artery ? The right coronary arter y (RCA) was normal. ? Vascular Access Angiogram: ?A selective angiogram at the ri ght femoral artery revealed no significant ?obstructive disease. ? Vascular Closure Device: ?A 6 Fr Perclose was deployed at the right femoral artery access site. ?This device was unsuccessful. A 6 Fr Perclose was deployed at the right ?femoral artery access site but did not achieve effective hemostatis. ? Conclusions: ?* Normal coronary arteries ?* Normal left ventricular funct ion (EF-65%) ? Complications/Events: ?The patient had no complication s during these procedures. ?The attending physician was liu t for the entire procedure. ?Dr. Dewey Aguilar M.D. performed the coronary angiography, access site ?angiography, left heart catheteriz ation, left ventriculography and vascular ?closure device. ? Dewey Aguilar M.D. ? Electronically Signed by: Dewey Aguilar M.D. ? Report Finalized: 06/15/2014 ??12:41 ? Report Last Ammended: 01/26/2015 ??14:29 ? Procedure Note Dewey Aguilar MD - 01/26/2015[place] of this note might be different from the original. [facility] Cardiac Catheterization/Intervention Re port Patient Name: Dylon Navarro Procedure Date: 06/15/2014 A #: [id number] Primary Physician: Dewey Aguilar V Case #: [id number] File Name: [id number] Catheterization Order Number: [id number] [facility] Final Report [place], [place] Patient Name: Dylon Giles ID#: [id number] : 1955 Procedure Date: June 15, 2014 Case #: [id number] Room: 2 Case Physician: Dewey Aguilar M.D. Sta rt: 11:10 Admission: 06/15/2014 Referring Clemente Linton M.D. Discharge : 06/15/2014 Physicians: Edgar Thomson M.D. Procedures: * Coronary Angiography * Left Heart Catheterization * Left Ventriculography * Vascular Closure Device Deployment * Access Site Angiography History Dylon Navarro is a 58 year old man. He has hypertension and a family history of coronary artery disease. The patient has hypercholesterolemia. He has a history of chest pain. The pat ient also has a history of an abnormal EKG and an abnormal stress lida t. Prior to the initiation of this procedure, the patient was designated a s ASA Class IV. Patient Status at Catheterization: The patient presented with: stable emilie na (w/i 42 days). [place] Cardiovascular Society angina class was II. This patient was on beta blockers prior to the procedure. A trinity dard exercise stress test was performed and results were Positive and High Risk ischemia assessment. Technique: A 5Fr sheath was inserted in the right femoral artery utilizing the Seldinger technique. Left ventriculogra phy was performed with a 5Fr Angled pigtail catheter. The left coron meir artery was injected utilizing a 5Fr JL 5 catheter. A 5Fr JR 4 cathete r was used to inject the right coronary artery. A total of 100cc of Om nipaque were opened, 77cc of Omnipaque were administered and 23cc of Omnipaque were wasted. Radiation: Fluoro time was 5.1 minutes, dose area product was 68,858 mGYcm2 and air kerma was 803 mGY. Hemodynamics: Left Heart Pressures Resting: Syst Diast EDP a v m Ao 122 70 92 LV 130 4 Post Contrast: Syst Diast EDP a v m Ao 132 68 96 LV 132 8 Left Ventriculography: View KNIGHT and IRISH Overall LV Normal Function: Estimated LV Ejection Fraction: 65% Coronary Angiography: Dominance: Right Left Main The left main was normal. Left main is very short. Left Anterior Descending The left anterior descending (LAD) was normal. Left Circumflex The left circumflex (LCX) was normal. Right Coronary Artery The right coronary artery (RCA) was nor mal. Vascular Access Angiogram: A selective angiogram at the right femo ral artery revealed no significant obstructive disease. Vascular Closure Device: A 6 Fr Perclose was deployed at the rig ht femoral artery access site. This device was unsuccessful. A 6 Fr Pe rclose was deployed at the right femoral artery access site but did not achieve effective hemostatis. Conclusions: * Normal coronary arteries * Normal left ventricular function (EF- 65%) Complications/Events: The patient had no complications during these procedures. The attending physician was present for the entire procedure. Dr. Dewey Aguilar M.D. performed the coronary angiography, access site angiography, left heart catheterization , left ventriculography and vascular closure device. Dewey Aguilar M.D. Electronically Signed by: Dewey Aguilar M.D. Report Finalized: 06/15/2014 12:41 Report Last Ammended: 01/26/2015 14:29 Neil Huang MD CARDIAC CATH ORDERABLES Performing Organization Address City/State/ZIP Code Phon e Number CARDIOMAC SYSTEM documented in this encounter Visit Diagnoses Diagnosis ASCVD (arteriosclerotic cardiovascular d isease) Unspecified cardiovascular disease ASCVD (arteriosclerotic cardiovascular d isease) Unspecified cardiovascular disease documented in this encounter Care Teams Data Entry Technician Relationship Specialty Start Date End Date Vipul Martino MD PCP - General 06/13/14 05/10/19 documented as of this encounter
--- OUTSIDE RECORDS SUMMARY | 2021-11-01 00:29 | XMS_ITS | Encounter Summary ---
:1955 [place] [address] Care Team Providers Name Role Phone Vipul Martino MD Primary Care Provider Encounter Details Date Type Department Care Team Description 06/15/2014 Hospital Encounter Same Day Program at Dewey Aguilar MD (arteriosclerotic [facility] cardiovascular [facility] [address]ENTER DR disease) [facility] CARDIOLOGY [place], [place] DEPT. [address] [place], [place] [phone] [id number] Social History Tobacco Use Types Packs/Day Years [...] by your doctor, do not take any cvap-ski-kkjpxjj medicines orherbal preparations without first discussing this with your doctor or pharmacist. There is the possibility of side effect and interactions when these are combined. Follow up Care Who to Call with Questions or Problems If there are any questions or problems that you think might be related to your cardiac cath or angioplasty, contact the park services specialist retail parts professional by calling [facility] at . documented in this encounter [...] AM EST Pre-Cardiac Catheterization Assessment History: Dylon Gilesh here to be evaluated prior to planned [...] mg, Oral, ONCE, 1 dose, On Ca 15 at 1045, Cath (Day of Procedure), Routine diphenhydrAMINE (BENADRYL) capsule 25 mg Given 06/15/2014 10:20 AM EST 25 mg 25 mg, Oral, ONCE, 1 dose, On Ca 215 at 1045, Cath (Day of Procedure), Routine sodium chloride 0.9% infusion New Bag 06/15/2014 12:45 PM EST 200 mL/hr 200 mL/hr 200 mL/hr, Intravenous, CONTINUOUS, Starting on Ca 215 at 1245, Until Ca 15 at 1644 documented in this encounter Active [...] 1020 (Given - Provider: Saeed Beth, GREG) 25 mg, Oral, ONCE, 1 dose, Ca 215 at 1045, Cath (D ay of Procedure), Routine Continuous Medication Order 06/13/2014 06/14/2014 06/15/2014 sodium chloride 0.9% infusion () 1245 (New Bag - Provider: Ignacio Enamorado RN) 200 mL/hr, at 200 mL/hr, Intravenous, CO NTINUOUS, Starting Ca 06/15/14 at 1245, Until Ca 15 at 1644 PRN Medication Order 06/13/2014 06/14/2014 06/15/2014 fentaNYL 50mcg/mL injection (CANCELED) 1120 (Given - Provider: Gomez Maier RN) ONCE PRN, Starting Ca 215 at 1120, U ntil Ca //15 at 1203, Cath (Intra- Procedure), Routine fentaNYL 50mcg/mL injection (CANCELED) 1209 (Given - Provider: Cheri Antonio RN) ONCE PRN, Starting Ca 215 at 1209, U ntil Ca 2/5/15 at [...] (Intra-Procedure) documented in this encounter Care Teams State Comptroller Relationship Specialty Start Date End Date Vipul Martino MD PCP - General 06/13/14 05/10/19 documented as of this encounter
--- OUTSIDE RECORDS SUMMARY | 2021-11-01 00:31 | XMS_ITS | Encounter Summary ---
:1955 Author Organization [facility] Address [address] [place] [address] Care Team Providers Name Role Phone Unknown, Provider Primary Care Provider Encounter Details Date Type Department Care Team Description 05/30/2011 Results Only [facility]- OSBALDO Sahara Kunz, DO [phone] [facility] [place], [place] [id number] Social History Tobacco Use Types Packs/Day Years Used Date Never Assessed Sex Assigned at Date Recorded Not on file documented as of this encounter Plan of Treatment Not on filedocumented as of this encounter Procedures Procedure Name Priority Date/Time Associated Diagnosis Comme nts SURGICAL PATHOLOGY Routine 05/30/2011 0:00 EST Re sults for this procedure are i n the results section. documented in this encounter Results SURGICAL PATHOLOGY (05/30/2011 0:00 EST) Pathology Report: SURGICAL PATHOLOGY REPORT MATT COVARRUBIAS Reports generated via electronic interface contain aric ginal data; LAB however they are lacking the format of the original re port. Caution should be taken when reading/interpreting unfo rmatted reports. Name: ? JORDYN WOLFF ? Accession #: ? [id number] ? : ? 1955 (Age: 55) ??M ? Collect Date: ? 05/30/2011 ? Location: ? [facility] ? Receive Date: ? 012 ? Provider: SAHARA KUNZ DO Copy to: DREW COTA DO ? Final Pathologic Diagnosis: A. ?Duodenum, biopsy: 1. ?Duodenal mucosa with focal foveolar m etaplasia. B. ?Stomach, antrum, biopsy: 1. ?Fundic and antral mucosa with mild ch ronic gastritis. 2. ? No Helicobacter pylori-like microorgani sms identified on H&E-stained sections. C. ?Stomach, fundus, biopsies: 1. ?Fundic mucosa with mild chronic gastr itis. 2. ? No Helicobacter pylori-like microorgani sms identified on H&E-stained sections. ?? Document reviewed and electronically signed by: RADHA BONNER MD Report ??Date: 06/02/2011 15:12 By the signature above, the attending physician certif ies that he/she has personally conducted a gross and/or microscopic examin ation of the described specimens and rendered or confirmed the above diagnosi s. Specimen(s) Received: A. ?Bx duodenum (#1) B. ? Bx gastric antrum (#2) C. ? Gastric fundus x 3 (#3) Clinical History: ? Abdominal pain Gross Description: ? Received in formalin labelled Deth, [place] and bx duodenum is a single 0.3 x 0.2 x 0.2 cm an-brown soft tissue fragmen t. ??The specimen is entirely submitted in cassette (A). Received in formalin labelled Deth, Rup ert and bx gastric antrum are three an-yellow soft tissue fragm ents that range from 0.4 x 0.2 x 0.1 cm to 0.3 x 0.2 x 0.1 cm. ??The specimen is entirely submitted in vy ette (B). Received in formalin labelled Deth, [place] and que hayder fundus are three an-yellow soft tissue fragm ents that range from 0.6 x 0.2 x 0.1 cm to 0.2 x 0.2 x 0.1 cm. ??The specimen is entirely submitted in cassette (C). ??(Dr. Florence)/[facility] End of Report Specimen Performing Organization Address City/State/ZIP Code Phon e Number [facility] [address] [place] [address] SERVICES [facility] [address] [place] [phone] documented in this encounter Visit Diagnoses Not on filedocumented in this encounter Care Teams Fence Repairman Relationship Specialty Start Date End Date Unknown, Provider, PCP - General 05/28/10 06/01/11 documented as of this encounter
--- OUTSIDE RECORDS SUMMARY | 2021-11-01 00:31 | XMS_ITS | Encounter Summary ---
:[address] [facility] Address [address] [place] [address] Care Team Providers Name Role Phone Unavailable Primary Care Provider Unavailable Encounter Details Date Type Department Care Team Description 05/30/2008 Before [facility] Ulises Cheney MD Converted Visit Family Medicine - [address] ([place]) [place], [place] 28 [facility] [id number] [place] [address] [phone] Social History Tobacco Use Types Packs/Day Years Used Date Never Assessed Sex Assigned at Date Recorded Not on file documented as of this encounter Plan of Treatment Not on filedocumented as of this encounter Procedures Procedure Name Priority Date/Time Associated Diagnosis Comme nts SURGICAL PATHOLOGY Routine 05/30/2008 0:00 EST Re sults for this procedure are i n the results section. documented in this encounter Results SURGICAL PATHOLOGY (05/30/2008 0:00 EST) Pathology Report: SURGICAL PATHOLOGY REPORT ? [facility] Reports generated via electr Beatpacking interface contain original data; ? LAB however they are lacking the format of the original report. ? Caution should be taken when reading/interpreting unformatted reports. ? Name: ? DETH, JORDYN R ? Accession #: ? [id number] ? : ? 1955 (Age: 52) ??M ? Collec t Date: ? 05/30/2008 ? Location: ? [facility] ? R eceive Date: ? 05/30/2008 ? Provider: ULISES WALKO MD ? Copy to: DELFINA THAYER MD ? Final Pathologic Diagnosis: ? A. ?Duodenum, b iopsy: ? 1. ?Peptic duod enitis. ? B. ?Duodenum, b ulb, biopsy: ? 1. ?Peptic duod enitis. ? C. ?Stomach, an trum, biopsy: ? 1. ?Gastric ant ral mucosa with mild chronic gastritis. ? 2. ? No Helicobacter pyl aric-like organisms identified on H+E stained sections. D. ?Stomach, halie dy, biopsy: ? 1. ?Gastric bod y mucosa with no pathologic features. ? E. ?Terminal il eum, biopsy: ? 1. ?Small intes tinal mucosa with no pathologic features. ? F. ?Colon, biop sy: ? 1. ?Colonic muc arley with no pathologic features. ? G. ?Colon, desc ending, polyps, biopsy: ? 1. ?Tubular nicole noma. ? H. ?Rectum, bio psy: ? 1. ?Rectal muco sa with no pathologic features. ? Document reviewed and electr onically signed by: ? ABDELMONEM ELHOSSEINY MD ? Report ??Date: 06/01/2008 17 :41 ? By the signature above, the attending physician certifies that he/she has ? personally conducted a gross and/or microscopic examination of the described ? specimens and rendered or co nfirmed the above diagnosis. ? Specimen(s) Received: ? A. ?Bx duodenum ? B. ? Bx duodenal bulb ? C. ? Bx gastric antrum ? D. ? Bx gastric body ? E. ? Bx terminal ileum ? F. ? Bx random colon ? G. ? Descending colon po lyp x2 ? H. ? Bx rectum ? Clinical History: ? Diarrhea, dysphagia, wt loss; A-D. EGD, E-H. Colonoscopy ? Gross Description: ? Received in [facility] fixative labelled [place] and #1 bx duodenum are ?? two biopsies measuring 0.4 x 0.3 x 0.2 cm and 0.8 x 0.2 x 0.1 cm. ??The specimen is submitted intact as (A). ? Received in [facility]'s fixat adrienne labelled [place]eth and #2 bx duodenal bulb is a ?? 0.3 x 0.3 x 0.1 cm biopsy. ? ?The specimen is submitted intact as (B). ? Received in [facility]'s fixat adrienne labelled [place] and #3 bx gastric antrum are ?? two biopsies measuring 0.3 x 0.3 x 0.1 cm and 0.4 x 0.2 x 0.1 cm. ??The specimen is submitted intact as (C). ? Received in [facility]'s fixat adrienne labelled [place] and #4 bx gastric body is a ?? 0.5 x 0.2 x 0.1 cm biopsy. ? ?The specimen is submitted intact as (D). ? Received in [facility]'s fixat adrienne labelled [place] and #5 bx terminal ileum are ?? two biopsies measuring 0.3 x 0.2 x 0.1 cm each. ??The specimen is entirely ? submitted as (E). ? Received in [facility]'s fixat adrienne labelled [place] and #6 bx random colon are six biopsies which vary in size from 0.2 x 0.2 x 0.1 cm up to 0.4 x 0.3 x 0.1 cm. ?? The specimen is submitted in tact as (F1) and (F2). ? Received in [facility]'s fixat adrienne labelled [place] and #7 descending colon polyp ?? x2 are two polypoid biopsie s measuring 0.3 x 0.3 x 0.3 cm and 0.4 x 0.3 x 0.2 ?? cm. ??The specimen is submit conrado intact as (G). ? Received in [facility]'s fixat adrienne labelled [place] and #8 bx rectum are two ? polypoid biopsies measuring 0.2 cm and 0.3 cm in diameter. ??The specimen is ? submitted intact as (H). ??( SUSIE [employer])/tmg ? End of Report ? Specimen Performing Organization Address City/State/[facility] Code Phon e Number [facility] [address] [place] [address] SERVICES [facility] [address] [place] [address] documented in this encounter Visit Diagnoses Not on filedocumented in this encounter
--- OUTSIDE RECORDS SUMMARY | 2021-11-01 00:31 | XMS_ITS | Encounter Summary ---
:[address] [facility] Address [address] [place] [address] Care Team Providers Name Role Phone Unavailable Primary Care Provider Unavailable Encounter Details Date Type Department Care Team Description 09/29/2007 Results Only [facility] - Ulises Linn MD conversion [address] [place] [address] [place], [place] [address] [phone] Social History Tobacco Use Types Packs/Day Years Used Date Never Assessed Sex Assigned at Date Recorded Not on file documented as of this encounter Plan of Treatment Not on filedocumented as of this encounter Procedures Procedure Name Priority Date/Time Associated Diagnosis Comme [facility] SURGICAL PATHOLOGY Routine 09/29/2007 0:00 EDT Re sults for this procedure are i n the results section. documented in this encounter Results SURGICAL PATHOLOGY (09/29/2007 0:00 EDT) Pathology Report: SURGICAL PATHOLOGY REPORT MATT COVARRUBIAS Reports generated via electronic interface contain aric ginal data; LAB however they are lacking the format of the original re port. Caution should be taken when reading/interpreting unfo rmatted reports. Name: ? JORDYN WOLFF ? Accession #: ? [id number] ? : ? 1955 (Age: 52) ??M ? Collect Date: ? 09/29/2007 ? Location: ? [facility] ? Receive Date: ? 008 ? Provider: ULISES PEDROZA MD Copy to: JAN BROOKS MD ? Final Pathologic Diagnosis: ? Appendix, appendectomy: 1. ?Acute suppurative appendicitis with transmural inflammation. 2. ? Acute fibrinous serositis. 3. ? Periappendicitis. Document reviewed and electronically signed by: DARWIN ARDON MD Report ??Date: 10/06/2007 15:06 By the signature above, the attending physician certif ies that he/she has personally conducted a gross and/or microscopic examin ation of the described specimens and rendered or confirmed the above diagnosi s. Specimen(s) Received: ? Appendix Clinical History: ? Appendicitis Gross Description: ? Received in formalin labelled Deth and appendix is a 5.7 cm in length by 1.0 cm in diameter vermiform appendix. ??The serosa is markedly torn with prominent exudate adjacent t o the proximal resection margin and along the distal tip. ??A 0.9 cm in greatest dimension well-formed fecalith is present proximally; the mucosa in this region appears eroded. ??The distal tip is obliterated by an-white fibrous tissue and the mucosa within this di stal tip is poorly-demarcated from the w all. ??The wall ranges from less than 0.1 to 0.1 cm thick. ??A discrete perforat ion is not identified. ??Knitting Inspector sections to include the distal tip, cros s section, and proximal resection margin (inked and en face) are submitted in one cassette. ??/[facility] End of Report Specimen Performing Organization Address City/State/ZIP Code Phon e Number [facility] [address] [place] [address] SERVICES [facility] [address] [place] [address] documented in this encounter Visit Diagnoses Not on filedocumented in this encounter
--- OUTSIDE RECORDS SUMMARY | 2021-11-01 00:31 | XMS_ITS | Encounter Summary ---
:1955 Author Organization [facility] Address [address] [place] [address] Care Team Providers Name Role Phone Christian Lechuga Primary Care Provider Encounter Details Date Type Department Care Team Description 03/09/2015 Results Only [facility]- PRISM Dax Bettencourt, [address] [phone] (Wo rk) Social History Tobacco Use Types Packs/Day Years Used Date Never Assessed Sex Assigned at Date Recorded Not on file documented as of this encounter Plan of Treatment Not on filedocumented as of this encounter Procedures Procedure Name Priority Date/Time Associated Diagnosis Comme [facility] SURGICAL PATHOLOGY Routine 03/09/2015 18:58 Resul ts for this EDT procedure are i n the results section. documented in this encounter Results SURGICAL PATHOLOGY (03/09/2015 18:58 EDT) Pathology Report: SURGICAL PATHOLOGY REPORT [facility] Reports generated via electronic interface contain aric ginal data; LABORATORY however they are lacking the format of the original re port. SERVICES Caution should be taken when reading/interpreting unfo rmatted reports. Name: ? JORDYN WOLFF ? Accession #: ? [id number] ? : ? 1955 (Age: 5 0) ??M ? Collect Date: ? 03/09/2015 ? Location: ? [facility] ? Receive Date: ? 015 ? Provider: DAX BETTENCOURT DPM Copy to: MARGI FISHER MD ? Final Pathologic Diagnosis: BONE OF RIGHT 2ND TOE, PROXIMAL PHALANX HEAD, EXCISION : - ??Bone with focal reparative/remodeling changes. - ??Negative for acute osteomyelitis. Document reviewed and electronically signed by: KAMRAN RUBALCAVA MD Report ??Date: 03/16/2015 10:43 By the signature above, the attending physician certif ies that he/she has personally conducted a gross and/or microscopic examin ation of the described specimens and rendered or confirmed the above diagnosi s. Specimen(s) Received: Proximal phalangeal head 2nd toe, Rt foot Clinical History: Chronic ulceration Rt 1st/2nd toe; R/O osteomyelitis Gross Description: ? Received in formalin labelled with proper patient identification (initials D, R) and proximal phalanx head 2nd toe , right foot is a estrada-white piece of bone (1.1 x 0.7 x 0.6 cm). The outer surface is smooth , consistent with an articular surface. Sectioning reveals ye llow trabecular bone, with no areas of hemorrhage present. The spec imen is serially section and entirely submitted in 1 following decalcification. Samira Rojas 03/12/2015 11:11 AM End of Report Specimen Performing Organization Address City/State/ZIP Code Phon e Number [facility] [address] [place] [address] SERVICES documented in this encounter Visit Diagnoses Not on filedocumented in this encounter Care Teams Bilingual School Psychologist Relationship Specialty Start Date End Date Chirstian Lechuga DO PCP - General 06/02/11 03/13/15 [address] [place] [address] documented as of this encounter
--- OUTSIDE RECORDS SUMMARY | 2021-11-01 00:31 | XMS_ITS | Encounter Summary ---
:1955 Author Organization [facility] Address [address] [place] [address] Care Team Providers Name Role Phone Unavailable Primary Care Provider Unavailable Encounter Details Date Type Department Care Team Description 03/08/2010 Results Only [facility] Segun Lechuga, DO Laboratory Services - [address] [place] [address] [address] [facility] [place] [address] [phone] Social History Tobacco Use Types Packs/Day Years Used Date Never Assessed Sex Assigned at Date Recorded Not on file documented as of this encounter Plan of Treatment Not on filedocumented as of this encounter Procedures Procedure Name Priority Date/Time Associated Diagnosis Comme nts FLOW CYTOMETRY Routine 03/08/2010 10:50 EDT Resul ts for this procedure are i n the results section . documented in this encounter Results FLOW CYTOMETRY (03/08/2010 10:50 EDT) Pathology FLOW CYTOMETRY REPORT ? [facility] Report: ? LAB Reports generated via electr onic interface contain original data; ? however they are lacking the format of the original report. ? Caution should be taken when reading/interpreting unformatted reports. ? Name: ? MARIELLA, JORDYN Chance ? Accession #: ? [id number] ? : ? 1955 (Age: 54) ??M ?Collect Date: ? 03/08/2010 10:50 ? Location: ? [facility] ? Receive Date: ? 03/09/2010 14:00 ? Provider: ?DREW F B RAMÍREZ DO ? Copy to: ? FINAL IMMUNOPHENOTYPIC INTER PRETATION: ? Peripheral blood, flow cytom etric analysis: ?- Immunophenotypically ab errant T-cell population. ??See comment. ? COMMENT: ? The results of flow c ytometry raise the possibility of involvement by a ? lymphoproliferative disorder of T-cell lineage. ??If clinical suspicion of ? involvement by a lymphoproli ferative disorder is high, T-cell receptor gene ? rearrangement studies could be of assistance in addressing this possibility. ? Correlation of these finding s with morphologic and clinical data is essential. ? Document reviewed and electr onically signed by: ? SIMONE LEAL MD ? Report Date: ??03/13/2010 12 :06 ? By the signature above, the attending physician certifies that he/she has ? personally conducted an eval uation of the described specimen and rendered or ? confirmed the above diagnosi s. ? CLINICAL HISTORY: ? The patient is a 54-y ear-old man with fatigue and abnormal CBC. ? DESCRIPTION: ? The specimen consists of peripheral blood subjected to erythrocyte lysis by an ammonium chloride-based t echnique. ??Gating is performed using CD45 ? fluorescence and side scatte r. ??Cellular viability (assessed by propidium iodide exclusion) is excellent (97% ). ??Expression of the following markers is tested: ?? CD2, CD3, CD4, CD5, CD7, CD8 , CD10, CD11b, CD11c, CD13, CD14, CD16, CD19, CD20, CD23, CD33, CD34, CD38, CD45 , CD56, CD57, CD117, FMC-7, HLA-DR, kappa light ? chain, lambda light chain. ? A majority of the lymphoid c ells are T-lymphocytes (CD2+CD3+CD5+CD7+) with CD4+ and CD8+ subsets represented . ??17% of the lymphocytes (9% of total CD45+ events) are CD8+ T-cells that exhibi t dim CD8 expression; these cells show slightly dim CD3 and are essentially nega tive for CD7. ? The remaining lymphocytes ar e B-lymphocytes (CD19+CD20+) and NK-cells ? (CD2+CD3-CD16+CD56+). ??B-ce lls are too few in number to permit definitive ? assessment with respect to l ight chain expression. ??The remainder of the CD45+ ?? events is predominantly of m yeloid lineage. ? End of Report ? Specimen Performing Organization Address City/State/ZIP Code Phon e Number [facility] [address] [place] [phone] SERVICES [facility] [address] [place] [address] documented in this encounter Visit Diagnoses Not on filedocumented in this encounter
--- OUTSIDE RECORDS SUMMARY | 2021-11-01 00:31 | XMS_ITS | Encounter Summary ---
:1955 Author Organization [facility] Address [address] [place] [address] Care Team Providers Name Role Phone Margi Martino MD Primary Care Provider Encounter Details Date Type Department Care Team Description 07/06/2015 Results Only [facility]- OSBALDO Sahara Kunz DO [phone] [facility] [place] [address] Social History Tobacco Use Types Packs/Day Years Used Date Never Assessed Sex Assigned at Date Recorded Not on file documented as of this encounter Plan of Treatment Not on filedocumented as of this encounter Procedures Procedure Name Priority Date/Time Associated Diagnosis Comme [facility] SURGICAL PATHOLOGY Routine 07/06/2015 6:36 EST Re sults for this procedure are i n the results section. documented in this encounter Results SURGICAL PATHOLOGY (07/06/2015 6:36 EST) Pathology Report: SURGICAL PATHOLOGY REPORT [facility] Reports generated via electronic interface contain aric ginal data; LABORATORY however they are lacking the format of the original re port. SERVICES Caution should be taken when reading/interpreting unfo rmatted reports. Name: ? JORDYN WOLFF ? Accession #: ? [id number] ? : ? 1955 (Age: 5 0) ??M ? Collect Date: ? 07/06/2015 ? Location: ? [facility] ? Receive Date: ? 07/07/19 16 ? Provider: SAHARA KUNZ DO Copy to: MARGI MARTINO MD ? Final Pathologic Diagnosis: A. SMALL BOWEL, DUODENUM, BIOPSY: - ??Peptic duodenitis. B. STOMACH, ANTRUM, BIOPSY: - ??Antral and transitional mucosa with reactive gastr opathy. - ??No evidence of Helicobacter pylori on H&E. Document reviewed and electronically signed by: DALTON ESCALERA MD Report ??Date: 07/09/2015 14:16 By the signature above, the attending physician certif ies that he/she has personally conducted a gross and/or microscopic examin ation of the described specimens and rendered or confirmed the above diagnosi s. Specimen(s) Received: A. ??Bx duodenum (#1) B. ??Bx gastric antrum (#2) Clinical History: Epigastric pain Gross Description: A. ?Received in formalin labelled with proper p atient identification (initials D, R) and duodenu m are two pink-an tissues (0.4 x 0.4 x 0.2 cm and 0.4 x 0.4 x 0.2 cm). Entirely submitted in A1. B. ?Received in formalin labelled with proper p atient identification (initials D, R) and gastric antrum are two pink-an tissues (0.4 x 0.3 x 0.2 cm and 0.3 x 0.3 x 0.2 cm). Entirely submitted in B1. Dr. Posadas 07/07/2015 11:25 AM End of Report Specimen Performing Organization Address City/State/ZIP Code Phon e Number [facility] [address] [place] [address] SERVICES documented in this encounter Visit Diagnoses Not on filedocumented in this encounter Care Teams Director Of Capital Giving Relationship Specialty Start Date End Date Margi Martino MD PCP - General 03/14/15 05/19/17 documented as of this encounter
--- OUTSIDE RECORDS SUMMARY | 2021-11-01 00:31 | XMS_ITS | Encounter Summary ---
:1955 Author Organization [facility] Address [address] [place] [address] Care Team Providers Name Role Phone Hardy VMADISON Benjamin Primary Care Provider [phone] Encounter Details Date Type Department Care Team Description 08/13/2018 Results Only [facility] Kamran Nash, [address] [place] [address] Social History Tobacco Use Types Packs/Day Years Used Date Never Assessed Sex Assigned at Date Recorded Not on file documented as of this encounter Plan of Treatment Not on filedocumented as of this encounter Procedures Procedure Name Priority Date/Time Associated Diagnosis Comme [facility] SURGICAL PATHOLOGY Routine 08/13/2018 15:44 Resul ts for this EDT procedure are i n the results section. documented in this encounter Results SURGICAL PATHOLOGY (08/13/2018 15:44 EDT) Pathology Report: SURGICAL PATHOLOGY REPORT [facility] Reports generated via electronic interface conta in original data; [facility] however they are lacking the format of the original re port. SERVICES Caution should be taken when reading/interpreting unfo rmatted reports. Name: ? JORDYN WOLFF ? Accession #: ? [id number] ? : ? 1955 (Age: [age]) ??M ? Collect Date: ? 08/13/2018 ? Location: ? [facility] ? Receive Date: ? 9 ? Provider: KAMRAN NASH DO Copy to: HENRIQUE [place] MPA-C ? Final Pathologic Diagnosis: A. SMALL INTESTINE, DUODENAL BULB, BIOPSY: - Small bowel mucosa with peptic duodenitis. B. STOMACH, ANTRUM, BIOPSY: - Antral mucosa with reactive (chemical) gastropathy. C. STOMACH, GREATER CURVE, BIOPSY: - Oxyntic mucosa with no specific pathologic features. D. ESOPHAGUS, GASTROESOPHAGEAL JUNCTION, BIOPSY: - Columnar lined mucosa with no specific pathologic fe atures. E. ESOPHAGUS, DISTAL, BIOPSY: - Squamous mucosa with histologic features of reflux e sophagitis. ?? Document reviewed and electronically signed by: ZHEN GUTIÉRREZ MD Report ??Date: 08/17/2018 09:21 By the signature above, the attending physician certif ies that he/she has personally conducted a gross and/or microscopic examin ation of the described specimens and rendered or confirmed the above diagnosi s. Specimen(s) Received: A. ??Duodenal bulb bx B. ??Antrum bx C. ??Greater curve bx D. ??GE junction bx E. ??Distal esophagus bx Clinical History: Chronic cough and history of polyps Gross Description: A. ?Received in formalin labelled with proper p atient identification (initials D, R) and duodena l bulb BX is a single pink-an tissue fragment (0.3 x 0.2 x 0.2 cm). Submitted intact in A1. B. ?Received in formalin labelled with proper p atient identification (initials D, R) and antrum BX is a single pink-an tissue fragment (0.5 x 0.3 x 0.2 cm). Submitted intact in B1. C. ?Received in formalin labelled with proper p atient identification (initials D, R) and greater curve BX is a single pink-an tissue fragment (0.8 x 0.2 x 0.2 cm). Submitted intact in C1. D. ?Received in formalin labelled with proper p atient identification (initials D, R) and GE junc tion BX is a single pink-an tissue fragment (0.6 x 0.3 x 0.2 cm). Submitted intact in D1. E. ?Received in formalin labelled with proper p atient identification (initials D, R) and distal esophagus BX is a single pink-an tissue fragment (0.4 x 0.2 x 0.2 cm). Submitted intact in E1. LUKAS Gutierrez (ASCP) 08/13/2018 3:59 PM End of Report Specimen Performing Organization Address City/State/ZIP Code Phon e Number [facility] [address] [place] [address] SERVICES documented in this encounter Visit Diagnoses Not on filedocumented in this encounter Care Teams Superintendent Meter Tests Relationship Specialty Start Date End Date Henrique [place] MPA-C PCP - General 05/20/[address] [place] [address] [phone] documented as of this encounter
--- OUTSIDE RECORDS SUMMARY | 2021-11-01 00:31 | XMS_ITS | Encounter Summary ---
:1955 Author Organization [facility] Address [address] [place] [address] Care Team Providers Name Role Phone Felix Carlos EnriqueMADISON Benjamin Primary Care Provider [phone] Encounter Details Date Type Department Care Team Description 09/05/2021 Lab Requisition [facility] Outr Resulting Lab, Pathology & Laboratory Provider [facility] [address] [place], [place] [address] Social History Tobacco Use Types Packs/Day Years Used Date Never Assessed Sex Assigned at Date Recorded Not on file documented as of this encounter Plan of Treatment Not on filedocumented as of this encounter Procedures Procedure Name Priority Date/Time Associated Diagnosis Comme nts COVID-19 TEST [facility] Today 09/05/2021 13:55 LAB PCR EDT COVID-19 TESTING Routine 09/05/2021 13:55 Results for this EDT procedure are i n the results section. documented in this encounter Results COVID-19 TEST [facility] LAB PCR (09/05/2021 13:55 EDT) Specimen Swab Performing Organization Address City/State/ZIP Code Phon e Number [facility] [address] [place] [address] SERVICES COVID-19 TESTING (09/05/2021 13:55 EDT) COVID-19 rt-PCR Negative Negative [facility] Result Comment: [facility] This test has not been FDA c leared or approved. This test has been authorized by FDA under an EUA for use by authorized laboratories. This test has been authorized only for detection of nucleic acid fro SERVICES m 2018-nCo, not for any oth er viruses or pathogens. This test is only authorized for the duration of the declaration that circumstances exist justifying the authorization of emergency use of in vitro d iagnostic tests for detectio n and/or diagnosis of 2019-nCoV under section 564(b)(1) of Act, 21 U.S.C ?? 360bbb-3(b) (1), unless the authorization is terminated or revoked sooner. Negative results do not prec lude 2019-nCoV infection and should not be used as the sole basis for treatment or other patient management decisions. Negative results must be combined with clinical observa tions, patient history, and epidemiological informatio n. Testing was performed using the deric SARS-CoV-2 assay ([employer] on the Deric 6800 System Performing Lab Deric 6800 [facility] Lab [facility] SERVICES Specimen Swab Performing Organization Address City/State/ZIP Code Phon e Number [facility] [address] [place] [address] SERVICES documented in this encounter Visit Diagnoses Not on filedocumented in this encounter Care Teams Breaker Engineer Relationship Specialty Start Date End Date Henrique [place] MPA-C PCP - General 05/20/[address] [place] [phone] documented as of this encounter
--- OUTSIDE RECORDS SUMMARY | 2021-11-01 00:31 | XMS_ITS | Clinical Summary ---
:1955 Author Organization [facility] Address [address] [place] [address] Care Team Providers Name Role Phone Felix MonacoMADISON Benjamin Primary Care Provider [phone] Encounters Date Type Specialty Care Team Description 09/05/2021 Lab Requisition Clinical Laboratory Outr Resulting Lab , Provider from Last 3 Months Social History Tobacco Use Types Packs/Day Years Used Date Never Assessed Sex Assigned at Date Recorded Not on file Plan of Treatment Health Maintenance Due Date Last Done Comments Hepatitis C Screen 1955 COVID-19 Vaccine (1) 09/02/1959 Fall Risk Screening 09/02/2019 Procedures Procedure Name Priority Date/Time Associated Diagnosis Comme nts COVID-19 TEST [facility] Today 09/05/2021 13:55 LAB PCR EDT COVID-19 TESTING Routine 09/05/2021 13:55 Results for this EDT procedure are i n the results section. from Last 3 Months Results [facility] (09/05/2021 13:55 EDT) Specimen Swab Performing Organization Address City/State/ZIP Code Phon e Number [facility] [address] [place] [address] SERVICES COVID-19 TESTING (09/05/2021 13:55 EDT) COVID-19 rt-PCR Negative Negative [facility] Result Comment: [facility] This test has not been FDA c leared or approved. This test has been authorized by FDA under an EUA for use by authorized laboratories. This test has been authorized only for detection of nucleic acid fro SERVICES m 2018-nCoV, not for any oth er viruses or [...] was performed using the deric SARS-CoV-2 assay ([employer] on the Deric 6800 System Performing Lab Deric 6800 [facility] Lab [facility] SERVICES Specimen Swab Performing Organization Address City/State/ZIP Code Phon e Number [facility] [address] [place] [address] SERVICES from Last 3 Months Care Teams Injection Wax Molder Relationship Specialty Start Date End Date Henrique [place] MPA-C PCP - General 05/20/[address] [place] [address] [phone]
--- NOTE | 2021-11-01 12:30 | DI.RAD_ITS ---
Exam(s) XR SHOULDER RT COMPLETE 2+V EXAM: XR SHOULDER RT COMPLETE 2+V CLINICAL HISTORY: PAIN IN RT SHOULDER, M25.511; ASSESS DISTAL CLAVICLE WELL. TECHNIQUE: 2D digital imaging was performed of the right shoulder. Five images were obtained. AP, Grashey, Y-view and axillary views were obtained. COMPARISON: CR RIGHT SHOULDER 1 VIEW from 01/18/2013 FINDINGS: BONES: No acute fracture is present. No bony destructive lesion is seen. Stable postsurgical changes are seen in the humeral head and AC joint. JOINTS: No dislocation present. Mild degenerative changes are seen at the glenohumeral joint. SOFT TISSUE: Normal. IMPRESSION: Mild degenerative changes of the glenohumeral joint. DATA REPOSITORY: RADIATION DOSE DELIVERED:
== END ==
PROVIDERS: PCP Physician Assistant; Visit Provider Nurse Practitioner Family
DX: M25.511 Pain in right shoulder (principal); M19.011 Primary osteoarthritis, right shoulder; Z98.890 Other specified postprocedural states
CPT/HCPCS: 73030

== ENCOUNTER 2021-11-08 02:09 | Outpatient (CLI) | payer OTHER, SELFPAY ==
--- OUTSIDE RECORDS SUMMARY | 2021-11-08 02:16 | XMS_ITS | Encounter Summary ---
:1955 Author [address] [place] [address] Care Team Providers Name Role Phone Vipul Martino MD Primary Care Provider Encounter Details Date Type Department Care Team Description 06/15/2014 Surgery Deodorizer Operator Dewey Khan MD CARDIAC CATHETERIZATION [facility] DR Joseph [place] [address] [place] [address] [phone] (Wo rk) Social History Tobacco Use Types [...] by your doctor, do not take any xahh-mxq-vimpdxe medicines orherbal preparations without first discussing this with your doctor or pharmacist. There is the possibility of side effect and interactions when these are combined. Follow up Care Who to Call with Questions or Problems If there are any questions or problems that you think might be related to your cardiac cath or angioplasty, contact the insurance account specialist informatics consultant by calling [facility] at . documented in this encounter Medications [...] injection (CANCELED) 1125 (Given - Provider: Dewey Moanco MD - Comment: right groin) ONCE PRN, [...] Comment: 500cc IV bolus) ONCE PRN, Starting Ac 2/5/15 at 1150, U ntil Ca 2/5/15 at 1203, Cath (Intra-Procedure) documented in this encounter Care Teams Instrument Repair Specialist Relationship Specialty Start Date End Date Vipul Martino MD PCP - General 06/13/14 05/10/19 documented as of this encounter
--- OUTSIDE RECORDS SUMMARY | 2021-11-08 02:16 | XMS_ITS | Encounter Summary ---
:1955 Author Organization [facility] [place] [address] Care Team Providers Name Role Phone Jess Olivia Primary Care Provider Reason for Visit - Closed Specialty Diagnoses / Procedures Referred By Contact Refer red To Contact Procedures Adam Aguilar MD Film Library- Storage Only MR [address] [facility], [facility] [address] Referral ID Status Reason Start Date Expiration Date Visits Requ ested Visits Authorized [id number] Closed 07/30/2020 07/30/2021 1 1 Encounter Details Date Type Department Care Team Description 07/25/2020 Ancillary Procedure Radiology at [facility] [place] [address] [place] [address] [phone] (Wo rk) Social History Tobacco Use Types [...] Code Phon e Number DH RAD DH [place], [place] documented in this encounter Visit Diagnoses Not on filedocumented in this encounter Care Teams Glass Inspector Relationship Specialty Start Date End Date Jess Olivia PA PCP - General Family Medicine 07/22/[address] [place] [phone] documented as of this encounter
--- OUTSIDE RECORDS SUMMARY | 2021-11-08 02:16 | XMS_ITS | Encounter Summary ---
:1955 Author Organization [facility] [place] [address] Care Team Providers Name Role Phone Jess Olivia Primary Care Provider Encounter Details Date Type Department Care Team Description 09/21/2020 Ancillary Procedure Radiology at [facility] Adam Aguilar MD [address] [place] [address] NEUROSURGERY-UVN [place], [place] [address] (Wo rk) Social History Tobacco [...] Address City/State/ZIP Code Phon e Number RAD [place], [place] documented in this encounter Visit Diagnoses Not on filedocumented in this encounter Care Teams Rumper Relationship Specialty Start Date End Date Jess Olivia PA PCP - General Family Medicine 07/22/[address] [place] [phone] documented as of this encounter
--- OUTSIDE RECORDS SUMMARY | 2021-11-08 02:16 | XMS_ITS | Encounter Summary ---
:1955 Author Organization [facility] [place] [address] Care Team Providers Name Role Phone Jess Olivia Primary Care Provider Encounter Details Date Type Department Care Team Description 10/15/2021 Anesthesia Event Gastroenterology at [facility] Dinah Hernandez, [facility] [place] [address] [facility] [phone] DR ANESTHESIOLOGY [place], [place] [address] Anesthesia Record Procedure Summary Procedure [...] on filedocumented in this encounter Care Teams Textile Coating Machine Operator Relationship Specialty Start Date End Date Jess Olivia PA PCP - General Family Medicine 07/22/19 [address] [place] [address] documented as of this encounter
--- OUTSIDE RECORDS SUMMARY | 2021-11-08 02:16 | XMS_ITS | Encounter Summary ---
:1955 [place] [address] Care Team Providers Name Role Phone Jess Olivia Primary Care Provider Encounter Details Date Type Department Care Team Description 07/06/2020 Telephone Neurology at [facility] Kim Morales MD [facility] [place] [address] NEUROLOGY DEPT [phone] [place], [place] [address] (Wo rk) Social History Tobacco [...] 07/06/2020 10:01 AM EST Call Center / Director Of Institutional Giving Message - General Issue Call Provider patient sees in Clinic: Andrew Caller and relationship (if other than patient-full name): ciara Call back number: [phone] Ok to leave a message: y Reason [...] Nurse: n ??? Routine message sent to Director Of Institutional Giving: y documented in this encounter Plan of Treatment Not on filedocumented as of this encounter Visit Diagnoses Not on filedocumented in this encounter Care Teams [place] Relationship Specialty Start Date End Date Jess Olivia PA PCP - General Family Medicine 07/22/[address] [place] [phone] documented as of this encounter
--- OUTSIDE RECORDS SUMMARY | 2021-11-08 02:16 | XMS_ITS | Encounter Summary ---
:1955 [place] [address] Care Team Providers Name Role Phone Jess Olivia Primary Care Provider Encounter Details Date Type Department Care Team Description 03/21/2020 Laboratory Appointment Lab 3L [facility] [place] [address] Social History Tobacco Use Types Packs/Day [...] LVL(VITAMIN B1) EST procedure ar e in [facility] the results section. HC VENIPUNCTURE Routine 03/21/2020 [...] 4:08 PM EST) athologist Signature Vitamin B-12 205 232 - 1,104 [facility] pg/mL [facility] Specimen Anatomical Collection Method Collection Time Receive d Time (Source) Location / / Volume Laterality Blood specimen 03/21/2020 4:08 PM 020 4:16 (specimen) EST PM EST Resulting Agency Comment Spec In Lab Sabino Walker MD CHEMISTRY ORDERABLES Performing Organization Address City/[facility]/ZIP Code Phon e Number [address] Folate, serum (03/21/2020 4:08 PM EST) athologist Signature Folate Lvl 11.6 4.8 - 24.2 [facility] ng/mL [facility] Specimen Anatomical Collection Method Collection Time Receive d Time (Source) Location / / Volume Laterality Blood specimen 03/21/2020 4:08 PM 020 4:16 (specimen) EST PM EST Resulting Agency Comment Spec In Lab Sabino Walker MD CHEMISTRY ORDERABLES Performing Organization Address [facility] Phon e Number [address] Vitamin B1, whole blood (03/21/2020 4:08 PM EST) athologist Signature Vit B1 Lvl WB 122 70 - 180 [facility] nmol/L [facility] Comment: ADDITIONAL INFORMATIO N This test was developed and its performa nce characteristics determined by [facility] in a manner co nsistent with CLIA requirements. This test has not been channing ared or approved by the U.S. Food and Drug Administration. Test Performed by: [facility] [address] [place] [address] 42 Body Art Technician: Dario Armando M.D. Ph. D.; CLIA# [id number] Specimen Anatomical Collection Method Collection Time Receive d Time (Source) Location / / Volume Laterality Blood specimen 03/21/2020 4:08 PM 020 (specimen) EST 10:33 AM EST Resulting Agency Comment Spec In Lab Sabino Walker MD CHEMISTRY ORDERABLES Performing Organization Address City/[facility]/ZIP [place] [address] TSH (03/21/2020 4:08 PM EST) P athologist Signature TSH 3.21 0.27 - 4.20 [facility] mcIU/mL [facility] Specimen Anatomical Collection Method Collection Time Receive d Time (Source) Location / / Volume Laterality Blood specimen 03/21/2020 4:08 PM 020 4:16 (specimen) EST PM EST Resulting Agency Comment Spec In Lab Sabino Walker MD CHEMISTRY ORDERABLES Performing Organization Address City/State/[place] [address] documented in this encounter Visit Diagnoses Diagnosis Memory loss documented in this encounter Care Teams Production Administrative Assistant Relationship Specialty Start Date End Date Jess Olivia PA PCP - General Family Medicine 07/22/[address] [place] [phone] documented as of this encounter
--- OUTSIDE RECORDS SUMMARY | 2021-11-08 02:16 | XMS_ITS | Encounter Summary ---
:1955 [place] [address] Care Team Providers Name Role Phone Jess Olivia Primary Care Provider Reason for Visit Auth/Cert Specialty Diagnoses / Procedures Referred By Contact Refer red To Contact Diagnoses SPONDYLOSIS, STENOSIS Procedures PRO LAMINEC/FACETECT/FORAMIN, LUMBAR 1 SEG LAMINECTOMY,FACETECTOMY & FORAMINOTOMY,LUMBAR,ONE LEVEL,LENA Referral ID Status Reason Start Date Expiration Date Visits Requ ested Visits Authorized [id number] 1 1 Encounter Details Date Type Department Care Team Description 10/16/2020 Anesthesia Event Operating Room Lilia Chand Moser Day STOREROOM SUPERVISOR [address] [facility] [place] [address] ANESTHESIOLOGY [phone] [place], [place] [address] (Wo rk) Anesthesia Record Procedure Summary Procedure Name Responsible Anesthesia Start Anesthesia Stop Time Anesthesiologist Time LAMINECTOMY,FACETEC Lilia Garcia STOREROOM SUPERVISOR 10/16/20 1229 12/29 1447 SUE & FORAMINOTOMY,LUMBAR [...] hand), left; GREG Vicente Emily A, RN lnaf-qat-cmfria catheter system; Anatomical Landmarks; 20 gauge; fy; [...] Procedure Summary Date: 10/16/20 Room / Location: [facility] OR MAIN OR Anesthesia Start: 1229 Anesthesia [...] Routine documented in this encounter Care Teams Furniture Removalist'S Assistant Relationship Specialty Start Date End Date Jess Olivia PA PCP - General Family Medicine 07/22/[address] [place] [phone] documented as of this encounter
--- OUTSIDE RECORDS SUMMARY | 2021-11-08 02:16 | XMS_ITS | Encounter Summary ---
:1955 [place] [address] Care Team Providers Name Role Phone Vipul Martino MD Primary Care Provider Encounter Details Date Type Department Care Team Description 06/15/2014 Hospital Encounter Same Day Program at Dewey Aguilar MD (arteriosclerotic [facility] cardiovascular [facility] CENTER DR disease) [facility] CARDIOLOGY [place], [place] DEPT. [address] [place], [place] [phone] [address] Social History Tobacco Use Types Packs/Day Years [...] by your doctor, do not take any sbsc-uvc-seujldb medicines orherbal preparations without first discussing this with your doctor or pharmacist. There is the possibility of side effect and interactions when these are combined. Follow up Care Who to Call with Questions or Problems If there are any questions or problems that you think might be related to your cardiac cath or angioplasty, contact the brick shader electronics technology department chair by calling [facility] at . documented in this encounter Medications [...] (Intra-Procedure) documented in this encounter Care Teams Health And Fitness Instructor Relationship Specialty Start Date End Date Vipul Martino MD PCP - General 06/13/14 05/10/19 documented as of this encounter
--- OUTSIDE RECORDS SUMMARY | 2021-11-08 02:16 | XMS_ITS | Encounter Summary ---
:1955 [place] [address] Care Team Providers Name Role Phone Jess Olivia Primary Care Provider Reason for Visit Reason Onset Date Comments Other 03/22/2020 Encounter Details Date Type Department Care Team Description 03/22/2020 Telephone Neurology at [facility] [place] [place] Kim Morales MD Other [facility] [place] [address] NEUROLOGY DEPT [phone] [place], [place] [address] (Wo rk) Social History Tobacco Use Types Packs/Day Years Used Date Never Smoker Smokeless Tobacco: Never Used Alcohol Use Standard Drinks/Week Comments Not Currently 0 (1 standard drink = 0.6 oz pure alcoho l) Sex Assigned at Date Recorded Not on file documented as of this encounter Miscellaneous Notes Telephone Encounter - Melissa Hernández RN - 03/22/2020 4:27 PM EST Call made to the patient. Message left with the family informing the daughter the medication to takeprior to the MRI will be sent to his pharmacy. Also informed the daughter the patient will need a interstate bus driver to and from the MRI due to the medication. Telephone Encounter - Melissa Hernández RN - 03/22/2020 3:05 PM EST [phone] Call made to the patient. Informed the patient the MRI requires he have lab work done prior to the exam. Patient would like the labs to be drawn at [facility] in [place], [place]. Lab orders faxed there. Patient would also like a prescription for something for anxiety as well as he is claustrophobic. Telephone Encounter - Emily Castaneda - 03/22/2020 2:45 PM EST Call Center / [place] Message - General Issue Call Provider patient sees in Clinic: Andrew Caller and relationship (if other than patient-full name): Glen- [place] [facility] Call back number: [phone] Ok to leave a message: y Reason for call: [facility] called requesting anxiety medication the pt states he is claustrophobicand a creatine lab is needed prior to his MRI on 04/03/20 9:30 AM. Confirmed [facility] in [place], [place] please call Glen at [facility] when lab order is placed. Disposition of Call (choose one and remove others): ??? Red Arrow Message Reason red arrow Message: n ??? Routine Message sent to the Nurse: y ??? Routine message sent to Virology Teacher: n documented in this encounter Plan of Treatment Not on filedocumented as of this encounter Visit Diagnoses Diagnosis Memory loss documented in this encounter Care Teams Adult Crossing Guard Relationship Specialty Start Date End Date Jess Olivia PA PCP - General Family Medicine 07/22/[address] [place] [address] documented as of this encounter
--- OUTSIDE RECORDS SUMMARY | 2021-11-08 02:16 | XMS_ITS | Encounter Summary ---
:1955 Author Organization [facility] [place] [address] Care Team Providers Name Role Phone Jess Olivia Primary Care Provider Encounter Details Date Type Department Care Team Description 10/15/2020 External Results Pre-Admission Testing at [facility] [address] [place] [address] Social History Tobacco Use Types Packs/Day [...] Name Priority Date/Time Associated Diagnosis Comme nts LAB SCAN Routine 10/10/2020 Results for thi s procedure are in the resu lts section. ECG SCAN Routine 07/16/2020 Results for thi s procedure are in the resu lts section. documented in this encounter Results Scan Doc: Lab (10/10/2020) Narrative This result has an attachment that is no t available. Historical Provider MEDIA MGR SCAN EXT ORDR/RSLT Scan Doc: ECG (07/16/2020) Narrative This result has an attachment that is no t available. Historical Provider MEDIA MGR SCAN EXT ORDR/RSLT documented in this encounter Visit Diagnoses Not on filedocumented in this encounter Care Teams Police Lieutenant Patrol Relationship Specialty Start Date End Date Jess Olivia PA PCP - General Family Medicine 07/22/19 [address] [place] [address] documented as of this encounter
--- OUTSIDE RECORDS SUMMARY | 2021-11-08 02:16 | XMS_ITS | Encounter Summary ---
:1955 Author Organization [facility] Address [address] [place] [address] Care Team Providers Name Role Phone Jess Olivia Primary Care Provider Reason for Visit Reason Onset Date Comments TeleHealth 04/25/2020 Appt 04/26/20 Encounter Details Date Type Department Care Team Description 04/25/2020 Telephone Neurology at [facility] Kim Morales MD TeleHealth (Appt [facility] ) [place] [address] NEUROLOGY DEPT [phone] [place] [phone] (Wo rk) Social History Tobacco Use Types Packs/Day Years Used Date Never Smoker Smokeless Tobacco: Never Used Alcohol Use Standard Drinks/Week Comments Not Currently 0 (1 standard drink = 0.6 oz pure alcoho l) Sex Assigned at Date Recorded Not on file documented as of this encounter Miscellaneous Notes Telephone Encounter - Shivani Suarez CMA - 04/25/2020 2:33 PM EST Did not speak with patient to review medications and allergies prior to upcoming tele- appointment scheduled with Neurology provider. documented in this encounter Plan of Treatment Not on filedocumented as of this encounter Visit Diagnoses Not on filedocumented in this encounter Care Teams Private Secretary Relationship Specialty Start Date End Date Jess Olivia PA PCP - General Family Medicine 07/22/19 [address] [place] [address] documented as of this encounter
--- OUTSIDE RECORDS SUMMARY | 2021-11-08 02:16 | XMS_ITS | Encounter Summary ---
:1955 Author Organization [facility] [place] [address] Care Team Providers Name Role Phone Jess Olivia Primary Care Provider Reason for Visit Reason Onset Date Comments Other 03/22/2020 Encounter Details Date Type Department Care Team Description 03/22/2020 Telephone [place]rology [place] [facility] [place] Morales MD Other [facility] [place] [address] NEUROLOGY DEPT [phone] [place], [place] [address] (Wo rk) Social History Tobacco [...] 03/22/2020 12:27 PM EST Call Center / [place] Message - General Issue Call Provider patient sees in Clinic: Kim Morales Caller and relationship (if other than patient-full name): Pauline from [facility] Call back number: [phone] Ok to leave a message: y Reason for call: Pauline from [place] [facility] is calling to verify if [...] on filedocumented in this encounter Care Teams Environmental Compliance Officer Relationship Specialty Start Date End Date Jess Olivia PA PCP - General Family Medicine 07/22/[address] [place] [address] documented as of this encounter
--- OUTSIDE RECORDS SUMMARY | 2021-11-08 02:16 | XMS_ITS | Encounter Summary ---
:1955 Author Organization [facility] [place] [address] Care Team Providers Name Role Phone Jess Olivia Primary Care Provider Reason for Referral Consultation (Urgent) - Closed Specialty Diagnoses / Procedures Referred By Contact Refer red To Contact Gastroenterology Diagnoses Hx of adenomatous colonic polyps Melena Abdominal pain, generalized Jess Olivia PA [facility] Endoscopy 4t [address] [place], [place] [address] [place] [address] Phone: Referral ID Status Reason Start Date Expiration Date Visits V isits Requested Authorized [id number] Closed Consult, 07/12/2021 07/12/2022 6 6 Test & Treat Encounter Details Date Type Department Care Team Description 07/12/2021 Transcribe Orders Administration Jess Olivia Hx of adenomatous colonic po lyps; [facility] LUKAS Kennedyena; Drive [address] Abdominal [place], [place] [address] [phone] Social History Tobacco Use Types Packs/Day Years [...] generalized documented in this encounter Care Teams Chief Order Dispatcher Relationship Specialty Start Date End Date Jess Olivia PA PCP - General Family Medicine 07/22/[address] [place] [address] documented as of this encounter
--- OUTSIDE RECORDS SUMMARY | 2021-11-08 02:16 | XMS_ITS | Encounter Summary ---
:1955 Author Organization [facility] [place] [address] Care Team Providers Name Role Phone Jess Olivia Primary Care Provider Reason for Visit Reason Comments Advice Only other amnesia Consultation (Routine) - Closed Specialty Diagnoses / Procedures Referred By Contact Refer red To Contact Neurology Diagnoses Other amnesia Pinky Squires APRN [facility] Neurology 3c Procedures [facility] [address] [facility] [address] [place], [place] [address] [place] [address] Fax: Referral ID Status Reason Start Date Expiration Date Visits V isits Requested Authorized [id number] Closed Consult, Test 07/22/2019 07/21/2020 1 1 & Treat [facility] PCP Updated and/or Approved Encounter Details Date Type Department Care Team Description 03/21/2020 Office Visit Neurology at [facility] Kris Brown MD [facility] [place] [address] Memory loss [facility] Kim Flowers MD [facility] [place] [address] [place] [address] Social History Tobacco Use Types Packs/Day [...] them.His memory issues are short term and longterm. For example, he cannot remember anything from [...] 3.21 0.27 - 4.20 YOCASTA ANDREW mcIU/mL [facility] Specimen Anatomical Collection Method Collection Time Receive d Time (Source) Location / / Volume Laterality Blood specimen 03/21/2020 4:08 PM 020 4:16 (specimen) EST PM EST Resulting Agency Comment Spec In Lab Kris Brown MD CHEMISTRY ORDERABLES Performing Organization Address City/[facility]/ZIP Code Phon e Number [address] Vitamin B1, whole blood (03/21/2020 4:08 PM EST) athologist Signature Vit B1 Lvl WB 122 70 - 180 [facility] AND[facility] nmol/L [facility] Comment: ADDITIONAL INFORMATIO N This test was developed and its performa nce characteristics determined by [facility] in a manner co nsistent with CLIA requirements. This test has not been channing ared or approved by the U.S. Food and Drug Administration. Test Performed by: [facility] [place][note 2] [address] [address] Fish Pitcher: Dario Armando M.D. Ph. D.; CLIA# [id number] Specimen Anatomical Collection Method Collection Time Receive d Time (Source) Location / / Volume Laterality Blood specimen 03/21/2020 4:08 PM 020 (specimen) EST 10:33 AM EST Resulting Agency Comment Spec In Lab Kris Brown MD CHEMISTRY ORDERABLES Performing Organization Address City/State/ZIP Code Phon e Number [place] [phone] [facility] Folate, serum (03/21/2020 4:08 PM EST) athologist Signature Folate Lvl 11.6 4.8 - 24.2 [facility] AND[facility]W ng/mL [facility] Specimen Anatomical Collection Method Collection Time Receive d Time (Source) Location / / Volume Laterality Blood specimen 03/21/2020 4:08 PM 020 4:16 (specimen) EST PM EST Resulting Agency Comment Spec In Lab Kris Brown MD CHEMISTRY ORDERABLES Performing Organization Address City/State/[place] [address] Vitamin B12 (03/21/2020 4:08 PM EST) athologist Signature Vitamin B-12 615 232 - 1,481 [facility] pg/mL [facility] Specimen Anatomical Collection Method Collection Time Receive d Time (Source) Location / / Volume Laterality Blood specimen 03/21/2020 4:08 PM 020 4:16 (specimen) EST PM EST Resulting Agency Comment Spec In Lab Kris Brown MD CHEMISTRY ORDERABLES Performing Organization Address City/[facility]/[place] [address] documented in this encounter Visit Diagnoses Diagnosis Memory loss documented in this encounter Care Teams Vacuum Tester Cans Relationship Specialty Start Date End Date Jess Olivia PA PCP - General Family Medicine 07/22/[address] [place] [address] documented as of this encounter
--- OUTSIDE RECORDS SUMMARY | 2021-11-08 02:16 | XMS_ITS | Encounter Summary ---
:1955 [place] [address] Care Team Providers Name Role Phone Jess [...] Expiration Date Visits Requ ested Visits Authorized [id number] 1 1 Encounter Details Date Type Department Care Team Description 08/06/2021 Surgery Double Surface Operator Maame Lopez I , CARDIAC CATHETERIZATION [facility] [place] [address] CARDIOLOGY [phone] [place], [place] [address] (Wo rk) Social History Tobacco [...] in this encounter Discharge Instructions Discharge InstructionsSylvia Dvais RN - 08/06/2021 1:51 PM EDT Radial [...] by your doctor, do not take any vkyj-ron-jambjdl medicines or herbal preparations without first discussing this with your doctor or pharmacist. There is the possibility of side effects and interactions when these are combined. Follow Up Care Who to call with questions or problems If there are any questions or problems that you think might be related to your cardiac cath or angioplasty, contact the edger hand corrections nurse by calling [facility] at . Patient InstructionsMehran Hannah, DO - [...] appointments: During 8am-5pm Thursday through Thursday call [phone] to speak with a nurse in the cardiology clinic All other times call [phone] and ask to speak to the c software developer corrections nurse. Your Inpatient Doctor(s) at [facility]: Maame Koehler MD - Attending physician Your Primary Care Provider: LUKAS Real [address] / [facility] [address] For questions regarding issues relating to your hospitalization on the Hospital Medicine Service, please contact your inpatient physician through the [facility] Packing Machine Tender [phone]. Issues after hours and on weekends will be handled by the Hospitalist staff on-call. documented in this encounter Medications at Time of Discharge Medication Sig Dispensed Refills Start Date End Date HYDROcodone-acetaminophen Take 1-2 tablets by 20 tablet 0 0 10/16/2020 ([place]) 5-325 mg Tablet mouth every 6 hours as needed. atorvastatin (Lipitor) 20 mg TAKE 1 TABLET BY 0 0 07/16/2020 Tablet MOUTH DAILY AT BEDTIME cyclobenzaprine (Flexeril) TAKE 1/2 TABLET BY 0 0 07/04/2020 10 mg Tablet MOUTH THREE TIMES DAILY NEEDED fluticasone propionate SHAKE LIQUID AND 0 021 (FLONASE) 50 mcg/actuation USE 1 TO 2 SPRAYS Marcell, Suspension IN EACH NOSTRIL TWICE DAILY aspirin [...] SYSTEM - 08/06/2021 1:29 PM ED T ?[facility] ? Cardiac Cathete rization/Intervention Report ? Patient Name: Dylon Navarro. ? Procedure Date: 08/06/2021 ? A #: [id number] ? Primary Physician: Miguel, Maame I ? Case #: [id number] ? File Name: [id number] ? Catheterization Order Number: [id number] ? [facility] ? Final Report [place], [place] ? Patient Name: ? Dylon R. Deth ? ID#: ?[id number] ? : ?1955 ? Procedure Date: ? [...] procedure was Elective. The indication for ?the calibration laboratory technician visit is cardiomyo julio. Chest pain symptom [...] P athologist Signature Neutrophils % 56.7 % [facility] Neutr Abs (ANC) 4.02 1.70 - YOCASTA MORALES 6.[address] [facility] x10(3)/[facility] LABORATORY Lymphocytes % 32.2 % [facility] Lymphocytes Abs 2.3 0.9 - 3.2 [facility] x10(3)/[facility] LABORATORY Monocytes % 8.3 % [facility] Monocyte Abs 0.6 0.3 - 0.9 [facility] x10(3)/[facility] LABORATORY Eosinophils % 1.8 % [facility] Eosinophils Abs 0.1 0.0 - 0.4 [facility] x10(3)/[facility] LABORATORY Basophils % 0.4 % [facility] Basophils Abs 0.0 0.0 - 0.1 [facility] x10(3)/[facility] LABORATORY Immature Gran % 0.60 % [facility] Comment: Immature granulocytes(IG's)percentage an d absolute count will include metamyelocytes, myelocytes, and promyelo cytes. Blood smears from CBCs yielding IG's will be scanned manually for concor dance. If this scan disagrees with the automated IG or if promyelocytes are not ed, a manual differential will be performed. [place] Gran Abs 0.04 0.00 - 0.04 x10(3)/[facility] MAR Y [facility] LABORATORY Specimen Anatomical Collection Method Collection Time Receive d Time (Source) Location / / Volume Laterality Blood 08/06/2021 9:25 AM 9:46 EDT AM EDT Resulting Agency Comment Spec In Lab Og GAYTAN HEMATOLOGY ORDERABLES Performing Organization Address City/State/[place] [address] (ABNORMAL) Hemogram (08/06/2021 9:25 AM EDT) Analysis Performed At Patho logist Time Signature WBC 7.1 4.0 - 9.5 [facility] x10(3)/[facility] LABORATORY RBC 4.47 (L) 4.58 - [facility] 5.[address] [facility] x10(6)/[facility] LABORATORY Hemoglobin 13.6 (L) 13.7 - [facility] 16.5 g/dL [facility] LABORATORY Hematocrit 38.7 (L) 40.5 - [facility] 48.5 % [facility] MCV 86.6 82.9 - [facility] 93.1 fL [facility] MCH 30.4 27.5 - [facility] 32.1 pg [facility] MCHC 35.1 32.0 - [facility] MORALES 35.7 g/dL [facility] Platelets 164 145 - 357 [facility] MORALES x10(3)/[facility] LABORATORY RDWSD 40.0 36.0 - [facility] MORALES 45.0 [facility] LABORATORY RDWCV 12.8 11.4 - [facility] MAYRA 13.8 % [facility] LABORATORY MPV 10.7 7.6 - 12.9 [facility] nRBC % Auto 0.0 % [facility] nRBC Abs Auto 0.000 0.000 - [facility] MAYRA 0.[address] [facility] x10(3)/[facility] LABORATORY Specimen Anatomical Collection Method Collection Time Receive d Time (Source) Location / / Volume Laterality Blood 08/06/2021 9:25 AM 9:46 EDT AM EDT Resulting Agency Comment Spec In Lab Og GAYTAN HEMATOLOGY ORDERABLES Performing Organization Address City/State/[place] [address] (ABNORMAL) BMP w/fasting Glucose (08/06/2021 9:25 AM EDT) athologist Signature Glucose 120 (H) 65 - 99 [facility] Fasting mg/dL [facility] Comment: ?Fasting* Glucose Interpretive C riteria [...] of Diabetes Mellitus, Position Statement from the [place] [employer]. ??Diabete s Care, Volume 33, Supplement 1, May 2009 BUN 26 (H) 10 - 20 mg/dL [facility] Creatinine 1.17 0.80 - 1.50 mg/dL [facility] Sodium 136 135 - 145 mmol/L [facility] Potassium 4.6 3.5 - 5.0 mmol/L [facility] Comment: Please note: ??Patients with WBC >100,00 0 may have falsely elevated Potassium levels. ??For accurate Potassium quantif ication in these patients send serum separator tube (gold top) for subsequent determinations. ??Contact the Clinical Chemistry Laboratory if there are any qu estions. Chloride 104 98 - 107 mmol/L [facility] CO2 23 22 - 31 mmol/L [facility] Anion Gap 9 5 - 15 mmol/L [facility]ORY Calcium 9.3 8.5 - 10.5 mg/dL [facility] Estimated GFR 65 >=60 mL/min/1.73 m?? [facility] Comment: This patient? s [...] Organization Address City/State/[place] [address] EKG 12 Lead (08/06/2021 9:07 AM EDT) Component Value Ref Range Test Analysis Performed Pathologis t Method Time At Signature Ventricular rate 74 BPM MUSE SYSTEM Atrial Rate 74 BPM MUSE SYSTEM P-R Interval 178 ms MUSE SYSTEM QRS Duration 98 ms MUSE SYSTEM Q-T Interval 408 ms MUSE SYSTEM QTC Calculated 452 ms MUSE SYSTEM (Bezet) Calculated P [place] 35 degrees MUSE SYSTEM Calculated R [place] 7 degrees MUSE SYSTEM Calculated T [place] 33 degrees MUSE SYSTEM INTERPRETATION Normal sinus [...] infusion (CANCELED) 1039 (New Bag - Provider: Erki Serna, GREG) CONTINUOUS PRN, Starting on Thu08/06/21 at 1039, Until Thu08/06/21 at 1421, Cath (Intra-Procedure) verapamiL (Isoptin) (2.5 mg/mL) injection (CANCELED) 1033 (Given - Provider: Mehran Hannah DO) ONCE PRN, Starting on Thu08/06/21 at 103 4, Until Thu08/06/21 at 1421, Administer over 2 Minutes, Cath (Intra-Procedure) documented in this encounter Care Teams Ceramics Technician Relationship Specialty Start Date End Date Jess Olivia PA PCP - General Family Medicine 07/22/[address] [place] [address] documented as of this encounter
--- OUTSIDE RECORDS SUMMARY | 2021-11-08 02:16 | XMS_ITS | Encounter Summary ---
:1955 [place] [address] Care Team Providers Name Role Phone Jess [...] Expiration Date Visits Requ ested Visits Authorized [id number] 1 1 Encounter Details Date Type Department Care Team Description 08/06/2021 Hospital Encounter Same Day Program at [facility] Screening for cardiovascular condition; Fannie Koehler MD Chest discomfort [facility] [place] [phone] Social History Tobacco Use Types Packs/Day Years [...] by your doctor, do not take any qkds-hmc-btrsndk medicines or herbal preparations without first discussing this with your doctor or pharmacist. There is the possibility of side effects and interactions when these are combined. Follow Up Care Who to call with questions or problems If there are any questions or problems that you think might be related to your cardiac cath or angioplasty, contact the gear shaper set up operator independent consultant by calling [facility] at . Patient InstructionsMehran Hannah, DO [...] appointments: During 8am-5pm Thursday through Thursday call [phone] to speak with a nurse in the cardiology clinic All other times call [phone] and ask to speak to the shale processing technician independent consultant. Your Inpatient Doctor(s) at [facility]: Maame Koehler MD - Attending physician Your Primary Care Provider: LUKAS Real [address] / [place] [address] For questions regarding issues relating to your hospitalization on the Hospital Medicine Service, please contact your inpatient physician through the [facility] Credit Front Office Developer [phone]. Issues after hours and on weekends will be handled by the Hospitalist staff on-call. documented in this encounter Medications at Time of Discharge Medication Sig Dispensed Refills Start Date End Date HYDROcodone-acetaminophen Take 1-2 tablets by 20 tablet 0 0 10/16/2020 ([place]) 5-325 mg Tablet mouth every 6 hours as needed. atorvastatin (Lipitor) 20 mg TAKE 1 TABLET BY 0 0 07/16/2020 Tablet MOUTH DAILY AT BEDTIME cyclobenzaprine (Flexeril) TAKE 1/2 TABLET BY 0 0 07/04/2020 10 mg Tablet MOUTH THREE TIMES DAILY NEEDED fluticasone propionate SHAKE LIQUID AND 0 021 (FLONASE) 50 mcg/actuation USE 1 TO 2 SPRAYS [place], Suspension IN EACH NOSTRIL TWICE DAILY aspirin [...] SYSTEM - 08/06/2021 1:29 PM ED T ?[facility] ? Cardiac Cathete rization/Intervention Report ? Patient Name: Dylon Navarro. ? Procedure Date: 08/06/2021 ? A #: [id number] ? Primary Physician: Maame Rivera I ? Case #: [id number] ? File Name: [id number] ? Catheterization Order Number: [id number] ? [facility] ? Final Report [place], [place] ? Patient Name: ? Dylon Chance. Melanie ? ID#: ?[id number] ? : ?1955 ? Procedure Date: ? [...] procedure was Elective. The indication for ?the manager cath lab visit is cardiomyo julio. Chest pain symptom [...] EDT) athologist Signature Neutrophils % 56.7 % [facility] Neutr Abs (ANC) 4.02 1.70 - FANNIE ANDREW 6.10 [facility] x10(3)/[facility] LABORATORY Lymphocytes % 32.2 % [facility] Lymphocytes Abs 2.3 0.9 - 3.2 [facility] x10(3)/[facility] LABORATORY Monocytes % 8.3 % [facility] Monocyte Abs 0.6 0.3 - 0.9 [facility] x10(3)/[facility] LABORATORY Eosinophils % 1.8 % [facility] Eosinophils Abs 0.1 0.0 - 0.4 [facility] x10(3)/[facility] LABORATORY Basophils % 0.4 % [facility] Basophils Abs 0.0 0.0 - 0.1 [facility] x10(3)/[facility] LABORATORY Immature Gran % 0.60 % [facility] Comment: Immature granulocytes(IG's)percentage an d absolute count will include metamyelocytes, myelocytes, and promyelo cytes. Blood smears from CBCs yielding IG's will be scanned manually for concor dance. If this scan disagrees with the automated IG or if promyelocytes are not ed, a manual differential will be performed. Antonia Gran Abs 0.04 0.00 - 0.04 x10(3)/[facility]ORY Specimen Anatomical Collection Method Collection Time Receive d Time (Source) Location / / Volume Laterality Blood 08/06/2021 9:25 AM 9:46 EDT AM EDT Resulting Agency Comment Spec In Lab Og [facility]AYTAN [facility]EMATOLOG[facility] ORDERABLES Performing Organization Address City/State/[place] [address] (ABNORMAL) Hemogram (08/06/2021 9:25 AM EDT) Analysis Performed At Patho logist Time Signature WBC 7.1 4.0 - 9.5 [facility] x10(3)/[facility] LABORATORY RBC 4.47 (L) 4.58 - [facility] 5.54 [facility] x10(6)/[facility]ORY Hemoglobin 13.6 (L) 13.7 - [facility] 16.5 g/dL [facility] Hematocrit 38.7 (L) 40.5 - [facility] 48.5 % [facility] MCV 86.6 82.9 - [facility] 93.1 fL [facility] MCH 30.4 27.5 - [facility] 32.1 pg [facility] MCHC 35.1 32.0 - FANNIE MORALES 35.7 g/dL [facility] Platelets 164 145 - 357 FANNIE MORALES x10(3)/[facility] LABORATORY RDWSD 40.0 36.0 - FANNIE MORALES 45.0 [facility] LABORATORY RDWCV 12.8 11.4 - FANNIE ANDREW 13.8 % [facility] MPV 10.7 7.6 - 12.9 FANNIE ANDREW [facility] LABORATORY nRBC % Auto 0.0 % [facility] nRBC Abs Auto 0.000 0.000 - FANNIE ANDREW 0.000 [facility] x10(3)/[facility] LABORATORY Specimen Anatomical Collection Method Collection Time Receive d Time (Source) Location / / Volume Laterality Blood 08/06/2021 9:25 AM 9:46 EDT AM EDT Resulting Agency Comment Spec In Lab Og [facility] HEMATOLOGY ORDERABLES Performing Organization Address City/State/Z[place] [address] (ABNORMAL) BMP w/fasting Glucose (08/06/2021 9:25 AM EDT) P athologist Signature Glucose 120 (H) 65 - 99 FANNIE ANDREW Fasting mg/dL [facility] Comment: ?Fasting* Glucose Interpretive C [...] of Diabetes Mellitus, Position Statement from the [place] [employer]. ??Diabete s Care, Volume 33, Supplement 1, May 2009 BUN 26 (H) 10 - 20 mg/dL [facility] Creatinine 1.17 0.80 - 1.50 mg/dL [facility] Sodium 136 135 - 145 mmol/L [facility] Potassium 4.6 3.5 - 5.0 mmol/L [facility] Comment: Please note: ??Patients with WBC >100,00 0 may have falsely elevated Potassium levels. ??For accurate Potassium quantif ication in these patients send serum separator tube (gold top) for subsequent determinations. ??Contact the Clinical Chemistry Laboratory if there are any qu estions. Chloride 104 98 - 107 mmol/L [facility] CO2 23 22 - 31 mmol/L [facility] Anion Gap 9 5 - 15 mmol/L [facility] Calcium 9.3 8.5 - 10.5 mg/dL [facility] Estimated GFR 65 >=60 mL/min/1.73 m?? [facility] Comment: This patient? s estimated [...] Organization Address City/State/[place] [address] EKG 12 Lead (08/06/2021 9:07 AM EDT) Component Value Ref Range Test Analysis Performed Pathologis t Method Time At Signature Ventricular rate 74 BPM MUSE SYSTEM Atrial Rate 74 BPM MUSE SYSTEM P-R Interval 178 ms MUSE SYSTEM QRS Duration 98 ms MUSE SYSTEM Q-T Interval 408 ms MUSE SYSTEM QTC Calculated 452 ms MUSE SYSTEM (Bezet) Calculated P [place] 35 degrees MUSE SYSTEM Calculated R [place] 7 degrees MUSE SYSTEM Calculated T [place] 33 degrees MUSE SYSTEM INTERPRETATION Normal sinus rhythm MUSE SYSTEM Normal ECG When compared with ECG of 30-MAY-1992 12:11, No significant change was found Confirmed by Chreie Chinchilla ([id number]) on 08/06/2021 2:43:38 P M [...] (Intra-Procedure) documented in this encounter Care Teams Glass Cutter Relationship Specialty Start Date End Date Jess Olivia PA PCP - General Family Medicine 07/22/[address] [place] [address] documented as of this encounter
--- OUTSIDE RECORDS SUMMARY | 2021-11-08 02:16 | XMS_ITS | Encounter Summary ---
:1955 Author Organization [facility] [place] [address] Care Team Providers Name Role Phone Jess Olivia Primary Care Provider Reason for Visit Auth/Cert Specialty Diagnoses / Procedures Referred By Contact Refer red To Contact Diagnoses SPONDYLOSIS, STENOSIS Procedures PRO LAMINEC/FACETECT/FORAMIN, LUMBAR 1 SEG LAMINECTOMY,FACETECTOMY & FORAMINOTOMY,LUMBAR,ONE LEVEL,LENA Referral ID Status Reason Start Date Expiration Date Visits Requ ested Visits Authorized [id number] 1 1 Encounter Details Date Type Department Care Team Description 10/16/2020 Ancillary Procedure Radiology Xray at [facility] [place] [address] Social History Tobacco Use Types Packs/Day [...] Address City/State/ZIP Code Phon e Number [facility] [place] documented in this encounter Visit Diagnoses Not on filedocumented in this encounter Care Teams Ferry Hand Relationship Specialty Start Date End Date Jess Olivia PA PCP - General Family Medicine 07/22/[address] [place] [id number] documented as of this encounter
--- OUTSIDE RECORDS SUMMARY | 2021-11-08 02:16 | XMS_ITS | Encounter Summary ---
:1955 Author Organization [facility] [place] [address] Care Team Providers Name Role Phone Jess Olivia Primary Care Provider Reason for Visit Auth/Cert Specialty Diagnoses / Procedures Referred By Contact Refer red To Contact Diagnoses SPONDYLOSIS, STENOSIS Procedures PRO LAMINEC/FACETECT/FORAMIN, LUMBAR 1 SEG LAMINECTOMY,FACETECTOMY & FORAMINOTOMY,LUMBAR,ONE LEVEL,LENA Referral ID Status Reason Start Date Expiration Date Visits Requ ested Visits Authorized [id number] 1 1 Encounter Details Date Type Department Care Team Description 10/16/2020 Hospital Encounter Post Acute Care Unit Adam Aguilar, Lumbar spondylosis at Ayla Quintero MD [address] [place] [place] [address] NE[facility]ERY[facility] [phone] [place] [address] Social History Tobacco Use Types Packs/Day Years [...] six weeks after surgery with a Physician???s Engineer/Conductor at the surgeon???s office. You will have [...] to stop taking it. ??? Only take bbax-cbm-[id number] or prescription medicine for pain, discomfort or [...] If you have any questions, please call [facility] Neurology and Neurosurgery at [phone], during business hours of Thursday through Thursday from 8:00 a.m. until 4:00 p.m. In case of emergency duringnon-business hours, please call the same main number and follow the prompts to page the neurosurgeonon call. SMOKING CESSATION INFORMATION: ??? [place] QUITLINE: ??? [place] QUITLINE: ??? [email or web address] If you smoke, stop now! Smoking may impede healing. MAKE SURE YOU: ??? Understand these instructions. ??? Will seek medical care if you are feeling poor, or get worse. ??? Will call the surgeon???s office with any questions or concerns at : [phone] The above information has been presented or demonstrated. I/we have had the opportunity to ask questions. I/we fully understand the instructions given. I/we have received a copy of this form. documented in this encounter Medications at Time of Discharge Medication Sig Dispensed Refills Start Date End Date HYDROcodone-acetaminophen Take 1-2 tablets 20 tablet 0 12/2020 ([place]) 5-325 mg Tablet by mouth every 6 hours as needed. atorvastatin (Lipitor) 20 TAKE 1 TABLET BY 0 12/2020 mg Tablet MOUTH DAILY AT BEDTIME cyclobenzaprine (Flexeril) TAKE 1/2 TABLET BY 0 0 07/04/2020 10 mg Tablet MOUTH THREE TIMES DAILY NEEDED fluticasone propionate SHAKE LIQUID AND 0 021 (FLONASE) 50 mcg/actuation USE 1 TO 2 SPRAYS [place], Suspension IN EACH NOSTRIL TWICE DAILY aspirin [...] Aguilar MD - 10/16/2020 12:57 PM EDT [facility] Operative Note [facility] [address] [place] [address] Patient Name: Dylon Navarro : [id number] MR#: [id number] Case Date: 10/16/2020 Case Scheduled Time: 1253 Surgeon: Surgeon(s) and Role: * Adam Aguilar MD - Primary Engineer/Conductor: LUKAS Espinosa-C Preoperative diagnosis: SPONDYLOSIS, central and [...] a disc herniation versus osteophyte. This did sock turner to be an osteophyte. Please refer [...] used? N/A Karthikeyan Bustamante PA-C served as assistant nurse manager in this surgery. His presence throughout the [...] Address City/State/ZIP Code Phon e Number RAD [place], [place] documented in this encounter Visit Diagnoses [...] for breakthrough pain., PACU Recovery, Routine HYDROcodone-acetaminophen ([place]) 5-325 mg per tablet 1-2 tablet 1-2 [...] Routine documented in this encounter Care Teams Dynamite Shooter Relationship Specialty Start Date End Date Jess Olivia PA PCP - General Family Medicine 07/22/19 [address] [place] [address] documented as of this encounter
--- OUTSIDE RECORDS SUMMARY | 2021-11-08 02:16 | XMS_ITS | Clinical Summary ---
:1955 Author Organization [facility] [place] [address] Care Team Providers Name Role Phone Jess [...] (FLONASE) 50 USE 1 TO 2 mcg/actuation [place], SPRAYS IN EACH Suspension NOSTRIL TWICE DAILY HYDROcodone-acetaminophe Take 1-2 tablets 20 tablet 0 10/17/19 21 Active n ([place]) 5-325 mg by mouth every 6 Tablet hours as needed. Active Problems No known active problems Encounters Date Type Specialty Care Team Description 10/15/2021 Anesthesia Event Gastroenterology Dinah Hernandez CRNA from Last 3 Months Immunizations Name Administration [...] Advance Directive 2009 Pneumoccocal Vaccine: 65+ (1 - PCV) 09/02/2019 08/07/2003 Influenza (Flu) vaccine (1 of 1 - Influenza standard 01/09/2021 series) Diabetes Screening (HgbA1C or Glucose) 08/06/2024 Insurance Payer Benefit Plan / Subscriber ID Effective Dates Phone Addre ss Type Group [facility] [id number] 2021-Presen [phone] [address] MA[address] [place], [place] MEDICARE MEDICARE PPO [phone] [place] [id number] 2019-Prese [phone] [address] [place] [address] Advance Directives Latest Code Status on File Code Status Date Activated Date Inactivated Comments Attempt Cardiopulmonary Resuscitation - 08/06/2021 10:09 AM 2021 4:27 PM Inpatient Code Status decision made by: Patient Care Teams Central Office Equipment Installer Relationship Specialty Start Date End Date Jess Olivia PA PCP - General Family Medicine 07/22/19 [address] [place] [address]
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
--- OUTSIDE RECORDS SUMMARY | 2021-11-08 02:16 | XMS_ITS | Encounter Summary ---
:1955 [place] [address] Care Team Providers Name Role Phone Jess Olivia Primary Care Provider Encounter Details Date Type Department Care Team Description 03/28/2020 Telephone [place]rology [place] [facility] [place] Morales [facility] [place] [address] NEUROLOGY DEPT [phone] [place], [place] [address] (Wo rk) Social History Tobacco [...] on filedocumented in this encounter Care Teams Honey Processor Relationship Specialty Start Date End Date Jess Olivia PA PCP - General Family Medicine 07/22/19 [address] [place] [address] documented as of this encounter
--- OUTSIDE RECORDS SUMMARY | 2021-11-08 02:16 | XMS_ITS | Encounter Summary ---
:1955 Author Organization [facility] [place] [address] Care Team Providers Name Role Phone Jess Olivia Primary Care Provider Encounter Details Date Type Department Care Team Description 10/09/2020 Telephone Pre-Admission [address] at [facility] [place] [address] [facility] [address] Social History Tobacco Use Types Packs/Day [...] []Yes [x]No Have you traveled outside the [facility] in the PAST 14 DAYS? []Yes [...] on filedocumented in this encounter Care Teams System Safety Manager Relationship Specialty Start Date End Date Jess Olivia PA PCP - General Family Medicine 07/22/[address] [place] [address] documented as of this encounter
--- OUTSIDE RECORDS SUMMARY | 2021-11-08 02:16 | XMS_ITS | Encounter Summary ---
:1955 [place] [address] Care Team Providers Name Role Phone Vipul Martino MD Primary Care Provider Encounter Details Date Type Department Care Team Description 06/13/2014 Orders Only Cardiology at [facility] Yanna Boykin ASCVD (arteriosclerotic [facility] LUKAS Domínguez cardiovascular disease) [place], [place] CENTER [address] CARDIOLOGY DEPT. [phone] [place] [address] Social History Tobacco Use Types Packs/Day Years [...] SYSTEM - 06/15/2014 12:[address] ?[facility] ? Cardiac Cathete rization/Intervention Report ? Patient Name: Deth, Dylon R. ? Procedure Date: 06/15/2014 ? A #: [id number] ? Primary Physician: Aguilar, Dewey V ? Case #: [id number] ? File Name: [id number] ? Catheterization Order Number: [id number] ? [facility] ?Supervisor [facility] ? Final Report [place], [place] ? Patient Name: ? Vardaman R. Deth ? ID#: ?[id number] ? : ?1955 ? Procedure Date: ? [...] with: sta ble angina (w/i 42 days). [place] ?Cardiovascular Society angina c lass was II. [...] 8 ? Left Ventriculography: ?View KNIGHT and SPANISH ?Overall LV ?Normal ?Function: ?Estimated LV Ejection [...] note might be different from the original. [facility] Cardiac Catheterization/Intervention Re port Patient Name: Dylon Navarro Procedure Date: 06/15/2014 A #: [id number] Primary Physician: Dewey Aguilar V Case #: [id number] File Name: [id number] Catheterization Order Number: [id number] [facility] Final Report [place], [place] Patient Name: Dylon Giles ID#: [id number] : 1955 Procedure Date: June 15, [...] with: stable emilie na (w/i 42 days). [place] Cardiovascular Society angina class was II. This [...] 132 8 Left Ventriculography: View KNIGHT and SPANISH Overall LV Normal Function: Estimated LV Ejection [...] disease documented in this encounter Care Teams Roller Staker Relationship Specialty Start Date End Date Vipul Martino MD PCP - General 06/13/14 05/10/19 documented as of this encounter
--- OUTSIDE RECORDS SUMMARY | 2021-11-08 02:16 | XMS_ITS | Encounter Summary ---
:1955 Author Organization [facility] [address] Care Team Providers Name Role Phone Jess Olivia Primary Care Provider Reason for Visit Reason Onset Date Comments Bumped Appointment 11/29/2019 Encounter Details Date Type Department Care Team Description 11/29/2019 Telephone Neurology at [facility] Saranya Coates APRN Bumped Appointment [facility] [place] [address] [place] [id number] [phone] (Wo rk) Social History Tobacco Use Types [...] on filedocumented in this encounter Care Teams Education Intern Relationship Specialty Start Date End Date Jess Olivia PA PCP - General Family Medicine 07/22/19 [address] [place] [address] documented as of this encounter
--- OUTSIDE RECORDS SUMMARY | 2021-11-08 02:16 | XMS_ITS | Encounter Summary ---
:1955 Author Organization [facility] [place] [address] Care Team Providers Name Role Phone Jess Olivia Primary Care Provider Reason for Visit Auth/Cert Specialty Diagnoses / Procedures Referred By Contact Refer red To Contact Diagnoses SPONDYLOSIS, STENOSIS Procedures PRO LAMINEC/FACETECT/FORAMIN, LUMBAR 1 SEG LAMINECTOMY,FACETECTOMY & FORAMINOTOMY,LUMBAR,ONE LEVEL,LENA Referral ID Status Reason Start Date Expiration Date Visits Requ ested Visits Authorized [id number] 1 1 Encounter Details Date Type Department Care Team Description 10/16/2020 Surgery Operating Room Lawanda Noble MD LAMINECTOMY,FACETECTOMY [address] [facility] [place] [address] FORAMINOTOMY,LUMBAR,[place] [address] NEUROSURGERY-UVNN LEVEL,LENA [phone] [place], [place] [address] (Wo rk) Social History Tobacco [...] six weeks after surgery with a Physician???s Driver Education Road Instructor at the surgeon???s office. You will have [...] to stop taking it. ??? Only take velw-chx-hkspurx or prescription medicine for pain, discomfort or [...] If you have any questions, please call [facility] Neurology and Neurosurgery at [phone], during business hours of Thursday through Thursday from 8:00 a.m. until 4:00 p.m. In case of emergency duringnon-business hours, please call the same main number and follow the prompts to page the neurosurgeonon call. SMOKING CESSATION INFORMATION: ??? [place] QUITLINE: ??? [place] QUITLINE: ??? [email or web address] If you smoke, stop now! Smoking may impede healing. MAKE SURE YOU: ??? Understand these instructions. ??? Will seek medical care if you are feeling poor, or get worse. ??? Will call the surgeon???s office with any questions or concerns at : [phone] The above information has been presented or demonstrated. I/we have had the opportunity to ask questions. I/we fully understand the instructions given. I/we have received a copy of this form. documented in this encounter Medications at Time of Discharge Medication Sig Dispensed Refills Start Date End Date HYDROcodone-acetaminophen Take 1-2 tablets 20 tablet 0 12/2020 ([place]) 5-325 mg Tablet by mouth every 6 hours as needed. atorvastatin (Lipitor) 20 TAKE 1 TABLET BY 0 12/2020 mg Tablet MOUTH DAILY AT BEDTIME cyclobenzaprine (Flexeril) TAKE 1/2 TABLET BY 0 0 07/04/2020 10 mg Tablet MOUTH THREE TIMES DAILY NEEDED fluticasone propionate SHAKE LIQUID AND 0 021 (FLONASE) 50 mcg/actuation USE 1 TO 2 SPRAYS [place], Suspension IN EACH NOSTRIL TWICE DAILY aspirin [...] Aguilar MD - 10/16/2020 12:57 PM EDT [facility] Operative Note [facility] [address] [place] [address] Patient Name: Dylon Navarro : [id number] MR#: [id number] Case Date: 10/16/2020 Case Scheduled Time: 1253 Surgeon: Surgeon(s) and Role: * Adam Aguilar MD - Primary Driver Education Road Instructor: LUKAS Espinosa-C Preoperative diagnosis: SPONDYLOSIS, central and [...] a disc herniation versus osteophyte. This did turning and beading machine operator to be an osteophyte. Please refer to [...] used? N/A Karthikeyan Bustamante PA-C served as library technical assistant in this surgery. His presence throughout [...] City/State/ZIP Code Phon e Number [facility] [place], [place] documented in this encounter Visit Diagnoses [...] for breakthrough pain., PACU Recovery, Routine HYDROcodone-acetaminophen ([place]) 5-325 mg per tablet 1-2 tablet 1-2 [...] Routine documented in this encounter Care Teams Aquacultural Worker Supervisor Relationship Specialty Start Date End Date Jess Olivia PA PCP - General Family Medicine 07/22/[address] [place] [address] documented as of this encounter
--- OUTSIDE RECORDS SUMMARY | 2021-11-08 02:16 | XMS_ITS | Encounter Summary ---
:1955 Author Organization [facility] [place] [address] Care Team Providers Name Role Phone Jess Olivia Primary Care Provider Encounter Details Date Type Department Care Team Description 07/17/2021 Telephone Gastroenterology at [facility] [place] [address] Social History Tobacco Use Types Packs/Day Years Used Date Never Smoker Smokeless Tobacco: Never Used Alcohol Use Standard Drinks/Week Comments Not Currently 0 (1 standard drink = 0.6 oz pure alcoho l) Sex Assigned at Date Recorded Not on file documented as of this encounter Miscellaneous Notes Telephone Encounter - Anita Linda - 07/17/2021 5:15 PM EST Dylon Navarro [id number] Diagnosis/Indication: anemia, melana 1. Have you ever had a/an Colonoscopy before? Unknown If yes, did you have any problems with the procedure? No What type of sedation was used: General Anesthesia 2. Do you take any blood thinners or have you been diagnosed with a bleeding disorder that increasesyour risk of bleeding with procedures? No 3. Do you have a Pacemaker or Defibrillator device? No 4. Are you a diabetic? No 5. Do you have any Allergies to Eggs, Latex or Medications? Yes: see edh 6. Do you take any Oral Iron Supplements (Including multi-vitamins)? No 7. Do you have a history of three or more abdominal surgeries? No 8. Have you had a problem with sedation or anesthesia? No 9. Do you use a c-pap machine or oxygen tank? Neither 10. Do you take prescription narcotic pain medications, including suboxone or methodone? No 11. Do you have a preference regarding the gender of your provider? Yes: Male 12. Is there any other information you would like to us to note for the provider and nursing team who will perform your case? No 13. Say to patient: You must have a responsible alliance party who will drive you to your procedure, stay on campus for the entire duration of your procedure, and drive you home from your procedure? *Please Verify the height and weight, and adjust if height and/or weight have changed* Estimated body mass index is 30.92 kg/m?? as calculated from the following: Height as of 10/16/20: 182.9 cm (6'). Weight as of 10/16/20: 103.4 kg (228 lb). *Delete if not needed* Height: 6' Weight: 232 BMI: Age:65 y.o. documented in this encounter Plan of Treatment Not on filedocumented as of this encounter Visit Diagnoses Not on filedocumented in this encounter Care Teams Comic Book Writer Relationship Specialty Start Date End Date Jess Olivia PA PCP - General Family Medicine 07/22/[address] [place] [address] documented as of this encounter
--- OUTSIDE RECORDS SUMMARY | 2021-11-08 02:16 | XMS_ITS | Encounter Summary ---
:1955 [place] [address] Care Team Providers Name Role Phone Jess Olivia Primary Care Provider Encounter Details Date Type Department Care Team Description 08/01/2021 Orders Only Dietist Og Enriquez, Screening for cardiovascular condition; [facility] Chest discomfort [facility] [place] [address] [place], [place] [phone] (Work) [phone] Social History Tobacco Use Types Packs/Day Years [...] pain documented in this encounter Care Teams Wallpaper Inspector And Shipper Relationship Specialty Start Date End Date Jess Olivia PA PCP - General Family Medicine 07/22/19 [address] [place] [address] documented as of this encounter
--- OUTSIDE RECORDS SUMMARY | 2021-11-08 02:19 | XMS_ITS | Encounter Summary ---
:1955 Author Organization [facility] Address [address] [place] [address] Care Team Providers Name Role Phone Margi Martino MD Primary Care Provider Encounter Details Date Type Department Care Team Description 07/06/2015 Results Only [facility] Sahara Kunz DO [phone] [facility] [facility] [address] [place] [address] Social History Tobacco Use Types Packs/Day Years Used Date Never Assessed Sex Assigned at Date Recorded Not on file documented as of this encounter Plan of Treatment Not on filedocumented as of this encounter Procedures Procedure Name Priority Date/Time Associated Diagnosis Comme [facility] SURGICAL PATHOLOGY Routine 07/06/2015 6:36 EST Re sults for this procedure are i n the results section. documented in this encounter Results SURGICAL PATHOLOGY (07/06/2015 6:36 EST) Pathology Report: SURGICAL PATHOLOGY REPORT [facility] Reports generated via electronic interface contain aric ginal data; LABORATORY however they are lacking the format of the original re port. SERVICES Caution should be taken when reading/interpreting unfo rmatted reports. Name: ? JORDYN WOLFF ? Accession #: ? [id number] ? : ? 1955 (Age: 5 0) [...] City/State/ZIP Code Phon e Number [facility] [address] [place] [address] SERVICES documented in this encounter Visit Diagnoses Not on filedocumented in this encounter Care Teams Connie Scratcher Relationship Specialty Start Date End Date Margi Martino MD PCP - General 03/14/15 05/19/17 documented as of this encounter
--- OUTSIDE RECORDS SUMMARY | 2021-11-08 02:19 | XMS_ITS | Encounter Summary ---
:1955 Author Organization [facility] Address [address] [place] [address] Care Team Providers Name Role Phone Vipul Martino MD Primary Care Provider Encounter Details Date Type Department Care Team Description 07/06/2015 Hospital Encounter [facility] Unknown, Provider, [facility] [address] [facility] [phone] [place] [address] (Work) [phone] Social History Tobacco Use Types Packs/Day Years Used Date Never Assessed Sex Assigned at Date Recorded Not on file documented as of this encounter Discharge Disposition Disposition Code Departure Means Destination Home or Self Half-Way documented in this encounter Plan of Treatment Not on filedocumented as of this encounter Visit Diagnoses Not on filedocumented in this encounter Care Teams Processing Technician Relationship Specialty Start Date End Date Vipul Martino MD PCP - General 03/14/15 05/19/17 documented as of this encounter
--- OUTSIDE RECORDS SUMMARY | 2021-11-08 02:19 | XMS_ITS | Encounter Summary ---
:[address] [facility] Address [address] [place] [address] Care Team Providers Name Role Phone Ankush Christian Quinones DO Primary Care Provider Encounter Details Date Type Department Care Team Description 04/23/2012 Results Only [facility]- PRISM Sahara Kunz DO [phone] [place], [place] [id number] Social History Tobacco Use Types Packs/Day Years Used Date Never Assessed Sex Assigned at Date Recorded Not on file documented as of this encounter Plan of Treatment Not on filedocumented as of this encounter Procedures Procedure Name Priority Date/Time Associated Diagnosis Comme nts SURGICAL PATHOLOGY Routine 04/23/2012 0:00 EST Re sults for this procedure are i n the results section. documented in this encounter Results SURGICAL PATHOLOGY (04/23/2012 0:00 EST) Pathology Report: SURGICAL PATHOLOGY REPORT [facility] Reports generated via electronic interface contain aric ginal data; LAB however they are lacking the format of the original re port. Caution should be taken when reading/interpreting unfo rmatted reports. Name: ? JORDYN WOLFF ? Accession #: ? [id number] ? : ? 1955 (Age: 56) ??M ? Collect Date: ? 04/23/2012 ? Location: ? [facility] ? Receive Date: ? 012 ? Provider: SAHARA KUNZ DO Copy to: CHRISTIAN LECHUGA DO ? Final Pathologic Diagnosis: A. ?Small bowel, duodenum, biopsy: 1. ?Fragments of duodenal m ucosa with focal peptic duodenitis. ?? B. ?Stomach, antrum, biopsy: 1. ?Fragments of transitional and antral- type mucosa with reactive/chemical gastropathy. ?? 2. ? No intestinal metaplasia or dysplasia noted. 3. ? No Helicobacter pylori microorganisms noted ( H&E). ?? Document reviewed and electronically signed by: DALTON ESCALERA MD Report ??Date: 04/28/2012 17:21 By the signature above, the attending physician certif ies that he/she has personally conducted a gross and/or microscopic examin ation of the described specimens and rendered or confirmed the above diagnosi s. Specimen(s) Received: A. ?Bx duodenum (#1) B. ? Bx gastric antrum (#2) Clinical History: ? Dysphagia, epigastric discomfort, weight loss Gross Description: ? Received in formalin labelled Jordyn Wolff and 1-bx duodenum is a 0.5 x 0.4 x 0.3 cm an-white firm piece of tissue. ??Submitt ed intact as (A). Received in formalin kavon d Jordyn Wolff' and 2-bx gastric antrum are four light an-white firm pieces of tissue which range from 0.4 x 0.3 x 0.2 cm to 0.2 x 0.2 x 0.2 cm. ??The specim en is submitted entirely with two pieces as (B1) and the remaining two pieces as (B2). ??(Alyssa Zuniga/[facility] End of Report Specimen Performing Organization Address City/State/ZIP Code Phon e Number [facility] [address] [place] [address] SERVICES [facility] [address] [place] [address] documented in this encounter Visit Diagnoses Not on filedocumented in this encounter Care Teams Typewriter Operator Automatic Relationship Specialty Start Date End Date Christian Lechuga, PCP - General 06/02/11 03/13/[address] [place] [address] documented as of this encounter
--- OUTSIDE RECORDS SUMMARY | 2021-11-08 02:19 | XMS_ITS | Encounter Summary ---
:[address] [facility] Address [address] [place] [address] Care Team Providers Name Role Phone Unavailable Primary Care Provider Unavailable Encounter Details Date Type Department Care Team Description 03/08/2010 Results Only [facility] Segun Lechuga, DO Laboratory Services - [address] [place] [address] [address] [place] [address] [phone] Social History Tobacco Use Types Packs/Day Years [...] MARIELLA, JORDYN Chance ? Accession #: ? [id number] ? : ? 1955 (Age: 54) ??M [...] Organization Address City/State/ZIP Code Phon e Number [facility] [address] [place] [phone] SERVICES [facility] [address] [place] [address] documented in this encounter Visit Diagnoses Not on filedocumented in this encounter
--- OUTSIDE RECORDS SUMMARY | 2021-11-08 02:19 | XMS_ITS | Clinical Summary ---
:1955 Author Organization [facility] Address [address] [place] [address] Care Team Providers Name Role Phone Felix MonacoMADISON Benjamin Primary Care Provider [phone] Encounters Date Type Specialty Care Team [...] from Last 3 Months Results [facility] (09/05/2021 13:55 EDT) Specimen Swab Performing Organization Address City/State/ZIP Code Phon e Number [facility] [address] [place] [address] SERVICES COVID-19 TESTING (09/05/2021 13:55 EDT) COVID-19 rt-PCR Negative Negative [facility] Result Comment: CENTER LABORATORY This test [...] was performed using the deric SARS-CoV-2 assay ([employer] on the Deric 6800 System Performing Lab Deric [address] [facility] Lab [facility] SERVICES Specimen Swab Performing Organization Address City/State/ZIP Code Phon e Number [facility] [address] [place] [address] SERVICES from Last 3 Months Care Teams Trash Collector Truck Driver Relationship Specialty Start Date End Date Henrique Washington MPA-C PCP - General 05/20/[address] [place] [phone]
--- OUTSIDE RECORDS SUMMARY | 2021-11-08 02:19 | XMS_ITS | Encounter Summary ---
:1955 Author Organization [facility] Address [address] [place] [address] Care Team Providers Name Role Phone Christian Lechuga Primary Care Provider Encounter Details Date Type Department Care Team Description 03/09/2015 Results Only [facility]- PRISM Dax Bettencourt, [address] [phone] (Wo rk) Social History Tobacco Use Types Packs/Day Years Used Date Never Assessed Sex Assigned at Date Recorded Not on file documented as of this encounter Plan of Treatment Not on filedocumented as of this encounter Procedures Procedure Name Priority Date/Time Associated Diagnosis Comme [facility] SURGICAL PATHOLOGY Routine 03/09/2015 18:58 Resul ts for this EDT procedure are i n the results section. documented in this encounter Results SURGICAL PATHOLOGY (03/09/2015 18:58 EDT) Pathology Report: SURGICAL PATHOLOGY REPORT [facility] Reports generated via electronic interface contain aric ginal data; LABORATORY however they are lacking the format of the original re port. SERVICES Caution should be taken when reading/interpreting unfo rmatted reports. Name: ? JORDYN WOLFF ? Accession #: ? [id number] ? : ? 1955 (Age: 5 0) [...] Organization Address City/State/ZIP Code Phon e Number [facility] [address] [place] [address] SERVICES documented in this encounter Visit Diagnoses Not on filedocumented in this encounter Care Teams Software Installation Engineer Relationship Specialty Start Date End Date Christian Lechuga DO PCP - General 06/02/11 03/13/15 [address] [place] [address] documented as of this encounter
--- OUTSIDE RECORDS SUMMARY | 2021-11-08 02:19 | XMS_ITS | Encounter Summary ---
:1955 Author Organization [facility] Address [address] [place] [address] Care Team Providers Name Role Phone MADISON Garrison Benjamin Primary Care Provider [phone] Encounter Details Date Type Department Care Team Description 08/13/2018 Hospital Encounter [facility] - S Unknown, Pro Yuriy kumar MD [address] [facility] [phone] [place] [address] (Work) [phone] Social History Tobacco Use Types Packs/Day Years Used Date Never Assessed Sex Assigned at Date Recorded Not on file documented as of this encounter Discharge Disposition Disposition Code Departure Means Destination Home or Self Intermediate documented in this encounter Plan of Treatment Not on filedocumented as of this encounter Visit Diagnoses Not on filedocumented in this encounter Care Teams Medical Collections Representative Relationship Specialty Start Date End Date Henrique Washington MPA-C PCP - General 05/20/[address] [place] [id number] documented as of this encounter
--- OUTSIDE RECORDS SUMMARY | 2021-11-08 02:19 | XMS_ITS | Encounter Summary ---
:1955 Author Organization [facility] Address [address] [place] [address] Care Team Providers Name Role Phone Unavailable Primary Care Provider Unavailable Encounter Details Date Type Department Care Team Description 09/29/2007 Results Only [facility] - Ulises Linn MD conversion [address] [place] [address] [place], [place] [address] [phone] Social History Tobacco Use Types Packs/Day Years Used Date Never Assessed Sex Assigned at Date Recorded Not on file documented as of this encounter Plan of Treatment Not on filedocumented as of this encounter Procedures Procedure Name Priority Date/Time Associated Diagnosis Comme [facility] SURGICAL PATHOLOGY Routine 09/29/2007 0:00 EDT [...] ? JORDYN WOLFF ? Accession #: ? [id number] ? : ? 1955 (Age: 52) ??M [...] ??A discrete perforat ion is not identified. ??Crib Tender sections to include the distal tip, cros s section, and proximal resection margin (inked and en face) are submitted in one cassette. ??/[facility] End of Report Specimen Performing Organization Address City/State/ZIP Code Phon e Number [facility] [address] [place] [address] SERVICES [facility] [address] [place] [address] documented in this encounter Visit Diagnoses Not on filedocumented in this encounter
--- OUTSIDE RECORDS SUMMARY | 2021-11-08 02:19 | XMS_ITS | Encounter Summary ---
:1955 Author Organization [facility] Address [address] [place] [address] Care Team Providers Name Role Phone Unavailable Primary Care Provider Unavailable Encounter Details Date Type Department Care Team Description 05/30/2008 Before [facility] Ulises Cheney MD Converted Visit Family Medicine - [address] ([place]) [place], [place] 28 [facility] [id number] [place] [address] [phone] Social History Tobacco Use Types Packs/Day Years [...] ? [facility] Reports generated via electr [employer]street interface contain original data; ? LAB however they are lacking the format of the original report. ? Caution should be taken when reading/interpreting unformatted reports. ? Name: ? DETH, JORDYN R ? Accession #: ? [id number] ? : ? 1955 (Age: 52) ??M [...] Colonoscopy ? Gross Description: ? Received in [facility] fixative labelled [place] and #1 bx duodenum are ?? two biopsies measuring 0.4 x 0.3 x 0.2 cm and 0.8 x 0.2 x 0.1 cm. ??The specimen is submitted intact as (A). ? Received in [facility] fixat adrienne labelled [place]eth and #2 bx duodenal bulb is a ?? 0.3 x 0.3 x 0.1 cm biopsy. ? ?The specimen is submitted intact as (B). ? Received in [facility] fixat adrienne labelled [place] and #3 bx gastric antrum are ?? two biopsies measuring 0.3 x 0.3 x 0.1 cm and 0.4 x 0.2 x 0.1 cm. ??The specimen is submitted intact as (C). ? Received in [facility] fixat adrienne labelled [place] and #4 bx gastric body is a ?? 0.5 x 0.2 x 0.1 cm biopsy. ? ?The specimen is submitted intact as (D). ? Received in [facility]'s fixat adrienne labelled [place] and #5 bx terminal ileum are ?? two biopsies measuring 0.3 x 0.2 x 0.1 cm each. ??The specimen is entirely ? submitted as (E). ? Received in [facility]'s fixat adrienne labelled [place]eth and #6 bx random colon are six biopsies which vary in size from 0.2 x 0.2 x 0.1 cm up to 0.4 x 0.3 x 0.1 cm. ?? The specimen is submitted in tact as (F1) and (F2). ? Received in [facility]'s fixat adrienne labelled [place] and #7 descending colon polyp ?? x2 are two polypoid biopsie s measuring 0.3 x 0.3 x 0.3 cm and 0.4 x 0.3 x 0.2 ?? cm. ??The specimen is submit conardo intact as (G). ? Received in [facility]'s fixat adrienne labelled [place] and #8 bx rectum are two ? polypoid biopsies measuring 0.2 cm and 0.3 cm in diameter. ??The specimen is ? submitted intact as (H). ??( SUSIE [employer])/tmg ? End of Report ? Specimen Performing Organization Address City/State/[facility] Code Phon e Number [facility] [address] [place] [address] SERVICES [facility] [address] [place] [address] documented in this encounter Visit Diagnoses Not on filedocumented in this encounter
--- OUTSIDE RECORDS SUMMARY | 2021-11-08 02:19 | XMS_ITS | Encounter Summary ---
:1955 Author Organization [facility] Address [address] [place] [address] Care Team Providers Name Role Phone [place] VMADISON Benjamin Primary Care Provider [phone] Encounter Details Date Type Department Care Team Description 08/13/2018 Results Only [facility]- PRISM Kamran Nash, [address] [place] [address] Social History Tobacco Use Types Packs/Day Years Used Date Never Assessed Sex Assigned at Date Recorded Not on file documented as of this encounter Plan of Treatment Not on filedocumented as of this encounter Procedures Procedure Name Priority Date/Time Associated Diagnosis Comme [facility] SURGICAL PATHOLOGY Routine 08/13/2018 15:44 Resul ts for this EDT procedure are i n the results section. documented in this encounter Results SURGICAL PATHOLOGY (08/13/2018 15:44 EDT) Pathology Report: SURGICAL PATHOLOGY REPORT [facility] Reports generated via electronic interface conta in original data; CENTER LABORATORY however they are lacking the format of the original re port. SERVICES Caution should be taken when reading/interpreting unfo rmatted reports. Name: ? JORDYN WOLFF ? Accession #: ? [id number] ? : ? 1955 (Age: 5 3) [...] Organization Address City/State/ZIP Code Phon e Number [facility] [address] [place] [address] SERVICES documented in this encounter Visit Diagnoses Not on filedocumented in this encounter Care Teams Recruitment Manager Relationship Specialty Start Date End Date Henrique Washington MPA-C PCP - General 05/20/[address] [place] [phone] documented as of this encounter
--- OUTSIDE RECORDS SUMMARY | 2021-11-08 02:19 | XMS_ITS | Encounter Summary ---
:1955 Author Organization [facility] Address [address] [place] [address] Care Team Providers Name Role Phone Unknown, Provider Primary Care Provider Encounter Details Date Type Department Care Team Description 05/30/2011 Results Only [facility]- OSBALDO Sahara Kunz, DO [phone] [facility] [place], [place] [id number] Social History Tobacco Use Types Packs/Day Years [...] ? JORDYN WOLFF ? Accession #: ? [id number] ? : ? 1955 (Age: 55) ??M [...] Description: ? Received in formalin labelled Deth, [place] and bx duodenum is a single 0.3 [...] ette (B). Received in formalin labelled [place]eth, [place] and que hayder fundus are three an-yellow soft tissue fragm ents that range from 0.6 x 0.2 x 0.1 cm to 0.2 x 0.2 x 0.1 cm. ??The specimen is entirely submitted in cassette (C). ??(Dr. Florence)/[facility] End of Report Specimen Performing Organization Address City/State/ZIP Code Phon e Number [facility] [address] [place] [address] SERVICES [facility] [address] [place] [phone] documented in this encounter Visit Diagnoses Not on filedocumented in this encounter Care Teams Plastic Maker Relationship Specialty Start Date End Date Unknown, Provider, PCP - General 05/28/10 06/01/11 documented as of this encounter
[2021-11-08 11:19] LABS: Source Nasal/Nares
[2021-11-08 14:51] LABS: COVID-19 PCR Negative (Negative)
== END 2021-11-08 02:10 | disposition home or self-care (01) ==
LOC: LBO 02:14
PROVIDERS: PCP Physician Assistant; Visit Provider Surgery
DX: Z20.822 Contact with and (suspected) exposure to COVID-19 (principal); Z01.818 Encounter for other preprocedural examination
CPT/HCPCS: 87635; U0005

== ENCOUNTER 2021-11-12 08:16 | Day surgery (SDC) | payer OTHER, SELFPAY ==
--- NOTE | 2021-11-11 16:28 | PDOC.DSDIS_ITS ---
Discharge Plan Disposition Patient Disposition: HOME Condition: Good Discharge Details Reason For Visit: Stomach/colon scope Attending Provider: Pastora Noel Primary Care Provider: Jess Olivia Home Meds and New Rx's Prescriptions: Continued acetaminophen [Tylenol Extra Strength] 500 mg tablet 500 mg PO Q6H PRN nitroglycerin 0.4 mg tablet, sublingual 0.4 mg sublingual Q5-15M PRN Rx Instructions: do not exceed 3 doses per episode metoprolol succinate 50 mg tablet extended release 24 hr 50 mg PO .nightly Qty: 90 3RF lansoprazole 30 mg capsule,delayed release(DR/EC) 30 mg PO BID albuterol sulfate [ProAir HFA] 90 mcg/actuation HFA aerosol inhaler 2 puff inhalation Q6H PRN amlodipine 5 mg tablet 5 mg PO DAILY fluoxetine [Prozac] 40 mg Capsule 40 mg QAM atorvastatin 20 mg tablet 20 mg PO HS Label Comments: TAKE 1 TABLET BY MOUTH DAILY AT BEDTIME Jardiance 10 mg Tablet 10 mg PO QAM Qty: 90 0RF spironolactone 25 mg Tablet 25 mg PO DAILY Qty: 30 1RF Entresto 24-26 mg Tablet 1 ea PO BID Qty: 60 1RF Discontinued bisacodyl [Dulcolax (bisacodyl)] 5 mg tablet,delayed release (DR/EC) 5 mg PO ONCE Qty: 4 0RF Rx Instructions: Take according to provider's instructions for colonoscopy prep. polyethylene glycol 3350 17 gram/dose powder 17 g PO ONCE Qty: 238 0RF Rx Instructions: To be taken as directed by prescriber's office for colonoscopy prep. Discharge Instructions Additional Instructions: DSU Colonoscopy Post- Op Instructions Instructions for Everyone who is given Anesthesia: For your safety, please do the following for the next twenty-four (24) hours: *Do Not operate a motor vehicle (car, truck, motorcycle, etc.) *Do Not drink alcoholic beverages or use any recreational drugs for the first 24 hours or while taking pain medications. The medications in your body may have a reaction that can be dangerous. *Do Not make any important decisions or sign any important papers. Findings: gastritis diverticular Dx Continue with lifestyle modifications: no alcohol, tobacco products, Aspirin or NSAID's (ibuprofen, Motrin, Naprosyn, aleve, etc), soda pop/any carbonated beverages, caffeine (including tea & chocolate), and acidic foods, (tomatoes, citrus, onions, peppermints) spicy or fried/fatty foods. Do not lie down for 30 minutes after eating, and do not eat 2 hours prior to bedtime. Avoid wearing tight fitting clothing/ belts -Continue Protonix No ASA/NSAID's Follow up: Regular my office will send a letter in 2 to 3 weeks time with the results of the stomach biopsies. 1. No lifting over 20 pounds or strenuous activity for the first 24 hours after your procedure. After 24 hours there are no restrictions on your activity but you may feel fatigued for a few days. 2. After you arrive home you may have a light meal and return to your normal diet as you can tolerate it without feeling sick to your stomach. 3. You may have a bloated, gaseous feeling in your belly (abdomen) after a colonoscopy. Passing gas and belching will help. Walking or lying down on your left side with your knees flexed may relieve the discomfort. Call the office at [phone] (Office) or [phone] (Hospital) right away if you notice any of the following: a.Vomiting of blood or ?coffee ground stools?. b.Rectal bleeding 1Tbsp, blood clots or continuous bleeding. c.Severe belly (abdominal) pain. d.A hard distended belly (abdomen) and an inability to pass gas. 4. Please don?t expect to have a normal BM (bowel movement) for 2-3 days after your procedure. 5. If there are questions regarding the findings of your procedure, please contact your doctor 6. If you are unable to contact your doctor with a problem, contact the hospital at [phone]. 7. Continue all your regular medications unless directed otherwise. I understand the above instructions and have no questions. Signature of Patient or Adult Escort Name of Responsible Adult Escort Signature of Nurse Date/Time Stand Alone Forms: Anesthesia Discharge [place] (DSU) Activity:: see above Diet:: see above Discharge Orders Discharge Orders: Discharge Order (Routine); Ordered 11/11/21 Ordered By: Pastora Noel
[2021-11-12 08:25] VITALS: BP 130/77; PULSE 79; RESP 16; TEMP 36.6; O2SAT 100
[2021-11-12] MEDS: Lactated Ringers 1,000 ML 80 ML IV (08:41)
--- NOTE | 2021-11-12 08:52 | ANES.PREOP_ITS ---
General Info Date of Service Date Performed: 11/12/21 Height: 5 ft 11 in Weight: 97.1 kg Body Mass Index (BMI): 29.8 Surgical Procedure: Operation Date: 11/12/21 09:35 Proposed Procedure Side Surgeon p Colonoscopy/Gastroscopy Pastora Noel, DO Meds Allergies and Home Medications Allergies Allergy/AdvReac Type Severity Reaction Status Date / Time omeprazole [From Prilosec] Allergy Intermediate Itching Verified 11/12/21 08:44 oxycodone Allergy Itching Verified 11/12/21 08:44 codeine [Codeine] AdvReac NAUSEA Verified 11/12/21 08:44 Home Medication Medication Instructions Recorded atorvastatin 20 mg tablet 20 mg PO HS 12/17/20 acetaminophen 500 mg tablet 500 mg PO Q6H PRN 06/11/21 (Tylenol Extra Strength) fluoxetine 40 mg capsule (Prozac) 40 mg QAM 06/21/21 metoprolol succinate 50 mg 50 mg PO .nightly #90 tabs 07/26/21 tablet,extended release 24 hr nitroglycerin 0.4 mg sublingual 0.4 mg sublingual Q5-15M PRN 07/26/21 tablet Jardiance 10 mg tablet 10 mg PO QAM #90 tabs 09/10/21 (empagliflozin) sacubitril 24 mg-valsartan 26 mg 1 ea PO BID #60 tabs 09/10/21 tablet (Entresto) spironolactone 25 mg tablet 25 mg PO DAILY #30 tabs 09/10/21 bisacodyl 5 mg tablet,delayed 5 mg PO ONCE #4 tabs 10/24/21 release (Dulcolax (bisacodyl)) polyethylene glycol 3350 17 17 g PO ONCE #238 grams 10/24/21 gram/dose oral powder albuterol sulfate 90 mcg/actuation 2 puff inhalation Q6H PRN 11/07/21 aerosol inhaler (ProAir HFA) amlodipine 5 mg tablet 5 mg PO DAILY 11/07/21 lansoprazole 30 mg capsule,delayed 30 mg PO BID 11/07/21 release Current Visit Medications: Current Medications Generic Name Dose Route Start Last Admin Trade Name Freq PRN Reason Stop Dose Admin Hyoscyamine Sulfate 0.125 mg 11/11/21 16:28 Hyoscyamine 0.125 Mg Sl/Oral/Chew SL ONCE PRN SPASM Ringer's Solution 1,000 mls @ 80 mls/hr 11/12/21 06:00 IV 12/08/21 23:59 [facility] IV Miscellaneous Supplies 1 each 11/12/21 06:00 Iv Access IV 12/08/21 23:59 DIRECTED EDOUARD Ondansetron HCl 4 mg 11/11/21 16:28 Ondansetron 4 Mg/2 Ml Vial IVP Q4H PRN PRN Nausea / Vomiting Sodium Chloride 0 ml 11/12/21 06:00 Normal Saline Flush 10 Ml Syr IV 12/08/21 23:59 PRN PRN Sodium Chloride 0 ml 11/12/21 06:00 Normal Saline 10 Ml Vial IJ 12/08/21 23:59 DIRECTED PRN Sterile Water 0 ml 11/12/21 06:00 Water,Injection,Sterile 10 Ml Vial IJ 12/08/21 23:59 DIRECTED PRN PFSH Active Problems Active Problems: Problem Status Onset Code Rectal bleeding K62.5 Anemia D64.9 Medication monitoring encounter Z51.81 Ventricular trigeminy I49.8 New onset cough R05.9 Diarrhea R19.7 Postprandial RUQ pain R10.11 Nonischemic cardiomyopathy I42.8 HTN (hypertension) with goal to be determined I10 Melena K92.1 Depression F32.A Obesity E66.9 Globus sensation R19.8 Exertional chest pain R07.9 Melena K92.1 Diverticulitis K57.92 Gastropathy K31.9 Abnormal weight loss 04/12/12 R63.4 Alcohol abuse F10.10 Dysphagia 04/12/12 R13.10 Epigastric pain 04/12/12 R10.13 GERD (gastroesophageal reflux disease) K21.9 Pulmonary hypertension associated with systemic disorder I27.29 Non-alcoholic fatty liver disease K76.0 Blood glucose elevated R73.9 Hypertension I10 Memory impairment R41.3 Medical History Medical History Acute pain of left shoulder Alcohol abuse Carpal tunnel syndrome Chest pain Contusion of left lower leg Cubital tunnel syndrome on left (04/15/17) 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 Shoulder pain (11/18/12) Situational depression Tendinitis of long head of biceps brachii of left shoulder Tendonitis of left rotator cuff Injected: 01/03/2020, 04/10/2020, 12/17/2020 Medical History Comments:: Patient reports HTN and recent chest pain a couple times this week, which radiated to his shoulder and arm. Reports the pain is a dull, pressure type pain that lasts a little while and goes away. Surgical History Surgical History Appendectomy (~2007) Arthroplasty 03/09/15; DR. HERNANDEZ RIGHT SECOND TOE EXOSTECTOMY 03/09/15 DR. YODER; RIGHT GREAT TOE History of esophagogastroduodenoscopy (EGD) History of surgery on upper extremity Hx L shoulder, wrist, fingers, R arm x 8 per Pt History of surgical amputation of finger of left hand Machine related injury, R hand per pt 08/13/18 Hx of carpal tunnel repair Hx of colonoscopy 08/13/[address] [place] [address] Pastora Noel at [facility], repeat in five years. mg colo 06/05/08 - Dr Cheney - tubular adenoma, descending colon, repeat in 5 years. Tobacco Smoking/Tobacco Use Status: Former Tobacco Use Alcohol Alcohol Intake: former Substance Use Substance use: Never Substance use type: does not use Vital Signs and Lab Results Vital Signs Most Recent Vital Signs in EMR: Most Recent Vital Signs Temp Pulse Resp BP Pulse Ox 36.6 C 79 16 130/77 100 11/12/21 08:25 11/12/21 08:25 11/12/21 08:25 11/12/21 08:25 11/12/21 08:25 Lab Results Blood Type / Crossmatch: No Data to Display Complete Blood Count: No Data to Display Complete Metabolic Panel: No Data to Display Liver Function Panel: No Data to Display Coagulation Panel: No Data to Display Cardiac Panel: No Data to Display Arterial Blood Gas: No Data to Display Venous Blood Gas: No Data to Display Pancreas Panel: No Data to Display Thyroid Panel: No Data to Display Infectious Disease: Coronavirus (COVID-19)(PCR) Negative (Negative) 11/08/21 10:45 Coronavirus 2019 Source Nasal/Nares 11/08/21 10:45 Blood Cultures: No Data to Display Toxicology Panel: No Data to Display Anesthesia Assessment and Plan Anesthesia History Personal History: No History of Anesthesia Complications Family History: No Family History of Anesthesia Complications Exercise Tolerance Exercise Tolerance: Metabolic Equivalents>4 Pertinent Negatives Pertinent Negatives: No Major Cardiovascular Symptoms or Complaints, No Major Pulmonary Symptoms or Complaints and No History of CVA/TIA Cardiac & Pulmonary Exam Cardiac Exam: Normal S1/S2 Heart Sounds Pulmonary Exam: Clear Bilateral Breath Sounds Implantable Cardiac Device Does patient have a Pacemaker or an ICD?: No Airway Exam Known Difficult Airway: No Mallampati Class: 1 Mouth Opening: Normal (> 3cm) Thyromental Distance: Greater than 3 cm Neck Range of Motion: Full ROM Neck Circumference: Normal Teeth Condition: Generalized Poor Dentition Airway Comments: Top front teeth are broken and rotted ASA Classification ASA Score: ASA 2 Emergency Case?: No NPO Status NPO Status: NPO Clears >2 hours, Solids >8 hours Anesthesia Plan Resuscitation Status: Full Code Anesthesia Technique: General Anesthesia Airway Planned: Natural Airway Monitors Used: Standard Monitors
[2021-11-12 08:56] VITALS: BMI 29.8
--- NOTE | 2021-11-12 10:09 | BOWEL_PTH ---
PATIENT: Dylon Navarro LOC: [facility] U#:[id number] AGE/SX: 66/M ROOM: RE11/12/[address]: Pastora Noel : 1955 BED: DIS: 11/12/2021 SPEC #: [id number] RECD: 11/12/21 11:47 STATUS: CHARLETTE RE #: [id number] FRANCISCO: 11/12/21 10:[address]: Pastora Noel DEPT: Surgical Specimen RECD BY: Monse Pérez ENTERED: 11/12/21 11:53 SP TYPE: Bowel OTHR DR: Jess Olivia Tissues: 1 - BIOPSY BOWEL 2 - BIOPSY BOWEL 3 - STOMACH BIOPSY 4 - STOMACH BIOPSY 5 - STOMACH BIOPSY 6 - ESOPHAGUS BIOPSY 7 - ESOPHAGUS BIOPSY Procedures: GROSS AND MICRO LEVEL 4 Comments: [id number]
[2021-11-12 10:50] VITALS: BP 118/75; PULSE 66; RESP 16; TEMP 36.4; O2SAT 95
--- NOTE | 2021-11-12 10:52 | W.ANESPOSTOP ---
Postoperative Evaluation Date, Time and Location Date Performed: 11/12/21 Time Performed: 10:52 Patient Location: Day Surgery Unit Vital Signs Most Recent Imported Vital Signs: Most Recent Vital Signs Temp Pulse Resp BP Pulse Ox 36.6 C 79 16 130/77 100 11/12/21 08:25 11/12/21 08:25 11/12/21 08:25 11/12/21 08:25 11/12/21 08:25 Most Recent Manually Entered Vital Signs: Adult Blood Pressure: 118/75 Heart Rate: 66 Respirations: 12 Oxygen Saturation (%): 98 Temperature (C): 36.4 C Pain Score (0-10 Scale): 0 Pain Score Most Recent Pain Score: Most Recent Pain Score Pain Level 5 11/12/21 08:25 Assessment Mental Status: Awake (Alert & Oriented to Patient Baseline) Airway and Respiratory Function: Patent airway with normal (patient baseline) respiratory exam Cardiovascular Function: Hemodynamically Stable Hydration Status: Adequately Hydrated Nausea & Vomiting: No Nausea or Vomiting Pain: Pt. Denies Any Pain Peripheral Nerve Block: Patient did not receive a nerve block
[2021-11-12 10:53] VITALS: BP 118/75; PULSE 66; RESP 12; TEMPC 36.4; O2SAT 98
[2021-11-12 11:17] VITALS: BP 122/69; PULSE 64; RESP 16; TEMP 36.4; O2SAT 97
--- NOTE | 2021-11-12 13:49 | ENDO_ITS ---
Date of service: 11/12/21 Time of Service: 13:49 Endoscopy Report DATE OF PROCEDURE: 11/12/21 PRE-OP DIAGNOSIS: anemia/gerd POST-OP DIAGNOSIS: other (same and mild gastritis/area of muscosal irregularity at cardia) SURGEON: Pastora Noel ANESTHESIA TYPE: General:No Airway ESTIMATED BLOOD LOSS: 1 PATHOLOGY: other COMPLICATIONS: None DISPOSITION: same day PROCEDURE DESCRIPTION: After informed consent was obtained the patient was take to the procedure room and placed in a supine position. Monitors were applied and a time out was done. The patients name, date of , procedure type, allergies to medications and metal in their body was reviewed. A bite block was placed and the patient was sedated. Once sedated and comfortable the gastroscope was advanced through the oropharynx which was grossly normal into the esophagus. The proximal and mid- esophagus were nl. There is no esophageal erosions, varices, diverticula, or stricture apparent. The scope was advanced into the stomach and through the pylorus into the 3rd portion of the duodenum. The duodenum was noted to be nl. Biopsies were done, all specimens are retrieved and no bleeding is noted.. The scope was retracted back into the stomach and biopsies were done to rule out H. pylori. There were no ulcers. There is some mild gastritis and a diffuse erythematous pattern involving the antrum, and dependent portions of the stomach/lower one third of the stomach. Near the cardia/GE junction are 2 areas of raised, erythematous plaques of undetermined significance. Biopsies were taken of these areas as well. The scope was retroflexed. The cardia and fundus were noted to be normal. There is no hiatal hernia noted. The scope was retracted back into the esophagus and biopsies were done of the GE junction to rule out Paritda's. The Z line was regular. The GE junction was at 40 cm/bx taken. Distal esophagus is at 38 cm and biopsy of this is taken as well.. The scope was removed.
--- NOTE | 2021-11-12 13:53 | W.COLOREPORT ---
Colonoscopy Report Date of procedure: 11/12/21 Pre-op diagnosis general: anemia/hx of polyps Post-op diagnosis procedure note: other (diverticula) Surgeon: Pastora Noel Anesthesia Type: General:No Airway Estimated blood loss (mL): 0 Pathology: none sent Complications: None Disposition: same day Prep: Miralax/Dulcolax Retraction Time: 15 Procedure Description: After informed consent was obtained the patient was taken to the procedure room and placed in a left decubitous position. Monitors were applied and a time out was done. The patients name, date of , procedure, allergies to medications and metal in their body was reviewed. The patient was then sedated. Once sedated and comfortable a rectal exam was done. External exam was normal. Internal exam revealed a normal sphincter tone and no palpable masses. The scope was then introduced and retrofelexed. No internal hemorrhoids were identified. The scope was then advanced to the cecum w/out difficulty. The TI and appendiceal orifice were identified. The prep was BBPS I in all segments for a total of 3. The scope was then slowly retracted over 15 minutes back into the rectum. He did not have a good prep. The colon was irrigated with 2 L of saline. Lesions less than 5 mm could have been missed. No polyps are seen today. The mucosa appears pink and healthy. He does have severe diverticula of the sigmoid colon. There is no signs of active bleeding or infection. the scope was removed and the patient was woken up and taken back to Same day surgery in stable condition. The patient tolerated the procedure well and there were no immediate complications. Follow up: The patient does not require any further screening. CE's, unless they develop changes in bowel habits or other new gastrointestinal complaints.
== END 2021-11-12 13:00 | disposition home or self-care (01) ==
PROVIDERS: PCP Physician Assistant; Visit Provider Surgery
PROC: (CPT 43239; principal; 2021-11-12 09:30)
DX: K62.5 Hemorrhage of anus and rectum (principal); D64.9 Anemia, unspecified; K57.30 Diverticulosis of large intestine without perforation or abscess without bleeding; Z86.010 Personal history of colon polyps; K29.70 Gastritis, unspecified, without bleeding; K22.9 Disease of esophagus, unspecified; I10 Essential (primary) hypertension; K21.9 Gastro-esophageal reflux disease without esophagitis; K31.89 Other diseases of stomach and duodenum; K22.89 Other specified disease of esophagus
CPT/HCPCS: 43239; 45378; 88305

== ENCOUNTER 2021-11-19 14:25 | Emergency (ER) | payer OTHER, SELFPAY ==
[2021-11-19 14:29] VITALS: BP 138/84; PULSE 50; TEMP 36.7; O2SAT 97
--- NOTE | 2021-11-19 15:40 | W.ED.GENAD ---
Discharge Plan Disposition Patient Disposition: HOME Condition: Stable Discharge Details Clinical Impression: Foreign body in eye Primary Care Provider: Jess Olivia ED Provider: Rosemarie Lemus Home Meds and New Rx's Prescriptions: New erythromycin 5 mg/gram (0.5 %) ointment 0.5 inch ophthalmic (eye) TID Qty: 3.5 0RF Continued acetaminophen [Tylenol Extra Strength] 500 mg tablet 500 mg PO Q6H PRN nitroglycerin 0.4 mg tablet, sublingual 0.4 mg sublingual Q5-15M PRN Rx Instructions: do not exceed 3 doses per episode metoprolol succinate 50 mg tablet extended release 24 hr 50 mg PO .nightly Qty: 90 3RF lansoprazole 30 mg capsule,delayed release(DR/EC) 30 mg PO BID albuterol sulfate [ProAir HFA] 90 mcg/actuation HFA aerosol inhaler 2 puff inhalation Q6H PRN amlodipine 5 mg tablet 5 mg PO DAILY fluoxetine [Prozac] 40 mg Capsule 40 mg QAM atorvastatin 20 mg tablet 20 mg PO HS Label Comments: TAKE 1 TABLET BY MOUTH DAILY AT BEDTIME Jardiance 10 mg Tablet 10 mg PO QAM Qty: 90 0RF spironolactone 25 mg Tablet 25 mg PO DAILY Qty: 30 1RF Entresto 24-26 mg Tablet 1 ea PO BID Qty: 60 1RF Discharge Instructions Instructions: Eye Foreign Body (ED) Additional Instructions: use ointment as prescribed follow-up with eye doctor tomorrow return with new or worsening complaints Discharge Data Discharge Date/Time-TO BE ENTERED AT DEPARTURE: 11/19/21 15:55 Medical Decision Making removed fb and visible rust ring without incident visual acuity intact ophthalmology f/u recommended erythromycin for home return precautions discussed Medical Records Medical records reviewed: Yes I reviewed the patient's medical records. HPI General Date/Time Provider Initiated Documentation: 11/19/21 14:43. HPI Narrative: This patient presents with a piece of steel in his right eye for the past 2 days. He states he was grinding a low-speed piece of steel traveled into his eye. He denies any vision change. He reports irritation exacerbated by blinking to right eye. Related Data Home Medications Medication Instructions Recorded Confirmed atorvastatin 20 mg tablet 20 mg PO HS 12/17/20 11/12/21 acetaminophen 500 mg tablet 500 mg PO Q6H PRN 06/11/21 11/12/21 (Tylenol Extra Strength) fluoxetine 40 mg capsule (Prozac) 40 mg QAM 06/21/21 11/12/21 metoprolol succinate 50 mg 50 mg PO .nightly #90 tabs 07/26/21 11/12/21 tablet,extended release 24 hr nitroglycerin 0.4 mg sublingual 0.4 mg sublingual Q5-15M PRN 07/26/21 11/12/21 tablet Jardiance 10 mg tablet 10 mg PO QAM #90 tabs 09/10/21 10/30/21 (empagliflozin) sacubitril 24 mg-valsartan 26 mg 1 ea PO BID #60 tabs 09/10/21 11/12/21 tablet (Entresto) spironolactone 25 mg tablet 25 mg PO DAILY #30 tabs 09/10/21 11/12/21 albuterol sulfate 90 mcg/actuation 2 puff inhalation Q6H PRN 11/07/21 11/12/21 aerosol inhaler (ProAir HFA) amlodipine 5 mg tablet 5 mg PO DAILY 11/07/21 11/12/21 lansoprazole 30 mg capsule,delayed 30 mg PO BID 11/07/21 11/12/21 release erythromycin 5 mg/gram (0.5 %) eye 0.5 inch ophthalmic (eye) TID #3.5 11/19/21 ointment grams Previous Rx's Medication Instructions Recorded metoprolol succinate 50 mg 50 mg PO .nightly #90 tabs 07/26/21 tablet,extended release 24 hr Jardiance 10 mg tablet 10 mg PO QAM #90 tabs 09/10/21 (empagliflozin) sacubitril 24 mg-valsartan 26 mg 1 ea PO BID #60 tabs 09/10/21 tablet (Entresto) spironolactone 25 mg tablet 25 mg PO DAILY #30 tabs 09/10/21 erythromycin 5 mg/gram (0.5 %) eye 0.5 inch ophthalmic (eye) TID #3.5 11/19/21 ointment grams Allergies Allergy/AdvReac Type Severity Reaction Status Date / Time omeprazole [From Prilosec] Allergy Intermediate Itching Verified 11/12/21 08:44 oxycodone Allergy Itching Verified 11/12/21 08:44 codeine [Codeine] AdvReac NAUSEA Verified 11/12/21 08:44 General Stated Complaint: EyeProblem CATIA: 4 Review of Systems All systems reviewed & are unremarkable except as noted in HPI and below PFSH All Active Problems (Updated 11/19/21 @ 15:44 by LUKAS Ramsey) Foreign body in eye (Acute) Rectal bleeding (Acute) Anemia (Chronic) Medication monitoring encounter (Chronic) Ventricular trigeminy (Acute) New onset cough (Acute) Diarrhea (Acute) assoc w/ fatty food injestion Postprandial RUQ pain (Acute) Nonischemic cardiomyopathy (Acute) HTN (hypertension) with goal to be determined (Acute) Melena (Acute) Depression (Chronic) Obesity (Chronic) Globus sensation (Acute) Exertional chest pain (Acute) Melena (Acute) Diverticulitis (Acute) Gastropathy (Acute) pt needs to curtail ETOH use. 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 Shoulder pain (11/18/12) Situational depression Tendinitis of long head of biceps brachii of left shoulder Tendonitis of left rotator cuff Injected: 01/03/2020, 04/10/2020, 12/17/2020 Surgical History Appendectomy (~2007) Arthroplasty 03/09/15; DR. HERNANDEZ RIGHT SECOND TOE EXOSTECTOMY 03/09/15 DR. YODER; RIGHT GREAT TOE History of esophagogastroduodenoscopy (EGD) History of surgery on upper extremity Hx L shoulder, wrist, fingers, R arm x 8 per Pt History of surgical amputation of finger of left hand Machine related injury, R hand per pt 08/13/18 Hx of carpal tunnel repair Hx of colonoscopy 08/13/[address] Pastora Noel at [facility], repeat in five years. mg colo 06/05/08 - Dr Cheney - tubular adenoma, descending colon, repeat in 5 years. Family History Other Cancer Diabetes Hypertension Social History Smoking/Tobacco Use Status: Former Tobacco Use Smoking risk assessment performed?: Yes Alcohol Intake: former Drug use: Never Substance use type: does not use Household members: none current occupation: disabled Current gender identity: male What type of physical activity do you participate in: none Do you feel safe at home: Yes Do you feel safe in your relationship?: Yes Exam Const General: cooperative, comfortable and no acute distress Eyes Conjunctivae: conjunctival abnormality Pupils: PERRL Eyes/upper lids images: 1. 2 mm metal fb neg seidels sign Resp Effort & Inspection: normal respiratory effort Cardio Rate: regular rate Course Vital Signs Vital signs: Vital Signs Temperature 36.7 C 11/19/21 14:29 Pulse 50 L 11/19/21 14:29 Blood Pressure 138/84 11/19/21 14:29 Pulse Oximetry 97 11/19/21 14:29 Temperature 36.7 C 11/19/21 14:29 Pulse 50 L 11/19/21 14:29 Respiratory Effort Non-Labored 11/19/21 14:46 Blood Pressure 138/84 11/19/21 14:29 Blood Pressure Position Sitting 11/19/21 14:29 Pulse Oximetry 97 11/19/21 14:29 Oxygen Delivery Method Room Air 11/19/21 14:29 Oxygen Flow Rate 0 11/19/21 14:29 Procedures FB Removal Eye Time Out performed: Yes Location: eye (R) Topical anesthetic used: tetracaine Foreign body: metal Evidence of corneal penetration: No Technique: electric mis Post-procedure medication: ophthalmic antibiotic Patient tolerated procedure: well
== END 2021-11-19 15:55 | disposition home or self-care (01) ==
PROVIDERS: Emergency Provider Physician Assistant; PCP Physician Assistant
DX: T15.91XA Foreign body on external eye, part unspecified, right eye, initial encounter (principal); Z87.891 Personal history of nicotine dependence; X58.XXXA Exposure to other specified factors, initial encounter
CPT/HCPCS: 65220; 99283

== ENCOUNTER 2021-11-22 02:10 | Outpatient (CLI) | payer OTHER, MEDICAID, SELFPAY ==
--- NOTE | 2021-12-16 12:26 | W.CARDEVENT ---
Date of service: 12/16/21 Time of Service: 12:26 Cardiac Event Recorder Referring Provider:: Kushal Marcus Indications:: Syncope Cardiac Event Note: This is a 14-day cardiac event monitor, ordered for syncope Rhythm throughout was sinus with an average heart rate of 84. Minimum was 57, maximum 140 There were frequent ventricular ectopic beats comprising 21% of total. There were multiple brief runs of nonsustained ventricular tachycardia generally 4-5 beats in duration. One run lasted 19 beats. There were rare atrial premature beats, very brief atrial runs longest of which was 6 beats in duration There was no atrial fibrillation no high-grade AV block, no pauses greater than 3 seconds No patient symptoms were reported
== END 2021-11-22 02:11 | disposition home or self-care (01) ==
LOC: RT 02:10
PROVIDERS: PCP Physician Assistant; Visit Provider Internal Medicine
DX: R55 Syncope and collapse
CPT/HCPCS: 93246

== ENCOUNTER → 2021-12-03 13:26 | Outpatient (BNVA) | payer OTHER, MEDICAID, SELFPAY | PROVIDERS: PCP Physician Assistant; Referring Provider Physician Assistant; Visit Provider Student in an Organized Health Care Education/Training Program | DX: X58.XXXA Exposure to other specified factors, initial encounter (principal); S46.011A Strain of muscle(s) and tendon(s) of the rotator cuff of right shoulder, initial encounter | CPT/HCPCS: 99214 ==

== ENCOUNTER 2021-12-16 12:26 | Outpatient (CLI) | payer OTHER, MEDICAID, SELFPAY | END 2021-12-16 12:27 | LOC: CARDO 12-18 11:24 | PROVIDERS: PCP Physician Assistant; Visit Provider Internal Medicine Cardiovascular Disease | DX: R55 Syncope and collapse (principal); I47.2 Ventricular tachycardia; I49.1 Atrial premature depolarization | CPT/HCPCS: 93248 ==

== ENCOUNTER → 2021-12-26 01:58 | Outpatient (CLI) | payer OTHER, MEDICAID, SELFPAY ==
--- NOTE | 2021-12-26 09:10 | DI.MRI_ITS ---
Exam(s) MR UPPER JOINT RT WO EXAM: MR UPPER JOINT RT WO CLINICAL HISTORY: TRAUMATIC TEAR RT ROTATOR CUFF, RE TEAR,[id number]. TECHNIQUE: Multiplanar multisequence MRI was performed. COMPARISON: Plain films 01 November 2021 FINDINGS: Bones: There is no fracture or contusion pattern. Metallic artifact in the humeral head related to prior surgery. The acromioclavicular joint shows evidence of prior resection at the distal clavicle.. Glenohumeral joint: Small amount of fluid. Rotator Cuff: The supraspinatus tendon is intact. Infraspinatus tendon is intact. The subscapularis and teres minor tendons are intact. There is severe atrophy of the teres minor mus channing. Labrum and biceps anchor: The biceps tendon is located. There is artifact related to adjacent metalli c anchors. The labrum shows degenerative changes inferiorly.. Soft tissues: Metallic artifact rela conrado to prior surgery. Bursa: Small amount of fluid in the subcoracoid bursa. No fluid in the subacromial subdeltoid bursa. IMPRESSION: Prior repair of long head of the biceps tendon with metallic anchors in place creating artifact. No gross evidence of a retear. Remaining rotator cuff tendons appear intact. There is severe atrophy o f the teres minor muscle. DATA REPOSITORY:
== END ==
PROVIDERS: PCP Physician Assistant; Visit Provider Student in an Organized Health Care Education/Training Program
DX: Z98.890 Other specified postprocedural states (principal)
CPT/HCPCS: 73221

== ENCOUNTER → 2022-01-02 10:32 | Outpatient (BNVA) | payer OTHER, MEDICAID, SELFPAY | PROVIDERS: PCP Physician Assistant; Visit Provider Internal Medicine Cardiovascular Disease | DX: R06.02 Shortness of breath (principal); I49.3 Ventricular premature depolarization; I42.8 Other cardiomyopathies; I10 Essential (primary) hypertension | CPT/HCPCS: 99214 ==

== ENCOUNTER → 2022-01-08 12:36 | Outpatient (BNVA) | payer OTHER, MEDICAID, SELFPAY | PROVIDERS: PCP Physician Assistant; Referring Provider Physician Assistant; Visit Provider Student in an Organized Health Care Education/Training Program | DX: X58.XXXA Exposure to other specified factors, initial encounter (principal); M75.21 Bicipital tendinitis, right shoulder; M75.51 Bursitis of right shoulder; M19.011 Primary osteoarthritis, right shoulder; S46.011A Strain of muscle(s) and tendon(s) of the rotator cuff of right shoulder, initial encounter | CPT/HCPCS: 20610; 99214; J1030 ==

== ENCOUNTER → 2022-03-27 02:06 | Outpatient (CLI) | payer OTHER, MEDICAID, SELFPAY ==
--- NOTE | 2022-03-27 13:57 | DI.US_ITS ---
APPROVED REPORT EXAM: Comprehensive 2D, Doppler, and color-flow Echocardiogram Patient Location: Out-Patient Front End Manager: Deanna Piña RDCS (AE) Indications: RE check LV function, PVC, Non ischemic cardiomyopathy Other Information Study Quality: Adequate Conclusion Normal left ventricular wall thickness and chamber size. Estimated ejection fraction is 55%. No seg mental wall motion abnormalities are appreciated Normal right ventricular size and systolic function Both atria are normal in size There is no structural or hemodynamically significant valvular disease Wall motion Left Ventricle The left ventricle is normal size. Left ventricular systolic function is borderline. There is normal left ventricular wall thickness. There are no segmental wall motion abnormalities There is no ventric ular septal defect visualized. LVEF is 55%. Right Ventricle The right ventricle is normal size. The right ventricular systolic function is normal. Atria The left atrium size is normal. The right atrium size is normal. The interatrial septum is intact wit h no evidence for an atrial septal defect. Aortic Valve The aortic valve is normal in structure. Aortic valve is trileaflet. There is no aortic valvular sten osis. No aortic regurgitation is present. Mitral Valve The mitral valve is normal in structure. No evidence of mitral valve stenosis. Trace mitral regurgita tion. Tricuspid Valve The tricuspid valve is normal in structure. There is no tricuspid valve stenosis. Trace tricuspid reg urgitation. Unable to assess PA pressure. Pulmonic Valve The pulmonary valve is normal in structure. There is no pulmonic valvular stenosis. Trace pulmonic re gurgitation. Great Vessels The aortic root is normal in size. The ascending aorta is normal in size. Aortic arch is normal in ca liber. IVC is normal in size and collapses >50% with inspiration. Pericardium There is no pericardial effusion. 2D Dimensions IVSD d PLAX 1.03 cm M: 0.6-1.2 LV Vol A2C d MOD 125.5 mL LVPW d PLAX 1.03 cm M: 0.6 - 1.2 LV Vol A4C d MOD 141.9 mL LVID d PLAX 5.68 cm M: 4.2 - 5.8 LA vol/ BSA A2C s A-L 21.8 mL/m2 LVDs 4.05 cm M: 2.5 - 4.0 LA vol/ BSA A4C s A-L 22.8 mL/m2 Ao Root d 3.11 cm M: 3.1 - 3.7 LA Vol/ BSA Biplane s A-L 22.6 mL/m2 RA Area A4C 15.33 cm2 LA Area A4C s MOD 18.25 cm2 RA Vol/ BSA A4C s A-L 18.6 mL/m2 LA Area A2C s MOD 17.59 cm2 Ao Asc Diam d 3.15 cm M: 2.6 - 3.4 LV EF A4C MOD 55.6 % LV EF Teichholz 53.8 % LV EF A2C MOD 50.0 % LVEF (Ocampo's) 51.19 % M: 52 - 72 LV EF Biplane MOD 51.2 % LV Volume 96.93 mL M: 62 - 150 SV 68.39 mL LV Volume Index 43.85 mL/m2 M: 34 - 74 SV Index 30.84 mL/m2 LV Vol Biplane MOD 133.6 mL FS 28.15 % M-Mode TAPSE 2.83 cm (M/F) >1.7 LV Diastology MV E' medial 0.067 (>0.07 m/s) E/A Ratio 0.8 LV E/e MED 7.95 (<14) MV E Vmax 0.54 (0.4-1.3 m/s) MV E' lateral 0.071 (>0.1 m/s) MV A Vmax 0.70 (0.4-1.3 m/s) LV E/e LAT 7.50 (<14) MV E/A Ratio 0.75 MV E/E' medial 7.97 MV E/E' lateral 7.53 Aortic Valve LVOT Area 3.72 cm2 AoV Area Vmax 2.72 cm2 LVOT Vmax 0.92 m/s AoV Area/ BSA (Vmax) 1.22 cm2/m2 LVOT Mean Chandler. 0.74 m/s RIVERA Mean Chandler. 3.07 cm2 LVOT Peak Grad 3.4 mmHg RIVERA Mean Chandler. Index 1.38 cm2/m2 LVOT Mean Grad 2.4 mmHg LVOT VTI 0.193 m LVOT Diam s 2.15 cm AoV Vmax 1.25 m/s Velocity Ratio 0.73 AoV Mean Chandler. 0.90 m/s AoV Peak Grad 6.3 mmHg LVOT SV 71.86 mL AoV Mean Grad 3.6 mmHg AoV VTI 0.274 m AoV Area VTI 2.62 cm2 AoV Area/ BSA (VTI) 1.18 cm/m2 Mitral Valve MV DT 279 (160-240 msec) MV PHT 81 msec MV Area PHT 2.72 cm2 MV VTI 0.291 m MV Area VTI 2.47 (4.0-6.0 cm2) Pulmonary Valve PV Vmax 1.38 (0.5-1.5 m/s) RVOT Peak Gr. 2.16 mmHg PV Peak Grad 7.6 mmHg RVOT Mean Gr. 1.00 mmHg PV Mean Grad 3.6 mmHg RVOT VTI 0.152 m PV VTI 0.247 m RVOT Vmax 0.74 m/s
== END ==
PROVIDERS: PCP Physician Assistant; Visit Provider Internal Medicine Cardiovascular Disease
DX: I42.8 Other cardiomyopathies (principal); I49.3 Ventricular premature depolarization
CPT/HCPCS: 93306

== ENCOUNTER → 2022-05-08 09:47 | Outpatient (BNVA) | payer OTHER, MEDICAID, SELFPAY | PROVIDERS: PCP Physician Assistant; Referring Provider Physician Assistant; Visit Provider Internal Medicine Cardiovascular Disease | DX: I42.8 Other cardiomyopathies (principal); I10 Essential (primary) hypertension; I49.3 Ventricular premature depolarization; R05.9 Cough, unspecified | CPT/HCPCS: 99214; 99213 ==

== ENCOUNTER 2022-07-29 08:19 | Outpatient (CLI) | payer OTHER, MEDICAID, SELFPAY ==
--- NOTE | 2022-07-29 08:15 | RT.EKG_ITS ---
APPROVED REPORT Exam: Resting ECG Reason for Exam: CP Patient Location: O HR:70 bpm ECG Measurements Heart Rate 70 AXIS NC 187 P 32 QRSd 99 QRS -6 QT 412 T 63 QTc 445 Conclusion Sinus rhythm...normal P axis, V-rate 50- 99 Normal Electrocardiogram
== END 2022-07-29 08:20 | disposition home or self-care (01) ==
LOC: DI.CARD 08:20
PROVIDERS: PCP Physician Assistant; Visit Provider Internal Medicine Cardiovascular Disease
DX: R07.9 Chest pain, unspecified
CPT/HCPCS: 93010

== ENCOUNTER → 2022-07-29 09:12 | Outpatient (BNVA) | payer OTHER, MEDICAID, SELFPAY | PROVIDERS: PCP Physician Assistant; Referring Provider Physician Assistant; Visit Provider Internal Medicine Cardiovascular Disease | DX: I42.8 Other cardiomyopathies (principal); R07.9 Chest pain, unspecified | CPT/HCPCS: 93005; 99214 ==

== ENCOUNTER 2022-08-28 02:32 | Outpatient (CLI) | payer OTHER, MEDICAID, SELFPAY ==
--- NOTE | 2022-08-28 | DI.US_ITS ---
Exam(s) US THYROID EXAM: US THYROID CLINICAL HISTORY: GLOBUS SENSATION,F45.8,RECURRENT COUGH,R05. TECHNIQUE: Ultrasound thyroid performed using standard protocol. COMPARISON: No exams were available for comparison FINDINGS: ISTHMUS: 4 mm RIGHT LOBE: Size: 5.2 x 1.7 x 1.7 cm Echogenicity: Normal. Vascularity: Normal. Nodules: None. LEFT LOBE: Size: 4.2 x 1.31.7 cm Echogenicity: Normal. Vascularity: Normal. Nodules: None. OTHER FINDINGS: None. IMPRESSION: Normal sonographic appearance of the thyroid gland. DATA REPOSITORY:
== END 2022-08-28 02:52 ==
PROVIDERS: PCP Physician Assistant; Visit Provider Physician Assistant
DX: F45.8 Other somatoform disorders (principal); R05.1 Acute cough
CPT/HCPCS: 76536

== ENCOUNTER 2022-11-14 17:40 | Emergency (ER) | payer OTHER, MEDICAID, SELFPAY ==
[2022-11-14 17:41] VITALS: BP 133/51; PULSE 72; RESP 18; TEMP 36.5; O2SAT 100
--- NOTE | 2022-11-14 18:25 | W.ED.GENAD ---
Discharge Plan Disposition Patient Disposition: Home Condition: Stable Discharge Details Clinical Impression: Insect bite of leg, right, infected Primary Care Provider: Jess Olivia ED Provider: Debbi Hillman Home Meds and New Rx's Prescriptions: New doxycycline hyclate 100 mg tablet 100 mg PO BID 10 Days Qty: 20 0RF Rx Instructions: Take 1 tablet twice daily for the next 10 days No Action acetaminophen [Tylenol Extra Strength] 500 mg tablet 500 mg PO Q6H PRN nitroglycerin 0.4 mg tablet, sublingual 0.4 mg sublingual Q5-15M PRN Rx Instructions: do not exceed 3 doses per episode metoprolol succinate 50 mg tablet extended release 24 hr 50 mg PO .nightly Qty: 90 3RF lansoprazole 30 mg capsule,delayed release(DR/EC) 30 mg PO BID albuterol sulfate [ProAir HFA] 90 mcg/actuation HFA aerosol inhaler 2 puff inhalation Q6H PRN amlodipine 5 mg tablet 5 mg PO DAILY dexlansoprazole [Dexilant] 60 mg capsule,biphase delayed releas 60 mg PO DAILY fluoxetine [Prozac] 40 mg Capsule 40 mg QAM atorvastatin 20 mg tablet 20 mg PO HS Patient Comments: TAKE 1 TABLET BY MOUTH DAILY AT BEDTIME Jardiance 10 mg Tablet 10 mg PO QAM Qty: 90 0RF spironolactone 25 mg Tablet 25 mg PO DAILY Qty: 30 1RF Entresto 24-26 mg Tablet 1 ea PO BID Qty: 60 1RF Discharge Instructions Instructions: Insect Bite or Sting (ED) Additional Instructions: Please keep clean and dry. Do not scratch or Dig at the area. Take the antibiotic twice daily with yogurt or probiotic as directed. Clean once daily with soap and water. Allow to air dry. Follow up with primary care provider in 3-5 days. Return to ED sooner if any worsening red streaks, signs of infection or concerns. Increase oral fluids. Please take Tylenol or Ibuprofen with food every 4-6 hours as needed for pain and swelling. Referrals: Jess Olivia [Primary Care Provider] - 5 days Discharge Data Discharge Date/Time-TO BE ENTERED AT DEPARTURE: 11/14/22 18:43 Medical Decision Making 67-year-old male here with chief complaint of possible insect bite to his right lower extremity. Patient reports 3 to 4 days ago he noticed an area that was swollen and itchy he reports he dug at it with his fingernail and got something black out of it. He is unsure if it as it was a tick. He reports that is now painful. No surrounding erythema or rash noted. Does have a scab noted with some excoriation. No erythema or warmth. He has been putting hydrogen peroxide on it. Will treat empirically for possible tick bite. However differential diagnosis includes spider bite, other insect bite. Will give doxycycline 100 mg here and give 2 tablets to go. I did discuss home care with him and to leave it alone and not scrape or scratch at it if possible do not use hydrogen peroxide but clean with soap and water. This text was generated using [employer] dictation system, please disregard any oddities of phrase or misspellings. HPI General Mode of arrival: ambulatory. Date/Time Provider Initiated Documentation: 11/14/22 18:04. Limitations to Documentation: no limitations. Information obtained by: patient, RN notes reviewed and old records reviewed. HPI Narrative: 67-year-old male here with chief complaint of possible insect bite to his right lower extremity. Patient reports 3 to 4 days ago he noticed an area that was swollen and itchy he reports he dug at it with his fingernail and got something black out of it. He is unsure if it as it was a tick. He reports that is now painful. No surrounding erythema or rash noted. Does have a scab noted with some excoriation. No erythema or warmth. He has been putting hydroperoxide on it. Related Data Home Medications Medication Instructions Recorded Confirmed atorvastatin 20 mg tablet 20 mg PO HS 12/17/20 07/29/22 acetaminophen 500 mg tablet 500 mg PO Q6H PRN 06/11/21 07/29/22 (Tylenol Extra Strength) fluoxetine 40 mg capsule (Prozac) 40 mg QAM 06/21/21 07/29/22 metoprolol succinate 50 mg 50 mg PO .nightly #90 tabs 07/26/21 07/29/22 tablet,extended release 24 hr nitroglycerin 0.4 mg sublingual 0.4 mg sublingual Q5-15M PRN 07/26/21 07/29/22 tablet Jardiance 10 mg tablet 10 mg PO QAM #90 tabs 09/10/21 07/29/22 (empagliflozin) sacubitril 24 mg-valsartan 26 mg 1 ea PO BID #60 tabs 09/10/21 07/29/22 tablet (Entresto) spironolactone 25 mg tablet 25 mg PO DAILY #30 tabs 09/10/21 07/29/22 albuterol sulfate 90 mcg/actuation 2 puff inhalation Q6H PRN 11/07/21 07/29/22 aerosol inhaler (ProAir HFA) amlodipine 5 mg tablet 5 mg PO DAILY 11/07/21 07/29/22 lansoprazole 30 mg capsule,delayed 30 mg PO BID 11/07/21 07/29/22 release dexlansoprazole 60 mg 60 mg PO DAILY 08/05/22 capsule,biphase delayed release (Dexilant) doxycycline hyclate 100 mg tablet 100 mg PO BID 10 days #20 tabs 11/14/22 Previous Rx's Medication Instructions Recorded metoprolol succinate 50 mg 50 mg PO .nightly #90 tabs 07/26/21 tablet,extended release 24 hr Jardiance 10 mg tablet 10 mg PO QAM #90 tabs 09/10/21 (empagliflozin) sacubitril 24 mg-valsartan 26 mg 1 ea PO BID #60 tabs 09/10/21 tablet (Entresto) spironolactone 25 mg tablet 25 mg PO DAILY #30 tabs 09/10/21 doxycycline hyclate 100 mg tablet 100 mg PO BID 10 days #20 tabs 11/14/22 Allergies Allergy/AdvReac Type Severity Reaction Status Date / Time lisinopril Allergy Intermediate Verified 11/14/22 17:46 omeprazole [From Prilosec] Allergy Intermediate Itching Verified 11/14/22 17:46 oxycodone Allergy Itching Verified 11/14/22 17:46 codeine [Codeine] AdvReac NAUSEA Verified 11/14/22 17:46 General Stated Complaint: InsectBite CATIA: 4 Review of Systems All systems reviewed & are unremarkable except as noted in HPI and below PFSH All Active Problems (Updated 11/14/22 @ 18:30 by Debbi Hillman NP) Insect bite of leg, right, infected (Acute) Cough (Acute) Tendonitis of long head of biceps brachii of right shoulder (Acute) Primary osteoarthritis, right shoulder (Acute) Bursitis of right shoulder (Acute) Premature ventricular contractions (Acute) Traumatic tear of right rotator cuff (Acute ~10/2021) Rectal bleeding (Acute) Anemia (Chronic) Medication monitoring encounter (Chronic) Ventricular trigeminy (Acute) New onset cough (Acute) Diarrhea (Acute) assoc w/ fatty food injestion Postprandial RUQ pain (Acute) Nonischemic cardiomyopathy (Acute) HTN (hypertension) with goal to be determined (Acute) Melena (Acute) Depression (Chronic) Obesity (Chronic) Globus sensation (Acute) Exertional chest pain (Acute) Melena (Acute) Diverticulitis (Acute) Gastropathy (Acute) pt needs to curtail ETOH use. 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 Shoulder pain (11/18/12) Situational depression Tendinitis of long head of biceps brachii of left shoulder Tendonitis of left rotator cuff Injected: 01/03/2020, 04/10/2020, 12/17/2020 Surgical History Appendectomy (~2007) Arthroplasty 03/09/15; DR. HERNANDEZ RIGHT SECOND TOE EXOSTECTOMY 03/09/15 DR. YODER; RIGHT GREAT TOE History of esophagogastroduodenoscopy (EGD) (~11/2021) History of surgery on upper extremity Hx L shoulder, wrist, fingers, R arm x 8 per Pt History of surgical amputation of finger of left hand Machine related injury, R hand per pt 08/13/18 Hx of carpal tunnel repair Hx of colonoscopy 08/13/[address] Pastora Noel at [facility], repeat in five years. mg colo 06/05/08 - Dr Cheney - tubular adenoma, descending colon, repeat in 5 years. Family History Other Cancer Diabetes Hypertension Social History Smoking/Tobacco Use Status: Former Tobacco Use Smoking risk assessment performed?: Yes Alcohol Intake: former Drug use: Never Substance use type: does not use Household members: none current occupation: disabled Current gender identity: male What type of physical activity do you participate in: none Do you feel safe at home: Yes Do you feel safe in your relationship?: Yes Exam Extrem Right lower extremity: lower leg Details: tenderness and abrasion (Punctate excoriation to the posterior aspect mild amount of swelling surrounding); no unusual warmth Course Vital Signs Vital signs: Vital Signs Temperature 36.5 C 11/14/22 17:41 Pulse 72 11/14/22 17:41 Respiratory Rate 18 11/14/22 17:41 Blood Pressure 133/51 L 11/14/22 17:41 Pulse Oximetry 100 11/14/22 17:41 Temperature 36.5 C 11/14/22 17:41 Temperature Source Skin 11/14/22 17:41 Pulse 72 11/14/22 17:41 Respiratory Rate 18 11/14/22 17:41 Blood Pressure 133/51 L 11/14/22 17:41 Blood Pressure Position Sitting 11/14/22 17:41 Pulse Oximetry 100 11/14/22 17:41 Oxygen Delivery Method Room Air 11/14/22 17:41 Oxygen Flow Rate 0 11/14/22 17:41 Pain Level 5 11/14/22 17:41
[2022-11-14] MEDS: Doxycycline Hyclate 100 MG CAP PO (18:39)
[2022-11-14] MEDS: Doxycycline Hyclate 100 MG, 2 CAPS/BTL PO (18:39)
[2022-11-14 18:40] VITALS: BP 133/51; PULSE 72; RESP 18; TEMP 36.5; O2SAT 100
== END 2022-11-14 18:43 | disposition home or self-care (01) ==
PROVIDERS: Emergency Provider Registered Nurse Emergency; PCP Physician Assistant
DX: S80.861A Insect bite (nonvenomous), right lower leg, initial encounter (principal); W57.XXXA Bitten or stung by nonvenomous insect and other nonvenomous arthropods, initial encounter; L08.9 Local infection of the skin and subcutaneous tissue, unspecified
CPT/HCPCS: 99283; 99284

== ENCOUNTER 2022-12-10 13:20 | Outpatient (REF) | payer OTHER, MEDICAID, SELFPAY ==
[2022-12-10 13:05] LABS: Abs Immature Grans 0.01 10^3/uL (0.0-0.06); Absolute Basophil Count 0.04 10^3/uL (0.0-0.2); Absolute Eosinophil Count 0.08 10^3/uL (0.0-0.7); Absolute Lymphocyte Count 1.63 10^3/uL (1.2-3.4); Absolute Monocyte Count 0.42 10^3/uL (0.1-0.8); Absolute Neutrophil Count 3.56 10^3/uL (1.2-6.7); Basophils % 0.7; Eosinophils % 1.4; HCT 44.6 % (40.0-50.0); HGB 15.3 g/dL (13.5-17.5); Immature Grans % 0.2; Lymphocytes % 28.4; MCH 29.6 pg (27.0-33.0); MCHC 34.3 % (32.0-36.0); MCV 86 fL (80-95); MPV 11.6 fL (8.0-11.0); Monocytes % 7.3; Platelet Count 160 10^3/uL (130-400); RBC 5.17 10^6/uL (4.36-5.78); RDW 12.5 % (11.8-14.1); RDW-SD 39.3 fL; WBC 5.74 10^3/uL (4.4-10.8)
[2022-12-10 13:23] LABS: INR 0.9 (0.9-1.1); Prothrombin Time 9.3 sec (9.3-11.0)
[2022-12-10 13:30] LABS: ALT 35 U/L (16-63); AST 29 U/L (15-37); Albumin 4.1 g/dL (3.4-5.0); Alkaline Phosphatase 141 U/L (46-116); Anion Gap 9.2 mmol/L (3-11); BUN 21 mg/dL (7-18); Bilirubin, Total 1.3 mg/dL (0.2-1.0); CO2 27.8 mmol/L (21.0-32.0); CREATININE 1.1 mg/dL (0.70-1.30); Calcium 10.5 mg/dL (8.5-10.1); Chloride 102 mmol/L (98-107); Estimated GFR 73.12 (mL/min/1.73m2); Glucose 109 mg/dL (74-106); Potassium 4.3 mmol/L (3.5-5.1); Sodium 139 mmol/L (136-145); TSH 2.24 uIU/mL (0.36-3.74); Total Protein 7.7 g/dL (6.4-8.2)
[2022-12-11 09:52] LABS: Cyclic Citrullinated Peptide <2.5 U/mL (<5.0)
[2022-12-11 13:35] LABS: ANA Interpretation Negative (Negative)
[2022-12-11 15:48] LABS: Myeloperoxidase Ab IgG <0.2 U; Proteinase 3 Ab (PR3) 0.2 U
== END 2022-12-10 13:21 | disposition home or self-care (01) ==
LOC: LBN 13:20
PROVIDERS: PCP Physician Assistant; Visit Provider Physician Assistant Surgical
DX: R05.3 Chronic cough (principal); R94.2 Abnormal results of pulmonary function studies; R10.13 Epigastric pain; R13.10 Dysphagia, unspecified
CPT/HCPCS: 80053; 86200; 83516; 84443; 85025; 85610; 86038; 86431

== ENCOUNTER → 2022-12-22 02:22 | Outpatient (CLI) | payer OTHER, MEDICAID, SELFPAY ==
--- NOTE | 2022-12-22 08:15 | DI.CT_ITS ---
Exam(s) CT CHEST WO EXAM: CT CHEST WO CLINICAL HISTORY: concern for ILD,abnl chest xr,chronic cough,restrictive pattern,r93.89, TECHNIQUE: Imaging Protocol: Axial computed tomography images with coronal and sagittal reformatted images were created and reviewed CONTRAST MATERIAL: Noncontrast COMPARISON: CR XR CHEST 2V PA LATERAL from 09/04/2021 FINDINGS: Pulmonary parenchyma: No consolidation. No dominant measurable mass. No visible emphysematous change s. No significant interstitial changes. Tracheobronchial tree: No bronchiectasis or mucous plugging. Mediastinum and Esther: No dominant adenopathy or fluid collection. Pleura: No effusion or pneumothorax. Heart: The left atrium and left ventricle are mildly dilated. No coronary artery calcifications are seen. Aorta: Thoracic aorta non-dilated. No visible atherosclerotic changes. Upper abdomen: Unremarkable. Bones: Degenerative changes in the spine, with prominent osteophytes. No compression fractures.. Soft tissues: Unremarkable. IMPRESSION: No acute abnormality. RADIATION DOSE DELIVERED: 483.04mGy.cm Total DLP DATA REPOSITORY: All CT scans at this facility are submitted to the National Radiology Data Registry (NRDR) Dose Index Registry (DIR) with the [employer] (ACR). RADIATION OPTIMIZATION: All CT scans at this facility use at least one of these dose optimization te chniques: automated exposure control; mA and/or kV adjustment per patient size (includes targeted exa ms where dose is matched to clinical indication); or iterative reconstruction.
== END ==
PROVIDERS: PCP Physician Assistant; Visit Provider Physician Assistant Surgical
DX: R05.3 Chronic cough (principal); R93.89 Abnormal findings on diagnostic imaging of other specified body structures; R94.2 Abnormal results of pulmonary function studies
CPT/HCPCS: 71250

== ENCOUNTER 2022-12-22 04:03 | Outpatient (CLI) | payer OTHER, MEDICAID, SELFPAY ==
[2022-12-22] MEDS: Albuterol HFA 18 GM 200 PUFF INH IH (16:02)
[2022-12-22] MEDS: Inhaler, Assist Device 1 EACH MC (16:03)
--- NOTE | 2022-12-23 07:47 | PFT_ITS ---
Date of service: 12/22/22 Time of Service: 14:50 Pulmonary Function Test Result Indications: Restriction Interpretation Spirometry: There is no airflow limitation. There is a significant bronchodilator response. Lung Volumes: Normal lung volumes Diffusion Capacity: Normal diffusion Airway Pressure: Normal airways resistance Impression Normal baseline pulmonary function testing with a significant bronchodilator re sponse which can be consistent with asthma. Note: When compared to 08/22/21, spirometry no longer is restricted. Clinical Correlation therefore is recommended.
== END 2022-12-22 04:04 | disposition home or self-care (01) ==
LOC: RT 04:03
PROVIDERS: PCP Physician Assistant; Visit Provider Physician Assistant Surgical
DX: R05.3 Chronic cough (principal); R94.2 Abnormal results of pulmonary function studies
CPT/HCPCS: 94060; 94726; 94729

== ENCOUNTER → 2023-02-09 13:25 | Outpatient (BNVA) | payer OTHER, MEDICAID, SELFPAY | PROVIDERS: PCP Physician Assistant; Referring Provider Physician Assistant; Visit Provider Physician Assistant Surgical | DX: J45.909 Unspecified asthma, uncomplicated (principal) | CPT/HCPCS: 99214 ==

== ENCOUNTER 2023-04-26 15:06 | Observation (INO) | payer OTHER, MEDICAID, SELFPAY ==
[2023-04-26] VITALS (90 sets, daily range): BP systolic 91–168; BP diastolic 29–97; PULSE 41–89; RESP 13–25; TEMP 36.6–37.8; O2SAT 85–99
--- NOTE | 2023-04-26 15:00 | RT.EKG_ITS ---
APPROVED REPORT Exam: Resting ECG Reason for Exam: DIzziness Patient Location: E HR:73 bpm ECG Measurements Heart Rate 73 AXIS NM 193 P 43 QRSd 100 QRS -4 QT 411 T 57 QTc 453 Conclusion Sinus rhythm...normal P axis, V-rate 60- 99 Ventricular trigeminy...trigeminy string>6 w/ V complexes Normal sinus rhythm at a rate of 73 with frequent PVCs in a pattern of ventricular trigeminy. Normal axis. QTc within normal limits. Interventricular conduction delay with a QRS of [address] seg ment abnormalities. No acute injury pattern. Compared to prior dated earlier this year ventricular trigeminy is new.
--- NOTE | 2023-04-26 15:28 | W.ED.GENAD ---
Discharge Plan Discharge Details Chief Complaint: [facility] Primary Care Provider: Jess Olivia ED Provider: Neil Thomas Home Meds and New Rx's Prescriptions: No Action acetaminophen [Tylenol Extra Strength] 500 mg tablet 500 mg PO Q6H PRN nitroglycerin 0.4 mg tablet, sublingual 0.4 mg sublingual Q5-15M PRN Rx Instructions: do not exceed 3 doses per episode metoprolol succinate 50 mg tablet extended release 24 hr 50 mg PO .nightly Qty: 90 3RF fluticasone propion-salmeterol [Advair HFA] 115-21 mcg/actuation HFA aerosol inhaler 2 puff inhalation BID Qty: 12 6RF lansoprazole 30 mg capsule,delayed release(DR/EC) 30 mg PO BID albuterol sulfate [ProAir HFA] 90 mcg/actuation HFA aerosol inhaler 2 puff inhalation Q6H PRN amlodipine 5 mg tablet 5 mg PO DAILY dexlansoprazole [Dexilant] 60 mg capsule,biphase delayed releas 60 mg PO DAILY fluoxetine [Prozac] 40 mg Capsule 40 mg PO QAM atorvastatin 20 mg tablet 20 mg PO HS Patient Comments: TAKE 1 TABLET BY MOUTH DAILY AT BEDTIME Jardiance 10 mg Tablet 10 mg PO QAM Qty: 90 0RF spironolactone 25 mg Tablet 25 mg PO DAILY Qty: 30 1RF Entresto 24-26 mg Tablet 1 ea PO BID Qty: 60 1RF HPI General Date/Time Provider Initiated Documentation: 04/26/23 15:11. HPI Narrative: MDM This is a 67-year-old normothermic and not tachycardic male with cough lightheadedness syncope history of nonischemic cardiomyopathy with syncope and ventricular trigeminy concerning for possibility of dysrhythmias for which patient will undergo monitor and troponin testing in the emergency department. Patient is not tachycardic and is low risk for PE however will obtain a troponin to assess for PE. No headache to suggest CVA. No focal neurological deficits. No fevers to suggest meningitis so I do not feel that the patient requires an MRI. No confusion to suggest encephalitis. Will assess for acute electrolyte abnormalities. No chest pain to suggest aortic dissection. No pain or proportion to suggest necrotizing soft tissue infection. No loss of bowel nor bladder control to suggest seizure so I do not feel that the patient requires an EEG. No black nor bloody stool to suggest acute blood loss anemia however will obtain his CBC. No obvious systolic ejection murmur however in the setting of the patient's syncope and nonischemic cardiomyopathy with chest pain even if if he does not make troponin I do feel that he will require tertiary care transfer as we are unable to update his echocardiogram. No volume overload to suggest acute CHF and no hypoxia. Will continue to monitor the patient in the ED. Given chest pressure and elevated heart score anticipate patient will benefit from a left heart catheterization as we unfortunately do not have stress testing available. Concerning the patient's sore throat his uvula is midline so not concern for peritonsillar abscess. Good range of motion in neck so not concern for retropharyngeal abscess. Given the patient's age is low Centor score I did not swab for strep pharyngitis. Will swab for influenza RSV and COVID. 3:58 PM CBC lacks anemia and leukocytosis. Mild thrombocytopenia similar to prior dated 2019. 4 PM CBC showing hyperkalemia with a serum potassium of 5.8. Patient will receive treatment with insulin and calcium. He has already received 500 cc of crystalloid. No AZEEM. No acute LFT abnormalities. Negative troponin. Reassuring normal magnesium. 4:20 PM Negative D-dimer using years criteria less than 1000 given no hemoptysis and no signs of DVT. 4:50 PM Patient was found to be COVID-positive. He is vaccinated against COVID. He is not hypoxic so no indication for dexamethasone. Will maintain patient on contact and airborne precautions. In light of his syncope and his ECG abnormalities these could be explained respectively by his COVID infection and his hyperkalemia. His chest pressure certainly could be from his COVID infection and as result I do not feel that the patient requires a left heart catheterization. If he does not make troponin we will touch base with hospitalist for local hospitalization. Will time repeat troponin testing with repeat potassium level. 6:52 PM Repeat basic metabolic panel showed improved hyperkalemia. No hyperglycemia. Very mild hypocalcemia. Repeat troponin pending. 7:36 PM I spoke with Dr. Melgoza from cardiology at [facility]. He reported that they did not have the capacity to accept the patient tonight. He requested orthostatic vital signs with the order. He reported that cardiology at [facility] often reads echocardiograms from [facility]. I advised that her associate store director was out and I did not think that we could obtain an echocardiogram at the moment. Nonetheless given that patient cannot be transferred to [facility] this evening will hospitalize locally. Dr. Melgoza agreed with plan for local hospitalization to ascertain possibility of echo availability in the morning. If patient cannot have an echo tomorrow then he may require transfer to [facility]. Will page out to hospitalist with request for hospitalization. 7:45 PM I spoke with Dr. Mehta who agreed graciously to accept the patient for hospitalization. Dr. Mehta was also not certain as to the availability of echo locally. I updated patient on this plan. HEART SCORE Chest pain Diagnostic Protocol: [- History/Physical/Gestalt: Highly Suspicious (+2)] [- EKG: Nonspecific repolarization (+1)] [- AGE: 65 and older (+2)] [- RISK FACTORS: 1 - 2 risk factors (+1)] [-TROPONIN: <= normal limit (0)] - TOTAL SCORE: 6 - Risk Factors: DM, current or recent smoker, HTN, HLD, family hx of CAD, obesity - INTERPRETATION: With a total score of 3 or less, risk of major cardiac event within six weeks 1.7%, likely lower with two negative troponins. Chronic conditions affecting the care of the patient: Nonischemic cardiomyopathy History obtained from an outside historian: Patient's daughter External record review: No [facility] EMR records Diagnostic interpretations performed by me: Per my independent interpretation chest x-ray shows: No acute cardiopulmonary process Per my independent interpretation EKG shows: Normal sinus rhythm at a rate of 73 with frequent PVCs in a pattern of ventricular trigeminy. Normal axis. QTc within normal limits. Interventricular conduction delay with a QRS of [address] segment abnormalities. No acute injury pattern. Compared to prior dated earlier this year ventricular trigeminy is new. Medications: 500 cc fluid bolus Social determinants of health affecting disposition: Lives alone Management discussed with: Cardiology & hospitalist Treatment/interventions considered: Transfer but deferred Response to therapies provided: No recurrent syncope in the ED HPI This is a 67-year-old male with history of nonischemic cardiomyopathy arrived to the emergency department with his daughter in the setting of syncope. Patient reports that he has had several days worth of cough and congestion. He is also felt dizzy and lightheaded when ambulating. He also has been having a central chest pressure. It radiates occasionally to his bilateral arms. His daughter came over today as he lives alone. He was reportedly sitting on the couch complaining of a sore throat with cough and congestion. He at rest had a syncopal episode. His daughter reports that he was out of it for several seconds and shaking. He did not lose control of his bowel or bladder. He denies any fever and abdominal pain nausea and vomiting. He is having new neck pain. He did not fall today nor hit his head. Tobacco, ethanol, and illicits Exam General: Well-appearing in no acute distress speaking in complete sentences. Head: Normocephalic, atraumatic. Eye: Extraocular eye movements intact. No conjunctival injection. No scleral icterus. Ear, nose, mouth, throat: Grossly normal inspection. Normal voice, handling secretions normally. No obvious posterior oropharynx erythema. Uvula midline. Neck: Trachea midline. Cardiovascular: Well-perfused distal extremities. Regular rate and rhythm. Respiratory: Nonlabored respiration. Clear lungs bilaterally. Gastrointestinal: Nondistended abdomen. Soft nontender Musculoskeletal: No significant lower extremity pitting edema. Moving all 4 extremities spontaneously. Skin: Normal for age and race, grossly normal temperature and turgor. No acute rash. Neurologic: Alert and appropriate, no apparent acute deficits. Cranial nerves II through XII intact grossly. Psychiatric: Mood and manner are appropriate. Grooming and personal hygiene are appropriate. Related Data Home Medications Medication Instructions Recorded Confirmed atorvastatin 20 mg tablet 20 mg PO HS 12/17/20 04/26/23 acetaminophen 500 mg tablet 500 mg PO Q6H PRN 06/11/21 04/26/23 (Tylenol Extra Strength) fluoxetine 40 mg capsule (Prozac) 40 mg PO QAM 06/21/21 04/26/23 metoprolol succinate 50 mg 50 mg PO .nightly #90 tabs 07/26/21 04/26/23 tablet,extended release 24 hr nitroglycerin 0.4 mg sublingual 0.4 mg sublingual Q5-15M PRN 07/26/21 04/26/23 tablet Jardiance 10 mg tablet 10 mg PO QAM #90 tabs 09/10/21 04/26/23 (empagliflozin) sacubitril 24 mg-valsartan 26 mg 1 ea PO BID #60 tabs 09/10/21 04/26/23 tablet (Entresto) spironolactone 25 mg tablet 25 mg PO DAILY #30 tabs 09/10/21 04/26/23 albuterol sulfate 90 mcg/actuation 2 puff inhalation Q6H PRN 11/07/21 04/26/23 aerosol inhaler (ProAir HFA) amlodipine 5 mg tablet 5 mg PO DAILY 11/07/21 04/26/23 lansoprazole 30 mg capsule,delayed 30 mg PO BID 11/07/21 04/26/23 release dexlansoprazole 60 mg 60 mg PO DAILY 08/05/22 04/26/23 capsule,biphase delayed release (Dexilant) fluticasone propionate 115 2 puff inhalation BID #12 grams 02/09/23 04/26/23 mcg-salmeterol 21 mcg/actuation HFA inhaler (Advair HFA) Previous Rx's Medication Instructions Recorded metoprolol succinate 50 mg 50 mg PO .nightly #90 tabs 07/26/21 tablet,extended release 24 hr Jardiance 10 mg tablet 10 mg PO QAM #90 tabs 09/10/21 (empagliflozin) sacubitril 24 mg-valsartan 26 mg 1 ea PO BID #60 tabs 09/10/21 tablet (Entresto) spironolactone 25 mg tablet 25 mg PO DAILY #30 tabs 09/10/21 fluticasone propionate 115 2 puff inhalation BID #12 grams 02/09/23 mcg-salmeterol 21 mcg/actuation HFA inhaler (Advair HFA) Allergies Allergy/AdvReac Type Severity Reaction Status Date / Time lisinopril Allergy Intermediate Verified 04/26/23 16:09 omeprazole [From Prilosec] Allergy Intermediate Itching Verified 04/26/23 16:09 oxycodone Allergy Itching Verified 04/26/23 16:09 codeine [Codeine] AdvReac NAUSEA Verified 04/26/23 16:09 General Stated Complaint: [facility] CATIA: 3 PFSH All Active Problems (Updated 04/26/23 @ 20:16 by Vipul Mehta) Glucose intolerance (impaired glucose tolerance) (Acute) Hyponatremia (Acute) COVID-19 (Acute) Syncope and collapse (Acute) Asthma (Chronic) Fatigue (Acute) Abnormal chest xray (Acute) Cough (Acute) Tendonitis of long head of biceps brachii of right shoulder (Acute) Primary osteoarthritis, right shoulder (Acute) Bursitis of right shoulder (Acute) Premature ventricular contractions (Acute) Traumatic tear of right rotator cuff (Acute ~10/2021) Rectal bleeding (Acute) Anemia (Chronic) Medication monitoring encounter (Chronic) Ventricular trigeminy (Acute) New onset cough (Acute) Diarrhea (Acute) assoc w/ fatty food injestion Postprandial RUQ pain (Acute) Nonischemic cardiomyopathy (Acute) HTN (hypertension) with goal to be determined (Acute) Melena (Acute) Depression (Chronic) Obesity (Chronic) Globus sensation (Acute) Exertional chest pain (Acute) Melena (Acute) Diverticulitis (Acute) Gastropathy (Acute) pt needs to curtail ETOH use. Abnormal weight loss (Acute 04/12/12) Alcohol abuse (Acute) Dysphagia (Acute 04/12/12) Epigastric pain (Acute 04/12/12) GERD (gastroesophageal reflux disease) (Chronic) Pulmonary hypertension associated with systemic disorder (Acute) Non-alcoholic fatty liver disease (Acute) Blood glucose elevated (Chronic) Hypertension (Chronic) Memory impairment (Chronic) Medical History (Updated 04/26/23 @ 20:16 by Vipul Mehta) Palliative care patient History of head injury Dyslipidemia Left inguinal hernia Tendinitis of long head of biceps brachii of left shoulder Acute pain of left shoulder Contusion of left lower leg Left leg pain Tendonitis of left rotator cuff Injected: 01/03/2020, 04/10/2020, 12/17/2020 Diverticula of colon Gastropathy History of back pain Chest pain Dysphasia Neuropathy Fatty liver Alcohol abuse Situational depression Shoulder pain (11/18/12) Peripheral neuralgia Lumbosacral neuritis (02/27/11) Lesion of ulnar nerve (02/27/11) Impotence of organic origin Full thickness rotator cuff tear (01/18/13) 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 Surgical History History of surgery on upper extremity Hx L shoulder, wrist, fingers, R arm x 8 per Pt History of esophagogastroduodenoscopy (EGD) (~11/2021) Hx of carpal tunnel repair Hx of colonoscopy 08/13/[address] Pastora Noel at [facility], repeat in five years. mg colo 06/05/08 - Dr Cheney - tubular adenoma, descending colon, repeat in 5 years. History of surgical amputation of finger of left hand Machine related injury, R hand per pt 08/13/18 EXOSTECTOMY 03/09/15 DR. YODER; RIGHT GREAT TOE Arthroplasty 03/09/15; DR. HERNANDEZ RIGHT SECOND TOE Appendectomy (~2007) Family History Other Cancer Diabetes Hypertension Social History Smoking/Tobacco Use Status: Former Tobacco Use Smoking risk assessment performed?: Yes Alcohol Intake: former Drug use: Never Substance use type: does not use Household members: none Housing: house current occupation: disabled Current gender identity: male What type of physical activity do you participate in: none Do you feel safe at home: Yes Do you feel safe in your relationship?: Yes Additional Social history: Lives in mobile home alone Course Vital Signs Vital signs: Vital Signs Temperature 36.6 C 04/26/23 15:09 Pulse 41 L 04/26/23 15:09 Respiratory Rate 16 04/26/23 15:09 Blood Pressure 106/59 L 04/26/23 15:09 Pulse Oximetry 96 04/26/23 15:09 Temperature 36.6 C 04/26/23 15:09 Temperature Source Skin 04/26/23 15:09 Pulse 41 L 04/26/23 15:09 Respiratory Rate 16 04/26/23 15:09 Blood Pressure 106/59 L 04/26/23 15:09 Blood Pressure Position Sitting 04/26/23 15:09 Pulse Oximetry 96 04/26/23 15:09 Oxygen Delivery Method Room Air 04/26/23 15:09 Oxygen Flow Rate 0 04/26/23 15:09
--- NOTE | 2023-04-26 15:30 | DI.RAD_ITS ---
Exam(s) XR PORTABLE CHEST AP EXAM: XR PORTABLE CHEST AP CLINICAL HISTORY: Syncope cough TECHNIQUE: 2D digital imaging was performed of the chest. One image was obtained. An AP view was ob tained. COMPARISON: CR XR CHEST 2V PA LATERAL from 09/04/[address] CHEST WO from 12/22/2022 FINDINGS: MEDIASTINUM: Normal. HEART: Normal. PULMONARY VASCULATURE: Normal. LUNGS: Clear. PLEURAL SPACE: No pleural effusion or pneumothorax. BONE:Within normal limits for the patient's age. OTHER FINDINGS:Normal. IMPRESSION: No acute pulmonary findings. DATA REPOSITORY: RADIATION DOSE DELIVERED:
[2023-04-26 15:51] LABS: Abs Immature Grans 0.03 10^3/uL (0.0-0.06); Absolute Basophil Count 0.04 10^3/uL (0.0-0.2); Absolute Eosinophil Count 0.03 10^3/uL (0.0-0.7); Absolute Neutrophil Count 5.66 10^3/uL (1.2-6.7); Basophils % 0.5; Eosinophils % 0.4; HCT 40.8 % (40.0-50.0); Immature Grans % 0.4; Lymphocytes % 11.9; MCH 29.8 pg (27.0-33.0); MCHC 34.3 % (32.0-36.0); MCV 87 fL (80-95); MPV 11.5 fL (8.0-11.0); Monocytes % 11.9; Neutrophils % 74.9; Platelet Count 128 10^3/uL (130-400); RDW 12.2 % (11.8-14.1); RDW-SD 39.3 fL; WBC 7.56 10^3/uL (4.4-10.8)
[2023-04-26] MEDS: Normal Saline 500 ML IV (16:00)
[2023-04-26 16:06] LABS: ALT 50 U/L (16-63); Albumin 3.6 g/dL (3.4-5.0); Alkaline Phosphatase 116 U/L (46-116); Anion Gap 9.4 mmol/L (3-11); BUN 22 mg/dL (7-18); Bilirubin, Total 0.9 mg/dL (0.2-1.0); CO2 24.6 mmol/L (21.0-32.0); CREATININE 1.3 mg/dL (0.70-1.30); Calcium 8.5 mg/dL (8.5-10.1); Chloride 101 mmol/L (98-107); Estimated GFR 59.84 (mL/min/1.73m2); Glucose 95 mg/dL (74-106); Magnesium 2.3 mg/dL (1.8-2.4); Potassium 5.8 mmol/L (3.5-5.1); Sodium 135 mmol/L (136-145); Total Protein 7.6 g/dL (6.4-8.2); Troponin I < 50 ng/L (<or=60)
[2023-04-26 16:18] LABS: D-Dimer 734 ng/mlFEU (<500)
[2023-04-26 16:22] LABS: AST 63 U/L (15-37)
--- NOTE | 2023-04-26 16:28 | DI.VRAD_ITS ---
PROCEDURE INFORMATION: Exam: XR Chest Exam date and time: 04/26/2023 3:49 PM Age: 67 years old Clinical indication: Cough TECHNIQUE: Imaging protocol: Radiologic exam of the chest. Views: 1 view. COMPARISON: CT CHEST WO 12/22/2022 4:01 PM FINDINGS: Limitations: Patient positioning is lordotic. Lungs: No pulmonary consolidation is seen. Pleural spaces: No pleural effusion or pneumothorax is demonstrated. Heart/Mediastinum: Heart size appears normal. Bones/joints: The visualized bony structures appear grossly intact, as seen. There are osteophytes along the thoracic spinal margin. IMPRESSION: No active disease is seen in the chest. Dictated and Authenticated by: Carl Bush MD. Ordering:RHYS Trejo MD
[2023-04-26 16:38] LABS: Influenza A PCR Negative (Negative); Influenza B PCR Negative (Negative); RSV PCR Negative (Negative)
[2023-04-26 16:49] LABS: COVID-19 PCR Positive (Negative); Source Nasopharynx
[2023-04-26] MEDS: Calcium Gluconate 4.65 MEQ/10 ML VIAL 9.3 MG IVP (16:51)
[2023-04-26] MEDS: Insulin REGULAR-Human 100 UNITS/ML UNIT IV ×2 (16:51→18:40)
[2023-04-26] MEDS: DEXTROSE 5%-0.9% SALINE 1,000 ML 500 ML IV (16:52)
[2023-04-26] MEDS: Normal Saline 100 ML 750 ML (17:10)
[2023-04-26 18:49] LABS: Anion Gap 9.9 mmol/L (3-11); BUN 20 mg/dL (7-18); CO2 25.1 mmol/L (21.0-32.0); CREATININE 1.3 mg/dL (0.70-1.30); Calcium 8.4 mg/dL (8.5-10.1); Chloride 105 mmol/L (98-107); Estimated GFR 59.84 (mL/min/1.73m2); Glucose 119 mg/dL (74-106); Sodium 140 mmol/L (136-145)
[2023-04-26 18:58] LABS: Troponin I < 50 ng/L (<or=60)
--- NOTE | 2023-04-26 20:03 | HPE_ITS ---
Date of service: 04/26/23 Time of Service: 20:03 Assessment and Plan Assessment and plan (1) Syncope and collapse: Start date: 04/26/23 Status: Acute Assessment and plan: This is a 67-year-old gentleman who had an episode of syncope last year with diagnosis of nonischemic cardiomyopathy presenting to the ED with syncopal episode while sitting on couch without activity and found to have ventricular dysrhythmias with ventricular trigeminy and intraventricular conduction delay on monitor. He is asymptomatic without chest pain or palpitations and his troponins are negative. He will be observed overnight on cardiac monitoring with trending troponins. Echocardiogram should be updated with his cardiomyopathy improved last year with medical therapy continuing on medical therapy presently with adjustment admission to avoid hypotension. He also has COVID-19 which may be stressing him. This will be treated without dexamethasone because of lack of hypoxemia but remdesivir will be initiated. He is a full code. (2) COVID-19: Start date: 04/26/23 Status: Acute Assessment and plan: Initiate remdesivir and supportive care with isolation. (3) Hyponatremia: Start date: 04/26/23 Status: Acute Assessment and plan: Patient has slight hyponatremia and was given some fluids in the ED with fluids to be continued cautiously with his history of nonischemic cardiomyopathy. (4) Nonischemic cardiomyopathy: Status: Chronic Assessment and plan: Follow-up echocardiogram in the morning and cardiology as scheduled. Trend troponins with syncopal episode prior to admission. (5) Glucose intolerance (impaired glucose tolerance): Status: Chronic Assessment and plan: Patient did have hyperglycemia upon admission which was overtreated with insulin and then hypoglycemia resulted with a history of insulin resistance but not diabetes. Check hemoglobin A1c and monitor glucometers before meals and at bedtime. No insulin coverage for now unless needed with monitoring. (6) Hypertension: Status: Chronic Assessment and plan: Modify but continue outpatient medical therapy the patient's amlodipine, metoprolol and spironolactone to be held for now with Entresto to be continued. Readvance medical therapy to blood pressure.. Qualifiers: Hypertension type: primary hypertension Qualified Code(s): I10 - Essential (primary) hypertension History of Present Illness History of Present Illness Chief Complaint: Syncopal episode at home on couch, weakness with malaise Narrative: This is a 67-year-old male patient with a recent history of feeling weak with chronic cough not changed and no fever presenting after he passed out while sitting on his couch with his daughter. He did have some slight shaking but did not have incontinence of urine or stool and did not bite his tongue. He was not out for very long according to the patient. He denies any chest pain or shortness of breath does have a history of nonischemic cardiomyopathy recently which was treated medically and with recovery of left ventricular ejection fraction in early summer 2021 needing updated echocardiogram according to cardiology notes recently. He did have negative troponins and no dysrhythmia while being evaluated in the ED. He was found to have positive test for COVID and was out in public recently with his son with only signs and symptoms being weakness but no fever or cough and he was not hypoxic. Patient was admitted for further evaluation of the syncopal episode which I did occur with his cardiomyopathy in the past and for repeat echocardiogram as planned. Troponins will be trended and cardiac monitoring will be ongoing. He offers no complaints other than feeling weak presently. Did have a low-grade fever once admitted to the medical floor. He is a full code. Review of Systems Narrative: 13 point review of systems negative for any palpitations or tachycardia in the ED. Otherwise unrevealing or stable. PFSH All Active Problems (Updated 04/26/23 @ 21:35 by Vipul Mehta) Glucose intolerance (impaired glucose tolerance) (Chronic) Hyponatremia (Acute) COVID-19 (Acute) Syncope and collapse (Acute) Asthma (Chronic) Fatigue (Acute) Abnormal chest xray (Acute) Cough (Acute) Tendonitis of long head of biceps brachii of right shoulder (Acute) Primary osteoarthritis, right shoulder (Acute) Bursitis of right shoulder (Acute) Premature ventricular contractions (Acute) Traumatic tear of right rotator cuff (Acute ~10/2021) Rectal bleeding (Acute) Anemia (Chronic) Medication monitoring encounter (Chronic) Ventricular trigeminy (Acute) New onset cough (Acute) Diarrhea (Acute) assoc w/ fatty food injestion Postprandial RUQ pain (Acute) Nonischemic cardiomyopathy (Chronic) HTN (hypertension) with goal to be determined (Acute) Melena (Acute) Depression (Chronic) Obesity (Chronic) Globus sensation (Acute) Exertional chest pain (Acute) Melena (Acute) Diverticulitis (Acute) Gastropathy (Acute) pt needs to curtail ETOH use. Abnormal weight loss (Acute 04/12/12) Alcohol abuse (Acute) Dysphagia (Acute 04/12/12) Epigastric pain (Acute 04/12/12) GERD (gastroesophageal reflux disease) (Chronic) Pulmonary hypertension associated with systemic disorder (Acute) Non-alcoholic fatty liver disease (Acute) Blood glucose elevated (Chronic) Hypertension (Chronic) Memory impairment (Chronic) Medical History (Updated 04/26/23 @ 21:35 by Vipul Mehta) Palliative care patient History of head injury Dyslipidemia Left inguinal hernia Tendinitis of long head of biceps brachii of left shoulder Acute pain of left shoulder Contusion of left lower leg Left leg pain Tendonitis of left rotator cuff Injected: 01/03/2020, 04/10/2020, 12/17/2020 Diverticula of colon Gastropathy History of back pain Chest pain Dysphasia Neuropathy Fatty liver Alcohol abuse Situational depression Shoulder pain (11/18/12) Peripheral neuralgia Lumbosacral neuritis (02/27/11) Lesion of ulnar nerve (02/27/11) Impotence of organic origin Full thickness rotator cuff tear (01/18/13) 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 Surgical History History of surgery on upper extremity Hx L shoulder, wrist, fingers, R arm x 8 per Pt History of esophagogastroduodenoscopy (EGD) (~11/2021) Hx of carpal tunnel repair Hx of colonoscopy 08/13/[address] [place] [address] Pastora Noel at [facility], repeat in five years. mg colo 06/05/08 - Dr Cheney - tubular adenoma, descending colon, repeat in 5 years. History of surgical amputation of finger of left hand Machine related injury, R hand per pt 08/13/18 EXOSTECTOMY 03/09/15 DR. YODER; RIGHT GREAT TOE Arthroplasty 03/09/15; DR. HERNANDEZ RIGHT SECOND TOE Appendectomy (~2007) Family History Other Cancer Diabetes Hypertension Social History Smoking/Tobacco Use Status: Former Tobacco Use Smoking risk assessment performed?: Yes Alcohol Intake: former Drug use: Never Substance use type: does not use Household members: none Housing: other current occupation: disabled Current gender identity: male What type of physical activity do you participate in: none Do you feel safe at home: Yes Do you feel safe in your relationship?: Yes Additional Social history: Lives in mobile home alone Meds Allergies and Home Medications Allergies Allergy/AdvReac Type Severity Reaction Status Date / Time lisinopril Allergy Intermediate Verified 04/26/23 16:09 omeprazole [From Prilosec] Allergy Intermediate Itching Verified 04/26/23 16:09 oxycodone Allergy Itching Verified 04/26/23 16:09 codeine [Codeine] AdvReac NAUSEA Verified 04/26/23 16:09 Home Medications Medication Instructions Recorded Confirmed Type atorvastatin 20 mg tablet 20 mg PO HS 12/17/20 04/26/23 History acetaminophen 500 mg tablet 500 mg PO Q6H PRN 06/11/21 04/26/23 History (Tylenol Extra Strength) fluoxetine 40 mg capsule (Prozac) 40 mg PO QAM 06/21/21 04/26/23 History metoprolol succinate 50 mg 50 mg PO .nightly #90 tabs 07/26/21 04/26/23 Rx tablet,extended release 24 hr nitroglycerin 0.4 mg sublingual 0.4 mg sublingual Q5-15M PRN 07/26/21 04/26/23 History tablet Jardiance 10 mg tablet 10 mg PO QAM #90 tabs 09/10/21 04/26/23 Rx (empagliflozin) sacubitril 24 mg-valsartan 26 mg 1 ea PO BID #60 tabs 09/10/21 04/26/23 Rx tablet (Entresto) spironolactone 25 mg tablet 25 mg PO DAILY #30 tabs 09/10/21 04/26/23 Rx albuterol sulfate 90 mcg/actuation 2 puff inhalation Q6H PRN 11/07/21 04/26/23 History aerosol inhaler (ProAir HFA) amlodipine 5 mg tablet 5 mg PO DAILY 11/07/21 04/26/23 History lansoprazole 30 mg capsule,delayed 30 mg PO BID 11/07/21 04/26/23 History release dexlansoprazole 60 mg 30 mg PO DAILY 08/05/22 04/26/23 History capsule,biphase delayed release (Dexilant) fluticasone propionate 115 2 puff inhalation BID #12 grams 02/09/23 04/26/23 Rx mcg-salmeterol 21 mcg/actuation HFA inhaler (Advair HFA) metoprolol succinate 25 mg 25 mg PO DAILY 04/26/23 04/26/23 History tablet,extended release 24 hr Exam Narrative Exam Narrative: General: Patient appears older than stated age, pleasant affect and soft-spoken. He is in no acute distress alert and oriented x 3. HEENT: Normocephalic, eyes with pupils equal and react light symmetrically, extraocular move intact sclera anicteric. Oropharynx with slightly dry mucosa. Neck: Supple without JVD. No palpable carotid thrills. Back: Stooped posture without CVA tenderness. Lungs: Fair aeration and clear to auscultation and percussion. No focalizing rales or rhonchi. Heart: Regular rate and rhythm with no appreciable murmur or gallop. Abdomen: Normal contour, slightly obese, bowel sounds positive in all quadrants. No palpable hepatosplenomegaly no focal guarding or rebound. Genitalia/rectal: Exam deferred. Extremities: Without clubbing, cyanosis or pitting edema. Right hand has flexion contractures from previous machine injury with wrist and fingers having decreased range of motion. Peripheral pulses intact. Skin: Normal color, warm and dry. Neuro: Cranial nerves II through XII gross intact, no focalizing motor deficits. No tremor. Psych: Flattened affect with normal mood. Normal thought processes. Remote and recent memory grossly intact. Results Imaging Imaging Studies: Exam: XR Chest Exam date and time: 04/26/2023 3:49 PM Age: 67 years old Clinical indication: Cough TECHNIQUE: Imaging protocol: Radiologic exam of the chest. Views: 1 view. COMPARISON: CT CHEST WO 12/22/2022 4:01 PM FINDINGS: Limitations: Patient positioning is lordotic. Lungs: No pulmonary consolidation is seen. Pleural spaces: No pleural effusion or pneumothorax is demonstrated. Heart/Mediastinum: Heart size appears normal. Bones/joints: The visualized bony structures appear grossly intact, as seen. There are osteophytes along the thoracic spinal margin. IMPRESSION: No active disease is seen in the chest. Date of Exam: 03/27/22 Admission Date: 03/27/22 : 09/01, Age: 66 EXAM: Comprehensive 2D, Doppler, and color-flow Echocardiogram Patient Location: Out-Patient Sanitarian: Deanna Piña RDCS (AE) Indications: RE check LV function, PVC, Non ischemic cardiomyopathy Other Information Study Quality: Adequate Conclusion Normal left ventricular wall thickness and chamber size. Estimated ejection fraction is 55%, improved from 45% since 07/19/2021. No segmental wall motion abnormalities are appreciated Normal right ventricular size and systolic function Both atria are normal in size There is no structural or hemodynamically significant valvular disease. Labs 04/26/23 15:40 04/26/23 18:31 Labs: Laboratory Results - last 24 hr 04/26/23 04/26/23 04/26/23 15:40 15:58 18:31 WBC 7.56 RBC 4.70 Hgb 14.0 Hct 40.8 MCV 87 MCH 29.8 MCHC 34.3 RDW 12.2 Plt Count 128 L MPV 11.5 H Immature Gran % 0.4 Neutrophils % 74.9 Lymphocytes % 11.9 Monocytes % 11.9 Eosinophils % 0.4 Basophils % 0.5 Nucleated RBC % 0.0 Absolute Neutrophils 5.66 Absolute Lymphocytes 0.90 L Absolute Monocytes 0.90 H Absolute Eosinophils 0.03 Absolute Basophils 0.04 D-Dimer 734 H Sodium 135 L 140 Potassium 5.8 H 4.0 D Chloride 101 105 Carbon Dioxide 24.6 25.1 Anion Gap 9.4 9.9 BUN 22 H 20 H Creatinine 1.3 1.3 Est GFR (CKD-EPI 2020) 59.84 59.84 Glucose 95 119 H Calcium 8.5 8.4 L Magnesium 2.3 Total Bilirubin 0.9 AST 63 H ALT 50 Alkaline Phosphatase 116 Troponin I < 50 < 50 Total Protein 7.6 Albumin 3.6 COVID-19 Source Nasopharynx SARS-CoV-2 (PCR) Positive A Influenza Type A (PCR) Negative Influenza Type B (PCR) Negative RSV (PCR) Negative Last Vital Signs Temp 36.6 C 04/26/23 15:44 Pulse 77 04/26/23 19:55 Resp 14 04/26/23 19:50 BP 115/58 L 04/26/23 19:55 Pulse Ox 95 04/26/23 19:50 Time Spent Time spent with Patient: >75 minutes Time was spent: preparing to see the patient(eg.review tests), obtaining and/or reviewing separately otained hiistory, ordering medications,tests, procedures, referring, communicating with other health career development coordinator/teacher, indepentently interpreting results and care coordination
[2023-04-26 21:37] LABS: *AMPHETAMINES SCREEN URINE Negative (Negative); *BARBITURATES SCREEN URINE Negative (Negative); *BENZODIAZEPINES SCREEN URINE Negative (Negative); Cannabinoids THC Negative (Negative); Cocaine Screen,Urine Negative (Negative); METHADONE URINE SCREEN Negative (Negative); OPIATES URINE SCREEN Negative (Negative); Tricyclic Antidepressants Negative (Negative)
[2023-04-26] MEDS: Acetaminophen 325 MG TAB PO (22:56)
[2023-04-26] MEDS: Atorvastatin 20 MG TAB PO (22:57)
[2023-04-26] MEDS: Sacubitril/Valsartan 24 mg/26 mg TAB 1 EACH PO (22:57)
[2023-04-26] MEDS: Normal Saline Flush 10 ML SYR IVP (22:58)
[2023-04-26] MEDS: Enoxaparin 40 MG/0.4 ML SYR SC (22:58)
[2023-04-26] MEDS: REMDESIVIR 200 MG in Normal Saline 250 ML 250 MG IVPB (23:36)
[2023-04-26] MEDS: Water,Injection,Sterile 10 ML VIAL ×2 (23:38)
[2023-04-27] VITALS (9 sets, daily range): BP systolic 98–139; BP diastolic 59–72; PULSE 38–85; RESP 16–20; TEMP 36.7–37.7; O2SAT 94–97
[2023-04-27 00:03] LABS: Hemoglobin A1C 5.5 % (<5.7)
[2023-04-27 00:10] LABS: Troponin I < 50 ng/L (<or=60)
[2023-04-27] MEDS: Normal Saline Flush 10 ML SYR IVP ×4 (01:20→21:19)
[2023-04-27 06:49] LABS: HCT 39.4 % (40.0-50.0); HGB 13.7 g/dL (13.5-17.5); MCHC 34.8 % (32.0-36.0); MCV 86 fL (80-95); MPV 11.4 fL (8.0-11.0); Platelet Count 105 10^3/uL (130-400); RBC 4.56 10^6/uL (4.36-5.78); RDW 12.6 % (11.8-14.1); RDW-SD 40.3 fL; WBC 5.19 10^3/uL (4.4-10.8)
[2023-04-27 07:13] LABS: Troponin I < 50 ng/L (<or=60)
[2023-04-27 07:15] LABS: ALT 38 U/L (16-63); AST 26 U/L (15-37); Albumin 3.2 g/dL (3.4-5.0); Alkaline Phosphatase 128 U/L (46-116); Anion Gap 10.1 mmol/L (3-11); BUN 15 mg/dL (7-18); Bilirubin, Total 0.6 mg/dL (0.2-1.0); CO2 22.9 mmol/L (21.0-32.0); CREATININE 1.1 mg/dL (0.70-1.30); Calcium 8.2 mg/dL (8.5-10.1); Chloride 106 mmol/L (98-107); Estimated GFR 73.12 (mL/min/1.73m2); Glucose 108 mg/dL (74-106); Magnesium 2.2 mg/dL (1.8-2.4); Potassium 3.7 mmol/L (3.5-5.1); Sodium 139 mmol/L (136-145); Total Protein 6.7 g/dL (6.4-8.2)
[2023-04-27] MEDS: Lansoprazole 30 MG CAPCR PO ×2 (09:03→19:55)
[2023-04-27] MEDS: FLUoxetine 20 MG CAP 40 MG PO (09:03)
[2023-04-27] MEDS: Empaglifozin 10 MG TAB PO (09:03)
[2023-04-27] MEDS: Budesonide/Formoterol 160/4.5 6 GM 60 PUFF INH IH ×2 (09:10→19:52)
--- NOTE | 2023-04-27 10:23 | INITIAL_ITS ---
Date of service: 04/27/23 Time of Service: 10:23 Care Management Initial Assmt Initial Assessment REASON FOR HOSPITALIZATION:: syncope, Covid, hyponatremia PREVIOUS FUNCTIONAL STATUS/SOCIAL/FAMILY SUPPORTS:: Dylon lives in [place], [place] He is legally from his . They have 2 daughters, Bharati and Liz. CURRENT FUNCTIONAL STATUS:: Dylon is on Covid precautions so CM was unable to meet with him in person and was unable to reach him by phone. ADVANCE DIRECTIVES:: none Has patient been provided with info about the portal/API?: Yes Did the patient sign up for the portal?: No CODE STATUS:: Full Code INSURANCE COVERAGE / FINANCIAL ISSUES:: [facility] Medicaid PRIMARY CARE PHYSICIAN:: Jess Olivia POTENTIAL DISCHARGE NEEDS:: follow up with PCP and Cardiology PATIENT/FAMILY EDUCATION NEEDS:: Review of discharge instructions, limitations, activity, follow up plan, discuss [employer] TRANSPORTATION:: via private vehicle with family PLAN:: Anticipate Dylon will be discharged home with no new services. He will follow up with community providers and plan of care and transport with family. CM will follow and continue to assess for discharge needs. [facility] All Active Problems (Updated 04/26/23 @ 21:35 by Vipul Mehta) Glucose intolerance (impaired glucose tolerance) (Chronic) Hyponatremia (Acute) COVID-19 (Acute) Syncope and collapse (Acute) Asthma (Chronic) Fatigue (Acute) Abnormal chest xray (Acute) Cough (Acute) Tendonitis of long head of biceps brachii of right shoulder (Acute) Primary osteoarthritis, right shoulder (Acute) Bursitis of right shoulder (Acute) Premature ventricular contractions (Acute) Traumatic tear of right rotator cuff (Acute ~10/2021) Rectal bleeding (Acute) Anemia (Chronic) Medication monitoring encounter (Chronic) Ventricular trigeminy (Acute) New onset cough (Acute) Diarrhea (Acute) assoc w/ fatty food injestion Postprandial RUQ pain (Acute) Nonischemic cardiomyopathy (Chronic) HTN (hypertension) with goal to be determined (Acute) Melena (Acute) Depression (Chronic) Obesity (Chronic) Globus sensation (Acute) Exertional chest pain (Acute) Melena (Acute) Diverticulitis (Acute) Gastropathy (Acute) pt needs to curtail ETOH use. Abnormal weight loss (Acute 04/12/12) Alcohol abuse (Acute) Dysphagia (Acute 04/12/12) Epigastric pain (Acute 04/12/12) GERD (gastroesophageal reflux disease) (Chronic) Pulmonary hypertension associated with systemic disorder (Acute) Non-alcoholic fatty liver disease (Acute) Blood glucose elevated (Chronic) Hypertension (Chronic) Memory impairment (Chronic) Medical History (Updated 04/26/23 @ 21:35 by Vipul Mehta) Palliative care patient History of head injury Dyslipidemia Left inguinal hernia Tendinitis of long head of biceps brachii of left shoulder Acute pain of left shoulder Contusion of left lower leg Left leg pain Tendonitis of left rotator cuff Injected: 01/03/2020, 04/10/2020, 12/17/2020 Diverticula of colon Gastropathy History of back pain Chest pain Dysphasia Neuropathy Fatty liver Alcohol abuse Situational depression Shoulder pain (11/18/12) Peripheral neuralgia Lumbosacral neuritis (02/27/11) Lesion of ulnar nerve (02/27/11) Impotence of organic origin Full thickness rotator cuff tear (01/18/13) 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 Surgical History History of surgery on upper extremity Hx L shoulder, wrist, fingers, R arm x 8 per Pt History of esophagogastroduodenoscopy (EGD) (~11/2021) Hx of carpal tunnel repair Hx of colonoscopy 08/13/[address] [place] [address] Pastora Noel at [facility], repeat in five years. mg colo 06/05/08 - Dr Cheney - tubular adenoma, descending colon, repeat in 5 years. History of surgical amputation of finger of left hand Machine related injury, R hand per pt 08/13/18 EXOSTECTOMY 03/09/15 DR. YODER; RIGHT GREAT TOE Arthroplasty 03/09/15; DR. HERNANDEZ RIGHT SECOND TOE Appendectomy (~2007) Family History Other Cancer Diabetes Hypertension Social History Smoking/Tobacco Use Status: Former Tobacco Use Smoking risk assessment performed?: Yes Alcohol Intake: former Drug use: Never Substance use type: does not use Household members: none Housing: other current occupation: disabled Current gender identity: male What type of physical activity do you participate in: none Do you feel safe at home: Yes Do you feel safe in your relationship?: Yes Additional Social history: Lives in mobile home alone
--- NOTE | 2023-04-27 11:13 | W.PM.PROGNOT ---
Date of Service Date of service: 04/27/23 Time of Service: 11:13 Assessment and Plan Assessment and plan (1) Syncope and collapse: Status: Acute Assessment and plan: admitted to telemetry echo fall precautions (2) COVID-19: Status: Acute Assessment and plan: continue remdesivir and supportive care with isolation. (3) Hyponatremia: Status: Acute Assessment and plan: Patient has slight hyponatremia and was given some fluids in the ED with fluids to be continued cautiously with his history of nonischemic cardiomyopathy. (4) Nonischemic cardiomyopathy: Status: Chronic Assessment and plan: Follow-up echocardiogram in the morning and cardiology as scheduled. Trend troponins with syncopal episode prior to admission. (5) Glucose intolerance (impaired glucose tolerance): Status: Chronic Assessment and plan: Patient did have hyperglycemia upon admission which was overtreated with insulin and then hypoglycemia resulted with a history of insulin resistance but not diabetes. Check hemoglobin A1c and monitor glucometers before meals and at bedtime. No insulin coverage for now unless needed with monitoring. (6) Hypertension: Status: Chronic Assessment and plan: Modify but continue outpatient medical therapy the patient's amlodipine, metoprolol and spironolactone to be held for now with Entresto to be continued. Readvance medical therapy to blood pressure.. Discussed with Dr. Hoang Qualifiers: Hypertension type: primary hypertension Qualified Code(s): I10 - Essential (primary) hypertension Subjective Subjective Interval history since last seen: Denies any dizziness lightheadedness chest pain shortness of breath or cough. States he is eating and drinking well. Has been ambulating in the room with no difficulties afebrile. Exam Narrative Exam Narrative: Chronically ill-appearing male of stated age in no acute distress Head is atraumatic eyes normal appearance EOMs intact no nystagmus Neck supple no JVD Respirations are even and unlabored breath sounds are clear bilaterally Cardiovascular regular rate and rhythm Abdomen soft benign Extremities moves all extremities Skin with no rashes or lesions Neuro awake alert oriented no focal deficits Objective Last Vital Signs Temp 37.2 C 04/27/23 07:48 Pulse 72 04/27/23 07:48 Resp 18 04/27/23 07:48 BP 131/71 04/27/23 07:48 Pulse Ox 97 04/27/23 07:48 Laboratory Results - last 24 hr 04/26/23 04/26/2323 15:40 15:58 18:31 WBC 7.56 RBC 4.70 Hgb 14.0 Hct 40.8 MCV 87 MCH 29.8 MCHC 34.3 RDW 12.2 Plt Count 128 L MPV 11.5 H Immature Gran % 0.4 Neutrophils % 74.9 Lymphocytes % 11.9 Monocytes % 11.9 Eosinophils % 0.4 Basophils % 0.5 Nucleated RBC % 0.0 Absolute Neutrophils 5.66 Absolute Lymphocytes 0.90 L Absolute Monocytes 0.90 H Absolute Eosinophils 0.03 Absolute Basophils 0.04 D-Dimer 734 H Sodium 135 L 140 Potassium 5.8 H 4.0 D Chloride 101 105 Carbon Dioxide 24.6 25.1 Anion Gap 9.4 9.9 BUN 22 H 20 H Creatinine 1.3 1.3 Est GFR (CKD-EPI 2020) 59.84 59.84 Glucose 95 119 H Hemoglobin A1c Calcium 8.5 8.4 L Magnesium 2.3 Total Bilirubin 0.9 AST 63 H ALT 50 Alkaline Phosphatase 116 Troponin I < 50 < 50 Total Protein 7.6 Albumin 3.6 Urine Opiates Screen Urine Methadone Screen Ur Barbiturates Screen Ur Tricyclics Screen Ur Amphetamines Screen U Benzodiazepines Scrn Urine Cocaine Screen Ur THC Screen COVID-19 Source Nasopharynx SARS-CoV-2 (PCR) Positive A Influenza Type A (PCR) Negative Influenza Type B (PCR) Negative RSV (PCR) Negative 04/26/23 04/26/23 04/27/23 21:17 23:15 06:25 WBC 5.19 RBC 4.56 Hgb 13.7 Hct 39.4 L MCV 86 MCH 30.0 MCHC 34.8 RDW 12.6 Plt Count 105 L MPV 11.4 H Immature Gran % Neutrophils % Lymphocytes % Monocytes % Eosinophils % Basophils % Nucleated RBC % Absolute Neutrophils Absolute Lymphocytes Absolute Monocytes Absolute Eosinophils Absolute Basophils D-Dimer Sodium 139 Potassium 3.7 Chloride 106 Carbon Dioxide 22.9 Anion Gap 10.1 BUN 15 Creatinine 1.1 Est GFR (CKD-EPI 2020) 73.12 Glucose 108 H Hemoglobin A1c 5.5 Calcium 8.2 L Magnesium 2.2 Total Bilirubin 0.6 AST 26 ALT 38 Alkaline Phosphatase 128 H Troponin I < 50 < 50 Total Protein 6.7 Albumin 3.2 L Urine Opiates Screen Negative Urine Methadone Screen Negative Ur Barbiturates Screen Negative Ur Tricyclics Screen Negative Ur Amphetamines Screen Negative U Benzodiazepines Scrn Negative Urine Cocaine Screen Negative Ur THC Screen Negative COVID-19 Source SARS-CoV-2 (PCR) Influenza Type A (PCR) Influenza Type B (PCR) RSV (PCR) Time Spent with Patient Time Spent with Patient: 35-49 minutes Time was spent: preparing to see the patient(eg.review tests), ordering medications,tests, procedures, indepentently interpreting results and counseling the patient
[2023-04-27] MEDS: Sacubitril/Valsartan 24 mg/26 mg TAB 1 EACH PO (19:55)
[2023-04-27] MEDS: Metoprolol 12.5 MG TAB PO (19:55)
[2023-04-27] MEDS: Acetaminophen 325 MG TAB PO (21:16)
[2023-04-27] MEDS: Enoxaparin 40 MG/0.4 ML SYR SC (21:17)
[2023-04-27] MEDS: Atorvastatin 20 MG TAB PO (21:17)
[2023-04-27] MEDS: REMDESIVIR 100 MG in Normal Saline 250 ML 250 MG IVPB (21:19)
[2023-04-28 03:17] VITALS: BP 129/65; PULSE 57; RESP 19; TEMP 36.3; O2SAT 96
[2023-04-28 07:16] VITALS: BP 136/79; PULSE 68; RESP 14; TEMP 37; O2SAT 99
[2023-04-28] MEDS: Budesonide/Formoterol 160/4.5 6 GM 60 PUFF INH IH (07:51)
[2023-04-28] MEDS: Sacubitril/Valsartan 24 mg/26 mg TAB 1 EACH PO (08:31)
[2023-04-28] MEDS: Metoprolol 12.5 MG TAB PO (08:31)
[2023-04-28] MEDS: Normal Saline Flush 10 ML SYR IVP (08:31)
[2023-04-28] MEDS: FLUoxetine 20 MG CAP 40 MG PO (08:31)
[2023-04-28] MEDS: Lansoprazole 30 MG CAPCR PO (08:31)
[2023-04-28] MEDS: Empaglifozin 10 MG TAB PO (08:31)
--- NOTE | 2023-04-28 09:09 | PDOC.CMPRO ---
Date of service: 04/28/23 Time of Service: 09:09 Care Management Progress Note Progress Note Text Progress Note Text: S/O: A:Dylon is a 67 year old man admitted on 04/26/23 with covid and syncope P:Anticipate Dylon will be discharged home with no new services. He will follow up with community providers and plan of care and transport with family. CM will follow and continue to assess for discharge needs.
--- NOTE | 2023-04-28 10:33 | PDOC.CMPRO ---
Date of service: 04/28/23 Time of Service: 10:35 Care Management Progress Note Progress Note Text Progress Note Text: S/O: A: Dylon is a 67 year old male admitted to [facility] on 04/26/23 for syncope, covid-19, hyponatremia. P: Anticipate Dylon will be discharged home with no new services. He will follow up with community providers and plan of care and transport with family. CM will follow and continue to assess for discharge needs.
[2023-04-28 11:47] VITALS: BP 122/70; PULSE 62; RESP 12; TEMP 36.5; O2SAT 97
--- NOTE | 2023-04-28 11:57 | DSE_ITS ---
Date of service: 04/28/23 Time of Service: 11:57 DS: Diagnosis Discharge Diagnosis (1) Syncope and collapse: Status: Acute (2) COVID-19: Status: Acute (3) Hyponatremia: Status: Acute (4) Nonischemic cardiomyopathy: Status: Chronic (5) Glucose intolerance (impaired glucose tolerance): Status: Chronic (6) Hypertension: Status: Chronic Discharge Plan Disposition Patient Disposition: Home Condition: Stable Discharge Details Reason For Visit: syncope, covid-19, hyponatremia Admit Date/Time: 04/26/23 20:17 Admit Provider: Vipul Mehta Attending Provider: Vipul Mehta Primary Care Provider: Jess Olivia Hospital Course Hospital Course: This is a 67-year-old gentleman with past medical history of nonischemic cardiomyopathy hypertension depression GERD pulmonary hypertension who presented to the emergency department after syncopal episode. He states he has had similar episodes like this in the past and workup has been unrevealing. His workup in the emergency department did show trigeminy which he states he has a history of as well. His EKG showed no acute ischemic changes. Troponin negative. Also in his workup found to be positive for COVID but he was asymptomatic. He was admitted to the medical surgical unit under hospitalist services. He was started on a low-dose beta-suzi which she did tolerate well. He also received remdesivir while hospitalized. He remained oxygenating in the high 90s on room air with no respiratory symptoms. Eating and drinking with no further dysrhythmias on telemetry. He did have occasional trigeminy but no other ectopy. He is stable for discharge to home and will be discharged home on a cardiac event recorder he will follow-up with his primary care provider outpatient or return sooner for new or worsening symptoms only medication change was the addition of Metroprolol tartrate 12.5 mg twice daily. Discharge discussed with Dr. Viktor Corbett and New Rx's Prescriptions: New metoprolol tartrate 25 mg Tablet 12.5 mg PO BID Qty: 30 0RF Continued acetaminophen [Tylenol Extra Strength] 500 mg tablet 500 mg PO Q6H PRN nitroglycerin 0.4 mg tablet, sublingual 0.4 mg sublingual Q5-15M PRN Rx Instructions: do not exceed 3 doses per episode fluticasone propion-salmeterol [Advair HFA] 115-21 mcg/actuation HFA aerosol inhaler 2 puff inhalation BID Qty: 12 6RF albuterol sulfate [ProAir HFA] 90 mcg/actuation HFA aerosol inhaler 2 puff inhalation Q6H PRN amlodipine 5 mg tablet 5 mg PO DAILY dexlansoprazole [Dexilant] 60 mg capsule,biphase delayed releas 30 mg PO DAILY fluoxetine [Prozac] 40 mg Capsule 40 mg PO QAM atorvastatin 20 mg tablet 20 mg PO HS Patient Comments: TAKE 1 TABLET BY MOUTH DAILY AT BEDTIME Jardiance 10 mg Tablet 10 mg PO QAM Qty: 90 0RF spironolactone 25 mg Tablet 25 mg PO DAILY Qty: 30 1RF Entresto 24-26 mg Tablet 1 ea PO BID Qty: 60 1RF metoprolol succinate 25 mg tablet extended release 24 hr 25 mg PO DAILY Patient Comments: TAKE 1 TABLET BY MOUTH EVERY DAY Discharge Instructions Instructions: Syncope (DC) Additional Instructions: Monitor blood pressure and heart rate 3-5 times weekly to bring to your follow- up appointment. Wear monitoring tech as directed Return to the emergency department sooner for new or worsening symptoms Stand Alone Forms: Nursing Discharge Form Referrals: Jess Olivia [Primary Care Provider] - 05/05/23 8:30 am Activity:: Activity as Tolerated Equipment/Supplies:: No Equipment Needed Diet:: As Tolerated Discharge Orders Discharge Orders: Discharge Order (Routine); Ordered 04/28/23 Ordered By: Courtney Smith Other Ambulatory Orders: Cardiac Event Recorder (Routine) Timeframe: [id number] Facility: [facility] - Location: Respiratory Therapy Ordered By: Courtney Smith Discharge Data Discharge Date/Time-TO BE ENTERED AT DEPARTURE: 04/28/23 14:21 DS: Summary Time Spent with Patient providing and/or coordinating discharge services: Less than 30 minutes Status at Discharge Functional status at discharge: independent ambulation Overall status at discharge: patient is back to baseline Mental Status: mental status grossly normal Speech and Movement: speech and movement normal Mood: congruent mood Affect: normal affect Exam Narrative Exam Narrative: Chronically ill-appearing male of stated age in no acute distress Head is atraumatic eyes normal appearance EOMs intact no nystagmus Neck supple no JVD Respirations are even and unlabored breath sounds are clear bilaterally Cardiovascular regular rate and rhythm Abdomen soft benign Extremities moves all extremities Skin with no rashes or lesions Neuro awake alert oriented no focal deficits Psych Mental Status: mental status grossly normal Speech and Movement: speech and movement normal Mood: congruent mood Affect: normal affect DS: Data Vitals/I&O Vitals and I&O: Vital Signs Temperature 36.5 C 04/28/23 11:47 Temperature Source Tympanic 04/28/23 11:47 Pulse 62 04/28/23 11:47 Pulse Rhythm Irregular 04/27/23 23:47 Pulse 75 04/26/23 21:20 Respiratory Rate 12 04/28/23 11:47 Respiratory Effort Normal, Non-Labored 04/27/23 23:47 Respiratory Depth Normal 04/27/23 23:47 Respiratory Pattern Normal 04/27/23 23:47 Blood Pressure 122/70 04/28/23 11:47 Blood Pressure Mean 77 04/26/23 21:01 Blood Pressure Position Sitting 04/26/23 15:44 Pulse Oximetry 97 04/28/23 11:47 Oxygen Delivery Method Room Air 04/28/23 11:47 Oxygen Flow Rate 0 04/28/23 11:47 Pain Level 0 04/28/23 11:47 Intake & Output 04/27/23 04/27/23 04/28/23 11:59 23:59 11:59 Intake Total 1190 / 1920 730 / 1920 630 / 630 Output Total 100 / 350 250 / 350 Balance 1090 / 1570 480 / 1570 630 / 630 Weight 97.267 kg Intake: IV 250 / 500 250 / 500 270 / 270 Oral 940 / 1420 480 / 1420 360 / 360 Output: Urine 100 / 350 250 / 350 Other: Urine Color Yellow Yellow Yellow Urine Appearance Clear Clear Clear Urine Odor Normal Normal Comment unmeasured void. Stool Size Moderate Stool Characteristics Formed Liquid Brown Voiding Methods Toilet Toilet Toilet PFSH All Active Problems (Updated 04/26/23 @ 21:35 by Vipul Mehta) Glucose intolerance (impaired glucose tolerance) (Chronic) Hyponatremia (Acute) COVID-19 (Acute) Syncope and collapse (Acute) Asthma (Chronic) Fatigue (Acute) Abnormal chest xray (Acute) Cough (Acute) Tendonitis of long head of biceps brachii of right shoulder (Acute) Primary osteoarthritis, right shoulder (Acute) Bursitis of right shoulder (Acute) Premature ventricular contractions (Acute) Traumatic tear of right rotator cuff (Acute ~10/2021) Rectal bleeding (Acute) Anemia (Chronic) Medication monitoring encounter (Chronic) Ventricular trigeminy (Acute) New onset cough (Acute) Diarrhea (Acute) assoc w/ fatty food injestion Postprandial RUQ pain (Acute) Nonischemic cardiomyopathy (Chronic) HTN (hypertension) with goal to be determined (Acute) Melena (Acute) Depression (Chronic) Obesity (Chronic) Globus sensation (Acute) Exertional chest pain (Acute) Melena (Acute) Diverticulitis (Acute) Gastropathy (Acute) pt needs to curtail ETOH use. Abnormal weight loss (Acute 04/12/12) Alcohol abuse (Acute) Dysphagia (Acute 04/12/12) Epigastric pain (Acute 04/12/12) GERD (gastroesophageal reflux disease) (Chronic) Pulmonary hypertension associated with systemic disorder (Acute) Non-alcoholic fatty liver disease (Acute) Blood glucose elevated (Chronic) Hypertension (Chronic) Memory impairment (Chronic) Medical History (Updated 04/26/23 @ 21:35 by Vipul Mehta) Palliative care patient History of head injury Dyslipidemia Left inguinal hernia Tendinitis of long head of biceps brachii of left shoulder Acute pain of left shoulder Contusion of left lower leg Left leg pain Tendonitis of left rotator cuff Injected: 01/03/2020, 04/10/2020, 12/17/2020 Diverticula of colon Gastropathy History of back pain Chest pain Dysphasia Neuropathy Fatty liver Alcohol abuse Situational depression Shoulder pain (11/18/12) Peripheral neuralgia Lumbosacral neuritis (02/27/11) Lesion of ulnar nerve (02/27/11) Impotence of organic origin Full thickness rotator cuff tear (01/18/13) 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 Surgical History History of surgery on upper extremity Hx L shoulder, wrist, fingers, R arm x 8 per Pt History of esophagogastroduodenoscopy (EGD) (~11/2021) Hx of carpal tunnel repair Hx of colonoscopy 08/13/[address] Pastora Noel at [facility], repeat in five years. mg colo 06/05/08 - Dr Cheney - tubular adenoma, descending colon, repeat in 5 years. History of surgical amputation of finger of left hand Machine related injury, R hand per pt 08/13/18 EXOSTECTOMY 03/09/15 DR. YODER; RIGHT GREAT TOE Arthroplasty 03/09/15; DR. HERNANDEZ RIGHT SECOND TOE Appendectomy (~2007) Family History Other Cancer Diabetes Hypertension Social History Smoking/Tobacco Use Status: Former Tobacco Use Smoking risk assessment performed?: Yes Alcohol Intake: former Drug use: Never Substance use type: does not use Household members: none Housing: other current occupation: disabled Current gender identity: male What type of physical activity do you participate in: none Do you feel safe at home: Yes Do you feel safe in your relationship?: Yes Additional Social history: Lives in mobile home alone Time Spent with Patient Time Spent with Patient: <45 minutes Time was spent: preparing to see the patient(eg.review tests), ordering medications,tests, procedures and counseling the patient
--- NOTE | 2023-04-28 16:08 | PDOC.CMDIS ---
Date of service: 04/28/23 Time of Service: 16:08 LACE Index Scoring Tool Questions: Length of Stay (in days): 2 Was the patient admitted via the E.D.?: Yes E.D. Visits: 1 Answers: Total Score: 6 Risk of Readmission: Low Risk Care Management Discharge Plan Reason for Hospitalization: syncope, Covid, hyponatremia Discharge Plan: Dylon will return home with no new services. He will be transported via private vehicle by family. He will follow up with his PCP and discharge plan of care. Patient/Family Education Needs: Review discharge instructions and limitations, discussion of self care needs including ask me three.
== END 2023-04-28 14:21 | disposition home or self-care (01) | DRG 308 ==
LOC: ER 20:29 → MS 04-27 09:44
PROVIDERS: Admitting Provider Family Medicine; Emergency Provider Emergency Medicine; PCP Physician Assistant; Visit Provider Family Medicine
DX: I49.3 Ventricular premature depolarization (principal); U07.1 COVID-19; E87.1 Hypo-osmolality and hyponatremia; I42.8 Other cardiomyopathies; R73.02 Impaired glucose tolerance (oral); I10 Essential (primary) hypertension; J45.909 Unspecified asthma, uncomplicated; R53.83 Other fatigue; M19.011 Primary osteoarthritis, right shoulder; D64.9 Anemia, unspecified; E66.9 Obesity, unspecified; F32.A Depression, unspecified; K31.9 Disease of stomach and duodenum, unspecified; F10.10 Alcohol abuse, uncomplicated; F45.8 Other somatoform disorders; K21.9 Gastro-esophageal reflux disease without esophagitis; K76.0 Fatty (change of) liver, not elsewhere classified; R41.3 Other amnesia; R73.9 Hyperglycemia, unspecified; Z68.30 Body mass index [BMI] 30.0-30.9, adult
CPT/HCPCS: 00123; 36415; 36416; 80048; 80053; 80307; 82962; 85027; 87637; 93005; 94640; 96365; 96366; 96375; 96376; 99285; J1650; 71045; 83036; 83735; 84484; 85025; 85379; 93010; 93306; 94664; 99223; 99233; 99238; J0248; J0612; J3490; J7042

== ENCOUNTER 2023-04-28 12:49 | Outpatient (RCR) | payer OTHER, MEDICAID, SELFPAY | END 2023-05-10 23:59 | disposition home or self-care (01) | LOC: RT 12:49 | PROVIDERS: PCP Physician Assistant; Visit Provider Nurse Practitioner Acute Care | DX: R55 Syncope and collapse (principal); I49.3 Ventricular premature depolarization | CPT/HCPCS: 93227; 93270 ==

== ENCOUNTER → 2023-05-22 08:55 | Outpatient (BNVA) | payer OTHER, MEDICAID, SELFPAY | PROVIDERS: PCP Physician Assistant; Referring Provider Physician Assistant; Visit Provider Student in an Organized Health Care Education/Training Program | DX: R05.9 Cough, unspecified (principal); J45.909 Unspecified asthma, uncomplicated | CPT/HCPCS: 99214 ==

== ENCOUNTER 2023-06-01 07:47 | Outpatient (CLI) | payer OTHER, MEDICAID, SELFPAY ==
--- NOTE | 2023-06-02 08:33 | W.CARDEVENT ---
Date of service: 06/02/23 Time of Service: 08:33 Cardiac Event Recorder Referring Provider:: Ne Indications:: Syncope and collapse Cardiac Event Note: This was a 30-day event monitor done for syncope and collapse 1. The underlying rhythm is sinus, rate range 48 to 121 bpm with average of 62 bpm. 2. Several PVCs with one 4 beat run of ventricular tachycardia at 130 bpm. 3. No atrial fibrillation noted 4. No pauses noted
== END 2023-06-01 07:48 | disposition home or self-care (01) ==
LOC: CARDOPNVT 07:47
PROVIDERS: PCP Physician Assistant; Visit Provider Internal Medicine Interventional Cardiology
DX: R55 Syncope and collapse (principal); I49.3 Ventricular premature depolarization
CPT/HCPCS: 93272

== ENCOUNTER → 2023-08-24 08:43 | Outpatient (BNVA) | payer OTHER, MEDICAID, SELFPAY | PROVIDERS: PCP Physician Assistant; Referring Provider Physician Assistant; Visit Provider Physician Assistant Surgical | DX: J45.909 Unspecified asthma, uncomplicated (principal); R05.3 Chronic cough; H61.23 Impacted cerumen, bilateral | CPT/HCPCS: 99214 ==

== ENCOUNTER → 2023-09-30 09:55 | Outpatient (BNVA) | payer OTHER, MEDICAID, SELFPAY | PROVIDERS: PCP Physician Assistant; Referring Provider Physician Assistant; Visit Provider Physician Assistant Surgical | DX: J45.909 Unspecified asthma, uncomplicated (principal); H61.23 Impacted cerumen, bilateral; R05.3 Chronic cough | CPT/HCPCS: 99214 ==

== ENCOUNTER 2023-10-20 18:54 | Outpatient (REF) | payer OTHER, MEDICAID, SELFPAY ==
[2023-10-20 19:11] LABS: Abs Immature Grans 0.02 10^3/uL (0.0-0.06); Absolute Basophil Count 0.04 10^3/uL (0.0-0.2); Absolute Eosinophil Count 0.08 10^3/uL (0.0-0.7); Absolute Lymphocyte Count 1.82 10^3/uL (1.2-3.4); Absolute Monocyte Count 0.38 10^3/uL (0.1-0.8); Absolute Neutrophil Count 2.43 10^3/uL (1.2-6.7); Basophils % 0.8 %; Eosinophils % 1.7 %; HCT 43.7 % (40.0-50.0); HGB 14.9 g/dL (13.5-17.5); Immature Grans % 0.4 %; Lymphocytes % 38.2 %; MCH 30.5 pg (27.0-33.0); MCHC 34.1 % (32.0-36.0); MCV 89 fL (80-95); MPV 11.9 fL (8.0-11.0); Neutrophils % 50.9 %; Platelet Count 153 10^3/uL (130-400); RBC 4.89 10^6/uL (4.36-5.78); RDW-SD 39.2 fL; WBC 4.77 10^3/uL (4.4-10.8)
[2023-10-20 19:22] LABS: ALT 46 U/L (16-63); AST 31 U/L (15-37); Alkaline Phosphatase 124 U/L (46-116); Anion Gap 7.4 mmol/L (3-11); BUN 23 mg/dL (7-18); Bilirubin, Total 0.9 mg/dL (0.2-1.0); CO2 28.6 mmol/L (21.0-32.0); CREATININE 1.1 mg/dL (0.70-1.30); Chloride 103 mmol/L (98-107); Estimated GFR 72.67 (mL/min/1.73m2); Glucose 108 mg/dL (74-106); Potassium 4.5 mmol/L (3.5-5.1); Sodium 139 mmol/L (136-145); Total Protein 7.4 g/dL (6.4-8.2); Troponin I < 50 ng/L (< or =60)
== END 2023-10-20 18:55 | disposition home or self-care (01) ==
LOC: NCHCN 18:54
PROVIDERS: PCP Physician Assistant; Visit Provider Physician Assistant
DX: R07.9 Chest pain, unspecified (principal)
CPT/HCPCS: 80053; 84484; 85025

== ENCOUNTER → 2023-10-27 00:41 | Outpatient (CLI) | payer OTHER, MEDICAID, SELFPAY ==
--- NOTE | 2023-10-27 | DI.NM_ITS ---
APPROVED REPORT Exam: Pharmacologic Patient Location: Out-Patient Room/Bed: Stress Nurse: Abby Thomas RN and Erlin Paez RN Ordering Provider:SILVESTRE TELLEZ, Contact Number: [phone] BMI: 30.82 Baseline Rhythm: Sinus Bradycardia Comment: Rare PVC. Indications: Chest Pain Medical History Medical History: Syncope; Asthma; Fatigue; PVC's; Anemia; Ventricular Trigeminy; Nonischemic Cardiomy opathy; Hypertension; Obesity; Depression; GERD; Alcohol Abuse; Pulmonary Hypertension; Memory Impair ment; Hyperlipidemia; Neuropathy. Cardiac Medications: Albuterol Sulfate; Amlodipine; Atorvastatin; Dexilant; Prozac; Advair; Jardiance ; Metoprolol Succinate; Nitroglycerin; Pantoprazole; Entresto; Spironolactone. Allergies: Lisinopril; Omeprazole; Oxycodone; Codeine. Cardiac Risk Factors: Family Hx; Hypertension; Hyperlipidemia; Asthma; Obesity. Previous Cardiac Procedures: None. Pretest Chest Pain Characteristics: None. Exercise History: Indeterminate. Physical Disabilities: None. Lung Sounds: Clear bilaterally throughout, anterior and posterior. Heart Sounds: S1 and S2 auscultated. Stress Test Details Test: Pharmacologic stress was paired with low level exercise. Reason for pharmacologic stress test: Pharmacologic per provider order. Nuclear Acquisition: Rest Tc-99m/Stress Tc-99m 1 day Rest Isotope: Tc-99m Sestamibi. Dose: 10.0 Date: 10/27/2023 Injection Time: 0915 Stress Isotope: Tc-99m Sestamibi. Dose: 30.0 Date: 10/27/2023 Injection Time: 1117 HR Resting HR Supine: 57 bpm Max Heart Rate (APMHR): 151.779130 bpm Resting HR Standin bpm Target HR (85% APMHR): 128.338254 bpm Max HR Achieved: 92 bpm % of APMHR: 60.93 Recovery HR: 65 bpm BP Resting BP Supine: 140/86 mmHg Resting BP Standin/80 mmHg Max BP: 154/72 mmHg Recovery BP: 134/78 mmHg ECG Resting ECG: Sinus Bradycardia Ectopy: Rare PVC. Stress ECG: Sinus Rhythm ST Change: Nondiagnostic low heart rate. Arrhythmia: Occasional PVC's. Recovery ECG: Sinus Rhythm Recovery ST Change: Nondiagnostic low heart rate. Recovery Arrhythmia: Occasional PVC's; Trigeminy. Clinical Stress Symptoms: Abdominal discomfort; Chest tightness/pain; SOB; General Fatigue. Angina Score: Exercise-Limiting Rate Pressure Product: 33904 Stress ECG Conclusion 1. Resting electrocardiogram was within normal limits 2. Patient underwent testing using pharmacologic stress with regadenoson 3. Peak heart rate achieved was 61% of predicted for age 4. The electrocardiographic portion of the test was nondiagnostic 5. Occasional PVCs were seen 6. See MPI report Stress Test Summary STAGE HR BP SpO2 Symptoms NOTES Supine 57 140/86 97 Standing 61 118/80 1 min post Lexiscan injection 78 122/68 Pt. complaining of 4/10 chest tightness/achiness and SOB a nd dizziness. 3 min post Lexiscan injection 71 154/72 Pt. complaining of 5/10 chest tightness/abdominal discomfo rt. Pt. having difficulty differentiating between the pain. 6 min post Lexiscan injection 65 134/78 96 Pt. states that chest tightness has resolved. Pt. compla ining of 5-6/10 abdominal discomfort. Nursing staff unconcerned by abdominal discomfort; expected zayda e effect of Lexiscan. Pt. encouraged to drink some coffee and have a snack. Pt. left the stress lab room ambulatory and was brought back to the nuclear medicine waiting room. Pt . was conversing and laughing with nursing staff. Pt. was not in any apparent distress. Nursing staff to provide pt. with coffee and a snack while pt. waits for post imaging. MPI Conclusion Myocardial perfusion is normal. There is no ischemia or evidence of prior infarction Calculated EF is 48%, visually appears higher and within the range of normal. Wall motion is normal Radiologist Interpretation Radiologist agrees with Manager Sas's Interpretation. Radiologist Interpretation by: Roberto Bañuelos MD Interpretation Date/Time: 10/27/2023 18:37:25
[2023-10-27] MEDS: Regadenoson 0.4 MG/5 ML SYR IVP (11:16)
== END ==
PROVIDERS: PCP Physician Assistant; Visit Provider Physician Assistant
DX: R07.9 Chest pain, unspecified (principal)
CPT/HCPCS: 78452; 93016; 93018; 93017; J2785

== ENCOUNTER 2023-12-11 18:39 | Outpatient (REF) | payer OTHER, MEDICAID, SELFPAY ==
[2023-12-11 20:16] LABS: Iron 68 ug/dL (65-175); Total Iron Binding Capacity 297 ug/dL (250-450); Transferrin Sat 23 % (20-55)
[2023-12-11 20:32] LABS: Ferritin 421 ng/mL (26-388); TSH (W/Ref FT4) 2.88 uIU/mL (0.36-3.74); Vitamin B12 484 pg/mL (193-986); Vitamin D 25 Total 15.3 ng/mL (30-100)
== END 2023-12-11 18:40 | disposition home or self-care (01) ==
LOC: NCHCN 18:39
PROVIDERS: PCP Physician Assistant; Visit Provider Physician Assistant
DX: E55.9 Vitamin D deficiency, unspecified (principal); I10 Essential (primary) hypertension
CPT/HCPCS: 82306; 82607; 82728; 82746; 83540; 83550; 84443

== ENCOUNTER → 2024-01-05 14:54 | Outpatient (BNVA) | payer OTHER, MEDICAID, SELFPAY | PROVIDERS: PCP Physician Assistant; Referring Provider Physician Assistant; Visit Provider Physician Assistant Surgical | DX: I50.9 Heart failure, unspecified (principal); J45.909 Unspecified asthma, uncomplicated; H61.23 Impacted cerumen, bilateral; R05.3 Chronic cough | CPT/HCPCS: 36415; 99214 ==

== ENCOUNTER 2024-01-05 16:18 | Outpatient (REF) | payer OTHER, MEDICAID, SELFPAY ==
[2024-01-05 16:27] LABS: NT-proBNP 137 pg/mL (<300); Troponin I < 50 ng/L (< or =60)
[2024-01-05 16:30] LABS: Abs Immature Grans 0.04 10^3/uL (0.0-0.06); Absolute Basophil Count 0.06 10^3/uL (0.0-0.2); Absolute Eosinophil Count 0.24 10^3/uL (0.0-0.7); Absolute Monocyte Count 0.81 10^3/uL (0.1-0.8); Absolute Neutrophil Count 5.62 10^3/uL (1.2-6.7); Basophils % 0.7 %; Eosinophils % 2.6 %; HCT 42.2 % (40.0-50.0); HGB 14.6 g/dL (13.5-17.5); Immature Grans % 0.4 %; Lymphocytes % 26.2 %; MCH 30.4 pg (27.0-33.0); MCHC 34.6 % (32.0-36.0); MCV 88 fL (80-95); Monocytes % 8.8 %; Neutrophils % 61.3 %; Platelet Count 160 10^3/uL (130-400); RDW 12.1 % (11.8-14.1); RDW-SD 39.1 fL; WBC 9.17 10^3/uL (4.4-10.8)
[2024-01-05 16:42] LABS: ALT 39 U/L (16-63); AST 36 U/L (15-37); Albumin 3.9 g/dL (3.4-5.0); Alkaline Phosphatase 148 U/L (46-116); BUN 24 mg/dL (7-18); Bilirubin, Total 1.25 mg/dL (0.2-1.0); CREATININE 1.5 mg/dL (0.70-1.30); Calcium 9.1 mg/dL (8.5-10.1); Chloride 104 mmol/L (98-107); Estimated GFR 50.08 (mL/min/1.73m2); Glucose 119 mg/dL (74-106); Potassium 3.8 mmol/L (3.5-5.1); Sodium 139 mmol/L (136-145); Total Protein 7.5 g/dL (6.4-8.2)
== END 2024-01-05 16:19 | disposition home or self-care (01) ==
LOC: LBN 16:18
PROVIDERS: PCP Physician Assistant; Visit Provider Physician Assistant Surgical
DX: I50.9 Heart failure, unspecified (principal); J45.909 Unspecified asthma, uncomplicated; H61.23 Impacted cerumen, bilateral; R05.3 Chronic cough
CPT/HCPCS: 80053; 83880; 84484; 85025

== ENCOUNTER 2024-01-15 11:21 | Emergency (ER) | payer MEDICARE, MEDICAID, SELFPAY ==
[2024-01-15] VITALS (7 sets, daily range): BP systolic 149–158; BP diastolic 68–91; PULSE 64–80; RESP 13–18; TEMP 36.3–36.6; O2SAT 95–97
--- NOTE | 2024-01-15 11:23 | ED.GENADUL_ITS ---
Discharge Plan Disposition Patient Disposition: Home Discharge Details Clinical Impression: Cough Primary Care Provider: Jess Olivia ED Provider: Neil Thomas Home Meds and New Rx's Prescriptions: New benzonatate 100 mg capsule 100 mg PO BID PRNQty: 7 0RF Continued acetaminophen [Tylenol Extra Strength] 500 mg tablet 500 mg PO Q6H PRN nitroglycerin 0.4 mg tablet, sublingual 0.4 mg sublingual Q5-15M PRN Rx Instructions: do not exceed 3 doses per episode fluticasone propion-salmeterol [Advair HFA] 115-21 mcg/actuation HFA aerosol inhaler 2 puff inhalation BID Qty: 12 6RF cholecalciferol (vitamin D3) 50 mcg (2,000 unit) capsule 50 mcg PO DAILY Qty: 90 4RF albuterol sulfate 90 mcg/actuation HFA aerosol inhaler 2 puff inhalation Q6H PRN (Reason: shortness of breath or wheezing) Qty: 8.5 12RF Breztri Aerosphere 160-9-4.8 mcg/actuation HFA aerosol inhaler 2 inh inhalation BID Qty: 10.7 12RF pantoprazole 40 mg tablet,delayed release (DR/EC) 40 mg PO DAILY amlodipine 5 mg tablet 5 mg PO DAILY dexlansoprazole [Dexilant] 60 mg capsule,biphase delayed releas 30 mg PO DAILY fluoxetine [Prozac] 40 mg Capsule 40 mg PO QAM atorvastatin 20 mg tablet 20 mg PO HS Patient Comments: TAKE 1 TABLET BY MOUTH DAILY AT BEDTIME Jardiance 10 mg Tablet 10 mg PO QAM Qty: 90 0RF spironolactone 25 mg Tablet 25 mg PO DAILY Qty: 30 1RF Entresto 24-26 mg Tablet 1 ea PO BID Qty: 60 1RF metoprolol succinate 25 mg tablet extended release 24 hr 25 mg PO DAILY Patient Comments: TAKE 1 TABLET BY MOUTH EVERY DAY dexlansoprazole 30 mg capsule,biphase delayed releas 30 mg PO DAILY Patient Comments: TAKE 1 CAPSULE BY MOUTH EVERY DAY Discharge Instructions Instructions: Cough in adults Discharge Data Discharge Date/Time-TO BE ENTERED AT DEPARTURE: 01/15/24 13:30 HPI General Date/Time Provider Initiated Documentation: 01/15/24 11:23 . HPI Narrative: MDM This is a chronically ill-appearing afebrile not tachycardic 68-year-old male with acute on chronic cough most consistent with bronchitis for which patient will receive benzonatate and empiric trial of expectant outpatient management. No increased sputum production or wheeze to suggest acute exacerbation of reactive airway disease and no indication for steroids nor dexamethasone. I did not send a venous blood gas as patient was having no increased work of breathing. No chest pain to suggest ACS so I did not send an EKG nor assess for a troponin. In the setting of patient's syncope he is relatively low risk. His ECG has no significant blocks or dysrhythmias. He said no black nor bloody stools to suggest acute GI bleed. I do not hear murmur of aortic stenosis and the patient had an ultrasound done last year which showed no signs of aortic stenosis. I considered PE however the patient is not having leg pain and has no prior history of PE. Given that he is not tachycardic not hypoxic I did not send a D-dimer. Will complete PCR for COVID. No chest pain to suggest aortic dissection. No abdominal pain to suggest intra-abdominal infection. No fevers to suggest pneumonia however will obtain a portable chest x-ray. No trauma to the chest so doubt pneumothorax. Patient lacks unintentional weight gain lower extremity edema B-lines on bedside ultrasound so I do not feel his presentation is consistent with acute heart failure today do not feel he would benefit from a diuretic. Will reassess following labs and imaging. In the setting of syncope I considered: High risk features: 1. Age of the patient (elderly a greatest risk) 2. Syncope during exertion 3. Family history of sudden [place] syncope rule: 1. History of CHF 2. Hematocrit < 30 3. EKG abnormalities 4. Present shortness of breath 5. Systolic blood pressure less than 90 Cardiac arrhythmia/EKG or abnormalities considered: 1. ACS: No ST changes 2. Tachy-chevy: No blocks 3. WPW: No delta wave 4. Brugada: No RSR'; R-bundle appearance 5. HCM: No LVH; needle Qs/ T-wave inversions 6. Short/ Long QT: 300 < QTc < 500; no family hx 7. Arrhythmogenic Right Ventricular Dysplasia: No epsilon wave, no inverted Ts in anterior precordium 12:30 PM Patient metabolic panel showing CKD no AZEEM compared to prior from last month. Mild hyperglycemia but normal anion gap normal bicarbonate?does not consistent with DKA. CBC lacks anemia thrombocytopenia and leukocytosis. I met with the patient. He had a proBNP which was not consistent with heart failure. He had no syncope in the ED. He did have a coughing episode when his rhythm but he maintained his oxygen saturation. I discussed that I would call him if his COVID swab returned positive. Otherwise advised primary care follow-up. We discussed ED return if he developed any syncope chest pain fevers vomiting or if you have any other concerns. He understood his return indications and is discharged with empiric trial of expectant outpatient management. Chronic conditions affecting the care of the patient: Reactive airway disease History obtained from an outside historian: N/A External record review: [facility] EMR Diagnostic interpretations performed by me: Per my independent interpretation chest x-ray shows: No acute cardiopulmonary process. Per my independent interpretation EKG shows: No complex normal sinus rhythm at a rate of 70. Normal axis. Intervals within normal limits. No ST segment abnormalities beyond mild left lateral chest wall ST segment depressions. No ST segment elevations. T wave flattening in aVL. Compared to prior dated last year T wave flattening in aVL is persistent as are left lateral chest wall ST segment flattening. ]Medications: Benzonatate Social determinants of health affecting disposition: N/A Management discussed with: N/A Treatment/interventions considered: N/A Response to therapies provided: N/A HPI This is a 68-year-old male history of asthma on outpatient inhalers and anemia arrived emergency department in the setting of increased shortness of breath. Patient notes that for the past approximately 6 months he has been coughing. Occasionally he gets posttussive syncope. He has not hit his head. He occasionally has been coughing so badly that it hurts his chest. He denies chest pain at the moment. He denies routine tobacco, ethanol, and illicits. He is never had a PE nor DVT. He denies unintentional weight gain and feels as if he may have recently lost some weight. He is not short of breath at the moment. He said no increased purulence nor production to his sputum. He denies any lower extremity swelling. He denies black or bloody stools. He is not anticoagulated. Exam General: Chronically ill-appearing in no acute distress speaking in complete sentences. Head: Normocephalic, atraumatic. Eye: Extraocular eye movements intact. No conjunctival injection. No scleral icterus. Ear, nose, mouth, throat: Grossly normal inspection. Normal voice, handling secretions normally. Neck: Trachea midline. Cardiovascular: Well-perfused distal extremities. Regular rate and rhythm. No JVD. Respiratory: Nonlabored respiration. Clear lungs bilaterally. No wheeze. No respiratory distress. Gastrointestinal: Nondistended abdomen. Musculoskeletal: No significant lower extremity pitting edema. Moving all 4 extremities spontaneously. Skin: Normal for age and race, grossly normal temperature and turgor. No acute rash. Neurologic: Alert and appropriate, no apparent acute deficits. Psychiatric: Mood and manner are appropriate. Grooming and personal hygiene are appropriate. Related Data Home Medications ?Medication ?Instructions ?Recorded ?Confirmed atorvastatin 20 mg tablet 20 mg PO HS 12/17/20 01/15/24 acetaminophen 500 mg tablet 500 mg PO Q6H PRN 06/11/21 01/15/24 (Tylenol Extra Strength) fluoxetine 40 mg capsule (Prozac) 40 mg PO QAM 06/21/21 01/15/24 nitroglycerin 0.4 mg sublingual 0.4 mg sublingual Q5-15M PRN 07/26/21 01/15/24 tablet Jardiance 10 mg tablet 10 mg PO QAM #90 tabs 09/10/21 01/15/24 (empagliflozin) sacubitril 24 mg-valsartan 26 mg 1 ea PO BID #60 tabs 09/10/21 01/15/24 tablet (Entresto) spironolactone 25 mg tablet 25 mg PO DAILY #30 tabs 09/10/21 01/15/24 amlodipine 5 mg tablet 5 mg PO DAILY 11/07/21 01/15/24 dexlansoprazole 60 mg 30 mg PO DAILY 08/05/22 01/15/24 capsule,biphase delayed release (Dexilant) fluticasone propionate 115 2 puff inhalation BID #12 grams 02/09/23 01/15/24 mcg-salmeterol 21 mcg/actuation HFA inhaler (Advair HFA) metoprolol succinate 25 mg 25 mg PO DAILY 04/26/23 01/15/24 tablet,extended release 24 hr pantoprazole 40 mg tablet,delayed 40 mg PO DAILY 05/22/23 01/15/24 release albuterol sulfate 90 mcg/actuation 2 puff inhalation Q6H PRN 01/05/24 01/15/24 aerosol inhaler shortness of breath or wheezing #8.5 grams budesonide 160 mcg-glycopyr 9 2 inh inhalation BID #10.7 grams 01/05/24 01/15/24 mcg-formot 4.8 mcg/actuation HFA inhaler (Breztri Aerosphere) cholecalciferol (vitamin D3) 50 50 mcg PO DAILY #90 caps 01/05/24 01/15/24 mcg (2,000 unit) capsule benzonatate 100 mg capsule 100 mg PO BID PRN #7 caps 01/15/24 dexlansoprazole 30 mg 30 mg PO DAILY 01/15/24 01/15/24 capsule,biphase delayed release Previous Rx's ?Medication ?Instructions ?Recorded Jardiance 10 mg tablet 10 mg PO QAM #90 tabs 09/10/21 (empagliflozin) sacubitril 24 mg-valsartan 26 mg 1 ea PO BID #60 tabs 09/10/21 tablet (Entresto) spironolactone 25 mg tablet 25 mg PO DAILY #30 tabs 09/10/21 fluticasone propionate 115 2 puff inhalation BID #12 grams 02/09/23 mcg-salmeterol 21 mcg/actuation HFA inhaler (Advair HFA) albuterol sulfate 90 mcg/actuation 2 puff inhalation Q6H PRN 01/05/24 aerosol inhaler shortness of breath or wheezing #8.5 grams budesonide 160 mcg-glycopyr 9 2 inh inhalation BID #10.7 grams 01/05/24 mcg-formot 4.8 mcg/actuation HFA inhaler (Breztri Aerosphere) cholecalciferol (vitamin D3) 50 50 mcg PO DAILY #90 caps 01/05/24 mcg (2,000 unit) capsule benzonatate 100 mg capsule 100 mg PO BID PRN #7 caps 01/15/24 Allergies Allergy/AdvReac Type Severity Reaction Status Date / Time lisinopril Allergy Intermediate Other (See Verified 01/15/24 11:33 Comment) omeprazole (From Prilosec) Allergy Intermediate Itching Verified 01/15/24 11:33 oxycodone Allergy Itching Verified 01/15/24 11:33 codeine (Codeine) AdvReac NAUSEA Verified 01/15/24 11:33 General CATIA: 3 Medical Decision Making Quality:SDOH Health Related Social Needs: No Data to Display PFSH All Active Problems (Updated 01/15/24 @ 12:55 by Neil Thomas MD) Cough (Acute) Heart failure (Acute) Sensorineural hearing loss, bilateral (Acute) Snoring (Acute) Cerumen impaction (Acute) Glucose intolerance (impaired glucose tolerance) (Chronic) Hyponatremia (Acute) Syncope and collapse (Acute) Asthma (Chronic) Fatigue (Acute) Abnormal chest xray (Acute) Cough (Acute) Tendonitis of long head of biceps brachii of right shoulder (Acute) Primary osteoarthritis, right shoulder (Acute) Bursitis of right shoulder (Acute) Premature ventricular contractions (Acute) Traumatic tear of right rotator cuff (Acute ~10/2021) Rectal bleeding (Acute) Anemia (Chronic) Medication monitoring encounter (Chronic) Ventricular trigeminy (Acute) New onset cough (Acute) Diarrhea (Acute) assoc w/ fatty food injestion Postprandial RUQ pain (Acute) Nonischemic cardiomyopathy (Chronic) HTN (hypertension) with goal to be determined (Acute) Melena (Acute) Depression (Chronic) Obesity (Chronic) Globus sensation (Acute) Exertional chest pain (Acute) Melena (Acute) Diverticulitis (Acute) Gastropathy (Acute) pt needs to curtail ETOH use. Abnormal weight loss (Acute 04/12/12) Alcohol abuse (Acute) Dysphagia (Acute 04/12/12) Epigastric pain (Acute 04/12/12) GERD (gastroesophageal reflux disease) (Chronic) Pulmonary hypertension associated with systemic disorder (Acute) Non-alcoholic fatty liver disease (Acute) Blood glucose elevated (Chronic) Hypertension (Chronic) Memory impairment (Chronic) Medical History (Updated 01/15/24 @ 12:55 by Neil Thomas MD) Palliative care patient History of head injury Dyslipidemia Left inguinal hernia Tendinitis of long head of biceps brachii of left shoulder Acute pain of left shoulder Contusion of left lower leg Left leg pain Tendonitis of left rotator cuff Injected: 01/03/2020, 04/10/2020, 12/17/2020 Diverticula of colon Gastropathy History of back pain Chest pain Dysphasia Neuropathy Fatty liver Alcohol abuse Situational depression Shoulder pain (11/18/12) Peripheral neuralgia Lumbosacral neuritis (02/27/11) Lesion of ulnar nerve (02/27/11) Impotence of organic origin Full thickness rotator cuff tear (01/18/13) 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 Surgical History History of surgery on upper extremity Hx L shoulder, wrist, fingers, R arm x 8 per Pt History of esophagogastroduodenoscopy (EGD) (~11/2021) Hx of carpal tunnel repair Hx of colonoscopy 08/13/18 [place] [address] Pastora Noel at [facility], repeat in five years. mg colo 06/05/08 - Dr Cheney - tubular adenoma, descending colon, repeat in 5 years. History of surgical amputation of finger of left hand Machine related injury, R hand per pt 08/13/18 EXOSTECTOMY 03/09/15 DR. YODER; RIGHT GREAT TOE Arthroplasty 03/09/15; DR. HERNANDEZ RIGHT SECOND TOE Appendectomy (~2007) Family History Other Cancer Diabetes Hypertension Social History Smoking/Tobacco Use Status: Former Tobacco Use Smoking risk assessment performed?: Yes Alcohol Intake: former Drug use: Never Substance use type: does not use Household members: none Housing: other current occupation: disabled Current gender identity: male What type of physical activity do you participate in: none Do you feel safe at home: Yes Do you feel safe in your relationship?: Yes Additional Social history: Lives in mobile home alone POCUS Exam (ED) Limited Cardiac Exam DATE OF EXAM: 01/15/24 TIME OF EXAM: 12:45 PROVIDER THAT PERFORMED THE STUDY: Neil Thomas IS THIS A REPEAT EXAM DURING THIS ENCOUNTER: no REASON FOR EXAM: Dyspnea VISUALIZED STRUCTURES: Four Chambers, Left ventricle, LVOT and Other structure: Lungs bilaterally VIEW OBTAINED: Apical 4-Chamber, Parasternal long-axis and Subxiphoid PERTINENT FINDINGS/IMPRESSION: No pericardial effusion and No RV dilation DIFFERENTIAL DIAGNOSES: Aortic outflow track less than 4 cm, good squeeze, RV less than LV, no significant pericardial effusion. No B-lines bilaterally Exam complete
--- NOTE | 2024-01-15 11:30 | RT.EKG_ITS ---
APPROVED REPORT Exam: Resting ECG Reason for Exam: near syncope Patient Location: E HR:70 bpm ECG Measurements Heart Rate 70 AXIS VT 189 P 69 QRSd 91 QRS 36 QT 407 T 54 QTc 438 Conclusion Sinus rhythm...normal P axis, V-rate 60- 99 No complex normal sinus rhythm at a rate of 70. Normal axis. Intervals within normal limits. No ST segment abnormalities beyond mild left lateral chest wall ST segment depressions. No ST segment kaela vations. T wave flattening in aVL. Compared to prior dated last year T wave flattening in aVL is pe rsistent as are left lateral chest wall ST segment flattening.
[2024-01-15 12:00] LABS: Abs Immature Grans 0.03 10^3/uL (0.0-0.06); Absolute Basophil Count 0.06 10^3/uL (0.0-0.2); Absolute Eosinophil Count 0.43 10^3/uL (0.0-0.7); Absolute Lymphocyte Count 1.92 10^3/uL (1.2-3.4); Absolute Monocyte Count 0.48 10^3/uL (0.1-0.8); Absolute Neutrophil Count 4.15 10^3/uL (1.2-6.7); Basophils % 0.8 %; Eosinophils % 6.1 %; HCT 44.1 % (40.0-50.0); HGB 15.4 g/dL (13.5-17.5); Immature Grans % 0.4 %; Lymphocytes % 27.2 %; MCH 30.6 pg (27.0-33.0); MCHC 34.9 % (32.0-36.0); MCV 88 fL (80-95); MPV 10.7 fL (8.0-11.0); Monocytes % 6.8 %; Neutrophils % 58.7 %; Platelet Count 155 10^3/uL (130-400); RBC 5.04 10^6/uL (4.36-5.78); RDW-SD 38.6 fL; WBC 7.07 10^3/uL (4.4-10.8)
[2024-01-15 12:09] LABS: Anion Gap 7.9 mmol/L (3-11); BUN 27 mg/dL (7-18); CO2 27.1 mmol/L (21.0-32.0); CREATININE 1.4 mg/dL (0.70-1.30); Chloride 99 mmol/L (98-107); Estimated GFR 54.41 (mL/min/1.73m2); Glucose 108 mg/dL (74-106); Potassium 4.3 mmol/L (3.5-5.1); Sodium 134 mmol/L (136-145)
[2024-01-15 12:35] LABS: NT-proBNP 103 pg/mL (<300)
--- NOTE | 2024-01-15 12:49 | DI.RAD_ITS ---
Exam(s) XR PORTABLE CHEST AP EXAM: XR PORTABLE CHEST AP CLINICAL HISTORY: Shortness of breath TECHNIQUE: 2D digital imaging was performed of the chest. One image was obtained. An AP view was ob tained. COMPARISON: CR,XR XR PORTABLE CHEST AP from 04/26/2023 FINDINGS: MEDIASTINUM: Normal. HEART: Normal. PULMONARY VASCULATURE: Normal. LUNGS: Clear. PLEURAL SPACE: No pleural effusion or pneumothorax. BONE:Within normal limits for the patient's age. OTHER FINDINGS:Normal. IMPRESSION: No acute pulmonary findings. DATA REPOSITORY: RADIATION DOSE DELIVERED:
[2024-01-15 12:57] LABS: COVID-19 PCR Negative (Negative); Influenza A PCR Negative (Negative); Influenza B PCR Negative (Negative); RSV PCR Negative (Negative)
[2024-01-15 13:08] LABS: Source Nasopharynx
[2024-01-15] MEDS: Benzonatate 100 MG CAP PO (13:19)
== END 2024-01-15 13:30 | disposition home or self-care (01) ==
PROVIDERS: Emergency Provider Emergency Medicine; PCP Physician Assistant
DX: J45.909 Unspecified asthma, uncomplicated (principal); D64.9 Anemia, unspecified; I10 Essential (primary) hypertension; R05.9 Cough, unspecified; R06.02 Shortness of breath
CPT/HCPCS: 80048; 87426; 87637; 93005; 93308; 99285; 71045; 83880; 85025; 93010; 99284

== ENCOUNTER → 2024-04-04 14:19 | Outpatient (BNVA) | payer MEDICARE, MEDICAID, SELFPAY | PROVIDERS: PCP Physician Assistant; Referring Provider Physician Assistant; Visit Provider Physician Assistant Surgical | DX: J45.909 Unspecified asthma, uncomplicated (principal); H61.23 Impacted cerumen, bilateral; R05.3 Chronic cough | CPT/HCPCS: 99214 ==

== ENCOUNTER 2024-06-15 15:58 | Outpatient (REF) | payer MEDICARE, MEDICAID, SELFPAY ==
[2024-06-15 19:56] LABS: Abs Immature Grans 0.04 10^3/uL (0.0-0.06); Absolute Basophil Count 0.04 10^3/uL (0.0-0.2); Absolute Eosinophil Count 0.13 10^3/uL (0.0-0.7); Absolute Lymphocyte Count 3.07 10^3/uL (1.2-3.4); Absolute Monocyte Count 0.69 10^3/uL (0.1-0.8); Basophils % 0.5 %; Eosinophils % 1.7 %; HCT 44.3 % (40.0-50.0); HGB 15.3 g/dL (13.5-17.5); Immature Grans % 0.5 %; MCH 30.5 pg (27.0-33.0); MCHC 34.5 % (32.0-36.0); MCV 88 fL (80-95); MPV 11.5 fL (8.0-11.0); Neutrophils % 48.3 %; Platelet Count 165 10^3/uL (130-400); RBC 5.02 10^6/uL (4.36-5.78); RDW 12.8 % (11.8-14.1); RDW-SD 41.1 fL; WBC 7.67 10^3/uL (4.4-10.8)
[2024-06-15 20:13] LABS: ALT 56 U/L (16-63); AST 35 U/L (15-37); Albumin 4.2 g/dL (3.4-5.0); Alkaline Phosphatase 185 U/L (46-116); Amylase 76 U/L (25-115); Anion Gap 8.5 mmol/L (3-11); BUN 18 mg/dL (7-18); Bilirubin, Total 0.79 mg/dL (0.2-1.0); CO2 26.5 mmol/L (21.0-32.0); CREATININE 1.2 mg/dL (0.70-1.30); Calcium 9.2 mg/dL (8.5-10.1); Chloride 108 mmol/L (98-107); Estimated GFR 65.46 (mL/min/1.73m2); Glucose 90 mg/dL (74-106); Potassium 3.9 mmol/L (3.5-5.1); Sodium 143 mmol/L (136-145); Total Protein 7.9 g/dL (6.4-8.2)
[2024-06-15 20:14] LABS: Lipase < 6 U/L (<78)
[2024-06-17 09:19] LABS: Alpha 1 Antitrypsin,Serum 122 mg/dL (90-200)
[2024-06-17 09:33] LABS: PSA, Diagnostic 1.8 ng/mL (<=4.5)
== END 2024-06-15 15:59 | disposition home or self-care (01) ==
LOC: NCHCN 15:58
PROVIDERS: PCP Physician Assistant; Visit Provider Physician Assistant
DX: R18.8 Other ascites (principal); R35.1 Nocturia; R10.9 Unspecified abdominal pain; K76.0 Fatty (change of) liver, not elsewhere classified
CPT/HCPCS: 80053; 83690; 82103; 82150; 84153; 85025

== ENCOUNTER 2024-06-17 00:59 | Outpatient (CLI) | payer MEDICARE, MEDICAID, SELFPAY ==
[2024-06-17] MEDS: Barium Sulfate 2% W/V-Creamy Vanilla Smoothie 450 ML BTL PO (08:52)
[2024-06-17] MEDS: Barium Sulfate 2% W/V-Berry Smoothie 450 ML BTL PO (08:53)
[2024-06-17] MEDS: Normal Saline - Diluent 50 ML VIAL IJ (11:19)
--- NOTE | 2024-06-17 11:49 | DI.CT_ITS ---
Exam(s) CT ABDOMEN PELVIS W EXAM: CT ABDOMEN PELVIS W CLINICAL HISTORY: HEPATIC ASCITES,R18.8. TECHNIQUE: Imaging Protocol: Axial computed tomography images with coronal and sagittal reformatted images were created and reviewed CONTRAST MATERIAL: Intravenous: Omnipaque 350 Contrast volume:100 ml Oral: no COMPARISON: CT CT ABDOMEN PELVIS WO from 09/23/[address] CHEST WO from 12/22/2022 FINDINGS: ABDOMEN and PELVIS: Lung Bases: No acute findings. Liver: Moderate hepatic steatosis. No suspicious mass. Gallbladder and biliary tract: No radiodense calculus. No wall thickening or pericholecystic fluid. No biliary dilation. Pancreas: Normal density. Mildly atrophic. No abnormal calcifications or inflammatory process. No e vidence of mass. Spleen: Normal. Kidneys: Normal size, contour and axis. No radiodense stones. No obstructive uropathy. Stable cysts . No suspicious masses seen. Adrenal glands: No masses seen. Vasculature: Abdominal aorta non-dilated. Soft tissues: Unremarkable. Bladder: No gross wall thickening. No calculi.No focal mass. Bowel: No obstruction. Severe sigmoid diverticulosis. No evidence of diverticulitis. Increased sto ol in rectum. Normal quantity of stool elsewhere. Appendix not visualized. Peritoneal cavity: No ascites. No focal collection. No mesenteric inflammatory response. No free air . Bones: Unremarkable for age. Degenerative changes in the lumbar spine. Reproductive organs: Slight prostate enlargement. Lymph nodes: No pathologically enlarged lymph nodes. IMPRESSION:: No acute abnormality in the abdomen or pelvis. No evidence of ascites. Severe sigmoid diverticulosis. No evidence of diverticulitis. RADIATION DOSE DELIVERED: 662.09mGy.cm Total DLP DATA REPOSITORY: All CT scans at this facility are submitted to the National Radiology Data Registry (NRDR) Dose Index Registry (DIR) with the [employer] (ACR). RADIATION OPTIMIZATION: All CT scans at this facility use at least one of these dose optimization te chniques: automated exposure control; mA and/or kV adjustment per patient size (includes targeted exa ms where dose is matched to clinical indication); or iterative reconstruction.
== END 2024-06-17 01:19 ==
LOC: DI 01:00
PROVIDERS: PCP Physician Assistant; Visit Provider Physician Assistant
DX: R18.8 Other ascites (principal); K57.30 Diverticulosis of large intestine without perforation or abscess without bleeding
CPT/HCPCS: 74177

== ENCOUNTER 2024-06-29 13:15 | Outpatient (REF) | payer MEDICARE, MEDICAID, SELFPAY ==
[2024-06-29 20:30] LABS: Anion Gap 6.7 mmol/L (3-11); BUN 22 mg/dL (7-18); CO2 28.3 mmol/L (21.0-32.0); CREATININE 1.4 mg/dL (0.70-1.30); Calcium 9.5 mg/dL (8.5-10.1); Chloride 105 mmol/L (98-107); Estimated GFR 54.41 (mL/min/1.73m2); Folate 18.7 ng/mL (8.6-20.0); Glucose 115 mg/dL (74-106); Potassium 5.1 mmol/L (3.5-5.1); Sodium 140 mmol/L (136-145); Vitamin B12 503 pg/mL (193-986)
[2024-07-01 10:40] LABS: Syphilis Serology (RPR) Negative (Negative)
== END 2024-06-29 13:16 | disposition home or self-care (01) ==
LOC: NCHCN 13:15
PROVIDERS: PCP Physician Assistant; Visit Provider Physician Assistant
DX: R41.3 Other amnesia (principal); K76.0 Fatty (change of) liver, not elsewhere classified
CPT/HCPCS: 80048; 82306; 82607; 82746; 86592

== ENCOUNTER 2024-07-13 16:17 | Outpatient (REF) | payer MEDICARE, MEDICAID, SELFPAY ==
[2024-07-13 20:00] LABS: Anion Gap 7.9 mmol/L (3-11); BUN 25 mg/dL (7-18); CO2 26.1 mmol/L (21.0-32.0); CREATININE 1.5 mg/dL (0.70-1.30); Calcium 9.7 mg/dL (8.5-10.1); Chloride 104 mmol/L (98-107); Estimated GFR 50.08 (mL/min/1.73m2); Glucose 132 mg/dL (74-106); Potassium 4.6 mmol/L (3.5-5.1); Sodium 138 mmol/L (136-145)
== END 2024-07-13 16:18 | disposition home or self-care (01) ==
LOC: NCHCN 16:17
PROVIDERS: PCP Physician Assistant; Visit Provider Physician Assistant
DX: K76.0 Fatty (change of) liver, not elsewhere classified (principal)
CPT/HCPCS: 80048

== ENCOUNTER 2024-07-27 20:27 | Outpatient (REF) | payer MEDICARE, MEDICAID, SELFPAY ==
[2024-07-27 21:16] LABS: Abs Immature Grans 0.02 10^3/uL (0.0-0.06); Absolute Basophil Count 0.03 10^3/uL (0.0-0.2); Absolute Eosinophil Count 0.06 10^3/uL (0.0-0.7); Absolute Lymphocyte Count 2.18 10^3/uL (1.2-3.4); Absolute Monocyte Count 0.52 10^3/uL (0.1-0.8); Absolute Neutrophil Count 3.29 10^3/uL (1.2-6.7); Basophils % 0.5 %; HCT 44.2 % (40.0-50.0); HGB 15.3 g/dL (13.5-17.5); Immature Grans % 0.3 %; Lymphocytes % 35.7 %; MCH 30.1 pg (27.0-33.0); MCHC 34.6 % (32.0-36.0); MCV 87 fL (80-95); MPV 11.4 fL (8.0-11.0); Monocytes % 8.5 %; Platelet Count 172 10^3/uL (130-400); RBC 5.09 10^6/uL (4.36-5.78); RDW 12.3 % (11.8-14.1); RDW-SD 39.3 fL
[2024-07-27 22:02] LABS: ALT 52 U/L (16-63); AST 38 U/L (15-37); Alkaline Phosphatase 150 U/L (46-116); Anion Gap 6.8 mmol/L (3-11); BUN 22 mg/dL (7-18); Bilirubin, Total 1.3 mg/dL (0.2-1.0); CO2 27.2 mmol/L (21.0-32.0); CREATININE 1.5 mg/dL (0.70-1.30); Calcium 9.4 mg/dL (8.5-10.1); Chloride 106 mmol/L (98-107); Estimated GFR 50.08 (mL/min/1.73m2); Glucose 127 mg/dL (74-106); Potassium 4.3 mmol/L (3.5-5.1); Sodium 140 mmol/L (136-145); Total Protein 7.8 g/dL (6.4-8.2)
== END 2024-07-27 20:28 | disposition home or self-care (01) ==
LOC: NCHCN 20:27
PROVIDERS: PCP Physician Assistant; Visit Provider Physician Assistant
DX: R18.8 Other ascites (principal)
CPT/HCPCS: 80053; 85025

== ENCOUNTER 2024-08-17 17:03 | Outpatient (REF) | payer MEDICARE, MEDICAID, SELFPAY ==
[2024-08-17 20:59] LABS: ALT 47 U/L (16-63); AST 32 U/L (15-37); Alkaline Phosphatase 173 U/L (46-116); Amylase 82 U/L (25-115); Anion Gap 8.2 mmol/L (3-11); BUN 23 mg/dL (7-18); Bilirubin, Total 0.8 mg/dL (0.2-1.0); CO2 28.8 mmol/L (21.0-32.0); CREATININE 1.6 mg/dL (0.70-1.30); Calcium 9.7 mg/dL (8.5-10.1); Chloride 102 mmol/L (98-107); Estimated GFR 46.35 (mL/min/1.73m2); GGT 30 U/L (15-85); Glucose 111 mg/dL (74-106); Lipase 49 U/L (<78); Potassium 4.3 mmol/L (3.5-5.1); Sodium 139 mmol/L (136-145); Total Protein 8.2 g/dL (6.4-8.2)
== END 2024-08-17 17:04 | disposition home or self-care (01) ==
LOC: NCHCN 17:03
PROVIDERS: PCP Physician Assistant; Visit Provider Physician Assistant
DX: K76.0 Fatty (change of) liver, not elsewhere classified (principal); R10.11 Right upper quadrant pain
CPT/HCPCS: 80053; 83690; 82150; 82977

== ENCOUNTER 2024-09-07 00:38 | Outpatient (CLI) | payer MEDICARE, MEDICAID, SELFPAY ==
--- NOTE | 2024-09-07 | DI.NM_ITS ---
Exam(s) NM HEPATOBILIARY CCK GRP EXAM: NM HEPATOBILIARY CCK GRP CLINICAL HISTORY: R10.11 RUQ pain. TECHNIQUE: Injected dose: 5 mCi Tc-99 mebrofenin Initial dynamic images: 60 minutes Post-Gallbladder fillin.02 mcg/kg CCK intravenously over a 30min infusion. Additional images: 30 minute dynamic during CCK administration. COMPARISON: US US ABDOMEN LIMITED from 09/07/2024 FINDINGS: Normal hepatic transit time. Prompt excretion into the small bowel. Prompt excretion into the gallbladder. Gallbladder ejection fraction: 86 percent. The patient experienced abdominal pain during CCK infusio n. IMPRESSION: 1. Normal gallbladder ejection fraction. Patient experienced abdominal pain during CCK fusion. SN guidelines: Gallbladder visualization should be present by 3 hours. Delayed puamozj-rj-[id number] hills sit beyond 60 min raises the suspicion for partial common bile duct (CBD) obstruction. Gallbladder ejection fraction <35% has a good correlation with acalculous disease (i.e., chronic acal culous cholecystitis, cystic duct syndrome, sphincter of Oddi disease).
--- NOTE | 2024-09-07 | DI.US_ITS ---
Exam(s) US ABDOMEN LIMITED EXAM: US ABDOMEN LIMITED CLINICAL HISTORY: R10.11 RUQ pain TECHNIQUE: Ultrasound abdomen performed using standard protocol. COMPARISON: CT CT ABDOMEN PELVIS W from 06/17/2024 FINDINGS: LIVER: 17.3 cm in length. Markedly increased echogenicity and decreased through transmission consist ent with moderate to severe hepatic steatosis. Posterior portions of the liver are not visible.. No focal liver lesions are seen. GALLBLADDER: No evidence of cholelithiasis. No evidence of wall thickening. No pericholecystic fluid identified. MOREIRA'S SIGN: Negative. BILIARY SYSTEM: No intrahepatic or extrahepatic biliary ductal dilation. Right KIDNEY: Normal in size. No evidence of renal calculi. No evidence of hydronephrosis. A small s imple cyst is again noted at the lower pole no suspicious renal mass identified. PANCREAS: Normal where visualized. ABDOMINAL AORTA AND IVC: Visualized portions normal caliber. ASCITES: None seen. IMPRESSION: Marked hepatic steatosis. No gallstones or biliary dilatation. DATA REPOSITORY:
[2024-09-07] MEDS: Sincalide 5 MCG VIAL 1.4 MCG IJ (11:00)
[2024-09-07] MEDS: Water,Injection,Sterile 10 ML VIAL IJ (11:03)
== END 2024-09-07 00:58 ==
LOC: DI 00:38
PROVIDERS: PCP Physician Assistant; Visit Provider Physician Assistant
DX: R10.11 Right upper quadrant pain (principal)
CPT/HCPCS: 78227; J2805; 76705

== ENCOUNTER 2024-09-28 02:00 | Outpatient (CLI) | payer MEDICARE, MEDICAID, SELFPAY ==
--- NOTE | 2024-09-28 10:30 | DI.US_ITS ---
Exam(s) US ABDOMEN EXAM: US ABDOMEN CLINICAL HISTORY: ELEVATED LFT'S,MID EPIGASTRIC PAIN,R10.13,METABOLIC DYSFUNCTION,ASSOCIATED TECHNIQUE: Ultrasound abdomen performed using standard protocol. COMPARISON: CT CT ABDOMEN PELVIS W from 06/17/2024 US US ABDOMEN LIMITED from 09/07/2024 FINDINGS: ABDOMINAL AORTA AND IVC: Visualized portions normal caliber. PANCREAS: Normal where visualized. LIVER: There is diffuse increased echogenicity of the liver consistent with fatty infiltration. Hepa topetal flow in the Portal Vein. No evidence of a hepatic mass. The liver measures 18cm long. GALLBLADDER:No evidence of cholelithiasis. No evidence of wall thickening. No pericholecystic fluid i dentified. BILIARY SYSTEM: Common bile duct measures < 7 mm. No intrahepatic biliary ductal dilation. MOREIRA'S SIGN: Negative. KIDNEYS: Kidneys are symmetric in size. No evidence of renal calculi. No evidence of hydronephrosis. There are bilateral simple renal cysts. No follow-up is recommended. SPLEEN: Not enlarged. ASCITES: None seen. The right mid and lower abdominal wall was evaluated sonographically. It is unremarkable. No eviden ce of a hernia is seen sonographically. Review of the CT scan of the abdomen and pelvis from shows no evidence of a right abdominal wall hernia. IMPRESSION: 1. Hepatomegaly and hepatic steatosis. 2. Unremarkable appearance of the right abdominal wall. No evidence of a hernia. DATA REPOSITORY:
== END 2024-09-28 02:20 ==
LOC: DI 02:01
PROVIDERS: PCP Physician Assistant; Visit Provider Nurse Practitioner Family
DX: R10.13 Epigastric pain (principal); K76.0 Fatty (change of) liver, not elsewhere classified; R16.0 Hepatomegaly, not elsewhere classified
CPT/HCPCS: 76700

== ENCOUNTER 2024-12-12 10:53 | Emergency (ER) | payer MEDICARE, MEDICAID, SELFPAY ==
[2024-12-12 10:54] VITALS: BP 182/83; PULSE 69; RESP 13; TEMP 36.4; O2SAT 94
--- NOTE | 2024-12-12 11:25 | W.ED.GENAD ---
Discharge Plan Disposition Patient Disposition: Home Condition: Stable Discharge Details Clinical Impression: Bursitis, Injury of great toenail Primary Care Provider: Jess Olivia ED Provider: Kathleen Sheikh Home Meds and New Rx's Prescriptions: New cephalexin 500 mg capsule 500 mg PO QID 7 Days Qty: 28 0RF No Action acetaminophen [Tylenol Extra Strength] 500 mg tablet 500 mg PO Q6H PRN nitroglycerin 0.4 mg tablet, sublingual 0.4 mg sublingual Q5-15M PRN Rx Instructions: do not exceed 3 doses per episode fluticasone propion-salmeterol [Advair HFA] 115-21 mcg/actuation HFA aerosol inhaler 2 puff inhalation BID Qty: 12 6RF cholecalciferol (vitamin D3) 50 mcg (2,000 unit) capsule 50 mcg PO DAILY Qty: 90 4RF albuterol sulfate 90 mcg/actuation HFA aerosol inhaler 2 puff inhalation Q6H PRN (Reason: shortness of breath or wheezing) Qty: 8.5 12RF Breztri Aerosphere 160-9-4.8 mcg/actuation HFA aerosol inhaler 2 inh inhalation BID Qty: 10.7 12RF furosemide 40 mg tablet 40 mg PO QAM spironolactone 25 mg tablet 100 mg PO DAILY fluoxetine [Prozac] 40 mg Capsule 40 mg PO QAM atorvastatin 20 mg tablet 20 mg PO HS Patient Comments: TAKE 1 TABLET BY MOUTH DAILY AT BEDTIME Jardiance 10 mg Tablet 10 mg PO QAM Qty: 90 0RF metoprolol succinate 25 mg tablet extended release 24 hr 50 mg PO DAILY Patient Comments: TAKE 1 TABLET BY MOUTH EVERY DAY dexlansoprazole 30 mg capsule,biphase delayed releas 60 mg PO DAILY Patient Comments: TAKE 1 CAPSULE BY MOUTH EVERY DAY Discharge Instructions Instructions: Bursitis (DC), Toe Injury (DC) Additional Instructions: Use Gui wrap for compression of left knee. I feel that bursitis is most likely however we will treat with Keflex in case there is a cellulitis. Your Lyme test is pending. I do recommend follow-up with orthopedics as well as podiatry. Referrals have been placed. Referrals: [facility] [Provider Group] Referral Note: call for follow-up Clinical Impression: Bursitis Jess Olivia [Primary Care Provider, Medicine] - 12/19/24 Zoey Alicia DPM [[facility] STAFF PHYSICIAN, Podiatry] Referral Note: losing great toe nails bilaterally Discharge Data Discharge Physician: Kathleen Sheikh [facility] General Date/Time Provider Initiated Documentation: 12/12/24 11:07. HPI Narrative: 69-year-old male with history of diabetes, asthma, hypertension and coronary disease presents for evaluation of left knee pain and swelling. Patient states that 2 nights ago he felt well when he went to bed however when he woke up he had significant pain in his knee and was unable to move it completely. He does have some swelling and some warmth to the area. He has a history of gout in the past but does not recall having gout in his knee. Denies any known trauma. No fevers or chills. No numbness or tingling. He does have some pain that radiates up to his left hip with walking. He states that he is not able to bend at the knee. No known tick bites or rashes. No history of blood clots. Patient also states that he has some loosening of both of his great toenails. He bought some new shoes and they are getting stuck on that shoe when he puts them on. He has taped them down to keep them in place. There is no erythema or warmth around his toenails. No drainage. He has been soaking them in Epsom salt. Related Data Home Medications ?Medication ?Instructions ?Recorded ?Confirmed atorvastatin 20 mg tablet 20 mg PO HS 12/17/20 12/12/24 acetaminophen 500 mg tablet 500 mg PO Q6H PRN 06/11/21 12/12/24 (Tylenol Extra Strength) fluoxetine 40 mg capsule (Prozac) 40 mg PO QAM 06/21/21 12/12/24 nitroglycerin 0.4 mg sublingual 0.4 mg sublingual Q5-15M PRN 07/26/21 12/12/24 tablet Jardiance 10 mg tablet 10 mg PO QAM #90 tabs 09/10/21 12/12/24 (empagliflozin) fluticasone propionate 115 2 puff inhalation BID #12 grams 02/09/23 12/12/24 mcg-salmeterol 21 mcg/actuation HFA inhaler (Advair HFA) albuterol sulfate 90 mcg/actuation 2 puff inhalation Q6H PRN 01/05/24 12/12/24 aerosol inhaler shortness of breath or wheezing #8.5 grams budesonide 160 mcg-glycopyr 9 2 inh inhalation BID #10.7 grams 01/05/24 12/12/24 mcg-formot 4.8 mcg/actuation HFA inhaler (Breztri Aerosphere) cholecalciferol (vitamin D3) 50 50 mcg PO DAILY #90 caps 01/05/24 12/12/24 mcg (2,000 unit) capsule dexlansoprazole 30 mg 60 mg PO DAILY 01/15/24 12/12/24 capsule,biphase delayed release furosemide 40 mg tablet 40 mg PO QAM 06/17/24 12/12/24 metoprolol succinate 25 mg 50 mg PO DAILY 06/17/24 12/12/24 tablet,extended release 24 hr spironolactone 25 mg tablet 100 mg PO DAILY 06/17/24 12/12/24 cephalexin 500 mg capsule 500 mg PO QID 7 days #28 caps 12/12/24 Previous Rx's ?Medication ?Instructions ?Recorded Jardiance 10 mg tablet 10 mg PO QAM #90 tabs 09/10/21 (empagliflozin) fluticasone propionate 115 2 puff inhalation BID #12 grams 02/09/23 mcg-salmeterol 21 mcg/actuation HFA inhaler (Advair HFA) albuterol sulfate 90 mcg/actuation 2 puff inhalation Q6H PRN 01/05/24 aerosol inhaler shortness of breath or wheezing #8.5 grams budesonide 160 mcg-glycopyr 9 2 inh inhalation BID #10.7 grams 01/05/24 mcg-formot 4.8 mcg/actuation HFA inhaler (Breztri Aerosphere) cholecalciferol (vitamin D3) 50 50 mcg PO DAILY #90 caps 01/05/24 mcg (2,000 unit) capsule cephalexin 500 mg capsule 500 mg PO QID 7 days #28 caps 12/12/24 Allergies Allergy/AdvReac Type Severity Reaction Status Date / Time lisinopril Allergy Intermediate Other (See Verified 12/12/24 10:59 Comment) omeprazole (From Prilosec) Allergy Intermediate Itching Verified 12/12/24 10:59 oxycodone Allergy Itching Verified 12/12/24 10:59 codeine (Codeine) AdvReac NAUSEA Verified 12/12/24 10:59 General Stated Complaint: Orthopedic CATIA: 3 Review of Systems Narrative: Remainder of review of systems otherwise negative except for as noted in the HPI x 10. Exam Narrative Exam Narrative: General: non-toxic, no respiratory distress, comfortable HEENT: normocephalic, atraumatic, lids and lashes normal, PERRL, EOMI, anicteric sclera, no conjunctival injection, moist oral mucosa Musculoskeletal: Erythema, mild warmth, mild swelling to left anterior knee, no pain in palpitated fossa, no bony tenderness to the left hip, femur, lower leg, 2+ dorsal pedal pulses, sensation intact. Thick discolored great toenails bilaterally which are mildly loose but in place, otherwise full range of motion of arms and legs, no tenderness to palpation. no clubbing, cyanosis, or edema Neurologic: appropriate for age, strength normal Psych: alert and oriented Skin: As above, otherwise no petechiae, no lesions, warm and dry Course Vital Signs Vital signs: Vital Signs Temperature 36.4 C 12/12/24 10:54 Pulse 69 12/12/24 10:54 Respiratory Rate 13 12/12/24 10:54 Blood Pressure 182/83 H 12/12/24 10:54 Pulse Oximetry 94 12/12/24 10:54 Temperature 36.4 C 12/12/24 10:54 Temperature Source Oral 12/12/24 10:54 Pulse 69 12/12/24 10:54 Respiratory Rate 13 12/12/24 10:54 Blood Pressure 182/83 H 12/12/24 10:54 Pulse Oximetry 94 12/12/24 10:54 Oxygen Delivery Method Room Air 12/12/24 10:54 Oxygen Flow Rate 0 12/12/24 10:54 Pain Level 8 12/12/24 10:54 Medical Decision Making 69-year-old male presents for evaluation of pain and swelling to left knee. The knee is mildly swollen, erythematous, warm. Laboratory studies are unremarkable. Uric acid is normal. Ultrasound was obtained and negative for DVT. X-ray was obtained which shows prepatellar fluid. Clinically I do feel that bursitis is most likely. Patient will have Gui wrap applied for compression. He does have a cane and walker to use at home. Will start Keflex in case there is some cellulitis. There is no signs of systemic infection at this time. Clinically doubt septic arthritis. There is not a significant amount of swelling today in order to do an arthrocentesis. Tick panel is pending. I have recommended close follow-up with orthopedics. Patient also has loosening to his great toenails bilaterally. There is no visible sign of infection. They do appear to be in place at this time. Wraps were placed. He does need the nails cut as he is getting them stuck on his shoe. He is referred to podiatry for this. I have discussed indications to return. [facility] All Active Problems (Updated 12/12/24 @ 13:36 by Kathleen Sheikh MD) Injury of great toenail (Acute) Bursitis (Acute) Heart failure (Acute) Sensorineural hearing loss, bilateral (Acute) Snoring (Acute) Cerumen impaction (Acute) Glucose intolerance (impaired glucose tolerance) (Chronic) Hyponatremia (Acute) Syncope and collapse (Acute) Asthma (Chronic) Fatigue (Acute) Abnormal chest xray (Acute) Cough (Acute) Tendonitis of long head of biceps brachii of right shoulder (Acute) Primary osteoarthritis, right shoulder (Acute) Bursitis of right shoulder (Acute) Premature ventricular contractions (Acute) Traumatic tear of right rotator cuff (Acute ~10/2021) Rectal bleeding (Acute) Anemia (Chronic) Medication monitoring encounter (Chronic) Ventricular trigeminy (Acute) New onset cough (Acute) Diarrhea (Acute) assoc w/ fatty food injestion Postprandial RUQ pain (Acute) Nonischemic cardiomyopathy (Chronic) HTN (hypertension) with goal to be determined (Acute) Melena (Acute) Depression (Chronic) Obesity (Chronic) Globus sensation (Acute) Exertional chest pain (Acute) Melena (Acute) Diverticulitis (Acute) Gastropathy (Acute) pt needs to curtail ETOH use. Abnormal weight loss (Acute 04/12/12) Alcohol abuse (Acute) Dysphagia (Acute 04/12/12) Epigastric pain (Acute 04/12/12) GERD (gastroesophageal reflux disease) (Chronic) Pulmonary hypertension associated with systemic disorder (Acute) Non-alcoholic fatty liver disease (Acute) Blood glucose elevated (Chronic) Hypertension (Chronic) Memory impairment (Chronic) Medical History Palliative care patient History of head injury Dyslipidemia Left inguinal hernia Tendinitis of long head of biceps brachii of left shoulder Acute pain of left shoulder Contusion of left lower leg Left leg pain Tendonitis of left rotator cuff Injected: 01/03/2020, 04/10/2020, 12/17/2020 Diverticula of colon Gastropathy History of back pain Chest pain Dysphasia Neuropathy Fatty liver Alcohol abuse Situational depression Shoulder pain (11/18/12) Peripheral neuralgia Lumbosacral neuritis (02/27/11) Lesion of ulnar nerve (02/27/11) Impotence of organic origin Full thickness rotator cuff tear (01/18/13) 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 Surgical History History of surgery on upper extremity Hx L shoulder, wrist, fingers, R arm x 8 per Pt History of esophagogastroduodenoscopy (EGD) (~11/2021) Hx of carpal tunnel repair Hx of colonoscopy 08/13/[address] [place] [address] Pastora Noel at [facility], repeat in five years. mg colo 06/05/08 - Dr Cheney - tubular adenoma, descending colon, repeat in 5 years. History of surgical amputation of finger of left hand Machine related injury, R hand per pt 08/13/18 EXOSTECTOMY 03/09/15 DR. YODER; RIGHT GREAT TOE Arthroplasty 03/09/15; DR. HERNANDEZ RIGHT SECOND TOE Appendectomy (~2007) Family History Other Cancer Diabetes Hypertension Social History Smoking/Tobacco Use Status: Former Tobacco Use Smoking risk assessment performed?: Yes Alcohol Intake: former Drug use: Never Substance use type: does not use Household members: none Housing: other current occupation: disabled Current gender identity: male What type of physical activity do you participate in: none Do you feel safe at home: Yes Do you feel safe in your relationship?: Yes Additional Social history: Lives in mobile home alone
[2024-12-12 11:45] LABS: Abs Immature Grans 0.03 10^3/uL (0.0-0.06); HCT 40.4 % (40.0-50.0); HGB 14.1 g/dL (13.5-17.5); Immature Grans % 0.3 %; MCH 29.7 pg (27.0-33.0); MCHC 34.9 % (32.0-36.0); MCV 85 fL (80-95); MPV 11.0 fL (8.0-11.0); Platelet Count 164 10^3/uL (130-400); RBC 4.75 10^6/uL (4.36-5.78); RDW 13.0 % (11.8-14.1); RDW-SD 39.9 fL; WBC 8.70 10^3/uL (4.4-10.8)
--- NOTE | 2024-12-12 12:10 | DI.US_ITS ---
Exam(s) US LOWER EXTREMITY VENOUS LT EXAM: US LOWER EXTREMITY VENOUS LT CLINICAL HISTORY: knee pain, swelling TECHNIQUE: Left lower extremity venous ultrasound performed using grayscale, color-flow, and spectral Doppler analysis. COMPARISON: US US LOWER EXTREMITY VENOUS LT from 12/03/2020 FINDINGS: The left common femoral, femoral and popliteal veins demonstrate normal compressibility, augmentation, and color Doppler. The posterior tibial veins are patent. The saphenofemoral junction is unremarkable. There is no evidence of a [place] cyst. The soft tissues are unremarkable. IMPRESSION: No evidence of a left lower extremity DVT. DATA REPOSITORY:
[2024-12-12 12:11] LABS: ALT 38 U/L (16-63); AST 24 U/L (15-37); Albumin 3.9 g/dL (3.4-5.0); Alkaline Phosphatase 213 U/L (46-116); Anion Gap 8.4 mmol/L (3-11); BUN 15 mg/dL (7-18); Bilirubin, Total 0.7 mg/dL (0.2-1.0); CO2 24.6 mmol/L (21.0-32.0); Calcium 8.8 mg/dL (8.5-10.1); Chloride 103 mmol/L (98-107); Estimated GFR 72.22 (mL/min/1.73m2); Glucose 121 mg/dL (74-106); Potassium 3.9 mmol/L (3.5-5.1); Sodium 136 mmol/L (136-145); Total Protein 7.6 g/dL (6.4-8.2); Uric Acid 5.8 mg/dL (3.5-7.2)
--- NOTE | 2024-12-12 12:14 | DI.RAD_ITS ---
Exam(s) XR KNEE LT 3V AP,LAT,MAIRA EXAM: XR KNEE LT 3V AP,LAT,MAIRA CLINICAL HISTORY: pain, swelling. TECHNIQUE: 2D digital imaging was performed of the left knee. Three images were obtained. AP, lateral and PA tunnel views were obtained. COMPARISON: CR LEFT KNEE 4+ VIEWS from 04/26/2016 CR,XR XR TIB/FIB LT from 12/02/2020 FINDINGS: BONES: No acute fracture is present. No bony destructive lesion is seen. There is an enthesophyte again seen at the superior patella. JOINTS: The knee is normally aligned. No joint effusion is seen. No loose body. SOFT TISSUE: There is soft tissue swelling anterior to the patella. Atherosclerotic calcification is present. IMPRESSION: 1. There is no acute fracture or dislocation. 2. Soft tissue swelling anterior to the patella. DATA REPOSITORY: RADIATION DOSE DELIVERED:
[2024-12-12] MEDS: Ibuprofen 600 MG TAB PO (13:46)
[2024-12-12] MEDS: Cephalexin 500 MG CAP PO (13:46)
[2024-12-12 13:55] VITALS: BP 165/74; PULSE 70; RESP 16; O2SAT 94
[2024-12-13 10:56] LABS: Lyme Ab w Rflx to Lyme Confirm Negative (Negative)
[2024-12-14 23:57] LABS: B. miyamotoi PCR Negative (Negative); Babesia divergens/MO-1 Negative (Negative); Ehrlichia muris eauclairensis Negative (Negative)
== END 2024-12-12 13:55 | disposition home or self-care (01) ==
PROVIDERS: Emergency Provider Emergency Medicine Emergency Medical Services; PCP Physician Assistant
DX: S90.931A Unspecified superficial injury of right great toe, initial encounter (principal); M71.562 Other bursitis, not elsewhere classified, left knee; I10 Essential (primary) hypertension; X58.XXXA Exposure to other specified factors, initial encounter
CPT/HCPCS: 99284 ×2; 73562; 80053; 87798; 84550; 85025; 86618; 93971

== ENCOUNTER → 2024-12-19 08:46 | Outpatient (BNVA) | payer MEDICARE, MEDICAID, SELFPAY | PROVIDERS: PCP Physician Assistant; Referring Provider Physician Assistant; Visit Provider Podiatrist | DX: L97.521 Non-pressure chronic ulcer of other part of left foot limited to breakdown of skin (principal); M79.672 Pain in left foot; M79.671 Pain in right foot; B35.1 Tinea unguium; L60.3 Nail dystrophy; G62.1 Alcoholic polyneuropathy; M20.41 Other hammer toe(s) (acquired), right foot; M20.42 Other hammer toe(s) (acquired), left foot; L60.2 Onychogryphosis; L60.8 Other nail disorders; L85.8 Other specified epidermal thickening | CPT/HCPCS: 11719; 97597; G0127 ==

== ENCOUNTER → 2024-12-29 12:56 | Outpatient (BNVA) | payer MEDICARE, MEDICAID, SELFPAY | PROVIDERS: PCP Physician Assistant; Referring Provider Physician Assistant; Visit Provider Physician Assistant | DX: M17.12 Unilateral primary osteoarthritis, left knee (principal) | CPT/HCPCS: 99213 ==

== ENCOUNTER → 2025-01-11 10:08 | Outpatient (BNVA) | payer MEDICARE, MEDICAID, SELFPAY | PROVIDERS: PCP Physician Assistant; Referring Provider Physician Assistant; Visit Provider Podiatrist | DX: L60.3 Nail dystrophy (principal); B35.1 Tinea unguium; G62.1 Alcoholic polyneuropathy; M79.671 Pain in right foot; M79.672 Pain in left foot; L97.521 Non-pressure chronic ulcer of other part of left foot limited to breakdown of skin; M20.41 Other hammer toe(s) (acquired), right foot; M20.42 Other hammer toe(s) (acquired), left foot; L84 Corns and callosities; Z59.9 Problem related to housing and economic circumstances, unspecified; L85.8 Other specified epidermal thickening; L60.2 Onychogryphosis; L60.8 Other nail disorders; R20.2 Paresthesia of skin | CPT/HCPCS: 11056; 97597 ==

== ENCOUNTER → 2025-02-01 10:53 | Outpatient (BNVA) | payer MEDICARE, MEDICAID, SELFPAY | PROVIDERS: PCP Physician Assistant; Referring Provider Physician Assistant; Visit Provider Podiatrist | DX: L60.3 Nail dystrophy (principal); B35.1 Tinea unguium; L84 Corns and callosities; L97.521 Non-pressure chronic ulcer of other part of left foot limited to breakdown of skin; M79.671 Pain in right foot; M79.672 Pain in left foot; M20.41 Other hammer toe(s) (acquired), right foot; M20.42 Other hammer toe(s) (acquired), left foot; G62.1 Alcoholic polyneuropathy | CPT/HCPCS: 99213; 11042 ==

== ENCOUNTER → 2025-02-16 14:49 | Outpatient (BNVA) | payer MEDICARE, MEDICAID, SELFPAY | PROVIDERS: PCP Physician Assistant; Referring Provider Physician Assistant; Visit Provider Podiatrist | DX: L97.521 Non-pressure chronic ulcer of other part of left foot limited to breakdown of skin (principal); L60.3 Nail dystrophy; B35.1 Tinea unguium; G62.1 Alcoholic polyneuropathy; G62.9 Polyneuropathy, unspecified; M79.671 Pain in right foot; M79.672 Pain in left foot; M20.41 Other hammer toe(s) (acquired), right foot; M20.42 Other hammer toe(s) (acquired), left foot; L84 Corns and callosities | CPT/HCPCS: 93922 ==

== ENCOUNTER → 2025-05-10 13:00 | Outpatient (CLI) | payer MEDICARE, MEDICAID, SELFPAY ==
--- NOTE | 2025-05-10 07:15 | DI.RAD_ITS ---
Exam(s) XR FOOT LT COMPLETE EXAM: XR FOOT LT COMPLETE CLINICAL HISTORY: surgical planning, AQUIRED HAMMERTOES OF BOTH FEET, M20.41 M20.42 L97.521. TECHNIQUE: 2D digital imaging was performed. Three views. COMPARISON: CR XR foot LT complete from 06/06/2018 FINDINGS: BONES: No acute fracture is present. No bony destructive lesion is seen. JOINTS: No dislocation present. Mild degenerative changes at the 1st tarsal metatarsal joint. Mild hammertoe deformities of the 2nd through 4th toes. SOFT TISSUE: Vascular calcifications. IMPRESSION: Mild degenerative changes at the 1st tarsal metatarsal joint. Mild hammertoe deformities. DATA REPOSITORY: RADIATION DOSE DELIVERED:
== END ==
LOC: DI 13:00
PROVIDERS: PCP Physician Assistant; Visit Provider Podiatrist
DX: M20.41 Other hammer toe(s) (acquired), right foot (principal); M20.42 Other hammer toe(s) (acquired), left foot; L97.521 Non-pressure chronic ulcer of other part of left foot limited to breakdown of skin
CPT/HCPCS: 73630